=== PATIENT | male | born 1940 | race Caucasian/White ===

== ENCOUNTER → 2017-09-26 06:50 | Outpatient (CLI) | payer MEDICARE, SELFPAY ==
--- NOTE | 2017-09-26 06:55 | NM_ITS ---
History and Indications: Coronary artery disease, hypertension, diabetes, hyperlipidemia and shortness of breath Procedure: Patient received a 0.4 mg of Lexiscan, resting heart rate was 69 bpm resting blood pressure 148/80, with Lexiscan maximum heart rate achieved was 85 bpm which is less than 85% of the maximum predicted heart rate and a blood pressure was 123/63. With Lexiscan patient complained of shortness of breath and stomach discomfort. Electrocardiogram: Resting electrocardiogram showed sinus rhythm, with Lexiscan there is less than 1.[address] segment depression noted from the baseline EKG. Portion of the Lexiscan is nondiagnostic. Cardiac stress and resting SPECT images: Cardiac stress and rest SPECT images were obtained using technetium 99 Myoview 10.4 mCi at rest and 32.4 mCi at stress, gated SPECT further analysis of segmental wall motion and calculation of the ejection fraction also done. Cardiac stress and rest images show a fixed defect involving the inferior and posterobasal wall with normal contractility in the gated SPECT is likely secondary to soft tissue attenuation, no reversible ischemia seen. Computer derived ejection fraction is 64% with no obvious regional wall motion abnormality, right ventricle is normal size and contractility. Conclusion: 1. The EKG portion of the Lexiscan Myoview is nondiagnostic. 2. No obvious scintigraphic evidence of reversible ischemia seen, either derived ejection fraction is 64% with no obvious regional wall motion abnormality, right ventricle is normal size and contractility.
--- NOTE | 2017-09-26 06:57 | CA_ITS ---
PROCEDURE: 2-D M-mode and color Doppler study INDICATIONS FOR THE TEST: Chest pain COPD Heart Murmur Tobacco Smoking Palpitations Fatigue Syncope Edema Hypertension+Diabetes Mellitus+ Rheumatic Fever SOB+NUGENT Obesity Hyperlipidemia+ Family History HD Additional History PATIENT INFORMATION HEIGHT: 72 WEIGHT:218 GENDER: Male B/P:148/72 2-D/M-MODE INTERPRETATION: 2-D MEASUREMENTS OBSERVED VALUES IN CMS Right Ventricular Dimension (RVDd) 3.0 Interventricular Septum (Thickness)(IVsd) 1.5 Left Ventricular Internal Dimensions(LVIDd) 4.5 Left Ventricular Posterior Wall (Thickness)(LVPWd) 1.3 Aortic Root 4.0 Aortic Cusp Separation 2.2 Left Atrial Dimensions (LAD) 4.5 2D 1. Technically difficult study because of the patient's factor and poor acoustic windows 2. The left atrium is mildly enlarged, left ventricle is normal size, there is mild concentric left ventricular hypertrophy, visually estimated ejection fraction 55% with no obvious regional wall motion abnormality. 3. The right atrium and right ventricle are mildly enlarged with normal contractility. 4. The aortic valve is minimally thickened and fibrosed. 5. The mitral and tricuspid valve leaflets are minimally thickened. 6. No significant pericardial effusion noted. DOPPLER INTERROGATION: Doppler interrogation of the aortic, mitral and tricuspid valvular presence of mild mitral and tricuspid regurgitation, tricuspid and jet velocity insufficient for calculation of the right ventricular systolic pressure, grade 1 diastolic dysfunction seen without tissue Doppler evidence of raised left atrial pressure. CONCLUSION: 1. Mildly enlarged left atrium, normal left ventricular size, mild concentric left ventricular hypertrophy, visually estimated ejection fraction 55% with no obvious regional wall motion abnormality, grade 1 diastolic dysfunction seen without tissue Doppler evidence of raised left atrial pressure. 2. Mild mitral and tricuspid regurgitation 3. No significant pericardial effusion noted.
--- NOTE | 2017-09-26 10:35 | HMH.ITSHM ---
METFORMIN INSULIN COREG LISINOPRIL PLAVIX BLOOD PRESSURE MED
== END ==
PROVIDERS: PCP Family Medicine; Visit Provider Internal Medicine
DX: R94.31 Abnormal electrocardiogram [ECG] [EKG]; I25.10 Atherosclerotic heart disease of native coronary artery without angina pectoris; E78.4 Other hyperlipidemia; R06.02 Shortness of breath; R06.01 Orthopnea; E11.9 Type 2 diabetes mellitus without complications; R06.00 Dyspnea, unspecified
CPT/HCPCS: 78452; 93017; 93306; A9502; J2785

== ENCOUNTER 2019-02-12 14:35 | Inpatient (IN) ==
[2019-02-12 14:59] LABS: Basophils # 0.1 K/mm3 (0-0.2); Basophils % 0.7 % (0.1-2.0); Eosinophils # 0.4 K/mm3 (0.0-0.4); Eosinophils % 2.9 % (0.1-12.0); Lymphocytes # 1.6 K/mm3 (0.7-4.5); Lymphocytes % 11.6 % (10-50); Mean Corpuscular HGB Conc 29.7 g/dL (31.8-35.4); Mean Corpuscular Volume 95.5 fl (80-94); Mean Platelet Volume 8.2 fl (7.4-10.4); Monocytes # 0.9 K/mm3 (0.1-1.0); Monocytes % 6.6 % (1.7-9.3); Neutrophils # 10.7 K/mm3 (1.8-7.8); Neutrophils % 78.3 % (37.0-80.0); Red Blood Count 2.26 M/mm3 (4.60-6.20); Red Cell Distribution Width 16.6 % (11.5-17.5); White Blood Count 13.7 K/mm3 (4.8-10.8)
[2019-02-12 15:05] LABS: Albumin/Globulin Ratio 0.4 (1.1-1.8); Anion Gap 16.3 mEq/L (5-15); Bilirubin,Total 0.2 mg/dL (0.2-1.0); Calcium 8.6 mg/dL (8.5-10.1); Globulin 5.2 gm/dl (1.3-3.2); Total Protein,Serum 7.2 gm/dL (6.4-8.2)
--- NOTE | 2019-02-12 15:08 | Emergency Department Note ---
ED Disposition Clinical Impression: Anemia, blood loss, Upper GI bleed Urinary tract infection Qualifiers: Urinary tract infection type: site unspecified Hematuria presence: with hematuria Qualified Code(s): N39.0 - Urinary tract infection, site not specified; R31.9 - Hematuria, unspecified Chronic renal failure Qualifiers: Chronic kidney disease stage: unspecified stage Qualified Code(s): N18.9 - Chronic kidney disease, unspecified Disposition: Admitted As Inpatient Condition on Discharge: Fair - Critical Care Critical Care Time: No Attestation: On 02/12/19, the high probability of a clinically significant, sudden or life threatening deterioration of the following system(s) required my full and direct attention, intervention and personal management. The time I documented below is in addition to time spent performing reported procedures but includes the following listed in this critical care notation. Medical Decision Making - John Inquiry Pt receiving controlled substance: No Vital Signs: 02/12/19 14:33 02/12/19 16:32 Temperature 98.1 F Temperature Source Oral Pulse Rate [Right Radial] 85 78 Respiratory Rate 18 17 Blood Pressure [Right Arm] 108/58 L 95/55 L Blood Pressure Mean [Right Arm] 74 68 Blood Pressure Source [Right Arm] Automatic Cuff Automatic Cuff Blood Pressure Position [Right Arm] Sitting Sitting 02 Sat by Pulse Oximetry 95 95 Oxygen Delivery Method Nasal Cannula Nasal Cannula Oxygen Flow Rate (LPM) 2 2 - Lab Data Lab Results 02/12/19 14:39: WBC 13.7 H, RBC 2.26 L, Hgb 6.4 L*, Hct 21.6 L*, MCV 95.5 H, MCH 28.4, MCHC 29.7 L, RDW 16.6, Plt Count 780 H, MPV 8.2, Neut % (Auto) 78.3, Lymph % (Auto) 11.6, [place] % (Auto) 6.6, Eos % (Auto) 2.9, Baso % (Auto) 0.7, Neut # (Auto) 10.7 H, Lymph # (Auto) 1.6, [place] # (Auto) 0.9, Eos # (Auto) 0.4, Baso # (Auto) 0.1 02/12/19 14:39: Sodium 135 L, Potassium 5.3 H, Chloride 98, Carbon Dioxide 26, Anion Gap 16.3 H, BUN 73 H, Creatinine 3.45 H, Estimated Creat Clear 21, Estimated GFR 17 L*, Est GFR ( Amer) 21 L, Glucose 168 H, Calcium 8.6, Total Bilirubin 0.2, AST 14 L, ALT 23, Alkaline Phosphatase 109, Total Protein 7.2, Albumin 2.0 L, Globulin 5.2 H, Albumin/Globulin Ratio 0.4 L 02/12/19 15:15: Stool Occult Blood Negative 02/12/19 16:15: Urine Color Yellow, Urine Appearance Clear, Urine pH 6.5, Ur Specific [place] 1.015, Urine Protein 1+, Urine Glucose (UA) Negative, Urine Ketones Negative, Urine Blood 2+, Urine Nitrate Positive, Urine Bilirubin Negative, Urine Urobilinogen 0.2, Ur Leukocyte Esterase 3+ A, Urine RBC 3-5, Urine WBC 50-100, Ur Squamous Epith Cells Occasional, Urine Bacteria 1+ Result diagrams: 02/12/19 14:39 02/12/19 14:39 Orders (Tests/Meds): ORDERS Category Date Time Status Urine Culture Stat Micro 02/12/19 16:15 Received - Physician Consults Physician Consulted: Hadley Time: 16:18 Reason -: Admission Comment/Response: Agrees to admit the patient to the hospital. We discussed the patient's clinical information, including history, exam, laboratory and radiology results and ED course. Per hospital procedure, I will write temporary bridge inpatient orders on the patient. Specific orders requested by the admitting physician: Transfused 2 units packed red blood cells. He will see him soon. Medical Decision Narrative: 4:11 PM: Patient's is now here. Patient has urinated in a urinal in the emergency department and is extremely cloudy urine. She says that it has been this way for a couple of weeks. She says that his urine smells. Urine analysis ordered. Discussed hemoglobin results and need for admission and transfusion. General Adult HPI - General Chief complaint: GI Bleed Stated complaint: BLACK TARRY STOOL Time Seen by Provider: 02/12/19 15:08 Mode of Arrival: EMS Limitations: No Limitations Description of Symptoms (Recalled from ER Triage Doc. by RN): PT WAS SENT TO ED VIA EMS PER HOME HEALTH NURSE. PT C/O BLACK TARRY STOOLS THAT BEGAN 6 DAYS. PT STATES THAT HIS LAST BM WAS 2 DAYS AGO. PT ADVISES THAT HE HAD BLOOD DRAWN 6 DAYS AGO AND WAS SAID TO BE ANEMIC. PT DENIES ANY ABD PAIN, N/V OR NEW ONSET SOA. - History of Present Illness HPI narrative: States he has had black tarry stools that he noticed first about a days ago. Denies abdominal pain, vomiting, hematemesis. Today he just complains of feeling generally weak. He says his home health nurse saw him today and told him that he looked bad and that he needed to come to the emergency room. He does not recall any prior history of GI bleed and to his knowledge he has not had upper or lower endoscopy in the past. He is noted to be on aspirin and Plavix. - Related Data Home Medications Medication Instructions Recorded Confirmed aspirin 81 mg tablet,delayed 81 mg PO DAILY tab 09/18/17 12/13/18 release glipizide 10 mg tablet 20 mg PO BID tab 09/18/17 12/13/18 insulin aspart U-100 100 unit/mL 36 unit SUB-Q QAM ml 09/18/17 12/13/18 subcutaneous solution metformin 1,000 mg tablet 1,000 mg PO BID 09/18/17 12/13/18 nitroglycerin 0.4 mg sublingual 0.4 mg SUBLINGUAL Q5M PRN 09/18/17 12/13/18 tablet ranitidine 150 mg tablet 150 mg PO BID tab 09/18/17 12/13/18 Amlodipine Besylate [Amlodipine 10 mg PO DAILY 12/13/18 12/13/18 10mg Tab] Atorvastatin Calcium [Lipitor 20mg 20 mg PO DAILY 12/13/18 12/13/18 Tablet] Clopidogrel Bisulfate [Plavix 75mg 75 mg PO DAILY 12/13/18 12/13/18 Tab] Furosemide [Furosemide 20mg Tab] 20 mg PO DAILY 12/13/18 12/13/18 Lisinopril [Prinivil 20mg Tablet] 20 mg PO BID 12/13/18 12/13/18 Previous Rx's Medication Instructions Recorded carvedilol 12.5 mg tablet 12.5 mg PO BID #60 tab 02/11/19 Allergies Allergy/AdvReac Type Severity Reaction Status Date / Time No Known Allergies Allergy Verified 10/02/18 09:00 [facility] History - Hepatitis A Screen Drug use history?: No High risk sexual behaviors?: No History of sexually transmitted infection?: No Currently employed?: No Childcare worker?: No Do you have indoor plumbing?: Yes Do you have electricity?: Yes Attestation statement:: This patient has been screened for Hepatitis A risk factors. I have reviewed the patient's past medical history: Yes Medical History: Reports:: Cancer, Coronary Artery Disease, Diabetes Mellitus Type 2, Gastroesophageal Reflux Disease(GERD), Hyperlipidemia, Hypertension Other Surgeries: Yes: Cardiac Catheterization - Social History Smoking Status: Former smoker Alcohol Intake: never Alcohol Intake Frequency:: other Substance Use Type: denies use Occupational Status: unemployed, disabled Family Hx:: Heart Attack ROS Obtained: Yes All systems reviewed & no additional complaints - Constitutional Constitutional: Reports fatigue, Denies fever(s) - Cardiovascular Cardiovascular: Denies chest pain - Respiratory Respiratory: No dyspnea - Gastrointestinal Gastrointestingal: Reports: black, tarry stools. Denies: abdominal pain, bright red blood in stools, vomiting - Neurologic Neurologic: Denies headache(s) Physical Exam - General General appearance: alert, in no apparent distress - Head Head exam: atraumatic, normocephalic - Eye Eye exam: Present: normal appearance, EOMI - ENT ENT exam: Present: mucous membranes moist - Neck Neck exam: Present: normal inspection, trachea midline - Chest Chest inspection: Present: normal inspection, symmetric chest wall rise - Respiratory Respiratory exam: Present: normal lung sounds bilaterally. Absent: respiratory distress - Cardiovascular Cardiovascular exam: Present: regular rate, normal rhythm, normal heart sounds - Abdominal Exam Abdominal exam: Present: soft, normal bowel sounds. Absent: distention, tenderness, guarding - Rectal Exam Rectal exam: Present: normal inspection, normal rectal tone. Absent: black stool, bloody stool, fecal impaction, mass, tenderness comment: Bandage over coccyx area, which he says is covering a bedsore. Light brown-colored stool - Extremities Exam Extremities exam: Present: normal inspection - Neurological Exam Neurological exam: Present: alert, oriented X3 - Psychiatric Psychiatric exam: Present: normal affect, normal mood - Skin Skin exam: Present: warm, dry
[2019-02-12 15:46] LABS: Hemoglobin 6.4 g/dL (14.1-18.0)
[2019-02-12 15:47] LABS: Hematocrit 21.6 % (42.0-52.0); Platelet Count 780 K/mm3 (142-424)
[2019-02-12 16:22] LABS: Microscopic, Urine URINE MICROSCOPIC (MICROSCOPIC)
[2019-02-12 16:29] LABS: Appearance,Urine CLEAR (Clear); Bilirubin,Urine Negative (Negative); Blood, Urine 2+ (Negative); Color,Urine YELLOW (Yellow); Glucose,Urine (UA) Negative (Negative); Ketones,Urine Negative (Negative); Leukocyte Esterase,Urine 3+ (Negative); PH,Urine 6.5 (5.0-8.5); Protein,Urine 1+ (Negative); Specific Gravity, Urine 1.015 (1.005-1.030); Urobilinogen,Urine 0.2 EU/dl (0.2)
[2019-02-12 16:43] LABS: Bacteria,Urine 1+ /lpf; Squamous Epithelial Cell,Urine Occasional #/hpf (0-5); WBC,Urine 50-100 #/hpf (0-3)
--- NOTE | 2019-02-12 17:49 | History & Physical Report ---
*Admission Date: 02/12/19 *Chief complaint: Weakness *History of present illness: 78-year-old male brought to the emergency department because for the last week he is developed progressive weakness with loss of appetite in 1 week ago began passing dark black stools. He has no personal history of ulcer disease. He does take aspirin and Plavix. While he endorses loss of appetite he denies any abdominal pain. He has never had an EGD or colonoscopy. In the emergency department he was found to be anemic with acute kidney injury and he was mildly hypotensive. Stool was negative for blood but history would indicate upper GI bleed. Patient is been admitted for IV fluids and transfusion of 2 units of pa cked red blood cells. notified the ER physician that the patient had an abnormal appearance to his urine and urinalysis was performed which also supports urinary tract infection. Patient has been started on Rocephin intravenously [facility] History I have reviewed the patient's past medical history: Yes Medical History: Reports:: Cancer, Coronary Artery Disease, Diabetes Mellitus Type 2, Gastroesophageal Reflux Disease(GERD), Hyperlipidemia, Hypertension *Have you ever received a pneumonia vaccine?: Yes *Have you received a flu vaccine this season?: Yes Other Surgeries: Yes: Cardiac Catheterization - *Social History Smoking Status: Former smoker Alcohol Intake: never Alcohol Intake Frequency:: other Substance Use Type: denies use *Occupational Status:: unemployed, disabled *Travel in the last 8 weeks: None Family Hx:: Heart Attack Review of Systems - Constitutional Reports anorexia, Reports fatigue, Reports weakness, Denies body ache(s), Denies chills, Denies fever(s), Denies night sweats - *Cardiovascular Denies chest pain - *Respiratory Denies change in phlegm color, Denies chest congestion, Denies cough, Denies shortness of breath - *Gastrointestinal Denies abdominal pain, Denies belching, Denies bloating, Denies change in bowel habits - *Genitourinary Denies difficulty urinating, Denies difficulty with ejaculations - *Musculoskeletal Denies abnormal walking - Integumentary/Breasts Denies acne, Denies hair loss, Denies bleeding lesions - *Neurologic Denies abnormal walking, Denies headache(s) Meds Home Medications Medication Instructions Recorded Confirmed Type aspirin 81 mg tablet,delayed 81 mg PO DAILY tab 09/18/17 12/13/18 History release glipizide 10 mg tablet 20 mg PO BID tab 09/18/17 12/13/18 History insulin aspart U-100 100 unit/mL 36 unit SUB-Q QAM ml 09/18/17 12/13/18 History subcutaneous solution metformin 1,000 mg tablet 1,000 mg PO BID 09/18/17 12/13/18 History nitroglycerin 0.4 mg sublingual 0.4 mg SUBLINGUAL Q5M PRN 09/18/17 12/13/18 History tablet ranitidine 150 mg tablet 150 mg PO BID tab 09/18/17 12/13/18 History Amlodipine Besylate [Amlodipine 10 mg PO DAILY 12/13/18 12/13/18 History 10mg Tab] Atorvastatin Calcium [Lipitor 20mg 20 mg PO DAILY 12/13/18 12/13/18 History Tablet] Clopidogrel Bisulfate [Plavix 75mg 75 mg PO DAILY 12/13/18 12/13/18 History Tab] Furosemide [Furosemide 20mg Tab] 20 mg PO DAILY 12/13/18 12/13/18 History Lisinopril [Prinivil 20mg Tablet] 20 mg PO BID 12/13/18 12/13/18 History carvedilol 12.5 mg tablet 12.5 mg PO BID #60 tab 02/11/19 Rx Allergies Allergy/AdvReac Type Severity Reaction Status Date / Time No Known Allergies Allergy Verified 10/02/18 09:00 Exam Vital signs and Labs for Last 24 Hours: Temp Pulse Resp BP Pulse Ox 98.1 F 82 17 92/52 L 96 02/12/19 14:33 02/12/19 17:27 02/12/19 16:32 02/12/19 17:27 02/12/19 17:27 Laboratory Results - last 24 hr 02/12/19 14:39: WBC 13.7 H, RBC 2.26 L, Hgb 6.4 L*, Hct 21.6 L*, MCV 95.5 H, MCH 28.4, MCHC 29.7 L, RDW 16.6, Plt Count 780 H, MPV 8.2, Neut % (Auto) 78.3, Lymph % (Auto) 11.6, [place] % (Auto) 6.6, Eos % (Auto) 2.9, Baso % (Auto) 0.7, Neut # (Auto) 10.7 H, Lymph # (Auto) 1.6, [place] # (Auto) 0.9, Eos # (Auto) 0.4, Baso # (Auto) 0.1 02/12/19 14:39: Sodium 135 L, Potassium 5.3 H, Chloride 98, Carbon Dioxide 26, Anion Gap 16.3 H, BUN 73 H, Creatinine 3.45 H, Estimated Creat Clear 21, Estimated GFR 17 L*, Est GFR ( Amer) 21 L, Glucose 168 H, Calcium 8.6, Total Bilirubin 0.2, AST 14 L, ALT 23, Alkaline Phosphatase 109, Total Protein 7.2, Albumin 2.0 L, Globulin 5.2 H, Albumin/Globulin Ratio 0.4 L 02/12/19 15:15: Stool Occult Blood Negative 02/12/19 16:15: Urine Color Yellow, Urine Appearance Clear, Urine pH 6.5, Ur Specific [place] 1.015, Urine Protein 1+, Urine Glucose (UA) Negative, Urine Ketones Negative, Urine Blood 2+, Urine Nitrate Positive, Urine Bilirubin Negative, Urine Urobilinogen 0.2, Ur Leukocyte Esterase 3+ A, Urine RBC 3-5, Urine WBC 50-100, Ur Squamous Epith Cells Occasional, Urine Bacteria 1+ 02/12/19 17:10: Crossmatch (AHG) See Detail I & O for Last 24 hours: Intake & Output 02/10/19 02/11/19 02/12/19 02/13/19 11:59 11:59 11:59 11:59 Weight 190 lb - Constitutional no acute distress Comments: Pale - *Routine HEENT Exam Head: Present: normocephalic Eye: Present: EOMI ENT: Present: mucous membranes moist - *Routine Neck Exam Present: supple, full ROM - *Routine Respiratory Exam Present: CTA bilaterally - *Routine Cardiovascular Exam Present: RRR, Normal S1, Normal S2 - *Routine Abdominal Exam Present: soft, normoactive bowel sounds. Absent: tenderness, distended, rebound - *Routine Extremities Exam Present: full ROM. Absent: cyanosis, clubbing - *Routine Skin Exam Present: intact Assessment and Plan (1) Upper GI bleed Current visit: Yes Status: Acute Category: Medical Code(s): K92.2 - Gastrointestinal hemorrhage, unspecified (2) Acute kidney injury Current visit: Yes Status: Acute Category: Medical Code(s): N17.9 - Acute kidney failure, unspecified (3) Anemia, blood loss Current visit: Yes Status: Acute Category: Medical Code(s): D50.0 - Iron deficiency anemia secondary to blood loss (chronic) (4) UTI (urinary tract infection) Current visit: Yes Status: Acute Qualifiers: Urinary tract infection type: site unspecified Hematuria presence: with hematuria Qualified Code(s): N39.0 - Urinary tract infection, site not specified; R31.9 - Hematuria, unspecified Category: Medical Code(s): N39.0 - Urinary tract infection, site not specified - Assessment and plan all Dx Assessment and Plan for all problems:: 1. Admit for transfusion of 2 units of packed red blood cells with 1 hour posttransfusion H&H and repeat CBC in a.m. 2. Rocephin 1 g IV daily 3. Repeat BMP in a.m. 4. Hold glipizide and metformin for diabetes. Patient will be given sliding scale insulin 5. Hold hypertensive medications due to hypotension. Continue normal saline at 100 mL's an hour
[2019-02-13 04:19] LABS: Hematocrit 24.8 % (42.0-52.0)
[2019-02-13 04:22] LABS: Hemoglobin 7.9 g/dL (14.1-18.0)
[2019-02-13 06:26] LABS: Basophils # 0.1 K/mm3 (0-0.2); Basophils % 0.4 % (0.1-2.0); Eosinophils # 0.2 K/mm3 (0.0-0.4); Eosinophils % 1.7 % (0.1-12.0); Hemoglobin 8.1 g/dL (14.1-18.0); Lymphocytes # 1.1 K/mm3 (0.7-4.5); Lymphocytes % 7.8 % (10-50); Mean Corpuscular HGB Conc 31.3 g/dL (31.8-35.4); Mean Corpuscular Volume 92.8 fl (80-94); Mean Platelet Volume 8.1 fl (7.4-10.4); Monocytes # 0.9 K/mm3 (0.1-1.0); Monocytes % 6.1 % (1.7-9.3); Neutrophils # 12.4 K/mm3 (1.8-7.8); Neutrophils % 84.2 % (37.0-80.0); Platelet Count 644 K/mm3 (142-424); Red Cell Distribution Width 15.9 % (11.5-17.5); White Blood Count 14.7 K/mm3 (4.8-10.8)
--- NOTE | 2019-02-13 06:26 | Consult Report ---
*Admission Date: 02/12/19 *Reason for consult:: Gastrointestinal hemorrhage *History of present illness: This is an 78-year-old gentleman seen in consultation from Dr. Butcher for evaluation regarding likely upper gastrointestinal bleed. Over the past "week or so" he has had some increasing weakness and loss of appetite. His stools have become significantly darker. No bright red blood per rectum. No hemat emesis. He does take aspirin and Plavix. He has no history of endoscopy. No definite history of peptic ulcer disease. He has received 2 units of packed red blood cells since admission and states he "feels much better right now". Review of Systems - Constitutional Denies chills - Eyes Denies change in vision - ENT Denies headache(s) - *Cardiovascular Denies chest pain - *Respiratory Denies cough - *Gastrointestinal Denies abdominal pain, Denies vomiting blood - *Genitourinary Denies side pain - *Musculoskeletal Denies neck pain - Integumentary/Breasts Denies lesions - *Neurologic Reports weakness, Denies abnormal walking, Denies headache(s) - Psychiatric Denies anxiety - Endocrine Denies cold intolerance - Hematologic/Lymphatic Denies enlarged lymph nodes [facility] History Medical History: Reports:: Cancer, Coronary Artery Disease, Diabetes Mellitus Type 2, Gastroesophageal Reflux Disease(GERD), Hyperlipidemia, Hypertension Denies:: Diabetes Mellitus Type 1, MRSA *Have you ever received a pneumonia vaccine?: Yes *Have you received a flu vaccine this season?: Yes Other Surgeries: Yes: Cardiac Catheterization Amputation: No - *Social History Smoking Status: Former smoker Alcohol Intake: never Alcohol Intake Frequency:: other Substance Use Type: denies use *Occupational Status:: unemployed, disabled Housing: house Household Members: spouse *Travel in the last 8 weeks: None Family Hx:: Heart Attack Meds Home Medications Medication Instructions Recorded Confirmed Type aspirin 81 mg tablet,delayed 81 mg PO DAILY tab 09/18/17 02/12/19 History release insulin aspart U-100 100 unit/mL 30 unit SUB-Q HS ml 09/18/17 02/12/19 History subcutaneous solution metformin 1,000 mg tablet 1,000 mg PO BID 09/18/17 02/12/19 History Amlodipine Besylate [Amlodipine 10 mg PO DAILY 12/13/18 02/12/19 History 10mg Tab] Atorvastatin Calcium [Lipitor 20mg 20 mg PO DAILY 12/13/18 02/12/19 History Tablet] Clopidogrel Bisulfate [Plavix 75mg 75 mg PO DAILY 12/13/18 02/12/19 History Tab] Furosemide [Furosemide 20mg Tab] 20 mg PO DAILY 12/13/18 02/12/19 History Lisinopril [Prinivil 20mg Tablet] 20 mg PO BID 12/13/18 02/12/19 History carvedilol 12.5 mg tablet 12.5 mg PO BID #60 tab 02/11/19 02/12/19 Rx Allergies Allergy/AdvReac Type Severity Reaction Status Date / Time No Known Allergies Allergy Verified 10/02/18 09:00 Exam Vital signs and Labs for Last 24 Hours: Temp Pulse Resp BP Pulse Ox 98.7 F 84 18 118/62 95 02/13/19 03:42 02/13/19 03:42 02/13/19 03:42 02/13/19 03:42 02/13/19 03:42 Laboratory Results - last 24 hr 02/12/19 14:39: WBC 13.7 H, RBC 2.26 L, Hgb 6.4 L*, Hct 21.6 L*, MCV 95.5 H, MCH 28.4, MCHC 29.7 L, RDW 16.6, Plt Count 780 H, MPV 8.2, Neut % (Auto) 78.3, Lymph % (Auto) 11.6, [place] % (Auto) 6.6, Eos % (Auto) 2.9, Baso % (Auto) 0.7, Neut # (Auto) 10.7 H, Lymph # (Auto) 1.6, [place] # (Auto) 0.9, Eos # (Auto) 0.4, Baso # (Auto) 0.1 02/12/19 14:39: Sodium 135 L, Potassium 5.3 H, Chloride 98, Carbon Dioxide 26, Anion Gap 16.3 H, BUN 73 H, Creatinine 3.45 H, Estimated Creat Clear 21, E stimated GFR 17 L*, Est GFR ( Amer) 21 L, Glucose 168 H, Calcium 8.6, Total Bilirubin 0.2, AST 14 L, ALT 23, Alkaline Phosphatase 109, Total Protein 7.2, Albumin 2.0 L, Globulin 5.2 H, Albumin/Globulin Ratio 0.4 L 02/12/19 15:15: Stool Occult Blood Negative 02/12/19 16:15: Urine Color Yellow, Urine Appearance Clear, Urine pH 6.5, Ur Specific [place] 1.015, Urine Protein 1+, Urine Glucose (UA) Negative, Urine Ketones Negative, Urine Blood 2+, Urine Nitrate Positive, Urine Bilirubin Negative, Urine Urobilinogen 0.2, Ur Leukocyte Esterase 3+ A, Urine RBC 3-5, Urine WBC 50-100, Ur Squamous Epith Cells Occasional, Urine Bacteria 1+ 02/12/19 17:10: Blood Type O Positive, Antibody Screen Negative, Crossmatch (AHG) See Detail 02/12/19 18:33: Blood Type Confirm O Positive 02/12/19 22:03: POC Glucose 191 H 02/13/19 04:00: Hgb 7.9 L* D, Hct 24.8 L I & O for Last 24 hours: Intake & Output 02/10/19 02/11/19 02/12/19 02/13/19 11:59 11:59 11:59 11:59 Intake Total 490 / 490 Balance 490 / 490 Weight 181 lb 2 oz - Constitutional no acute distress - *Routine Respiratory Exam Absent: respiratory distress - *Routine Cardiovascular Exam Present: RRR - *Routine Abdominal Exam Present: soft Results - Labs 02/13/19 04:00 02/12/19 14:39 Laboratory Results - last 24 hr 02/12/19 14:39: WBC 13.7 H, RBC 2.26 L, Hgb 6.4 L*, Hct 21.6 L*, MCV 95.5 H, MCH 28.4, MCHC 29.7 L, RDW 16.6, Plt Count 780 H, MPV 8.2, Neut % (Auto) 78.3, Lymph % (Auto) 11.6, [place] % (Auto) 6.6, Eos % (Auto) 2.9, Baso % (Auto) 0.7, Neut # (Auto) 10.7 H, Lymph # (Auto) 1.6, [place] # (Auto) 0.9, Eos # (Auto) 0.4, Baso # (Auto) 0.1 02/12/19 14:39: Sodium 135 L, Potassium 5.3 H, Chloride 98, Carbon Dioxide 26, Anion Gap 16.3 H, BUN 73 H, Creatinine 3.45 H, Estimated Creat Clear 21, Estimated GFR 17 L*, Est GFR ( Amer) 21 L, Glucose 168 H, Calcium 8.6, Total Bilirubin 0.2, AST 14 L, ALT 23, Alkaline Phosphatase 109, Total Protein 7.2, Albumin 2.0 L, Globulin 5.2 H, Albumin/Globulin Ratio 0.4 L 02/12/19 15:15: Stool Occult Blood Negative 02/12/19 16:15: Urine Color Yellow, Urine Appearance Clear, Urine pH 6.5, Ur Specific [place] 1.015, Urine Protein 1+, Urine Glucose (UA) Negative, Urine Ketones Negative, Urine Blood 2+, Urine Nitrate Positive, Urine Bilirubin N egative, Urine Urobilinogen 0.2, Ur Leukocyte Esterase 3+ A, Urine RBC 3-5, Urine WBC 50-100, Ur Squamous Epith Cells Occasional, Urine Bacteria 1+ 02/12/19 17:10: Blood Type O Positive, Antibody Screen Negative, Crossmatch (AHG) See Detail 02/12/19 18:33: Blood Type Confirm O Positive 02/12/19 22:03: POC Glucose 191 H 02/13/19 04:00: Hgb 7.9 L* D, Hct 24.8 L Assessment and Plan (1) Upper GI bleed Current visit: Yes Status: Acute Category: Medical Code(s): K92.2 - Gastrointestinal hemorrhage, unspecified Continue PPI Esophagogastroduodenoscopy this morning I have discussed the risks and benefits including, but not limited to: Bleeding Infection Damage to surrounding tissue Inherent risks of sedation The patient agrees to proceed. (2) Acute kidney injury Current visit: Yes Status: Acute Category: Medical Code(s): N17.9 - Acute kidney failure, unspecified (3) Anemia, blood loss Current visit: Yes Status: Acute Category: Medical Code(s): D50.0 - Iron deficiency anemia secondary to blood loss (chronic) (4) UTI (urinary tract infection) Current visit: Yes Status: Acute Qualifiers: Urinary tract infection type: site unspecified Hematuria presence: with hematuria Qualified Code(s): N39.0 - Urinary tract infection, site not specified; R31.9 - Hematuria, unspecified Category: Medical Code(s): N39.0 - Urinary tract infection, site not specified
[2019-02-13 06:37] LABS: Anion Gap 13.1 mEq/L (5-15); Calcium 8.4 mg/dL (8.5-10.1)
--- NOTE | 2019-02-13 07:40 | Procedure Note ---
- Procedure: Date: 02/13/19 Procedure Performed:: Esophagogastroduodenoscopy with biopsy Indications:: Upper gastrointestinal hemorrhage Performing Provider:: Jd Sampson MD Referring Provider:: Dr. Butcher Sedation:: Monitored anesthesia care Procedure:: After informed consent was obtained the patient was taken to the endoscopy suite. Sedation ensued after the patient was transferred to the left lateral decubitus position. Pulse, blood pressure, and oxygen saturation were monitored throughout the procedure. The endoscope was advanced beyond the duodenal bulb. Retroflexion within the gastric lumen was accomplished. The gastroscope was carefully removed and the patient was transferred to recovery in stable condition. Please see "findings" and "specimens" below for detail. Findings:: Sliding hiatal hernia Small erosion at gastroesophageal junction 3 tiny antral ulcerations with no sign of active bleeding 4 separate duodenal bulb/distal duodenal ulcerations with no sign of active hemorrhage Fibrinous exudate at base of complex ulcerations Specimens:: Antral biopsy Recommendations:: Continue PPI Begin Carafate Repeat EGD in 4-6 weeks Complications:: No immediate Estimated blood obtained (mL): 1
--- NOTE | 2019-02-13 07:57 | Progress Note ---
[facility] Anesthesia Checklist - Patient Identification Patient Identification: Arm Band, Verbal (Name & ) - Structural Data Admitted From: Inpatient Planned Operative Procedure/s: egd Consent for Planned Operative Procedure(s) Verified: Yes Verified Documents: History and Physical - NPO Status Verified Time NPO: 00:00 - Additional verifications Patient : No Anesthesia Reactions: No Hx Blood Transfusions: No Blood Transfusion Reaction: No Cephalosporin Allergy: No Previous Colonoscopy: Yes - Cardiovascular Assessment Heart Sounds: S1 & S2 Pulse Strength: Baseline Pulse Rhythm: Regular Peripheral Edema: No - Airway Assessment C-Spine Mobility Assessed: Yes TMJ Mobility Assessed: Yes Dentition: Good Dentition - Neurological Assessment Level of Consciousness: Awake, Alert, Appropriate Hx Seizures: No Numbness or tingling in extremities: No - Anesthesia Plan Anesthesia Risk discussed: Yes Anesthesia Plan: Verified ASA Class: III Anesthesia Type: MAC [facility] History I have reviewed the patient's past medical history: Yes Medical History: Reports:: Cancer, Coronary Artery Disease, Diabetes Mellitus Type 2, Gastroesophageal Reflux Disease(GERD), Hyperlipidemia, Hypertension Denies:: Diabetes Mellitus Type 1, MRSA *Have you ever received a pneumonia vaccine?: Yes *Have you received a flu vaccine this season?: Yes Other Surgeries: Yes: Cardiac Catheterization Amputation: No - *Social History Smoking Status: Former smoker Alcohol Intake: never Alcohol Intake Frequency:: other Substance Use Type: denies use *Occupational Status:: unemployed, disabled Housing: house Household Members: spouse *Travel in the last 8 weeks: None Family Hx:: Heart Attack
--- NOTE | 2019-02-13 07:59 | Progress Note ---
Internal Medicine - PN: Subj *Date: 02/13/19 *Time: 07:57 Interval history: Patient has just completed his EGD which revealed peptic ulcer disease but no active bleeding. Patient admits he feels a little bit better this morning after his blood transfusion. His H&H has remained stable posttransfusion. Staff report mild elevation of his heart rate to the 120s. On the monitor it appears to be sinus tachycardia but we will get an EKG today. Exam Vital signs and Labs for Last 24 Hours: Temp Pulse Resp BP Pulse Ox 98.7 F 84 18 118/62 95 02/13/19 03:42 02/13/19 03:42 02/13/19 03:42 02/13/19 03:42 02/13/19 03:42 Laboratory Results - last 24 hr 02/12/19 14:39: WBC 13.7 H, RBC 2.26 L, Hgb 6.4 L*, Hct 21.6 L*, MCV 95.5 H, MCH 28.4, MCHC 29.7 L, RDW 16.6, Plt Count 780 H, MPV 8.2, Neut % (Auto) 78.3, Lymph % (Auto) 11.6, [place] % (Auto) 6.6, Eos % (Auto) 2.9, Baso % (Auto) 0.7, Neut # (Auto) 10.7 H, Lymph # (Auto) 1.6, [place] # (Auto) 0.9, Eos # (Auto) 0.4, Baso # (Auto) 0.1 02/12/19 14:39: Sodium 135 L, Potassium 5.3 H, Chloride 98, Carbon Dioxide 26, Anion Gap 16.3 H, BUN 73 H, Creatinine 3.45 H, Estimated Creat Clear 21, Estimated GFR 17 L*, Est GFR ( Amer) 21 L, Glucose 168 H, Calcium 8.6, Total Bilirubin 0.2, AST 14 L, ALT 23, Alkaline Phosphatase 109, Total Protein 7.2, Albumin 2.0 L, Globulin 5.2 H, Albumin/Globulin Ratio 0.4 L 02/12/19 15:15: Stool Occult Blood Negative 02/12/19 16:15: Urine Color Yellow, Urine Appearance Clear, Urine pH 6.5, Ur Specific [place] 1.015, Urine Protein 1+, Urine Glucose (UA) Negative, Urine Ketones Negative, Urine Blood 2+, Urine Nitrate Positive, Urine Bilirubin Negative, Urine Urobilinogen 0.2, Ur Leukocyte Esterase 3+ A, Urine RBC 3-5, Urine WBC 50-100, Ur Squamous Epith Cells Occasional, Urine Bacteria 1+ 02/12/19 17:10: Blood Type O Positive, Antibody Screen Negative, Crossmatch ( AHG) See Detail 02/12/19 18:33: Blood Type Confirm O Positive 02/12/19 22:03: POC Glucose 191 H 02/13/19 04:00: Hgb 7.9 L* D, Hct 24.8 L 02/13/19 05:58: WBC 14.7 H, RBC 2.80 L, Hgb 8.1 L, Hct 26.0 L, MCV 92.8, MCH 29.1, MCHC 31.3 L, RDW 15.9, Plt Count 644 H, MPV 8.1, Neut % (Auto) 84.2 H, Lymph % (Auto) 7.8 L, [place] % (Auto) 6.1, Eos % (Auto) 1.7, Baso % (Auto) 0.4, Neut # (Auto) 12.4 H, Lymph # (Auto) 1.1, [place] # (Auto) 0.9, Eos # (Auto) 0.2, Baso # (Auto) 0.1 02/13/19 05:58: Sodium 136, Potassium 5.1, Chloride 103, Carbon Dioxide 25, Anion Gap 13.1, BUN 55 H, Creatinine 2.80 H, Estimated Creat Clear 25, Estimated GFR 22 L, Est GFR ( Amer) 27 L D, Glucose 128 H D, Calcium 8.4 L 02/13/19 06:29: POC Glucose 139 H I & O for Last 24 hours: Intake & Output 02/10/19 02/11/19 02/12/19 02/13/19 11:59 11:59 11:59 11:59 Intake Total 1881 Balance 1881 Weight 182 lb 2.003 oz Narrative: Patient appears comfortable. Lungs are clear. Heart is mildly tachycardic. Abdomen is soft without epigastric tenderness Assessment and Plan (1) Upper GI bleed Current visit: Yes Status: Acute Category: Medical Code(s): K92.2 - Gastrointestinal hemorrhage, unspecified (2) Acute kidney injury Current visit: Yes Status: Acute Category: Medical Code(s): N17.9 - Acute kidney failure, unspecified (3) Anemia, blood loss Current visit: Yes Status: Acute Category: Medical Code(s): D50.0 - Iron deficiency anemia secondary to blood loss (chronic) (4) UTI (urinary tract infection) Current visit: Yes Status: Acute Qualifiers: Urinary tract infection type: site unspecified Hematuria presence: with hematuria Qualified Code(s): N39.0 - Urinary tract infection, site not specified; R31.9 - Hematuria, unspecified Category: Medical Code(s): N39.0 - Urinary tract infection, site not specified - Assessment and plan all Dx Assessment and Plan for all problems:: 1. Continue PPI and Dr. Noriega has added Carafate and I will add additional H2 carlos. Clear liquid diet 2. Repeat H&H this afternoon and transfuse if hemoglobin is less than 8 3. Acute kidney injury has improved. Continue to hold metformin and lisinopril, repeat BMP in a.m. 4. Continue treatment of his diabetes with sliding scale insulin coverage 5. EKG on arrival to the floor and I will restart the patient's carvedilol at a lower dose of 12-1/2 mg twice daily 6. Continue to hold aspirin and Plavix
--- NOTE | 2019-02-13 08:14 | Pharmacy Consult Notes ---
[facility] Pharmacy VTE Monitoring - Patient Demographics Admission date: 02/13/19 Report Date: 02/13/19 Time: 08:14 Allergies/Adverse Reactions: Patient Allergies No Known Allergies Allergy (Verified 10/02/18 09:00) Height: 18.29 m Weight: 82.611 kg Patient Problems: Current Active Problems UTI (urinary tract infection) (Acute) Anemia, blood loss (Acute) Upper GI bleed (Acute) Chronic renal failure (Acute) Acute kidney injury (Acute) - VTE Risk Labs: VTE Related Lab Results Hgb 8.1 g/dL (14.1-18.0) L 02/13/19 05:58 Hct 26.0 % (42.0-52.0) L 02/13/19 05:58 Plt Count 644 K/mm3 (142-424) H 02/13/19 05:58 BUN 55 mg/dL (7-18) H 02/13/19 05:58 Creatinine 2.80 mg/dL (0.70-1.30) H 02/13/19 05:58 Estimated Creat Clear 25 mL/min (50-200) 02/13/19 05:58 Was VTE Risk Assessment Performed: Yes VTE Score: 7 VTE Risk Level: Moderate Risk Clinical Trial Participant: No - Prophylaxis VTE Prophylaxis Ordered?: Yes Types of VTE Prophylaxis: TEDS Knee High Location of Applied Device: Bilateral Lower Extremeties
[2019-02-13 16:09] LABS: Hematocrit 24.4 % (42.0-52.0)
[2019-02-13 16:21] LABS: Hemoglobin 7.6 g/dL (14.1-18.0)
[2019-02-14 02:00] LABS: Hematocrit 29.1 % (42.0-52.0)
[2019-02-14 02:04] LABS: Hemoglobin 9.5 g/dL (14.1-18.0)
[2019-02-14 06:44] LABS: Basophils # 0.1 K/mm3 (0-0.2); Basophils % 0.4 % (0.1-2.0); Eosinophils # 0.3 K/mm3 (0.0-0.4); Eosinophils % 2.2 % (0.1-12.0); Hematocrit 30.2 % (42.0-52.0); Hemoglobin 9.5 g/dL (14.1-18.0); Lymphocytes # 1.3 K/mm3 (0.7-4.5); Lymphocytes % 9.3 % (10-50); Mean Corpuscular HGB Conc 31.5 g/dL (31.8-35.4); Mean Corpuscular Volume 93.2 fl (80-94); Mean Platelet Volume 7.9 fl (7.4-10.4); Monocytes % 7.2 % (1.7-9.3); Neutrophils # 11.8 K/mm3 (1.8-7.8); Platelet Count 549 K/mm3 (142-424); Red Blood Count 3.24 M/mm3 (4.60-6.20); Red Cell Distribution Width 15.9 % (11.5-17.5); White Blood Count 14.5 K/mm3 (4.8-10.8)
[2019-02-14 07:10] LABS: Anion Gap 11.2 mEq/L (5-15); Calcium 8.6 mg/dL (8.5-10.1)
--- NOTE | 2019-02-14 07:14 | Progress Note ---
Internal Medicine - PN: Subj *Date: 02/14/19 *Time: 07:12 Interval history: Patient has no complaints this morning. He reports having small bowel movements which were normal in color. Yesterday EGD revealed multiple ulcers. Patient is continuing on PPI and Carafate has been added. He is tolerating liquid diet. PT evaluated the patient and recommended continuing home health physical therapy once he is discharged. He did require an additional 2 units of packed red blood cells yesterday evening after a slight drop in his hemoglobin to 7.6. He did not sleep well because of the transfusion Exam Vital signs and Labs for Last 24 Hours: Temp Pulse Resp BP Pulse Ox 98.7 F 78 20 106/62 L 97 02/14/19 04:00 02/14/19 04:00 02/14/19 04:00 02/14/19 04:00 02/14/19 04:00 Laboratory Results - last 24 hr 02/12/19 16:15: Urine Color Yellow, Urine Appearance Clear, Urine pH 6.5, Ur Specific [place] 1.015, Urine Protein 1+, Urine Glucose (UA) Negative, Urine Ketones Negative, Urine Blood 2+, Urine Nitrate Positive, Urine Bilirubin Negative, Urine Urobilinogen 0.2, Ur Leukocyte Esterase 3+ A, Urine RBC 3-5, Urine WBC 50-100, Ur Squamous Epith Cells Occasional, Urine Bacteria 1+ 02/12/19 17:10: Blood Type O Positive, Antibody Screen Negative, Crossmatch (AHG) See Detail 02/13/19 11:28: POC Glucose 218 H 02/13/19 16:02: Hgb 7.6 L*, Hct 24.4 L 02/13/19 16:59: POC Glucose 151 H 02/13/19 20:33: POC Glucose 213 H 02/14/19 01:50: Hgb 9.5 L D, Hct 29.1 L 02/14/19 05:45: POC Glucose 113 H 02/14/19 06:00: WBC 14.5 H, RBC 3.24 L, Hgb 9.5 L, Hct 30.2 L, MCV 93.2, MCH 29.3, MCHC 31.5 L, RDW 15.9, Plt Count 549 H, MPV 7.9, Neut % (Auto) 81.0 H, Lymph % (Auto) 9.3 L, [place] % (Auto) 7.2, Eos % (Auto) 2.2, Baso % (Auto) 0.4, Neut # (Auto) 11.8 H, Lymph # (Auto) 1.3, [place] # (Auto) 1.0, Eos # (Auto) 0.3, Baso # (Auto) 0.1 02/14/19 06:00: Sodium 138, Potassium 5.2 H, Chloride 106, Carbon Dioxide 26, Anion Gap 11.2, BUN 40 H D, Creatinine 2.37 H, Estimated Creat Clear 30, Estimated GFR 27 L, Est GFR ( Amer) 32 L, Glucose 111 H, Calcium 8.6 I & O for Last 24 hours: Intake & Output 02/11/19 02/12/19 02/13/19 02/14/19 11:59 11:59 11:59 11:59 Intake Total 1882 / 1882 1852.56 / 1852.56 Balance 1882 / 1882 1852.56 / 1852.56 Weight 182 lb 2.003 oz 187 lb 1 oz Microbiology Reports for the Last 24 Hours: Microbiology 02/12/19 16:15 Urine,Clean Catch Urine Culture - Preliminary Gram Negative Rods Narrative: Patient appears comfortable laying in bed. Lungs are clear to auscultation. Heart has a regular rate and rhythm. Abdomen is soft, nontender, nondistended. Assessment and Plan (1) Upper GI bleed Current visit: Yes Status: Acute Category: Medical Code(s): K92.2 - Gastrointestinal hemorrhage, unspecified (2) Acute kidney injury Current visit: Yes Status: Acute Category: Medical Code(s): N17.9 - Acute kidney failure, unspecified (3) Anemia, blood loss Current visit: Yes Status: Acute Category: Medical Code(s): D50.0 - Iron deficiency anemia secondary to blood loss (chronic) (4) UTI (urinary tract infection) Current visit: Yes Status: Acute Qualifiers: Urinary tract infection type: site unspecified Hematuria presence: with hematuria Qualified Code(s): N39.0 - Urinary tract infection, site not specified; R31.9 - Hematuria, unspecified Category: Medical Code(s): N39.0 - Urinary tract infection, site not specified - Assessment and plan all Dx Assessment and Plan for all problems:: 1. Continue serial monitoring of H&H 2. Continue to follow BUN and creatinine 3. Continue to hold metformin and his sulfonylurea with sliding scale insulin coverage for his diabetes 4. Continue Rocephin for urinary tract infection while awaiting urine culture. 5. Hold aspirin for the next week and Plavix indefinitely 6. We will give patient full liquids
--- NOTE | 2019-02-14 09:29 | Progress Note ---
Subjective Patient reports: no new complaints Narrative: Patient feels well with no complaints at this time. He has been tolerating liquid diet. He is required a total of 4 units of packed red blood cell transfusion. Exam Vital signs and Labs for Last 24 Hours: Temp Pulse Resp BP Pulse Ox 98.5 F 89 17 113/55 L 93 L 02/14/19 08:00 02/14/19 08:00 02/14/19 08:00 02/14/19 08:00 02/14/19 08:00 Laboratory Results - last 24 hr 02/12/19 16:15: Urine Color Yellow, Urine Appearance Clear, Urine pH 6.5, Ur Specific [place] 1.015, Urine Protein 1+, Urine Glucose (UA) Negative, Urine Ketones Negative, Urine Blood 2+, Urine Nitrate Positive, Urine Bilirubin Negative, Urine Urobilinogen 0.2, Ur Leukocyte Esterase 3+ A, Urine RBC 3-5, Urine WBC 50-100, Ur Squamous Epith Cells Occasional, Urine Bacteria 1+ 02/12/19 17:10: Blood Type O Positive, Antibody Screen Negative, Crossmatch (AHG) See Detail 02/13/19 11:28: POC Glucose 218 H 02/13/19 16:02: Hgb 7.6 L*, Hct 24.4 L 02/13/19 16:59: POC Glucose 151 H 02/13/19 20:33: POC Glucose 213 H 02/14/19 01:50: Hgb 9.5 L D, Hct 29.1 L 02/14/19 05:45: POC Glucose 113 H 02/14/19 06:00: WBC 14.5 H, RBC 3.24 L, Hgb 9.5 L, Hct 30.2 L, MCV 93.2, MCH 29.3, MCHC 31.5 L, RDW 15.9, Plt Count 549 H, MPV 7.9, Neut % (Auto) 81.0 H, Lymph % (Auto) 9.3 L, [place] % (Auto) 7.2, Eos % (Auto) 2.2, Baso % (Auto) 0.4, Neut # (Auto) 11.8 H, Lymph # (Auto) 1.3, [place] # (Auto) 1.0, Eos # (Auto) 0.3, Baso # (Auto) 0.1 02/14/19 06:00: Sodium 138, Potassium 5.2 H, Chloride 106, Carbon Dioxide 26, Anion Gap 11.2, BUN 40 H D, Creatinine 2.37 H, Estimated Creat Clear 30, Estimated GFR 27 L, Est GFR ( Amer) 32 L, Glucose 111 H, Calcium 8.6 I & O for Last 24 hours: Intake & Output 02/11/19 02/12/19 02/13/19 02/14/19 11:59 11:59 11:59 11:59 Intake Total 1881 / 1881 2212.56 / 2212.56 Balance 1881 2212.56 / 2212.56 Weight 182 lb 2.003 oz 187 lb 1 oz Microbiology Reports for the Last 24 Hours: Microbiology 02/12/19 16:15 Urine,Clean Catch Urine Culture - Final Escherichia coli - *Routine Abdominal Exam Present: soft. Absent: tenderness Progress Note: A&P (1) Upper GI bleed Status: Acute Current Visit: Yes (2) Acute kidney injury Status: Acute Current Visit: Yes (3) Anemia, blood loss Status: Acute Current Visit: Yes (4) UTI (urinary tract infection) Status: Acute Current Visit: Yes Assessment and Plan for All Diagnoses:: Continue proton pump inhibitors and Carafate at this time. Monitor hemoglobin hematocrit.
[2019-02-15 06:34] LABS: Basophils # 0.1 K/mm3 (0-0.2); Basophils % 0.4 % (0.1-2.0); Eosinophils # 0.3 K/mm3 (0.0-0.4); Eosinophils % 2.3 % (0.1-12.0); Hematocrit 31.5 % (42.0-52.0); Hemoglobin 9.7 g/dL (14.1-18.0); Lymphocytes # 1.3 K/mm3 (0.7-4.5); Mean Corpuscular HGB Conc 30.9 g/dL (31.8-35.4); Mean Corpuscular Volume 94.3 fl (80-94); Mean Platelet Volume 7.7 fl (7.4-10.4); Monocytes % 7.2 % (1.7-9.3); Neutrophils # 11.3 K/mm3 (1.8-7.8); Neutrophils % 81.1 % (37.0-80.0); Platelet Count 517 K/mm3 (142-424); Red Blood Count 3.34 M/mm3 (4.60-6.20); Red Cell Distribution Width 15.4 % (11.5-17.5); White Blood Count 13.9 K/mm3 (4.8-10.8)
[2019-02-15 06:44] LABS: Anion Gap 10.8 mEq/L (5-15); Calcium 8.7 mg/dL (8.5-10.1)
--- NOTE | 2019-02-15 06:53 | Progress Note ---
Subjective Narrative: Patient feels well without any complaints. He has moved his bowels and his bowels reveal no evidence of any obvious blood and no melena. Exam Vital signs and Labs for Last 24 Hours: Temp Pulse Resp BP Pulse Ox 99 F 83 16 126/52 L 93 L 02/15/19 04:00 02/15/19 04:00 02/15/19 04:00 02/15/19 04:00 02/15/19 04:00 Laboratory Results - last 24 hr 02/14/19 06:00: Sodium 138, Potassium 5.2 H, Chloride 106, Carbon Dioxide 26, Anion Gap 11.2, BUN 40 H D, Creatinine 2.37 H, Estimated Creat Clear 30, Estimated GFR 27 L, Est GFR ( Amer) 32 L, Glucose 111 H, Calcium 8.6 02/14/19 11:26: POC Glucose 213 H 02/14/19 16:38: POC Glucose 222 H 02/14/19 20:42: POC Glucose 147 H 02/15/19 05:35: POC Glucose 181 H I & O for Last 24 hours: Intake & Output 02/12/19 02/13/19 02/14/19 02/15/19 11:59 11:59 11:59 11:59 Intake Total 1882 / 1882 2212.56 / 2212.56 600 / 600 Balance 1882 / 1882 2212.56 / 2212.56 600 / 600 Weight 182 lb 2.003 oz 187 lb 1 oz 187 lb 8 oz Microbiology Reports for the Last 24 Hours: Microbiology 02/12/19 16:15 Urine,Clean Catch Urine Culture - Final Escherichia coli - *Routine Abdominal Exam Present: soft. Absent: tenderness Progress Note: A&P (1) Upper GI bleed Status: Acute Current Visit: Yes (2) Acute kidney injury Status: Acute Current Visit: Yes (3) Anemia, blood loss Status: Acute Current Visit: Yes (4) UTI (urinary tract infection) Status: Acute Current Visit: Yes Assessment and Plan for All Diagnoses:: CBC pending this morning. If stable may build to be discharged home on medical therapy.
--- NOTE | 2019-02-15 07:14 | Discharge Summary ---
General - General Admission date:: 02/12/19 Discharge date: 02/15/19 HPI HPI: 78-year-old male brought to the emergency department because for the last week he is developed progressive weakness with loss of appetite in 1 week ago began passing dark black stools. He has no personal history of ulcer disease. He does take aspirin and Plavix. While he endorses loss of appetite he denies any abdominal pain. He has never had an EGD or colonoscopy. In the emergency department he was found to be anemic with acute kidney injury and he was mildly hypotensive. Stool was negative for blood but history would indicate upper GI bleed. Patient is been admitted for IV fluids and transfusion of 2 units of packed red blood cells. notified the ER physician that the patient had an abnormal appearance to his urine and urinalysis was performed which also supports urinary tract infection. Patient has been started on Rocephin intravenously Hospital Course Hospital Course: Patient was admitted with high suspicion of upper GI bleed. Stool sample collected in the emergency department appeared normal. Patient was admitted and placed on IV Protonix 40 mg twice daily. Consult to surgeon was placed for EGD. On the morning of February 13 patient underwent EGD which revealed multiple duodenal ulcers. It was recommended patient continue on Protonix along with addition of H2 carlos and Carafate. Patient received 2 units of packed red blood cells on admission. On February 13 patient's H&H dropped slightly again and he received an additional 2 units of packed red blood cells on the afternoon of February 13. From that point on patient's H&H remained stable. Discharge hemoglobin was 9.7. Patient was hypotensive on admission and antihypertensives were held. He was noted to be mildly tachycardic after his EGD and carvedilol was restarted. Pulse rate returned to normal. Blood pressures remained low and his lisinopril was held. Lisinopril will be held indefinitely. Patient had acute kidney injury on top of chronic kidney disease. He was started on IV normal saline and any nephrotoxic medications that he took were held including lisinopril and metformin. Creatinine gradually trended down from 3.4 down to 2.37. Creatinine in the mid twos is the patient's baseline. Patient had abnormal urinalysis on admission. Urine grew E. coli. Patient was started on Rocephin 1 g daily at admission and will finish a course of antibiotics with cephalexin 500 mg 3 times a day for the next 5 days Patient takes aspirin and Plavix for history of vascular disease. Instructions will be to hold aspirin for 1 week and Plavix indefinitely. On February 15 patient was discharged home in good condition. He will resume home health through [facility]. Patient will follow-up in my office on February 19 at 11 AM Objective Vital signs: Temp Pulse Resp BP Pulse Ox 99 F 83 16 126/52 L 93 L 02/15/19 04:00 02/15/19 04:00 02/15/19 04:00 02/15/19 04:00 02/15/19 04:00 no acute distress - *Routine Respiratory Exam Present: CTA bilaterally - *Routine Cardiovascular Exam Present: RRR - *Routine Abdominal Exam Present: soft, normoactive bowel sounds. Absent: tenderness Results Labs on day of discharge: Labs from last 24 hours 02/15/19 02/15/19 02/15/19 05:57 05:57 05:35 WBC 13.9 H RBC 3.34 L Hgb 9.7 L Hct 31.5 L MCV 94.3 H MCH 29.1 MCHC 30.9 L RDW 15.4 Plt Count 517 H MPV 7.7 Neut % (Auto) 81.1 H Lymph % (Auto) 9.0 L [place] % (Auto) 7.2 Eos % (Auto) 2.3 Baso % (Auto) 0.4 Neut # (Auto) 11.3 H Lymph # (Auto) 1.3 [place] # (Auto) 1.0 Eos # (Auto) 0.3 Baso # (Auto) 0.1 Sodium 136 Potassium 4.8 Chloride 104 Carbon Dioxide 26 Anion Gap 10.8 BUN 29 H D Creatinine 2.15 H Estimated Creat Clear 33 Estimated GFR 30 L Est GFR ( Amer) 36 L Glucose 172 H D POC Glucose 181 H Calcium 8.7 02/14/19 02/14/19 02/14/19 20:42 16:38 11:26 WBC RBC Hgb Hct MCV MCH MCHC RDW Plt Count MPV Neut % (Auto) Lymph % (Auto) [place] % (Auto) Eos % (Auto) Baso % (Auto) Neut # (Auto) Lymph # (Auto) [place] # (Auto) Eos # (Auto) Baso # (Auto) Sodium Potassium Chloride Carbon Dioxide Anion Gap BUN Creatinine Estimated Creat Clear Estimated GFR Est GFR ( Amer) Glucose POC Glucose 147 H 222 H 213 H Calcium 02/14/19 06:00 WBC RBC Hgb Hct MCV MCH MCHC RDW Plt Count MPV Neut % (Auto) Lymph % (Auto) [place] % (Auto) Eos % (Auto) Baso % (Auto) Neut # (Auto) Lymph # (Auto) [place] # (Auto) Eos # (Auto) Baso # (Auto) Sodium 138 Potassium 5.2 H Chloride 106 Carbon Dioxide 26 Anion Gap 11.2 BUN 40 H D Creatinine 2.37 H Estimated Creat Clear 30 Estimated GFR 27 L Est GFR ( Amer) 32 L Glucose 111 H POC Glucose Calcium 8.6 DS: Diagnosis - Discharge Diagnosis (1) Upper GI bleed Status: Acute (2) Acute kidney injury Status: Acute (3) Anemia, blood loss Status: Acute (4) E. coli urinary tract infection Status: Acute Discharge Plan - Patient Discharge Instructions ACTIVITY: Continue current activity DIET: continue same diet Patient Instructions: Anemia, [place] Diet, Chronic Renal Failure, DI for Urinary Tract Infection (UTI), Gastrointestinal Bleeding - Follow up Plan Follow up with: Juan Francisco Butcher MD [Staff Physician] - 02/19/19 11:00 am Disposition: Home, Self-Intermediate Medications: Home Medications Medication Instructions Recorded Confirmed Type aspirin 81 mg tablet,delayed 81 mg PO DAILY tab 09/18/17 02/12/19 History release insulin aspart U-100 100 unit/mL 30 unit SUB-Q HS ml 09/18/17 02/12/19 History subcutaneous solution metformin 1,000 mg tablet 1,000 mg PO BID 09/18/17 02/12/19 History Amlodipine Besylate [Amlodipine 10 mg PO DAILY 12/13/18 02/12/19 History 10mg Tab] Atorvastatin Calcium [Lipitor 20mg 20 mg PO HS 12/13/18 02/13/19 History Tablet] Clopidogrel Bisulfate [Plavix 75mg 75 mg PO DAILY 12/13/18 02/12/19 History Tab] Furosemide [Furosemide 20mg Tab] 20 mg PO DAILY 12/13/18 02/12/19 History Lisinopril [Prinivil 20mg Tablet] 20 mg PO BID 12/13/18 02/12/19 History carvedilol 12.5 mg tablet 12.5 mg PO BID #60 tab 02/11/19 02/12/19 Rx Famotidine [Pepcid 20mg Tablet] 20 mg PO BID #60 tab 02/15/19 Rx Pantoprazole Sodium [Protonix 40mg 40 mg PO DAILY 30 Days #30 tab 02/15/19 Rx tablet] Sucralfate [Carafate 1gm Tab] 1 gm PO ACHS #120 tab 02/15/19 Rx cephALEXin [Cephalexin 500mg Tab] 500 mg PO TID #15 tab 02/15/19 Rx Prescriptions/Medication Reconciliation: New Sucralfate [Carafate 1gm Tab] 1 gm PO ACHS #120 tab Famotidine [Pepcid 20mg Tablet] 20 mg PO BID #60 tab Pantoprazole Sodium [Protonix 40mg tablet] 40 mg PO DAILY 30 Days #30 tab cephALEXin [Cephalexin 500mg Tab] 500 mg PO TID #15 tab Continued insulin aspart U-100 100 unit/mL subcutaneous solution 30 unit SUB-Q HS ml carvedilol 12.5 mg tablet 12.5 mg PO BID #60 tab Furosemide [Furosemide 20mg Tab] 20 mg PO DAILY Atorvastatin Calcium [Lipitor 20mg Tablet] 20 mg PO HS Amlodipine Besylate [Amlodipine 10mg Tab] 10 mg PO DAILY Discontinued metformin 1,000 mg tablet 1,000 mg PO BID aspirin 81 mg tablet,delayed release 81 mg PO DAILY tab Lisinopril [Prinivil 20mg Tablet] 20 mg PO BID Clopidogrel Bisulfate [Plavix 75mg Tab] 75 mg PO DAILY - Problem Reconciliation Problems Reviewed?: Yes
== END 2019-02-15 08:16 | disposition home health service (06) | DRG 378 ==
LOC: ER 14:35 → 2ND 16:40
PROVIDERS: ADMIT Family Medicine; ATTEND Family Medicine
CPT/HCPCS: 36415; 80048; 80053; 81001; 82272; 82962; 85014; 85018; 85025; 86850; 87086; 87088; 87186; 88305; 93005; 94761; 96365; 97162; 97530; 99284; G0328; P9016

== ENCOUNTER 2019-05-09 07:27 | Inpatient (IN) ==
[2019-05-09 08:29] LABS: Microscopic, Urine URINE MICROSCOPIC (MICROSCOPIC)
[2019-05-09 08:32] LABS: Appearance,Urine CLOUDY (Clear); Bilirubin,Urine Negative (Negative); Blood, Urine 3+ (Negative); Color,Urine YELLOW (Yellow); Glucose,Urine (UA) Negative (Negative); Ketones,Urine Negative (Negative); Leukocyte Esterase,Urine 3+ (Negative); Protein,Urine 2+ (Negative); Urobilinogen,Urine 0.2 EU/dl (0.2)
--- NOTE | 2019-05-09 08:41 | Emergency Department Note ---
ED Disposition Clinical Impression: UTI (urinary tract infection), Bacteremia, Hypoglycemic event in diabetes, Acute kidney injury Disposition: Admitted as Observation Condition on Discharge: Good Referrals: Provider,Justo, [Referring] - Time of Disposition: 12:01 - Critical Care Critical Care Time: No Attestation: On 05/09/19, the high probability of a clinically significant, sudden or life threatening deterioration of the following system(s) required my full and direct attention, intervention and personal management. The time I documented below is in addition to time spent performing reported procedures but includes the following listed in this critical care notation. Medical Decision Making - Medical Records Medical records reviewed: Yes: I reviewed the patient's medical records. - John Inquiry Pt receiving controlled substance: No John was queried for this patient: No Vital Signs: 05/09/19 07:44 05/09/19 08:06 05/09/19 08:57 Temperature 93.2 F L Temperature Source Rectal Pulse Rate [Right] 56 L 66 73 Respiratory Rate 24 Blood Pressure [Right Arm] 104/63 L 110/72 132/72 Blood Pressure Mean [Right Arm] 76 84 92 Blood Pressure Source [Right Arm] Automatic Cuff Blood Pressure Position [Right Arm] Sitting 02 Sat by Pulse Oximetry 92 L 99 97 Oxygen Delivery Method Room Air Room Air 05/09/19 09:00 05/09/19 10:03 05/09/19 11:28 Temperature 94.8 F L Temperature Source Axillary Pulse Rate [Right] 69 77 Respiratory Rate Blood Pressure [Right Arm] 102/56 L 114/68 Blood Pressure Mean [Right Arm] 71 83 Blood Pressure Source [Right Arm] Blood Pressure Position [Right Arm] 02 Sat by Pulse Oximetry 96 96 Oxygen Delivery Method - Lab Data Lab results reviewed: Yes: I reviewed the patient's lab results. Lab Results 05/09/19 07:39: Urine Color Yellow, Urine Appearance Cloudy, Urine pH 7.0, Ur Specific [place] 1.010, Urine Protein 2+, Urine Glucose (UA) Negative, Urine Ketones Negative, Urine Blood 3+, Urine Nitrate Positive, Urine Bilirubin Negative, Urine Urobilinogen 0.2, Ur Leukocyte Esterase 3+ A, Urine RBC O ccasional, Urine WBC 20-50, Ur Squamous Epith Cells Occasional, Urine Bacteria 2+ 05/09/19 08:14: WBC 21.5 H*, RBC 3.87 L, Hgb 11.2 L, Hct 36.5 L, MCV 94.2 H, MCH 28.9, MCHC 30.7 L, RDW 15.2, Plt Count 357, MPV 9.2, Neut % (Auto) 89.3 H, Lymph % (Auto) 4.8 L, [place] % (Auto) 4.5, Eos % (Auto) 1.1, Baso % (Auto) 0.3, Neut # (Auto) 19.2 H, Lymph # (Auto) 1.0, [place] # (Auto) 1.0, Eos # (Auto) 0.3, Baso # (Auto) 0.1, Total Counted 100, Neutrophils % (Manual) 90 H, Lymphocytes % (Manual) 9 L, Monocytes % (Manual) 1 L, Platelet Estimate Normal, RBC Morphology Normal 05/09/19 08:14: Sodium 138, Potassium 5.7 H, Chloride 106, Carbon Dioxide 27, Anion Gap 10.7, BUN 52 H, Creatinine 2.59 H, Estimated Creat Clear 26, Estimated GFR 24 L, Est GFR ( Amer) 29 L, Glucose 181 H, Calcium 8.7, Total Bilirubin 0.3, AST 10 L, ALT 16, Alkaline Phosphatase 149 H, Troponin I < 0.02, Total Protein 6.3 L, Albumin 2.1 L, Globulin 4.2 H, Albumin/Globulin Ratio 0.5 L 05/09/19 08:14: Lactate 2.7 H Result diagrams: 05/09/19 08:14 05/09/19 08:14 Orders (Tests/Meds): ED MEDICATIONS Generic Name Dose Route Start Last Admin Trade Name Freq PRN Reason Stop Dose Admin Ceftriaxone Sodium 2 gm/ 100 mls @ 200 mls/hr 05/09/19 11:45 Sodium Chloride IV 05/23/19 11:44 Q24H EMILY Protocol Discontinued Medications Generic Name Dose Route Start Last Admin Trade Name Freq PRN Reason Stop Dose Admin Sodium Chloride 1,000 mls @ 999 mls/hr 05/09/19 08:15 05/09/19 08:27 Sod Chlor 0.9% 1000ml Bag IV 05/09/19 09:15 999 mls/hr .Q1H1M EMILY Administration ORDERS Category Date Time Status Blood Culture Stat Micro 05/09/19 08:14 Received Urine Culture Stat Micro 05/09/19 07:39 Received - Physician Consults Physician Consulted: marcelino Time: 12:00 Reason -: Admission General Adult HPI - General Chief complaint: Hyper/Hypoglycemia Stated complaint: hypoglycemia Time Seen by Provider: 05/09/19 08:00 Mode of Arrival: EMS Source of Information: Patient, EMS Limitations: Physical Limitations Description of Symptoms (Recalled from ER Triage Doc. by RN): PT arrived by EMS, call out for lethargic and low blood sugar. - History of Present Illness HPI narrative: Patient denies being sick in recent days, was brought in profoundly hypotensive and hypoglycemic. He is insulin dep diabetic, history per chart reveals admissions for anemia(duodenal ulcers), sepsis. - Related Data Home Medications Medication Instructions Recorded Confirmed insulin aspart U-100 100 unit/mL 30 unit SUB-Q HS ml 09/18/17 02/12/19 subcutaneous solution Amlodipine Besylate [Amlodipine 10 mg PO DAILY 12/13/18 02/12/19 10mg Tab] Atorvastatin Calcium [Lipitor 20mg 20 mg PO HS 12/13/18 02/13/19 Tablet] Furosemide [Furosemide 20mg Tab] 20 mg PO DAILY 12/13/18 02/12/19 Previous Rx's Medication Instructions Recorded carvedilol 12.5 mg tablet 12.5 mg PO BID #60 tab 02/11/19 Famotidine [Pepcid 20mg Tablet] 20 mg PO BID #60 tab 02/15/19 Pantoprazole Sodium [Protonix 40mg 40 mg PO DAILY 30 Days #30 tab 02/15/19 tablet] Sucralfate [Carafate 1gm Tab] 1 gm PO ACHS #120 tab 02/15/19 cephALEXin [Cephalexin 500mg Tab] 500 mg PO TID #15 tab 02/15/19 Allergies Allergy/AdvReac Type Severity Reaction Status Date / Time No Known Allergies Allergy Verified 10/02/18 09:00 [facility] History - Hepatitis A Screen Drug use history?: No High risk sexual behaviors?: No History of sexually transmitted infection?: No Currently employed?: No Childcare worker?: No Do you have indoor plumbing?: Yes Do you have electricity?: Yes Attestation statement:: This patient has been screened for Hepatitis A risk factors. I have reviewed the patient's past medical history: Yes Medical History: Reports:: Cancer, Coronary Artery Disease, Diabetes Mellitus Type 2, Gastroesophageal Reflux Disease(GERD), Hyperlipidemia, Hypertension Denies:: Diabetes Mellitus Type 1, MRSA, Seizures Other Medical History: Denies: Blood Transfusion Reaction Other Surgeries: Yes: Cardiac Catheterization Amputation: No - Social History Smoking Status: Unknown if ever smoked Alcohol Intake: never Alcohol Intake Frequency:: other Substance Use Type: denies use Occupational Status: unemployed, disabled Housing: house Household Members: spouse Family Hx:: Heart Attack ROS Obtained: Yes unobtainable due to mental status - Constitutional Constitutional: Denies fever(s) - ENT Ears, Nose, Mouth, and Throat: Denies sinus pain, Denies sinus pressure, Denies sore throat - Cardiovascular Cardiovascular: Denies chest pain, Denies dyspnea - Respiratory Respiratory: Yes system reviewed and no additional complaints, except as docu, No chest congestion, No cough - Gastrointestinal Gastrointestingal: Denies: abdominal pain, diarrhea, vomiting - Genitourinary Male Genitourinary: Denies flank pain, Denies hematuria - Musculoskeletal Musculoskeletal: Denies joint stiffness, Denies joint swelling - Integumentary/Breasts Skin/Breast: Denies rash, Denies skin pain - Hematologic/Lymphatic Henatologic/Lymphatic: Denies easy bleeding Physical Exam - General General appearance: alert, in no apparent distress, other (answers questions appropriately) - Head Head exam: atraumatic, normocephalic, normal inspection - Eye Eye exam: Present: normal appearance, PERRL, EOMI - ENT ENT exam: Present: normal exam, normal oropharynx, mucous membranes moist, TM's normal bilaterally, normal external ear exam, other (except extremely poor dentition.) - Neck Neck exam: Present: normal inspection, full ROM, trachea midline. Absent: meningismus, lymphadenopathy - Respiratory Respiratory exam: Absent: normal lung sounds bilaterally, respiratory distress - Cardiovascular Cardiovascular exam: Present: regular rate, normal rhythm. Absent: JVD - Abdominal Exam Abdominal exam: Present: soft, distention. Absent: tenderness - Extremities Exam Extremities exam: Present: normal inspection, full ROM, normal capillary refill. Absent: calf tenderness - Neurological Exam Neurological exam: Present: alert, oriented X3 - Psychiatric Psychiatric exam: Present: normal affect, normal mood - Skin Skin exam: Present: warm, dry, intact, normal color
[2019-05-09 08:45] LABS: Alanine Aminotransferase 16 U/L (12-78); Albumin Level 2.1 gm/dL (3.4-5.0); Albumin/Globulin Ratio 0.5 (1.1-1.8); Anion Gap 10.7 mEq/L (5-15); Aspartate Amino Transferase 10 U/L (15-37); Bilirubin,Total 0.3 mg/dL (0.2-1.0); Blood Urea Nitrogen 52 mg/dL (7-18); Calcium 8.7 mg/dL (8.5-10.1); Carbon Dioxide 27 mmol/L (21.0-32.0); Chloride 106 mmol/L (98-107); Globulin 4.2 gm/dl (1.3-3.2); Glucose 181 mg/dL (74-106); Sodium 138 mmol/L (136-145); Total Protein,Serum 6.3 gm/dL (6.4-8.2)
[2019-05-09 08:47] LABS: Basophils # 0.1 K/mm3 (0-0.2); Basophils % 0.3 % (0.1-2.0); Eosinophils # 0.3 K/mm3 (0.0-0.4); Eosinophils % 1.1 % (0.1-12.0); Hematocrit 36.5 % (42.0-52.0); Hemoglobin 11.2 g/dL (14.1-18.0); Lymphocytes % 4.8 % (10-50); Mean Corpuscular HGB Conc 30.7 g/dL (31.8-35.4); Mean Corpuscular Volume 94.2 fl (80-94); Mean Platelet Volume 9.2 fl (7.4-10.4); Monocytes % 4.5 % (1.7-9.3); Neutrophils # 19.2 K/mm3 (1.8-7.8); Neutrophils % 89.3 % (37.0-80.0); Platelet Count 357 K/mm3 (142-424); Red Blood Count 3.87 M/mm3 (4.60-6.20); Red Cell Distribution Width 15.2 % (11.5-17.5); White Blood Count 21.5 K/mm3 (4.8-10.8)
[2019-05-09 08:56] LABS: Lymphocytes % 9 % (10-50); Monocytes % 1 % (2-9); Neutrophils % 90 % (42-76); Total Cells Counted 100
[2019-05-09 08:57] LABS: RBC Morphology Normal
[2019-05-09 08:59] LABS: Alkaline Phosphatase 149 U/L (46-116)
[2019-05-09 09:04] LABS: Bacteria,Urine 2+ /lpf; RBC,Urine Occasional #/hpf (0-3); Squamous Epithelial Cell,Urine Occasional #/hpf (0-5); WBC,Urine 20-50 #/hpf (0-3)
--- NOTE | 2019-05-09 14:18 | Pharmacy Consult Notes ---
[facility] Pharmacy VTE Monitoring - Patient Demographics Admission date: 05/09/19 Report Date: 05/09/19 Time: 14:18 Allergies/Adverse Reactions: Patient Allergies No Known Allergies Allergy (Verified 10/02/18 09:00) Height: 1.83 m Weight: 84.935 kg Patient Problems: Current Active Problems Sepsis (Acute) UTI (urinary tract infection) (Acute) Acute kidney injury (Acute) Bacteremia (Acute) Hypoglycemic event in diabetes (Acute) - VTE Risk Labs: VTE Related Lab Results Hgb 11.2 g/dL (14.1-18.0) L 05/09/19 08:14 Hct 36.5 % (42.0-52.0) L 05/09/19 08:14 Plt Count 357 K/mm3 (142-424) 05/09/19 08:14 BUN 52 mg/dL (7-18) H 05/09/19 08:14 Creatinine 2.59 mg/dL (0.70-1.30) H 05/09/19 08:14 Estimated Creat Clear 26 mL/min (50-200) 05/09/19 08:14 - Prophylaxis VTE Prophylaxis Ordered?: Yes Types of VTE Prophylaxis: TEDS Knee High Location of Applied Device: Bilateral Lower Extremeties - VTE Diagnosis Confirmed Treatment or plan recommended: Continue Current Treatment
--- NOTE | 2019-05-09 17:13 | History & Physical Report ---
*Admission Date: 05/09/19 *Chief complaint: Hypoglycemia *History of present illness: 78-year-old male presented to the hospital from home when his found him confused and ultimately hypoglycemic with a blood sugar of 28. EMS was called and patient was transported to the hospital. Once his hypoglycemia was corrected in the emergency department additional information was provided that patient had noted a cloudy urine over the last several weeks. He has had 2 hospitalizations in 2019 for E. coli urinary tract infections in December and February. His December admission required transfer to the [facility] because of associated sepsis from E. coli. Patient reports that his only urinary symptom was a cloudy urine. He has chronic kidney disease and because of this did not initially think too much of the change in his urine. He denies fevers or chills at home. On presentation to the emergency department he was mildly hypothermic and this was corrected with a bear hugger. Patient's mentation improved while in the emergency department and decision was made to admit him for IV antibiotics to treat urinary tract infection and suspected E. coli bacteremia [facility] History I have reviewed the patient's past medical history: Yes Medical History: Reports:: Cancer (bladder 2015), Coronary Artery Disease, Diabetes Mellitus Type 2, Gastroesophageal Reflux Disease(GERD), Hyperlipidemia, Hypertension Denies:: Diabetes Mellitus Type 1, MRSA, Seizures *Have you ever received a pneumonia vaccine?: Yes *Have you received a flu vaccine this season?: No Other Medical History: Denies: Blood Transfusion Reaction Other Surgeries: Yes: Cardiac Catheterization (5 stents) Amputation: No - *Social History Educational Level: Attended College Smoking Status: Former smoker Smoking End Date: 2010 Alcohol Intake: never Alcohol Intake Frequency:: other Substance Use Type: denies use *Occupational Status:: retired Housing: house Household Members: spouse *Travel in the last 8 weeks: None Family Hx:: Heart Attack Review of Systems - Review of Systems Review of systems:: pertinent systems reviewed and negative unless documented below Meds Home Medications Medication Instructions Recorded Confirmed Type insulin aspart U-100 100 unit/mL 30 unit SUB-Q HS ml 09/18/17 05/09/19 History subcutaneous solution Amlodipine Besylate [Amlodipine 10 mg PO DAILY 12/13/18 05/09/19 History 10mg Tab] Atorvastatin Calcium [Lipitor 20mg 20 mg PO HS 12/13/18 05/09/19 History Tablet] Furosemide [Furosemide 20mg Tab] 20 mg PO DAILY 12/13/18 05/09/19 History carvedilol 12.5 mg tablet 12.5 mg PO BID #60 tab 02/11/19 05/09/19 Rx Aspirin [Aspirin 81mg EC Tab] 81 mg PO DAILY 05/09/19 05/09/19 History Famotidine [Pepcid 20mg Tablet] 20 mg PO BID 05/09/19 05/09/19 History Lisinopril [Lisinopril 5mg 5 mg PO DAILY 05/09/19 05/09/19 History Tablet] Mometasone/Formoterol [Dulera 100 2 puffs IH BID PRN 05/09/19 05/09/19 History Mcg/5 Mcg Inhaler] Pantoprazole Sodium [Protonix 20mg 20 mg PO DAILY 05/09/19 05/09/19 History Tab] Sucralfate [Carafate 1gm Tab] 1 gm PO ACHS 05/09/19 05/09/19 History Umeclidinium Brm/Vilanterol Tr 1 inh IH DAILY PRN 05/09/19 05/09/19 History [Anoro Ellipta 62.5-25 Mcg INH] Allergies Allergy/AdvReac Type Severity Reaction Status Date / Time No Known Allergies Allergy Verified 10/02/18 09:00 Exam Vital signs and Labs for Last 24 Hours: Temp Pulse Resp BP Pulse Ox 98.1 F 89 18 134/70 97 05/09/19 13:46 05/09/19 13:46 05/09/19 13:46 05/09/19 13:46 05/09/19 16:30 Laboratory Results - last 24 hr 05/09/19 07:39: Urine Color Yellow, Urine Appearance Cloudy, Urine pH 7.0, Ur Specific [place] 1.010, Urine Protein 2+, Urine Glucose (UA) Negative, Urine Ketones Negative, Urine Blood 3+, Urine Nitrate Positive, Urine Bilirubin Negative, Urine Urobilinogen 0.2, Ur Leukocyte Esterase 3+ A, Urine RBC Occasional, Urine WBC 20-50, Ur Squamous Epith Cells Occasional, Urine Bacteria 2+ 05/09/19 08:14: WBC 21.5 H*, RBC 3.87 L, Hgb 11.2 L, Hct 36.5 L, MCV 94.2 H, MCH 28.9, MCHC 30.7 L, RDW 15.2, Plt Count 357, MPV 9.2, Neut % (Auto) 89.3 H, Lymph % (Auto) 4.8 L, [place] % (Auto) 4.5, Eos % (Auto) 1.1, Baso % (Auto) 0.3, Neut # (Auto) 19.2 H, Lymph # (Auto) 1.0, [place] # (Auto) 1.0, Eos # (Auto) 0.3, Baso # (Auto) 0.1, Total Counted 100, Neutrophils % (Manual) 90 H, Lymphocytes % (Manual) 9 L, Monocytes % (Manual) 1 L, Platelet Estimate Normal, RBC Morphology Normal 05/09/19 08:14: Sodium 138, Potassium 5.7 H, Chloride 106, Carbon Dioxide 27, Anion Gap 10.7, BUN 52 H, Creatinine 2.59 H, Estimated Creat Clear 26, Estimated GFR 24 L, Est GFR ( Amer) 29 L, Glucose 181 H, Calcium 8.7, Total Bilirubin 0.3, AST 10 L, ALT 16, Alkaline Phosphatase 149 H, Troponin I < 0.02, Total Protein 6.3 L, Albumin 2.1 L, Globulin 4.2 H, Albumin/Globulin Ratio 0.5 L 05/09/19 08:14: Lactate 2.7 H 05/09/19 13:19: Lactate 0.9 I & O for Last 24 hours: Intake & Output 05/07/19 05/08/19 05/09/19 05/10/19 11:59 11:59 11:59 11:59 Intake Total 240 / 240 Balance 240 / 240 Weight 180 lb 187 lb 4 oz - Constitutional no acute distress, cooperative - *Routine HEENT Exam Head: Present: normocephalic ENT: Present: mucous membranes moist - *Routine Neck Exam Present: supple. Absent: JVD, carotid bruit - *Routine Respiratory Exam Present: CTA bilaterally - *Routine Cardiovascular Exam Present: RRR, Normal S1, Normal S2 - *Routine Abdominal Exam Present: soft, normoactive bowel sounds. Absent: tenderness, distended, rebound, guarding, firm, organomegaly, mass - *Routine Extremities Exam Present: edema (Trace lower extremity edema), normal capillary refill. Absent: clubbing - *Routine Skin Exam Present: intact Assessment and Plan - Assessment and plan all Dx Assessment and Plan for all problems:: 1. Admit patient and continue IV Rocephin due to history of E. coli sepsis and UTI 2. Home medications except I will hold his lisinopril and Lasix. 3. Dose of Lantus will be decreased this evening with fingersticks before meals and at bedtime 4. Continue IV fluids with normal saline at 75 mL's per hour
[2019-05-10 06:18] LABS: Anion Gap 7.3 mEq/L (5-15); Calcium 8.1 mg/dL (8.5-10.1)
[2019-05-10 06:33] LABS: Basophils # 0.1 K/mm3 (0-0.2); Basophils % 0.9 % (0.1-2.0); Eosinophils # 0.1 K/mm3 (0.0-0.4); Eosinophils % 2.1 % (0.1-12.0); Hematocrit 31.4 % (42.0-52.0); Lymphocytes # 1.1 K/mm3 (0.7-4.5); Lymphocytes % 15.3 % (10-50); Mean Corpuscular Volume 95.4 fl (80-94); Monocytes # 0.6 K/mm3 (0.1-1.0); Monocytes % 9.2 % (1.7-9.3); Neutrophils % 72.5 % (37.0-80.0); Platelet Count 322 K/mm3 (142-424); Red Blood Count 3.29 M/mm3 (4.60-6.20); Red Cell Distribution Width 15.4 % (11.5-17.5); White Blood Count 6.9 K/mm3 (4.8-10.8)
[2019-05-10 07:04] LABS: Hemoglobin 9.4 g/dL (14.1-18.0)
--- NOTE | 2019-05-10 07:25 | Progress Note ---
Internal Medicine - PN: Subj *Date: 05/10/19 *Time: 07:23 Interval history: Patient is without complaints this morning. Nursing staff reports that because of a low evening blood sugar in the 80s Lantus was held and his resulting blood sugar this morning is 206. Patient slept well. He has not had any fevers. Rodas catheter is anchored at bedside Exam Vital signs and Labs for Last 24 Hours: Temp Pulse Resp BP Pulse Ox 98.3 F 80 17 103/51 L 99 05/10/19 04:00 05/10/19 04:00 05/10/19 04:00 05/10/19 04:00 05/10/19 04:00 Laboratory Results - last 24 hr 05/09/19 07:39: Urine Color Yellow, Urine Appearance Cloudy, Urine pH 7.0, Ur Specific [place] 1.010, Urine Protein 2+, Urine Glucose (UA) Negative, Urine Ketones Negative, Urine Blood 3+, Urine Nitrate Positive, Urine Bilirubin Negative, Urine Urobilinogen 0.2, Ur Leukocyte Esterase 3+ A, Urine RBC Occasional, Urine WBC 20-50, Ur Squamous Epith Cells Occasional, Urine Bacteria 2+ 05/09/19 08:14: WBC 21.5 H*, RBC 3.87 L, Hgb 11.2 L, Hct 36.5 L, MCV 94.2 H, MCH 28.9, MCHC 30.7 L, RDW 15.2, Plt Count 357, MPV 9.2, Neut % (Auto) 89.3 H, Lymph % (Auto) 4.8 L, [place] % (Auto) 4.5, Eos % (Auto) 1.1, Baso % (Auto) 0.3, Neut # (Auto) 19.2 H, Lymph # (Auto) 1.0, [place] # (Auto) 1.0, Eos # (Auto) 0.3, Baso # (Auto) 0.1, Total Counted 100, Neutrophils % (Manual) 90 H, Lymphocytes % (Manual) 9 L, Monocytes % (Manual) 1 L, Platelet Estimate Normal, RBC Morphology Normal 05/09/19 08:14: Sodium 138, Potassium 5.7 H, Chloride 106, Carbon Dioxide 27, Anion Gap 10.7, BUN 52 H, Creatinine 2.59 H, Estimated Creat Clear 26, Estimated GFR 24 L, Est GFR ( Amer) 29 L, Glucose 181 H, Calcium 8.7, Total Bilirubin 0.3, AST 10 L, ALT 16, Alkaline Phosphatase 149 H, Troponin I < 0.02, Total Protein 6.3 L, Albumin 2.1 L, Globulin 4.2 H, Albumin/Globulin Ratio 0.5 L 05/09/19 08:14: Lactate 2.7 H 05/09/19 13:19: Lactate 0.9 05/09/19 16:52: POC Glucose 260 H 05/09/19 21:27: POC Glucose 87 05/09/19 21:29: POC Glucose 95 05/10/19 01:37: POC Glucose 127 H 05/10/19 05:24: POC Glucose 206 H 05/10/19 06:00: WBC 6.9 D, RBC 3.29 L, Hgb 9.4 L D, Hct 31.4 L, MCV 95.4 H, MCH 28.6, MCHC 30.0 L, RDW 15.4, Plt Count 322, MPV 9.0, Neut % (Auto) 72.5, Lymph % (Auto) 15.3, [place] % (Auto) 9.2, Eos % (Auto) 2.1, Baso % (Auto) 0.9, Neut # (Auto) 5.0, Lymph # (Auto) 1.1, [place] # (Auto) 0.6, Eos # (Auto) 0.1, Baso # (Auto) 0.1 05/10/19 06:00: Sodium 136, Potassium 5.3 H, Chloride 107, Carbon Dioxide 27, Anion Gap 7.3, BUN 36 H D, Creatinine 2.06 H D, Estimated Creat Clear 34, Estimated GFR 31 L, Est GFR ( Amer) 38 L D, Glucose 206 H, Calcium 8.1 L I & O for Last 24 hours: Intake & Output 05/07/19 05/08/19 05/09/19 05/10/19 11:59 11:59 11:59 11:59 Intake Total 1106 / 1106 Output Total 1150 / 1150 Balance -44 / -44 Weight 180 lb 187 lb Narrative: She appears comfortable. Lungs are clear to auscultation. Heart has regular rate and rhythm. Abdomen is soft and nontender. Rodas catheter is in place. Assessment and Plan (1) Sepsis Current visit: Yes Status: Acute Category: Medical Code(s): A41.9 - Sepsis, unspecified organism (2) Acute kidney injury Current visit: Yes Status: Acute Category: Medical Code(s): N17.9 - Acute kidney failure, unspecified (3) Stage 3 chronic kidney disease Current visit: Yes Status: Acute Category: Medical Code(s): N18.3 - Chronic kidney disease, stage 3 (moderate) (4) Hypoglycemic event in diabetes Current visit: Yes Status: Acute Category: Medical Code(s): E11.649 - Type 2 diabetes mellitus with hypoglycemia without coma (5) UTI (urinary tract infection) Current visit: Yes Status: Acute Category: Medical Code(s): N39.0 - U rinary tract infection, site not specified (6) Hyperkalemia Current visit: No Status: Acute Category: Medical Code(s): E87.5 - Hyperkalemia - Assessment and plan all Dx Assessment and Plan for all problems:: 1. DC Rodas catheter 2. Continue IV Rocephin and await blood and urine cultures 3. PT OT consults today 4. Begin weaning oxygen as patient uses 2 L/min via nasal cannula at night only when at home
--- NOTE | 2019-05-10 08:17 | Electrocardiograph Report ---
APPROVED REPORT Exam: Resting ECG HR:67 bpm ECG Measurements Heart Rate 67 AXES QRSd 86 QRS -46 QT 408 T64 QTc 431 <Conclusion> Accelerated Junctional rhythm with fusion complexes Left axis deviation Low voltage QRS Abnormal ECG Electronically signed by : Juan Francisco Patino, 05/10/2019 08:16:45
[2019-05-11 07:10] LABS: Basophils # 0.1 K/mm3 (0-0.2); Basophils % 0.7 % (0.1-2.0); Eosinophils # 0.3 K/mm3 (0.0-0.4); Eosinophils % 3.6 % (0.1-12.0); Hematocrit 31.8 % (42.0-52.0); Hemoglobin 9.6 g/dL (14.1-18.0); Lymphocytes # 1.2 K/mm3 (0.7-4.5); Lymphocytes % 17.4 % (10-50); Mean Platelet Volume 8.5 fl (7.4-10.4); Monocytes # 0.6 K/mm3 (0.1-1.0); Monocytes % 8.6 % (1.7-9.3); Neutrophils # 4.9 K/mm3 (1.8-7.8); Neutrophils % 69.6 % (37.0-80.0); Platelet Count 312 K/mm3 (142-424); Red Blood Count 3.39 M/mm3 (4.60-6.20); Red Cell Distribution Width 15.3 % (11.5-17.5); White Blood Count 7.1 K/mm3 (4.8-10.8)
[2019-05-11 07:21] LABS: Calcium 8.4 mg/dL (8.5-10.1)
--- NOTE | 2019-05-11 08:22 | Progress Note ---
Internal Medicine - PN: Subj *Date: 05/11/19 *Time: 08:20 Interval history: Patient has no complaints this morning. Apparently he developed some diarrhea yesterday but attempts to collect a stool sample of been unsuccessful and so far this morning the patient has had to have a bowel movement. He has no complaints and is feeling well. Exam Vital signs and Labs for Last 24 Hours: Temp Pulse Resp BP Pulse Ox 98.3 F 93 H 17 128/71 95 05/11/19 03:46 05/11/19 03:46 05/11/19 03:46 05/11/19 03:46 05/11/19 03:46 Laboratory Results - last 24 hr 05/09/19 07:39: Urine Color Yellow, Urine Appearance Cloudy, Urine pH 7.0, Ur Specific [place] 1.010, Urine Protein 2+, Urine Glucose (UA) Negative, Urine Ketones Negative, Urine Blood 3+, Urine Nitrate Positive, Urine Bilirubin Negative, Urine Urobilinogen 0.2, Ur Leukocyte Esterase 3+ A, Urine RBC Occasional, Urine WBC 20-50, Ur Squamous Epith Cells Occasional, Urine Bacteria 2+ 05/09/19 07:55: POC Glucose 159 H 05/09/19 13:16: POC Glucose 134 H 05/10/19 11:52: POC Glucose 84 05/10/19 16:40: POC Glucose 132 H 05/10/19 20:03: POC Glucose 222 H 05/11/19 01:04: POC Glucose 128 H 05/11/19 05:00: POC Glucose 107 05/11/19 06:20: WBC 7.1, RBC 3.39 L, Hgb 9.6 L, Hct 31.8 L, MCV 94.0, MCH 28.2, MCHC 30.0 L, RDW 15.3, Plt Count 312, MPV 8.5, Neut % (Auto) 69.6, Lymph % (Auto) 17.4, [place] % (Auto) 8.6, Eos % (Auto) 3.6, Baso % (Auto) 0.7, Neut # (Auto) 4.9, Lymph # (Auto) 1.2, [place] # (Auto) 0.6, Eos # (Auto) 0.3, Baso # (Auto) 0.1 05/11/19 06:20: Sodium 139, Potassium 5.0, Chloride 108 H, Carbon Dioxide 26, Anion Gap 10.0, BUN 29 H, Creatinine 1.90 H, Estimated Creat Clear 37, Estimated GFR 34 L, Est GFR ( Amer) 41 L, Glucose 84, Calcium 8.4 L I & O for Last 24 hours: Intake & Output 05/08/19 05/09/19 05/10/19 05/11/19 11:59 11:59 11:59 11:59 Intake Total 1466 / 1466 2140 Output Total 1150 / 1150 Balance 316 / 316 2140 / 2140 Weight 180 lb 187 lb 187 lb 8 oz Microbiology Reports for the Last 24 Hours: Microbiology 05/09/19 07:39 Urine,Clean Catch Urine Culture - Final Escherichia coli Narrative: Patient appears comfortable. Lungs are clear. Heart has a regular rate and rhythm. Abdomen is soft, nontender, nondistended. Assessment and Plan (1) UTI (urinary tract infection) Current visit: Yes Status: Acute Category: Medical Code(s): N39.0 - Urinary tract infection, site not specified (2) Sepsis Current visit: Yes Status: Acute Category: Medical Code(s): A41.9 - Sepsis, unspecified organism (3) Acute kidney injury Current visit: Yes Status: Acute Category: Medical Code(s): N17.9 - Acute kidney failure, unspecified (4) Stage 3 chronic kidney disease Current visit: Yes Status: Acute Category: Medical Code(s): N18.3 - Chronic kidney disease, stage 3 (moderate) (5) Hypoglycemic event in diabetes Current visit: Yes Status: Acute Category: Medical Code(s): E11.649 - Type 2 diabetes mellitus with hypoglycemia without coma (6) Hyperkalemia Current visit: No Status: Acute Category: Medical Code(s): E87.5 - Hyperkalemia - Assessment and plan all Dx Assessment and Plan for all problems:: Patient is improving and in regards to his initial diagnosis of urinary tract infection with sepsis patient is appropriate for discharge to home. We will try to collect a stool sample today to make sure there is no secondary infection as the patient will need antibiotics. He will be started on a probiotic anticipate discharge later today
--- NOTE | 2019-05-11 08:26 | Discharge Summary ---
General - General Admission date:: 05/09/19 Discharge date: 05/11/19 HPI HPI: 78-year-old male presented to the hospital from home when his found him confused and ultimately hypoglycemic with a blood sugar of 28. EMS was called and patient was transported to the hospital. Once his hypoglycemia was corrected in the emergency department additional information was provided that patient had noted a cloudy urine over the last several weeks. He has had 2 hospitalizations in 2019 for E. coli urinary tract infections in December and February. His December admission required transfer to the [facility] because of associated sepsis from E. coli. Patient reports that his only urinary symptom was a cloudy urine. He has chronic kidney disease and because of this did not initially think too much of the change in his urine. He denies fevers or chills at home. On presentation to the emergency department he was mildly hypothermic and this was corrected with a bear hugger. Patient's mentation improved while in the emergency department and decision was made to admit him for IV antibiotics to treat urinary tract infection and suspected E. coli bacteremia Hospital Course Hospital Course: Patient was admitted and continued on IV fluids and IV antibiotics for sepsis and suspected E. coli urinary tract infection. Patient's hypoglycemia corrected with D50 and D5 normal saline and this was discontinued in favor of normal saline on the evening of admission. Patient's blood sugars remained in a normal range and he only intermittently required small doses of short acting insulin at mealtimes. He was continued on intravenous Rocephin during hospitalization. Urine culture ultimately grew E. coli that was sensitive to all antibiotics. Blood cultures were negative after 48 hours. Once patient's blood pressures had stabilized, blood sugars had stabilized, he was able to ambulate on his own, he was discharged home. Patient will continue a 2-week course of antibiotics and then follow-up in the office. As this is his third urinary tract infection from E. coli that has led to hospitalization in the last 5 months he will be started on a prophylactic nitrofurantoin in a few weeks. Patient has history of chronic kidney disease and sustained some acute kidney injury on admission. This was corrected with IV fluids. Patient's lisinopril and Lasix were held during hospitalization. Lisinopril will be restarted at discharge. Patient is a diabetic and was profoundly hypoglycemic on the morning of admission. His Lantus was reduced during hospitalization and this reduction in dose will be permanent unless he developed significant hyperglycemia. Objective Vital signs: Temp Pulse Resp BP Pulse Ox 98.3 F 93 H 17 128/71 95 05/11/19 03:46 05/11/19 03:46 05/11/19 03:46 05/11/19 03:46 05/11/19 03:46 Results Labs on day of discharge: Labs from last 24 hours 05/11/19 05/11/19 05/11/19 06:20 06:20 05:00 WBC 7.1 RBC 3.39 L Hgb 9.6 L Hct 31.8 L MCV 94.0 MCH 28.2 MCHC 30.0 L RDW 15.3 Plt Count 312 MPV 8.5 Neut % (Auto) 69.6 Lymph % (Auto) 17.4 [place] % (Auto) 8.6 Eos % (Auto) 3.6 Baso % (Auto) 0.7 Neut # (Auto) 4.9 Lymph # (Auto) 1.2 [place] # (Auto) 0.6 Eos # (Auto) 0.3 Baso # (Auto) 0.1 Sodium 139 Potassium 5.0 Chloride 108 H Carbon Dioxide 26 Anion Gap 10.0 BUN 29 H Creatinine 1.90 H Estimated Creat Clear 37 Estimated GFR 34 L Est GFR ( Amer) 41 L Glucose 84 POC Glucose 107 Calcium 8.4 L Urine Color Urine Appearance Urine pH Ur Specific [place] Urine Protein Urine Glucose (UA) Urine Ketones Urine Blood Urine Nitrate Urine Bilirubin Urine Urobilinogen Ur Leukocyte Esterase Urine RBC Urine WBC Ur Squamous Epith Cells Urine Bacteria 05/11/19 05/10/19 05/10/19 01:04 20:03 16:40 WBC RBC Hgb Hct MCV MCH MCHC RDW Plt Count MPV Neut % (Auto) Lymph % (Auto) [place] % (Auto) Eos % (Auto) Baso % (Auto) Neut # (Auto) Lymph # (Auto) [place] # (Auto) Eos # (Auto) Baso # (Auto) Sodium Potassium Chloride Carbon Dioxide Anion Gap BUN Creatinine Estimated Creat Clear Estimated GFR Est GFR ( Amer) Glucose POC Glucose 128 H 222 H 132 H Calcium Urine Color Urine Appearance Urine pH Ur Specific [place] Urine Protein Urine Glucose (UA) Urine Ketones Urine Blood Urine Nitrate Urine Bilirubin Urine Urobilinogen Ur Leukocyte Esterase Urine RBC Urine WBC Ur Squamous Epith Cells Urine Bacteria 05/10/19 05/09/19 05/09/19 11:52 13:16 07:55 WBC RBC Hgb Hct MCV MCH MCHC RDW Plt Count MPV Neut % (Auto) Lymph % (Auto) [place] % (Auto) Eos % (Auto) Baso % (Auto) Neut # (Auto) Lymph # (Auto) [place] # (Auto) Eos # (Auto) Baso # (Auto) Sodium Potassium Chloride Carbon Dioxide Anion Gap BUN Creatinine Estimated Creat Clear Estimated GFR Est GFR ( Amer) Glucose POC Glucose 84 134 H 159 H Calcium Urine Color Urine Appearance Urine pH Ur Specific [place] Urine Protein Urine Glucose (UA) Urine Ketones Urine Blood Urine Nitrate Urine Bilirubin Urine Urobilinogen Ur Leukocyte Esterase Urine RBC Urine WBC Ur Squamous Epith Cells Urine Bacteria 05/09/19 07:39 WBC RBC Hgb Hct MCV MCH MCHC RDW Plt Count MPV Neut % (Auto) Lymph % (Auto) [place] % (Auto) Eos % (Auto) Baso % (Auto) Neut # (Auto) Lymph # (Auto) [place] # (Auto) Eos # (Auto) Baso # (Auto) Sodium Potassium Chloride Carbon Dioxide Anion Gap BUN Creatinine Estimated Creat Clear Estimated GFR Est GFR ( Amer) Glucose POC Glucose Calcium Urine Color Yellow Urine Appearance Cloudy Urine pH 7.0 Ur Specific [place] 1.010 Urine Protein 2+ Urine Glucose (UA) Negative Urine Ketones Negative Urine Blood 3+ Urine Nitrate Positive Urine Bilirubin Negative Urine Urobilinogen 0.2 Ur Leukocyte Esterase 3+ A Urine RBC Occasional Urine WBC 20-50 Ur Squamous Epith Cells Occasional Urine Bacteria 2+ DS: Diagnosis - Discharge Diagnosis (1) E. coli urinary tract infection Status: Acute (2) Sepsis Status: Acute (3) Acute kidney injury Status: Acute (4) Stage 3 chronic kidney disease Status: Acute (5) Hypoglycemic event in diabetes Status: Acute (6) Hyperkalemia Status: Acute Discharge Plan - Patient Discharge Instructions ACTIVITY: Continue current activity DIET: continue same diet Patient Instructions: Sepsis, Acute Renal Failure, DI for Urinary Tract Infection (UTI), DI for Sepsis -- Adult - Follow up Plan Follow up with: Juan Francisco Butcher MD [Staff Physician] - 05/21/19 Disposition: Home, Self-Half-Way Medications: Home Medications Medication Instructions Recorded Confirmed Type insulin aspart U-100 100 unit/mL 30 unit SUB-Q HS ml 09/18/17 05/09/19 History subcutaneous solution Amlodipine Besylate [Amlodipine 10 mg PO DAILY 12/13/18 05/09/19 History 10mg Tab] Atorvastatin Calcium [Lipitor 20mg 20 mg PO HS 12/13/18 05/09/19 History Tablet] Furosemide [Furosemide 20mg Tab] 20 mg PO DAILY 12/13/18 05/09/19 History carvedilol 12.5 mg tablet 12.5 mg PO BID #60 tab 02/11/19 05/09/19 Rx Aspirin [Aspirin 81mg EC Tab] 81 mg PO DAILY 05/09/19 05/09/19 History Famotidine [Pepcid 20mg Tablet] 20 mg PO BID 05/09/19 05/09/19 History Lisinopril [Lisinopril 5mg 5 mg PO DAILY 05/09/19 05/09/19 History Tablet] Mometasone/Formoterol [Dulera 100 2 puffs IH BID PRN 05/09/19 05/09/19 History Mcg/5 Mcg Inhaler] Pantoprazole Sodium [Protonix 20mg 20 mg PO DAILY 05/09/19 05/09/19 History Tab] Sucralfate [Carafate 1gm Tab] 1 gm PO ACHS 05/09/19 05/09/19 History Umeclidinium Brm/Vilanterol Tr 1 inh IH DAILY PRN 05/09/19 05/09/19 History [Anoro Ellipta 62.5-25 Mcg INH] Ciprofloxacin HCl [Cipro 250mg 250 mg PO BID #20 tab 05/11/19 Rx Tab] L. Acidophilus/Strept/LA P-Renato 1 cap PO DAILY #30 cap 05/11/19 Rx [[place]-Q Probiotic Capsule] Prescriptions/Medication Reconciliation: New Insulin Glargine,Hum.rec.anlog [Insulin Glargine 100 Units/mL 3mL flexpen] 10 unit SQ HS insuln.pen L. Acidophilus/Strept/LA P-Renato [[place]-Q Probiotic Capsule] 1 cap PO DAILY #30 cap Ciprofloxacin HCl [Cipro 250mg Tab] 250 mg PO BID #20 tab Continued insulin aspart U-100 100 unit/mL subcutaneous solution 30 unit SUB-Q HS ml carvedilol 12.5 mg tablet 12.5 mg PO BID #60 tab Atorvastatin Calcium [Lipitor 20mg Tablet] 20 mg PO HS Amlodipine Besylate [Amlodipine 10mg Tab] 10 mg PO DAILY Sucralfate [Carafate 1gm Tab] 1 gm PO ACHS Famotidine [Pepcid 20mg Tablet] 20 mg PO BID Aspirin [Aspirin 81mg EC Tab] 81 mg PO DAILY Pantoprazole Sodium [Protonix 20mg Tab] 20 mg PO DAILY Held Furosemide [Furosemide 20mg Tab] 20 mg PO DAILY Lisinopril [Lisinopril 5mg Tablet] 5 mg PO DAILY Discontinued Umeclidinium Brm/Vilanterol Tr [Anoro Ellipta 62.5-25 Mcg INH] 1 inh IH DAILY PRN PRN Reason: copd Mometasone/Formoterol [Dulera 100 Mcg/5 Mcg Inhaler] 2 puffs IH BID PRN PRN Reason: copd - Problem Reconciliation Problems Reviewed?: Yes
== END 2019-05-11 12:55 | disposition home or self-care (01) | DRG 637 ==
LOC: ER 07:27 → 2ND 12:38
PROVIDERS: ADMIT Family Medicine; ATTEND Family Medicine
DX: Z79.899 Other long term (current) drug therapy; N39.0 Urinary tract infection, site not specified; E11.22 Type 2 diabetes mellitus with diabetic chronic kidney disease; E11.649 Type 2 diabetes mellitus with hypoglycemia without coma; N18.3 Chronic kidney disease, stage 3 (moderate); I12.9 Hypertensive chronic kidney disease with stage 1 through stage 4 chronic kidney disease, or unspecified chronic kidney disease; Z79.4 Long term (current) use of insulin; Z85.51 Personal history of malignant neoplasm of bladder; A41.9 Sepsis, unspecified organism; Z87.891 Personal history of nicotine dependence; N17.9 Acute kidney failure, unspecified; E78.5 Hyperlipidemia, unspecified

== ENCOUNTER 2019-08-01 19:37 | Observation (INO) ==
--- NOTE | 2019-08-01 21:41 | Emergency Department Note ---
ED Disposition Clinical Impression: Left buttock abscess, Hyperglycemia Disposition: Admitted as Observation Condition on Discharge: Fair Referrals: Juan Francisco Butcher MD [Primary Care Provider] - - Critical Care Critical Care Time: No Attestation: On 08/01/19, the high probability of a clinically significant, sudden or life threatening deterioration of the following system(s) required my full and direct attention, intervention and personal management. The time I documented below is in addition to time spent performing reported procedures but includes the following listed in this critical care notation. Medical Decision Making - John Inquiry Pt receiving controlled substance: No Vital Signs: 08/01/19 19:38 08/01/19 20:00 08/01/19 20:10 Temperature 98 F 98 F Temperature Source Oral Oral Pulse Rate [Right] 73 78 73 Respiratory Rate 20 20 20 Blood Pressure [Right Arm] 151/92 H 147/88 H 151/92 H Blood Pressure Mean [Right Arm] 111 107 111 Blood Pressure Source [Right Arm] Automatic Cuff Blood Pressure Position [Right Arm] Supine 02 Sat by Pulse Oximetry 93 L 93 L 93 L Oxygen Delivery Method Room Air Room Air Room Air 08/01/19 20:30 08/01/19 21:00 08/01/19 21:30 Temperature Temperature Source Pulse Rate [Right] 73 68 68 Respiratory Rate 20 20 20 Blood Pressure [Right Arm] 149/85 H 145/88 H 141/88 H Blood Pressure Mean [Right Arm] 106 107 105 Blood Pressure Source [Right Arm] Automatic Cuff Automatic Cuff Automatic Cuff Blood Pressure Position [Right Arm] Supine Supine Supine 02 Sat by Pulse Oximetry 93 L 93 L 93 L Oxygen Delivery Method Room Air Room Air Room Air 08/01/19 22:00 08/01/19 22:30 Temperature Temperature Source Pulse Rate [Right] 68 72 Respiratory Rate 20 20 Blood Pressure [Right Arm] 147/79 H 142/84 H Blood Pressure Mean [Right Arm] 101 103 Blood Pressure Source [Right Arm] Automatic Cuff Automatic Cuff Blood Pressure Position [Right Arm] Supine Supine 02 Sat by Pulse Oximetry 93 L 93 L Oxygen Delivery Method Room Air Room Air - Lab Data Lab Results 08/01/19 22:00: WBC 12.7 H, RBC 3.77 L, Hgb 11.3 L, Hct 36.8 L, MCV 97.6 H, MCH 30.0, MCHC 30.7 L, RDW 15.3, Plt Count 374, MPV 11.0 H, Neut % (Auto) 81.5 H, Lymph % (Auto) 12.3, [place] % (Auto) 4.1, Eos % (Auto) 1.5, Baso % (Auto) 0.5, Neut # (Auto) 10.3 H, Lymph # (Auto) 1.6, [place] # (Auto) 0.5, Eos # (Auto) 0.2, Baso # (Auto) 0.1 08/01/19 22:00: Sodium 129 L, Potassium 5.1, Chloride 95 L, Carbon Dioxide 26, Anion Gap 13.1, BUN 29 H, Creatinine 1.99 H, Estimated Creat Clear 31, Estimated GFR 32 L, Est GFR ( Amer) 39 L, Glucose 701 H*, Calcium 9.1, Total Bilirubin 0.3, AST 12 L, ALT 17, Alkaline Phosphatase 136 H, Total Protein 7.0, Albumin 2.9 L, Globulin 4.1 H, Albumin/Globulin Ratio 0.7 L 08/01/19 22:00: Acetone Level None detected 08/01/19 22:07: VBG pH 7.32, VBG pCO2 41.8, VBG pO2 37.8, VBG HCO3 21.1 L, VBG Total CO2 22.3 L, VBG O2 Saturation 64.0, VBG Base Excess -5.0 L Result diagrams: 08/01/19 22:00 08/01/19 22:00 Orders (Tests/Meds): ED MEDICATIONS Discontinued Medications Generic Name Dose Route Start Last Admin Trade Name Mansoorq PRN Reason Stop Dose Admin Insulin Human Regular 5 unit 08/01/19 22:44 08/01/19 22:50 Humulin R Insulin 100 Units/Ml 10ml Vial IVP 08/01/19 22:45 5 unit ONCE ONE Administration Sodium Chloride 1,000 ml 08/01/19 22:44 08/01/19 22:50 Sod Chlor 0.9% 1000ml Bag IV 08/01/19 22:45 1,000 ml BOLUS ONE Administration ORDERS Category Date Time Status Lactic Acid Stat Lab 08/01/19 22:05 Ordered Blood Culture Stat Micro 08/01/19 22:05 Ordered - Physician Consults Physician Consulted: Dillon Butcher Time: 22:55 Reason -: Admission Comment/Response: Agrees to admit the patient to the hospital. We discussed the patient's clinical information, including history, exam, laboratory and radiology results and ED course. Per hospital procedure, I will write temporary bridge inpatient orders on the patient. Specific orders requested by the admitting physician: Vancomycin. Consult surgery for the morning. Sliding scale insulin. Medical Decision Narrative: Culture reviewed that was obtained at urgent treatment center. Positive for MRSA. General Adult HPI - General Chief complaint: Skin/Abscess/Foreign Body Stated complaint: back pain Time Seen by Provider: 08/01/19 21:41 Mode of Arrival: Wheelchair Limitations: No Limitations Description of Symptoms (Recalled from ER Triage Doc. by RN): PATIENT WHEELED INTO TX 9 C/O ABSCESS ON L BUTTOCKS. REPORTS BEING SEEN IN [facility] LAST WEEK FOR THE ABSCESS AND WAS PRESCRIBED AN ANTIBIOTIC. STATES HE TOOK HIS LAST DOSE OF ANTIBIOTIC YESTERDAY AND HAS AN APPOINTMENT TO F/U WITH PCP TOMORROW. FAMILY AT BEDSIDE STATES SHE DOESN'T THINK IT IS GETTING ANY BETTER DESPITE HOME WOUND CARE AND WOULD LIKE ANOTHER EVALUATION. PATIENT DENIES ANY PAIN OR FEVER.Q - History of Present Illness HPI narrative: Patient is diabetic. Complains of a boil on his left buttock. Seen in the urgent treatment center last Monday, 8 days ago for same. At that time did not want any treatment except for an antibiotic prescription and wanted to follow-up with his primary care provider. He had an appointment to see his primary care provider tomorrow, but he says when his was attending his abscess today she thought it looked worse and canceled his primary care doctor appointment and brought him here. He was also referred to surgery when he visited the urgent treatment center, but stated that he wanted to see his primary care doctor and let them decide about referral to surgery. He denies any significant pain. No fever. The abscess is open and draining. He does not have any swelling or pain in the rectum nor in the genitals. Patient states he has not checked his blood sugar in about 2 weeks. - Related Data Home Medications Medication Instructions Recorded Confirmed Sucralfate [Carafate 1gm Tab] 1 gm PO ACHS 05/09/19 08/01/19 lisinopriL [Lisinopril 5mg 5 mg PO BID 05/09/19 08/01/19 Tablet] Nitrofurantoin Macrocrystal 50 mg PO DAILY 07/24/19 08/01/19 [Nitrofurantoin] Insulin Glargine,Hum.rec.anlog 10 unit SQ HS 08/01/19 08/01/19 [Insulin Glargine 100 Units/mL 3mL flexpen] clindamycin HCL [Clindamycin HCl 300 mg PO Q8 08/01/19 08/01/19 300mg Cap] Previous Rx's Medication Instructions Recorded carvedilol 12.5 mg tablet 12.5 mg PO BID #60 tab 05/23/19 Allergies Allergy/AdvReac Type Severity Reaction Status Date / Time No Known Allergies Allergy Verified 10/02/18 09:00 [facility] History - Hepatitis A Screen Drug use history?: No High risk sexual behaviors?: No History of sexually transmitted infection?: No Currently employed?: No Childcare worker?: No Do you have indoor plumbing?: Yes Do you have electricity?: Yes Attestation statement:: This patient has been screened for Hepatitis A risk factors. I have reviewed the patient's past medical history: Yes Medical History: Reports:: Cancer (bladder 2016), Coronary Artery Disease, Diabetes Mellitus Type 2, Gastroesophageal Reflux Disease(GERD), Hyperlipidemia, Hypertension Denies:: Diabetes Mellitus Type 1, MRSA, Seizures Other Medical History: Denies: Blood Transfusion Reaction Other Surgeries: Yes: Cardiac Catheterization (5 stents) Amputation: No - Social History Smoking Status: Former smoker Alcohol Intake: never Alcohol Intake Frequency:: other Substance Use Type: denies use Occupational Status: retired Housing: house Household Members: spouse Family Hx:: Heart Attack ROS Obtained: Yes Systems reviewed as appropriate & no additional complaints - Constitutional Constitutional: Denies fever(s) - Gastrointestinal Gastrointestingal: Denies: abdominal pain, vomiting - Genitourinary Male Genitourinary: Denies difficulty urinating, Denies genital pain - Integumentary/Breasts Skin/Breast: Reports as per HPI Physical Exam - General General appearance: alert, in no apparent distress - Head Head exam: atraumatic, normocephalic - ENT ENT exam: Present: mucous membranes moist - Neck Neck exam: Present: normal inspection, trachea midline - Chest Chest inspection: Present: symmetric chest wall rise - Respiratory Respiratory exam: Absent: respiratory distress - Cardiovascular Cardiovascular exam: Present: regular rate - Abdominal Exam Abdominal exam: Absent: soft, tenderness - Extremities Exam Extremities exam: Present: normal inspection - Neurological Exam Neurological exam: Present: alert, oriented X3 - Skin Skin exam: Present: warm, dry - Expanded Skin Exam Comment: Abscess left inferior buttock. Not involving the anus or perianal tissues. The abscess is open, 5 cm long by 1 cm opening into the subcutaneous fat. Some necrotic fat at the wound edge. Mild erythema and induration around the wound edges.
[2019-08-01 22:16] LABS: Basophils # 0.1 K/mm3 (0-0.2); Basophils % 0.5 % (0.1-2.0); Eosinophils # 0.2 K/mm3 (0.0-0.4); Eosinophils % 1.5 % (0.1-12.0); Hematocrit 36.8 % (42.0-52.0); Hemoglobin 11.3 g/dL (14.1-18.0); Lymphocytes # 1.6 K/mm3 (0.7-4.5); Lymphocytes % 12.3 % (10-50); Mean Corpuscular HGB Conc 30.7 g/dL (31.8-35.4); Mean Corpuscular Volume 97.6 fl (80-94); Monocytes # 0.5 K/mm3 (0.1-1.0); Monocytes % 4.1 % (1.7-9.3); Neutrophils # 10.3 K/mm3 (1.8-7.8); Neutrophils % 81.5 % (37.0-80.0); Platelet Count 374 K/mm3 (142-424); Red Blood Count 3.77 M/mm3 (4.60-6.20); Red Cell Distribution Width 15.3 % (11.5-17.5); White Blood Count 12.7 K/mm3 (4.8-10.8)
[2019-08-01 22:29] LABS: Albumin Level 2.9 gm/dL (3.4-5.0); Albumin/Globulin Ratio 0.7 (1.1-1.8); Anion Gap 13.1 mEq/L (5-15); Bilirubin,Total 0.3 mg/dL (0.2-1.0); Calcium 9.1 mg/dL (8.5-10.1); Globulin 4.1 gm/dl (1.3-3.2)
[2019-08-01 22:36] LABS: VBG HCO3 21.1 mmol/L (23-30); VBG PCO2 41.8 mmol/L (35-51); VBG PH 7.32 mmol/L (7.31-7.41); VBG PO2 37.8 mmol/L (28-40); VBG Total CO2 22.3 mmol/L (23-27)
[2019-08-02 06:30] LABS: Anion Gap 11.3 mEq/L (5-15); Calcium 8.9 mg/dL (8.5-10.1)
--- NOTE | 2019-08-02 07:03 | Consult Report ---
*Admission Date: 08/01/19 *Reason for consult:: Left buttock abscess/pressure ulceration *History of present illness: This is an 79-year-old gentleman seen in consultation from the service of Dr. Butcher after presenting the emergency department overnight with increasing pain/swelling along an ulcerative abscess of the left buttock. Please see HPI from emergency department evaluation forwarded below. From ED eval: Patient is diabetic. Complains of a boil on his left buttock. Seen in the urgent treatment center last Monday, 8 days ago for same. At that time did not want any treatment except for an antibiotic prescription and wanted to follow-up with his primary care provider. He had an appointment to see his primary care provider tomorrow, but he says when his was attending his abscess today she thought it looked worse and canceled his primary care doctor appointment and brought him here. He was also referred to surgery when he visited the urgent treatment center, but stated that he wanted to see his primary care doctor and let them decide about referral to surgery. He denies an y significant pain. No fever. The abscess is open and draining. He does not have any swelling or pain in the rectum nor in the genitals. Patient states he has not checked his blood sugar in about 2 weeks. Review of Systems - Constitutional Denies chills - Eyes Denies change in vision - ENT Denies change in voice - *Cardiovascular Denies chest pain - *Respiratory Denies cough - *Gastrointestinal Denies abdominal pain - *Genitourinary Denies painful urination - *Musculoskeletal Denies deformity - Integumentary/Breasts Reports skin ulcer - Psychiatric Denies anxiety - Hematologic/Lymphatic Denies easy bleeding [facility] History Medical History: Reports:: Cancer (bladder 2016, SKIN CANCER REMOVAL), Coronary Artery Disease, Diabetes Mellitus Type 2, Gastroesophageal Reflux Disease(GERD), Hyperlipidemia, Hypertension, Myocardial Infarction Denies:: Diabetes Mellitus Type 1, MRSA, Seizures *Have you ever received a pneumonia vaccine?: Yes *Have you received a flu vaccine this season?: No Other Medical History: Reports: Anemia. Denies: Blood Transfusion Reaction Other Surgeries: Yes: Cardiac Catheterization (5 stents), Skin Cancer Excision (ON CHEST) Amputation: No - *Social History Educational Level: Attended College Smoking Status: Former smoker Tobacco Type: cigarettes # Packs/Day (cigarettes): 2 #Yrs smoked (if former smoker): 50 Alcohol Intake: never Alcohol Intake Frequency:: other Substance Use Type: denies use *Occupational Status:: retired Housing: house Household Members: spouse *Travel in the last 8 weeks: None Family Hx:: No significant family history Meds Home Medications Medication Instructions Recorded Confirmed Type Sucralfate [Carafate 1gm Tab] 1 gm PO ACHS 05/09/19 08/02/19 History lisinopriL [Lisinopril 5mg 20 mg PO BID 05/09/19 08/02/19 History Tablet] carvedilol 12.5 mg tablet 12.5 mg PO BID #60 tab 05/23/19 08/02/19 Rx Nitrofurantoin Macrocrystal 50 mg PO DAILY 07/24/19 08/02/19 History [Nitrofurantoin] Insulin Glargine,Hum.rec.anlog 10 unit SQ HS 08/01/19 08/02/19 History [Insulin Glargine 100 Units/mL 3mL flexpen] clindamycin HCL [Clindamycin HCl 300 mg PO Q8 08/01/19 08/02/19 History 300mg Cap] Allergies Allergy/AdvReac Type Severity Reaction Status Date / Time No Known Allergies Allergy Verified 10/02/18 09:00 Exam Vital signs and Labs for Last 24 Hours: Temp Pulse Resp BP Pulse Ox 98.2 F 63 16 148/79 H 95 08/02/19 04:00 08/02/19 04:00 08/02/19 04:00 08/02/19 04:00 08/02/19 04:00 Laboratory Results - last 24 hr 08/01/19 22:00: WBC 12.7 H, RBC 3.77 L, Hgb 11.3 L, Hct 36.8 L, MCV 97.6 H, MCH 30.0, MCHC 30.7 L, RDW 15.3, Plt Count 374, MPV 11.0 H, Neut % (Auto) 81.5 H, Lymph % (Auto) 12.3, [place] % (Auto) 4.1, Eos % (Auto) 1.5, Baso % (Auto) 0.5, Neut # (Auto) 10.3 H, Lymph # (Auto) 1.6, [place] # (Auto) 0.5, Eos # (Auto) 0.2, Baso # (Auto) 0.1 08/01/19 22:00: Sodium 129 L, Potassium 5.1, Chloride 95 L, Carbon Dioxide 26, Anion Gap 13.1, BUN 29 H, Creatinine 1.99 H, Estimated Creat Clear 31, Estimated GFR 32 L, Est GFR ( Amer) 39 L, Glucose 701 H*, Calcium 9.1, Total Bilirubin 0.3, AST 12 L, ALT 17, Alkaline Phosphatase 136 H, Total Protein 7.0, Albumin 2.9 L, Globulin 4.1 H, Albumin/Globulin Ratio 0.7 L 08/01/19 22:00: Acetone Level None detected 08/01/19 22:07: VBG pH 7.32, VBG pCO2 41.8, VBG pO2 37.8, VBG HCO3 21.1 L, VBG Total CO2 22.3 L, VBG O2 Saturation 64.0, VBG Base Excess -5.0 L 08/01/19 23:15: Lactate 1.7 08/01/19 23:36: Random Glucose 536 H* 08/02/19 01:37: POC Glucose 466 H* 08/02/19 06:23: POC Glucose 486 H* I & O for Last 24 hours: Intake & Output 07/30/19 07/31/19 08/01/19 08/02/19 11:59 11:59 11:59 11:59 Intake Total 1250 / 1250 Balance 1250 / 1250 Weight 168 lb 1.005 oz - Constitutional no acute distress - *Routine Respiratory Exam Absent: respiratory distress - *Routine Cardiovascular Exam Present: RRR - *Routine Skin Exam Comments: Ulcerative necrotic/abscessed lesion of the left buttock Results - Labs 08/01/19 22:00 08/01/19 22:00 Laboratory Results - last 24 hr 08/01/19 22:00: WBC 12.7 H, RBC 3.77 L, Hgb 11.3 L, Hct 36.8 L, MCV 97.6 H, MCH 30.0, MCHC 30.7 L, RDW 15.3, Plt Count 374, MPV 11.0 H, Neut % (Auto) 81.5 H, Lymph % (Auto) 12.3, [place] % (Auto) 4.1, Eos % (Auto) 1.5, Baso % (Auto) 0.5, Neut # (Auto) 10.3 H, Lymph # (Auto) 1.6, [place] # (Auto) 0.5, Eos # (Auto) 0.2, Baso # (Auto) 0.1 08/01/19 22:00: Sodium 129 L, Potassium 5.1, Chloride 95 L, Carbon Dioxide 26, Anion Gap 13.1, BUN 29 H, Creatinine 1.99 H, Estimated Creat Clear 31, Estimated GFR 32 L, Est GFR ( Amer) 39 L, Glucose 701 H*, Calcium 9.1, Total Bilirubin 0.3, AST 12 L, ALT 17, Alkaline Phosphatase 136 H, Total Protein 7.0, Albumin 2.9 L, Globulin 4.1 H, Albumin/Globulin Ratio 0.7 L 08/01/19 22:00: Acetone Level None detected 08/01/19 22:07: VBG pH 7.32, VBG pCO2 41.8, VBG pO2 37.8, VBG HCO3 21.1 L, VBG Total CO2 22.3 L, VBG O2 Saturation 64.0, VBG Base Excess -5.0 L 08/01/19 23:15: Lactate 1.7 08/01/19 23:36: Random Glucose 536 H* 08/02/19 01:37: POC Glucose 466 H* 08/02/19 06:23: POC Glucose 486 H* Assessment and Plan (1) Decubitus ulcer of left buttock Current visit: Yes Status: Acute Category: Medical Code(s): L89.329 - Pressure ulcer of left buttock, unspecified stage He has been scheduled for incision and drainage/debridement of decubitus ulceration with abscess/necrosis. I have discussed the risks and benefits including, but not limited to: Bleeding Infection Damage to surrounding tissue Inherent risks of sedation The patient agrees to proceed. (2) Left buttock abscess Current visit: Yes Status: Acute Category: Medical Code(s): L02.31 - Cutaneous abscess of buttock
--- NOTE | 2019-08-02 07:20 | Pharmacy Consult Notes ---
[facility] Pharmacy VTE Monitoring - Patient Demographics Admission date: 08/01/19 Report Date: 08/02/19 Time: 07:19 Allergies/Adverse Reactions: Patient Allergies No Known Allergies Allergy (Verified 10/02/18 09:00) Height: 1.83 m Weight: 76.232 kg Patient Problems: Current Active Problems Left buttock abscess (Acute) Hyperglycemia (Acute) Decubitus ulcer of left buttock (Acute) - VTE Risk Labs: VTE Related Lab Results Hgb 11.3 g/dL (14.1-18.0) L 08/01/19 22:00 Hct 36.8 % (42.0-52.0) L 08/01/19 22:00 Plt Count 374 K/mm3 (142-424) 08/01/19 22:00 BUN 26 mg/dL (7-18) H 08/02/19 05:22 Creatinine 1.70 mg/dL (0.70-1.30) H 08/02/19 05:22 Estimated Creat Clear 37 mL/min (50-200) 08/02/19 05:22 Was VTE Risk Assessment Performed: Yes VTE Score: 7 VTE Risk Level: Moderate Risk - Prophylaxis VTE Prophylaxis Ordered?: Yes Types of VTE Prophylaxis: TEDS Knee High Location of Applied Device: Bilateral Lower Extremeties
--- NOTE | 2019-08-02 07:47 | History & Physical Report ---
*Admission Date: 08/01/19 *Chief complaint: Buttock abscess *History of present illness: 79-year-old male with history of chronic kidney disease and chronic UTI presented to the emergency department with a left buttock abscess that was not improving. The abscess is been diagnosed 1 week prior and patient had been started on antibiotics to the urgent treatment clinic. Subsequently the abscess ruptured and he felt like it was improving. However over the 24 hours prior to presentation to the emergency department pain began increasing in the skin around the abscess and he ultimately decided to seek treatment at the emergency department overnight. Patient had an abscess with plenty of necrotic material and he was admitted for surgical evaluation. Patient was also found to have significant hyperglycemia with presenting blood sugar of over 700. He was given IV fluids. Patient has been taking Lantus only for his diabetes at home. In the recent past patient has had trouble with hypoglycemia, especially associated with infections. [facility] History I have reviewed the patient's past medical history: Yes Medical History: Reports:: Cancer (bladder 2016, SKIN CANCER REMOVAL), Coronary Artery Disease, Diabetes Mellitus Type 2, Gastroesophageal Reflux Disease(GERD), Hyperlipidemia, Hypertension, Myocardial Infarction Denies:: Diabetes Mellitus Type 1, MRSA, Seizures *Have you ever received a pneumonia vaccine?: Yes *Have you received a flu vaccine this season?: No Other Medical History: Reports: Anemia. Denies: Blood Transfusion Reaction Other Surgeries: Yes: Cardiac Catheterization (5 stents), Skin Cancer Excision (ON CHEST) Amputation: No - *Social History Educational Level: Attended College Smoking Status: Former smoker Tobacco Type: cigarettes # Packs/Day (cigarettes): 2 #Yrs smoked (if former smoker): 50 Alcohol Intake: never Alcohol Intake Frequency:: other Substance Use Type: denies use *Occupational Status:: retired Housing: house Household Members: spouse *Travel in the last 8 weeks: None Family Hx:: No significant family history Review of Systems - Constitutional Denies body ache(s), Denies chills, Denies lack of energy, Denies malaise - *Cardiovascular Denies chest pain, Denies chest pain at rest - *Respiratory Denies change in phlegm color, Denies chest congestion Meds Home Medications Medication Instructions Recorded Confirmed Type Sucralfate [Carafate 1gm Tab] 1 gm PO ACHS 05/09/19 08/02/19 History lisinopriL [Lisinopril 5mg 20 mg PO BID 05/09/19 08/02/19 History Tablet] carvedilol 12.5 mg tablet 12.5 mg PO BID #60 tab 05/23/19 08/02/19 Rx Nitrofurantoin Macrocrystal 50 mg PO DAILY 07/24/19 08/02/19 History [Nitrofurantoin] Insulin Glargine,Hum.rec.anlog 10 unit SQ HS 08/01/19 08/02/19 History [Insulin Glargine 100 Units/mL 3mL flexpen] clindamycin HCL [Clindamycin HCl 300 mg PO Q8 08/01/19 08/02/19 History 300mg Cap] Allergies Allergy/AdvReac Type Severity Reaction Status Date / Time No Known Allergies Allergy Verified 10/02/18 09:00 Exam Vital signs and Labs for Last 24 Hours: Temp Pulse Resp BP Pulse Ox 98.2 F 63 16 148/79 H 95 08/02/19 04:00 08/02/19 04:00 08/02/19 04:00 08/02/19 04:00 08/02/19 04:00 Laboratory Results - last 24 hr 08/01/19 22:00: WBC 12.7 H, RBC 3.77 L, Hgb 11.3 L, Hct 36.8 L, MCV 97.6 H, MCH 30.0, MCHC 30.7 L, RDW 15.3, Plt Count 374, MPV 11.0 H, Neut % (Auto) 81.5 H, Lymph % (Auto) 12.3, [place] % (Auto) 4.1, Eos % (Auto) 1.5, Baso % (Auto) 0.5, Neut # (Auto) 10.3 H, Lymph # (Auto) 1.6, [place] # (Auto) 0.5, Eos # (Auto) 0.2, Baso # (Auto) 0.1 08/01/19 22:00: Sodium 129 L, Potassium 5.1, Chloride 95 L, Carbon Dioxide 26, Anion Gap 13.1, BUN 29 H, Creatinine 1.99 H, Estimated Creat Clear 31, Estimated GFR 32 L, Est GFR ( Amer) 39 L, Glucose 701 H*, Calcium 9.1, Total Bilirubin 0.3, AST 12 L, ALT 17, Alkaline Phosphatase 136 H, Total Protein 7.0, Albumin 2.9 L, Globulin 4.1 H, Albumin/Globulin Ratio 0.7 L 08/01/19 22:00: Acetone Level None detected 08/01/19 22:07: VBG pH 7.32, VBG pCO2 41.8, VBG pO2 37.8, VBG HCO3 21.1 L, VBG Total CO2 22.3 L, VBG O2 Saturation 64.0, VBG Base Excess -5.0 L 08/01/19 23:15: Lactate 1.7 08/01/19 23:36: Random Glucose 536 H* 08/02/19 01:37: POC Glucose 466 H* 08/02/19 05:22: Sodium 133 L, Potassium 4.3, Chloride 101, Carbon Dioxide 25, Anion Gap 11.3, BUN 26 H, Creatinine 1.70 H, Estimated Creat Clear 37, Estimated GFR 39 L, Est GFR ( Amer) 47 L D, Glucose 491 H* D, Calcium 8.9 08/02/19 06:23: POC Glucose 486 H* I & O for Last 24 hours: Intake & Output 07/30/19 07/31/19 08/01/19 08/02/19 11:59 11:59 11:59 11:59 Intake Total 1250 / 1250 Balance 1250 / 1250 Weight 168 lb 1.005 oz Narrative: Patient is awake and alert and is in no distress. Lungs are clear. Heart has a regular rate and rhythm. Abdomen is soft and nontender. The inferior left buttock there is an open wound with copious necrotic soft tissue but no purulent drainage. Surrounding skin is erythematous and indurated. Assessment and Plan (1) Decubitus ulcer of left buttock Current visit: Yes Status: Acute Category: Medical Code(s): L89.329 - Pressure ulcer of left buttock, unspecified stage (2) Left buttock abscess Current visit: Yes Status: Acute Category: Medical Code(s): L02.31 - Cutaneous abscess of buttock (3) Diabetes mellitus with hyperglycemia Current visit: Yes Status: Acute Category: Medical Code(s): E11.65 - Type 2 diabetes mellitus with hyperglycemia - Assessment and plan all Dx Assessment and Plan for all problems:: 1. Surgical consultation for debridement 2. Continue high intensity sliding scale insulin and patient's Lantus will also be adjusted with close monitoring of his blood sugars.
--- NOTE | 2019-08-02 09:28 | Pharmacy Consult Notes ---
- Pharmacy Consult Date: 08/02/19 Time: 09:27 Referring provider: DR. LOZANO Reason for Consult:: VANCOMYCIN DOSING Allergies and ADEs:: Allergies Allergy/AdvReac Type Severity Reaction Status Date / Time No Known Allergies Allergy Verified 10/02/18 09:00 Home Medications:: Home Medications Medication Instructions Recorded Confirmed Type Sucralfate [Carafate 1gm Tab] 1 gm PO ACHS 05/09/19 08/02/19 History lisinopriL [Lisinopril 5mg 20 mg PO BID 05/09/19 08/02/19 History Tablet] carvedilol 12.5 mg tablet 12.5 mg PO BID #60 tab 05/23/19 08/02/19 Rx Nitrofurantoin Macrocrystal 50 mg PO DAILY 07/24/19 08/02/19 History [Nitrofurantoin] Insulin Glargine,Hum.rec.anlog 10 unit SQ HS 08/01/19 08/02/19 History [Insulin Glargine 100 Units/mL 3mL flexpen] Height: 1.83 m Weight: 76.232 kg Laboratory Results:: Laboratory Results - last 24 hr 08/01/19 22:00: WBC 12.7 H, RBC 3.77 L, Hgb 11.3 L, Hct 36.8 L, MCV 97.6 H, MCH 30.0, MCHC 30.7 L, RDW 15.3, Plt Count 374, MPV 11.0 H, Neut % (Auto) 81.5 H, Lymph % (Auto) 12.3, [place] % (Auto) 4.1, Eos % (Auto) 1.5, Baso % (Auto) 0.5, Neut # (Auto) 10.3 H, Lymph # (Auto) 1.6, [place] # (Auto) 0.5, Eos # (Auto) 0.2, Baso # (Auto) 0.1 08/01/19 22:00: Sodium 129 L, Potassium 5.1, Chloride 95 L, Carbon Dioxide 26, Anion Gap 13.1, BUN 29 H, Creatinine 1.99 H, Estimated Creat Clear 31, Estimated GFR 32 L, Est GFR ( Amer) 39 L, Glucose 701 H*, Calcium 9.1, Total Bilirubin 0.3, AST 12 L, ALT 17, Alkaline Phosphatase 136 H, Total Protein 7.0, Albumin 2.9 L, Globulin 4.1 H, Albumin/Globulin Ratio 0.7 L 08/01/19 22:00: Acetone Level None detected 08/01/19 22:07: VBG pH 7.32, VBG pCO2 41.8, VBG pO2 37.8, VBG HCO3 21.1 L, VBG Total CO2 22.3 L, VBG O2 Saturation 64.0, VBG Base Excess -5.0 L 08/01/19 23:15: Lactate 1.7 08/01/19 23:36: Random Glucose 536 H* 08/02/19 01:37: POC Glucose 466 H* 08/02/19 05:22: Sodium 133 L, Potassium 4.3, Chloride 101, Carbon Dioxide 25, Anion Gap 11.3, BUN 26 H, Creatinine 1.70 H, Estimated Creat Clear 37, Estimated GFR 39 L, Est GFR ( Amer) 47 L D, Glucose 491 H* D, Calcium 8.9 08/02/19 06:23: POC Glucose 486 H* Medical History: Reports:: Cancer (bladder 2016, SKIN CANCER REMOVAL), Coronary Artery Disease, Diabetes Mellitus Type 2, Gastroesophageal Reflux Disease(GERD), Hyperlipidemia, Hypertension, Myocardial Infarction Denies:: Diabetes Mellitus Type 1, MRSA, Seizures Assessment and Plan (1) Decubitus ulcer of left buttock Current visit: Yes Status: Acute Category: Medical Code(s): L89.329 - Pressure ulcer of left buttock, unspecified stage (2) Left buttock abscess Current visit: Yes Status: Acute Category: Medical Code(s): L02.31 - Cutaneous abscess of buttock (3) Diabetes mellitus with hyperglycemia Current visit: Yes Status: Acute Category: Medical Code(s): E11.65 - Type 2 diabetes mellitus with hyperglycemia - Assessment and plan all Dx Assessment and Plan for all problems:: BASED ON LEVELS AND PATIENT FACTORS, RECOMMEND VANCOMYCIN 1500 MG IV ONCE, FOLLOWED BY VANCOMYCIN 1250 MG IV Q24H. VANCOMYCIN TROUGH LEVEL TOMORROW NIGHT PRIOR TO 3RD DOSE. PHARMACY WILL FOLLOW DAILY AND ADJUST APPROPRIATE.
--- NOTE | 2019-08-02 10:54 | Progress Note ---
[facility] Anesthesia Checklist - Patient Identification Patient Identification: Arm Band, Verbal (Name & ) - Structural Data Admitted From: Inpatient Planned Operative Procedure/s: i and d buttock abcess Consent for Planned Operative Procedure(s) Verified: Yes Verified Documents: History and Physical - NPO Status Verified Time NPO: 00:00 - Additional verifications Patient : No Anesthesia Reactions: No Hx Blood Transfusions: No Blood Transfusion Reaction: No Cephalosporin Allergy: No Previous Colonoscopy: No - Cardiovascular Assessment Heart Sounds: S1 & S2 Pulse Strength: Baseline Pulse Rhythm: Regular Peripheral Edema: No - Airway Assessment C-Spine Mobility Assessed: Yes TMJ Mobility Assessed: Yes Dentition: Edentulous - Neurological Assessment Level of Consciousness: Awake, Alert, Appropriate Hx Seizures: No Numbness or tingling in extremities: No - Anesthesia Plan Anesthesia Risk discussed: Yes Anesthesia Plan: Verified ASA Class: III Anesthesia Type: General [facility] History I have reviewed the patient's past medical history: Yes Medical History: Reports:: Cancer (bladder 2016, SKIN CANCER REMOVAL), Coronary Artery Disease, Diabetes Mellitus Type 2, Gastroesophageal Reflux Disease(GERD), Hyperlipidemia, Hypertension, Myocardial Infarction Denies:: Diabetes Mellitus Type 1, MRSA, Seizures *Have you ever received a pneumonia vaccine?: Yes *Have you received a flu vaccine this season?: No Other Medical History: Reports: Anemia. Denies: Blood Transfusion Reaction Anesthesia experience/problems:: none Other Surgeries: Yes: Cardiac Catheterization (5 stents), Skin Cancer Excision (ON CHEST) Amputation: No - *Social History Educational Level: Attended College Smoking Status: Former smoker Tobacco Type: cigarettes # Packs/Day (cigarettes): 2 #Yrs smoked (if former smoker): 50 Alcohol Intake: never Alcohol Intake Frequency:: other Substance Use Type: denies use *Occupational Status:: retired Housing: house Household Members: spouse *Travel in the last 8 weeks: None Family Hx:: No significant family history
--- NOTE | 2019-08-02 12:01 | Operative Note ---
Date of procedure: 08/02/19 Pre-op Diagnosis:: Abscessed/necrotic left buttock decubitus ulceration Post-op Diagnosis:: Same Procedure performed:: Incision and drainage/debridement of abscess to left buttock decubitus ulceration Surgeon:: Jd Sampson MD MATERIAL PLANNING ANALYST:: Juan Francisco Garcia Anesthesia: LMA Estimated blood loss (mL): 10 Operative findings:: Abscessed/necrotic tissue evacuated/debrided Operative note:: After informed consent was obtained the patient was taken to the operating room and placed in the supine position. General anesthesia with laryngeal mask airway was achieved. He was transferred to the right lateral decubitus position. His left buttock was prepped and draped in a sterile fashion. Necrotic tissue from the central aspect of the wound was debrided bluntly and with electrocautery. The wound base and margin were evacuated of necrotic tissue and fluid was obtained for Gram stain/culture. The superior margin of the wound was carefully evaluated and a "skin flap" was removed secondary to patchy necrosis. No additional areas of purulence or necrosis were noted. The wound was packed with moistened Kerlix that was infiltrated with 1% lidocaine. Dressings were applied and the patient was transferred to recovery in stable condition. Condition: stable Disposition: PACU Specimens:: Wound base fluid for Gram stain/culture Wound base tissue biopsy for pathologic evaluation Complications:: No immediate
--- NOTE | 2019-08-02 12:06 | Progress Note ---
[facility] Anesthesia Record Part I Intake, IV Amount: 200 Estimated blood loss (mL): 0 Urine output (mL): 0 Blood Products used (#): none Blood Pressure: 119/68 SaO2: 94 Pulse Rate: 61 Respiratory Rate: 20 Temperature: 97.1 F Patient is:: Drowsy, Stable Stable to PACU at:: 12:03
--- NOTE | 2019-08-02 13:36 | Progress Note ---
[facility] Anesthesia Record Part II Discharge Time: 12:33 Destination: Medical Surgical Department PACU nurse assessment reviewed?: Yes Patient Condition:: Good Anesthesia Complications:: None Swallowing reflex intact?: Yes Cyanosis?: No Blood Pressure: 123/72 Pulse Rate: 67 Temperature: 98.1 F Mental Status: Alert & Oriented Pain level:: 0 Nausea and/or vomitting:: None Intake, IV Amount: 0
[2019-08-03 06:52] LABS: Basophils % 0.3 % (0.1-2.0); Eosinophils # 0.3 K/mm3 (0.0-0.4); Eosinophils % 2.6 % (0.1-12.0); Hematocrit 31.8 % (42.0-52.0); Hemoglobin 9.9 g/dL (14.1-18.0); Lymphocytes # 1.6 K/mm3 (0.7-4.5); Lymphocytes % 15.4 % (10-50); Mean Corpuscular HGB Conc 31.1 g/dL (31.8-35.4); Mean Platelet Volume 11.2 fl (7.4-10.4); Monocytes # 0.5 K/mm3 (0.1-1.0); Monocytes % 4.9 % (1.7-9.3); Neutrophils # 7.9 K/mm3 (1.8-7.8); Neutrophils % 76.8 % (37.0-80.0); Platelet Count 293 K/mm3 (142-424); Red Blood Count 3.35 M/mm3 (4.60-6.20); Red Cell Distribution Width 15.6 % (11.5-17.5); White Blood Count 10.3 K/mm3 (4.8-10.8)
[2019-08-03 07:19] LABS: Anion Gap 10.8 mEq/L (5-15)
--- NOTE | 2019-08-03 07:26 | Progress Note ---
Internal Medicine - PN: Subj *Date: 08/03/19 *Time: 07:24 Interval history: Patient has no complaints this morning and notes significant improvement in the pain in his left buttock. Exam Vital signs and Labs for Last 24 Hours: Temp Pulse Resp BP Pulse Ox 97.5 F L 65 18 125/63 94 L 08/03/19 04:00 08/03/19 04:00 08/03/19 04:00 08/03/19 04:00 08/03/19 04:00 Laboratory Results - last 24 hr 08/01/19 21:52: POC Glucose > 600 H* 08/01/19 21:53: POC Glucose > 600 H* 08/01/19 23:25: POC Glucose 556 H* 08/02/19 12:11: POC Glucose 237 H 08/02/19 17:20: POC Glucose 342 H* 08/02/19 20:12: POC Glucose 401 H* 08/02/19 22:56: POC Glucose 327 H* 08/03/19 06:25: WBC 10.3, RBC 3.35 L, Hgb 9.9 L, Hct 31.8 L, MCV 95.0 H, MCH 29.5, MCHC 31.1 L, RDW 15.6, Plt Count 293, MPV 11.2 H, Neut % (Auto) 76.8, Lymph % (Auto) 15.4, [place] % (Auto) 4.9, Eos % (Auto) 2.6, Baso % (Auto) 0.3, Neut # (Auto) 7.9 H, Lymph # (Auto) 1.6, [place] # (Auto) 0.5, Eos # (Auto) 0.3, Baso # (Auto) 0.0 08/03/19 06:25: Sodium 137, Potassium 4.8, Chloride 105, Carbon Dioxide 26, Anion Gap 10.8, BUN 22 H, Creatinine 1.53 H, Estimated Creat Clear 41, Estimated GFR 44 L, Est GFR ( Amer) 53 L, Glucose 179 H, Calcium 9.0 08/03/19 06:43: POC Glucose 189 H I & O for Last 24 hours: Intake & Output 07/31/19 08/01/19 08/02/19 08/03/19 11:59 11:59 11:59 11:59 Intake Total 2065 919 / 919 Output Total 120 / 120 Balance 2065 799 / 799 Weight 168 lb 1.005 oz 167 lb 8.821 oz Microbiology Reports for the Last 24 Hours: Microbiology 08/02/19 11:45 Buttock Gram Stain - Final 08/02/19 11:45 Buttock Wound Culture - Preliminary Narrative: He looks well and is awake and alert in no distress. Lungs are clear. Heart has a regular rate and rhythm. Left buttock dressing is intact. I did not remove the dressing and will await for the surgeons evaluation Assessment and Plan (1) Decubitus ulcer of left buttock Current visit: Yes Status: Acute Category: Medical Code(s): L89.329 - Pressure ulcer of left buttock, unspecified stage (2) Left buttock abscess Current visit: Yes Status: Acute Category: Medical Code(s): L02.31 - Cutaneous abscess of buttock (3) Diabetes mellitus with hyperglycemia Current visit: Yes Status: Acute Category: Medical Code(s): E11.65 - Type 2 diabetes mellitus with hyperglycemia (4) Infection of skin due to methicillin resistant Staphylococcus aureus (MRSA) Current visit: Yes Status: Acute Category: Medical Code(s): A49.02 - Methicillin resistant Staphylococcus aureus infection, unspecified site - Assessment and plan all Dx Assessment and Plan for all problems:: Await surgical evaluation today. From a medical standpoint patient can be discharged home with oral clindamycin and I am going to add a small dose of glipizide to his diabetic regimen while he continues to use Lantus. Patient has had home health services recently and these can be re-arranged for monitoring of the wound.
--- NOTE | 2019-08-03 07:35 | Discharge Summary ---
General - General Admission date:: 08/01/19 Discharge date: 08/03/19 HPI HPI: 79-year-old male with history of chronic kidney disease and chronic UTI presented to the emergency department with a left buttock abscess that was not improving. The abscess is been diagnosed 1 week prior and patient had been started on antibiotics to the urgent treatment clinic. Subsequently the abscess ruptured and he felt like it was improving. However over the 24 hours prior to presentation to the emergency department pain began increasing in the skin around the abscess and he ultimately decided to seek treatment at the emergency department overnight. Patient had an abscess with plenty of necrotic material and he was admitted for surgical evaluation. Patient was also found to have significant hyperglycemia with presenting blood sugar of over 700. He was given IV fluids. Patient has been taking Lantus only for his diabetes at home. In the recent past patient has had trouble with hypoglycemia, especially associated with infections. Hospital Course Hospital Course: Patient was admitted on the evening of August 01 and on the morning of August 02 was taken to the OR for I&D of left buttock abscess from MRSA skin infection. I&D was performed by Dr. Noriega. Patient tolerated the procedure well and noticed significant improvement in pain coming from the left buttock postoperatively. The wound was dressed per Dr. Noriega's orders with wet to dry dressing changes twice per day. . Patient remained stable after surgery. On the morning of the patient was discharged home on antibiotics, pain meds. He w ill follow up with me in 10 days Objective Vital signs: Temp Pulse Resp BP Pulse Ox 97.5 F L 65 18 125/63 94 L 08/03/19 04:00 08/03/19 04:00 08/03/19 04:00 08/03/19 04:00 08/03/19 04:00 Results Labs on day of discharge: Labs from last 24 hours 08/03/19 08/03/19 08/03/19 06:43 06:25 06:25 WBC 10.3 RBC 3.35 L Hgb 9.9 L Hct 31.8 L MCV 95.0 H MCH 29.5 MCHC 31.1 L RDW 15.6 Plt Count 293 MPV 11.2 H Neut % (Auto) 76.8 Lymph % (Auto) 15.4 [place] % (Auto) 4.9 Eos % (Auto) 2.6 Baso % (Auto) 0.3 Neut # (Auto) 7.9 H Lymph # (Auto) 1.6 [place] # (Auto) 0.5 Eos # (Auto) 0.3 Baso # (Auto) 0.0 Sodium 137 Potassium 4.8 Chloride 105 Carbon Dioxide 26 Anion Gap 10.8 BUN 22 H Creatinine 1.53 H Estimated Creat Clear 41 Estimated GFR 44 L Est GFR ( Amer) 53 L Glucose 179 H POC Glucose 189 H Calcium 9.0 08/02/19 08/02/19 08/02/19 22:56 20:12 17:20 WBC RBC Hgb Hct MCV MCH MCHC RDW Plt Count MPV Neut % (Auto) Lymph % (Auto) [place] % (Auto) Eos % (Auto) Baso % (Auto) Neut # (Auto) Lymph # (Auto) [place] # (Auto) Eos # (Auto) Baso # (Auto) Sodium Potassium Chloride Carbon Dioxide Anion Gap BUN Creatinine Estimated Creat Clear Estimated GFR Est GFR ( Amer) Glucose POC Glucose 327 H* 401 H* 342 H* Calcium 08/02/19 08/01/19 08/01/19 12:11 23:25 21:53 WBC RBC Hgb Hct MCV MCH MCHC RDW Plt Count MPV Neut % (Auto) Lymph % (Auto) [place] % (Auto) Eos % (Auto) Baso % (Auto) Neut # (Auto) Lymph # (Auto) [place] # (Auto) Eos # (Auto) Baso # (Auto) Sodium Potassium Chloride Carbon Dioxide Anion Gap BUN Creatinine Estimated Creat Clear Estimated GFR Est GFR ( Amer) Glucose POC Glucose 237 H 556 H* > 600 H* Calcium 08/01/19 21:52 WBC RBC Hgb Hct MCV MCH MCHC RDW Plt Count MPV Neut % (Auto) Lymph % (Auto) [place] % (Auto) Eos % (Auto) Baso % (Auto) Neut # (Auto) Lymph # (Auto) [place] # (Auto) Eos # (Auto) Baso # (Auto) Sodium Potassium Chloride Carbon Dioxide Anion Gap BUN Creatinine Estimated Creat Clear Estimated GFR Est GFR ( Amer) Glucose POC Glucose > 600 H* Calcium Preliminary micro results at discharge 08/02/19 11:45 Wound Culture - Preliminary Buttock DS: Diagnosis - Discharge Diagnosis (1) Decubitus ulcer of left buttock Status: Acute (2) Left buttock abscess Status: Acute (3) Diabetes mellitus with hyperglycemia Status: Acute (4) Infection of skin due to methicillin resistant Staphylococcus aureus (MRSA) Status: Acute Discharge Plan - Patient Discharge Instructions ACTIVITY: Continue current activity DIET: continue same diet Patient Instructions: DI for Hyperglycemia -- Adult, DI for Skin Abscess - Follow up Plan Follow up with: Jd Sampson MD [Staff Physician] - 1 week Disposition: Home, Self-Group Home Medications: Home Medications Medication Instructions Recorded Confirmed Type Sucralfate [Carafate 1gm Tab] 1 gm PO ACHS 05/09/19 08/02/19 History lisinopriL [Lisinopril 5mg 20 mg PO BID 05/09/19 08/02/19 History Tablet] carvedilol 12.5 mg tablet 12.5 mg PO BID #60 tab 05/23/19 08/02/19 Rx Nitrofurantoin Macrocrystal 50 mg PO DAILY 07/24/19 08/02/19 History [Nitrofurantoin] Insulin Glargine,Hum.rec.anlog 10 unit SQ HS 08/01/19 08/02/19 History [Insulin Glargine 100 Units/mL 3mL flexpen] Clindamycin HCl [Cleocin HCl] 300 mg PO TID #30 cap 08/03/19 Rx Hydrocodone/Acetaminophen 1 each PO Q4HP PRN #42 tablet 08/03/19 Rx [Hydrocodone-Acetamin 5-325 mg] glipiZIDE [Glucotrol] 5 mg PO DAILY #30 tab 08/03/19 Rx Prescriptions/Medication Reconciliation: New Hydrocodone/Acetaminophen [Hydrocodone-Acetamin 5-325 mg] 1 each PO Q4HP PRN #42 tablet PRN Reason: Moderate To Severe Pain Clindamycin HCl [Cleocin HCl] 300 mg PO TID #30 cap glipiZIDE [Glucotrol] 5 mg PO DAILY #30 tab Continued carvedilol 12.5 mg tablet 12.5 mg PO BID #60 tab Sucralfate [Carafate 1gm Tab] 1 gm PO ACHS lisinopriL [Lisinopril 5mg Tablet] 20 mg PO BID Nitrofurantoin Macrocrystal [Nitrofurantoin] 50 mg PO DAILY Changed Insulin Glargine,Hum.rec.anlog [Insulin Glargine 100 Units/mL 3mL flexpen] 15 unit SQ HS #0 - Problem Reconciliation Problems Reviewed?: Yes
--- NOTE | 2019-08-03 08:41 | Progress Note ---
Subjective Patient reports: no new complaints Exam Vital signs and Labs for Last 24 Hours: Temp Pulse Resp BP Pulse Ox 97.5 F L 65 18 125/63 94 L 08/03/19 04:00 08/03/19 04:00 08/03/19 04:00 08/03/19 04:00 08/03/19 04:00 Laboratory Results - last 24 hr 08/01/19 21:52: POC Glucose > 600 H* 08/01/19 21:53: POC Glucose > 600 H* 08/01/19 23:25: POC Glucose 556 H* 08/02/19 12:11: POC Glucose 237 H 08/02/19 17:20: POC Glucose 342 H* 08/02/19 20:12: POC Glucose 401 H* 08/02/19 22:56: POC Glucose 327 H* 08/03/19 06:25: WBC 10.3, RBC 3.35 L, Hgb 9.9 L, Hct 31.8 L, MCV 95.0 H, MCH 29.5, MCHC 31.1 L, RDW 15.6, Plt Count 293, MPV 11.2 H, Neut % (Auto) 76.8, Lymph % (Auto) 15.4, [place] % (Auto) 4.9, Eos % (Auto) 2.6, Baso % (Auto) 0.3, Neut # (Auto) 7.9 H, Lymph # (Auto) 1.6, [place] # (Auto) 0.5, Eos # (Auto) 0.3, Baso # (Auto) 0.0 08/03/19 06:25: Sodium 137, Potassium 4.8, Chloride 105, Carbon Dioxide 26, Anion Gap 10.8, BUN 22 H, Creatinine 1.53 H, Estimated Creat Clear 41, Estimated GFR 44 L, Est GFR ( Amer) 53 L, Glucose 179 H, Calcium 9.0 08/03/19 06:43: POC Glucose 189 H I & O for Last 24 hours: Intake & Output 07/31/19 08/01/19 08/02/19 08/03/19 11:59 11:59 11:59 11:59 Intake Total 2065 2220 / 2220 Output Total 120 / 120 Balance 2065 / 2099 Weight 168 lb 1.005 oz 167 lb 8.821 oz Microbiology Reports for the Last 24 Hours: Microbiology 08/02/19 11:45 Buttock Gram Stain - Final 08/02/19 11:45 Buttock Wound Culture - Preliminary - Constitutional no acute distress - *Routine Respiratory Exam Absent: respiratory distress - *Routine Skin Exam Comments: dressing intact. no spreading cellulitis. Progress Note: A&P (1) Decubitus ulcer of left buttock Status: Acute Current Visit: Yes (2) Left buttock abscess Status: Acute Current Visit: Yes (3) Diabetes mellitus with hyperglycemia Status: Acute Current Visit: Yes (4) Infection of skin due to methicillin resistant Staphylococcus aureus (MRSA) Status: Acute Current Visit: Yes
== END 2019-08-03 13:40 | disposition home health service (06) ==
LOC: 2ND 19:37 → ER 19:37 → 2ND 23:51
PROVIDERS: ADMIT Internal Medicine Adolescent Medicine; ATTEND Family Medicine
CPT/HCPCS: 36415; 80048; 80053; 82009; 82803; 82947; 82962; 83605; 85025; 87040; 87070; 87075; 87077; 87186; 87205; 88304; 96365; 96367; 96375; 99285; G0378; J3370

== ENCOUNTER → 2019-08-05 17:03 | Outpatient (CLI) | payer MEDICARE, SELFPAY ==
[2019-08-05 18:25] LABS: Hemoglobin A1C 15.2 % (0.0-7.0)
== END ==
PROVIDERS: Visit Provider Family Medicine
DX: E11.65 Type 2 diabetes mellitus with hyperglycemia (principal); Z79.4 Long term (current) use of insulin
CPT/HCPCS: 83036

== ENCOUNTER 2020-05-26 21:25 | Emergency (ER) | payer MEDICARE, SELFPAY ==
[2020-05-26] VITALS (7 sets, daily range): BP systolic 101–139; BP diastolic 65–70; PULSE 58–83; RESP 16–18; TEMP 36.6; O2SAT 94–97; BMI 23.7
--- NOTE | 2020-05-26 | ECG_ITS ---
APPROVED REPORT Exam: Resting ECG HR:77 bpm ECG Measurements Heart Rate 77 AXES CO 164 P 196 QRSd 48 QRS -60 QT 426 T 69 QTc 482 Conclusion Unusual P axis, possible ectopic atrial rhythm with occasional premature ventricular complexes Left axis deviation Pulmonary disease pattern ST elevation, consider anterior injury or acute infarct Prolonged QT ACUTE VA Abnormal ECG Electronically signed by : Juan Francisco Patino, 05/27/2020 07:25:30
--- NOTE | 2020-05-26 21:44 | XR_ITS ---
PROCEDURE: XR CHEST PORTABLE CLINICAL HISTORY: SOA Shortness of air weakness COMPARISON: CR CXR1 CHEST-PORTABLE from 06/15/2015 CR XR CHEST PORTABLE from 05/09/2019 FINDINGS: Cardiomegaly without failure . chronic changes with evidence of old granulomatous disease. Coronary artery stents noted. No acute bony abnormalities. IMPRESSION: As above, no change with no acute finding Dictated by: Carlos Trevino MD 05/27/2020 06:58 Carlos Trevino MD in [facility] 05/27/2020 06:58
--- NOTE | 2020-05-26 21:51 | CT_ITS ---
PROCEDURE: CT HEAD/BRAIN WO CON CLINICAL INDICATION: left side weakness Sudden onset left-sided weakness COMPARISON: No exams were available for comparison TECHNIQUE: Axial images obtained. All CT scans at the facility use one or more dose reduction, viz: automated exposure control, ma/kV adjustment per patient size (including targeted exams where dose is matched to indication, i.e. head), or iterative reconstruction technique. FINDINGS: No midline shift, mass effect, intracranial hemorrhage, hydrocephalus, or extra-axial fluid collection is evident. There is moderate generalized atrophy with hypoattenuation of the periventricular white matter consistent with microangiopathic changes. The calvarium has an unremarkable appearance. No mastoid effusion. No sinus air-fluid level. IMPRESSION: No acute intracranial finding Dictated by: Carlos Trevino MD 05/27/2020 05:19 Carlos Trevino MD in [facility] 05/27/2020 05:19
[2020-05-26 21:52] LABS: Chloride 100 mmol/L (98-107); Sodium 133 mmol/L (136-145)
[2020-05-26 21:53] LABS: Basophils # 0.1 K/mm3 (0-0.2); Basophils % 0.4 % (0.1-2.0); Eosinophils # 0.2 K/mm3 (0.0-0.4); Eosinophils % 1.7 % (0.1-12.0); Hematocrit 32.5 % (42.0-52.0); Hemoglobin 9.9 g/dL (14.1-18.0); Lymphocytes # 1.6 K/mm3 (0.7-4.5); Lymphocytes % 11.8 % (10-50); Mean Corpuscular HGB Conc 30.3 g/dL (31.8-35.4); Mean Corpuscular Hemoglobin 30.8 pg (27.0-31.2); Mean Corpuscular Volume 101.7 fl (80-94); Mean Platelet Volume 11.3 fl (7.4-10.4); Monocytes # 0.7 K/mm3 (0.1-1.0); Monocytes % 5.2 % (1.7-9.3); Neutrophils # 10.8 K/mm3 (1.8-7.8); Neutrophils % 80.9 % (37.0-80.0); Platelet Count 277 K/mm3 (142-424); Red Cell Distribution Width 13.6 % (11.5-17.5); White Blood Count 13.3 K/mm3 (4.8-10.8)
[2020-05-26 21:54] LABS: Creatinine Clearance Estimated 8 mL/min (50-200); Estimated Glomerular Filt Rate 6 ml/min (>60); GFR (African American) 8 ML/MIN (>60)
[2020-05-26 21:55] LABS: Carbon Dioxide 17 mmol/L (22.0-30.0); Glucose 362 mg/dl (74-100)
[2020-05-26 21:56] LABS: Blood Urea Nitrogen 110 mg/dl (9-20); Potassium 9.5 mmoL/L (3.5-5.1)
[2020-05-26 21:57] LABS: Anion Gap 25.5 mEq/L (5-15)
--- NOTE | 2020-05-26 22:07 | HMH.EDSOB ---
ED Disposition Clinical Impression: Hyperkalemia Acute renal failure Qualifiers: Acute renal failure type: unspecified Qualified Code(s): N17.9 - Acute kidney failure, unspecified Diabetes mellitus with hyperglycemia Qualifiers: Diabetes mellitus type: type 2 Diabetes mellitus group home insulin use: unspecified group home insulin use status Qualified Code(s): E11.65 - Type 2 diabetes mellitus with hyperglycemia Disposition: Xfer Short-Term Hosp Condition on Discharge: Serious Referrals: Juan Francisco Butcher MD [Primary Care Provider] - - Critical Care Critical Care Time: Yes Attestation: On 05/26/20, the high probability of a clinically significant, sudden or life threatening deterioration of the following system(s) required my full and direct attention, intervention and personal management. The time I documented below is in addition to time spent performing reported procedures but includes the following listed in this critical care notation. Total Critical Care Time: 60 Vital system(s) involved:: Renal Failure My critical care processes included: Assessment & monitoring of V/S, Initial and Re-exams, Data Review/Interpretation, Coordinating Care, Medication Orders and management, Documentation Medical Decision Making - Medical Records Medical records reviewed: Yes: I reviewed the patient's medical records. - John Inquiry Pt receiving controlled substance: No Vital Signs: 05/26/20 21:33 Temperature 97.8 F Temperature Source Oral Pulse Rate [Right] 58 L Respiratory Rate 18 Blood Pressure [Right Arm] 101/70 L Blood Pressure Mean [Right Arm] 80 Blood Pressure Source [Right Arm] Automatic Cuff Blood Pressure Position [Right Arm] Supine 02 Sat by Pulse Oximetry 97 Oxygen Delivery Method Nasal Cannula Oxygen Flow Rate (LPM) 2 - Lab Data Lab results reviewed: Yes: I reviewed the patient's lab results. Lab Results 05/26/20 21:25: WBC 13.3 H, RBC 3.20 L, Hgb 9.9 L, Hct 32.5 L, MCV 101.7 H, MCH 30.8, MCHC 30.3 L, RDW 13.6, Plt Count 277, MPV 11.3 H, Neut % (Auto) 80.9 H, Lymph % (Auto) 11.8, [place] % (Auto) 5.2, Eos % (Auto) 1.7, Baso % (Auto) 0.4, Neut # (Auto) 10.8 H, Lymph # (Auto) 1.6, [place] # (Auto) 0.7, Eos # (Auto) 0.2, Baso # (Auto) 0.1 05/26/20 21:25: Sodium 133 L, Potassium 9.5 H*, Chloride 100, Carbon Dioxide 17 L, Anion Gap 25.5 H, BUN 110 H*, Creatinine 8.30 H, Estimated Creat Clear 8, Estimated GFR 6 L*, Est GFR ( Amer) 8 L*, Glucose 362 H, Calcium 9.0, Troponin I 0.02 05/26/20 21:25: Acetone Level None detected 05/26/20 21:25: Total Bilirubin 0.3, Direct Bilirubin 0.3, Conjugated Bilirubin 0.0, Indirect Bilirubin 0.0, Unconjugated Bilirubin 0.0, AST 18, ALT 18, Alkaline Phosphatase 136 H, Total Protein 8.0, Albumin 4.4 05/26/20 21:25: SARS-CoV-2 IgG Ab (Rapid) Negative, SARS-CoV-2 IgM Ab (Rapid) Negative 05/26/20 23:58: Sodium 136, Potassium 8.8 H*, Chloride 104, Carbon Dioxide 16 L, Anion Gap 24.8 H, BUN 112 H*, Creatinine 8.00 H, Estimated Creat Clear 8, Estimated GFR 6 L*, Est GFR ( Amer) 8 L*, Glucose 286 H D, Calcium 9.3, Troponin I 0.05 H Result diagrams: 05/26/20 21:25 05/26/20 23:58 Orders (Tests/Meds): ED MEDICATIONS Discontinued Medications Generic Name Dose Route Start Last Admin Trade Name Mansoorq PRN Reason Stop Dose Admin Albuterol Sulfate 2.5 mg 05/26/20 22:18 05/26/20 22:21 Albuterol 0.083% 2.5 Mg/3 Ml Neb IH 05/26/20 22:19 2.5 mg ONCE ONE Administration Dextrose 50 ml 05/26/20 22:18 05/26/20 22:22 Dextrose 50% 50ml Syringe (Crash Cart) IVP 05/26/20 22:19 50 ml ONCE ONE Administration Calcium Gluconate 1,000 mg/ 35 mls @ 100 mls/hr 05/26/20 22:18 05/26/20 22:22 Sodium Chloride IV 05/26/20 22:38 100 mls/hr ONCE ONE Administration Insulin Human Regular 5 unit 05/26/20 22:18 05/26/20 22:21 Insulin Human Regular 100 Units/Ml 10ml Vial IVP 05/26/20 22:19 5 unit ONCE ONE Administration Sodium Polystyrene Sulfonate 30 gm
[2020-05-26 22:08] LABS: Troponin I 0.02 ng/ml (0.00-0.034)
[2020-05-26 22:18] LABS: Alanine Aminotransferase 18 U/L (12-78); Albumin Level 4.4 g/dl (3.5-5.0); Alkaline Phosphatase 136 U/L (38-126); Aspartate Amino Transferase 18 U/L (17-59); Bilirubin,Direct 0.3 mg/dl (0.0-0.4); Bilirubin,Total 0.3 mg/dl (0.2-1.3)
[2020-05-26 22:23] LABS: Acetone, Serum (Rapid) None Detected (None Detect)
--- NOTE | 2020-05-26 22:49 | ECG_ITS ---
APPROVED REPORT Exam: Resting ECG HR:151 bpm ECG Measurements Heart Rate 151 AXES QRSd 138 QRS -70 QT 190 T 81 QTc 301 Conclusion Undetermined rhythm Left axis deviation Nonspecific intraventricular block Possible Anterolateral infarct, age undetermined Abnormal ECG Electronically signed by : Juan Francisco Patino, 06/01/2020 21:51:08
--- NOTE | 2020-05-26 23:28 | PC.NURSE ---
2323 ASKED TO TRY [facility] OR [facility] FOR THIS PT. 2330 SPOKE WITH ADMISSION COORDINATOR AT [facility]. AWAITING HER RESPONSE FROM HOSPITALIST
--- NOTE | 2020-05-26 23:49 | PC.NURSE ---
3949 SPOKE WITH TYLER AT [facility] ABOUT LABS INCLUDING RENAL FUNCTION.SHE STATES WILL SPEAK WITH HOSPITALIST
--- NOTE | 2020-05-26 23:53 | PC.NURSE ---
TYLER FROM [facility] CALLED AND STATED HOSPITALIST CONSIDERING THIS PT BUT HE IS AN ICU PT AND NO ICU BEDS AVAILABLE AT THIS TIME. MAY CONSIDER PUTTING HIM ON WAITING LIST.
--- NOTE | 2020-05-26 23:57 | PC.NURSE ---
ATTEMPTING TO SPEAK WITH SOMEONE AT [facility] CONCERNING TRANSFER
[2020-05-27] VITALS (7 sets, daily range): BP systolic 97–139; BP diastolic 58–74; PULSE 69–79; RESP 16–20; TEMP 36.6; O2SAT 94–97
[2020-05-27 00:16] LABS: Anion Gap 24.8 mEq/L (5-15); Calcium 9.3 mg/dl (8.4-10.2); Carbon Dioxide 16 mmol/L (22.0-30.0); Chloride 104 mmol/L (98-107); Creatinine Clearance Estimated 8 mL/min (50-200); Estimated Glomerular Filt Rate 6 ml/min (>60); GFR (African American) 8 ML/MIN (>60); Glucose 286 mg/dl (74-100); Sodium 136 mmol/L (136-145)
--- NOTE | 2020-05-27 00:24 | PC.NURSE ---
SPOKE WITH LIZET AT [facility] CONCERNING THIS PT FOR TRANSFER.SHE TOOK INFORMATION AND STATED WOULD CALL BACK AFTER SPEAKING TO HOSPITALIST
[2020-05-27 00:27] LABS: Coronavirus 19 IgG Antibody Negative (Negative); Coronavirus 19 IgM Antibody Negative (Negative)
[2020-05-27 00:28] LABS: Potassium 8.8 mmoL/L (3.5-5.1); Troponin I 0.05 ng/ml (0.00-0.034)
[2020-05-27 00:29] LABS: Blood Urea Nitrogen 112 mg/dl (9-20)
--- NOTE | 2020-05-27 00:32 | PC.NURSE ---
LAB CALLED WITH RESULTS OF POTASSIUM 8.8 BUN 112 CR 8.O THESE RESULTS GIVEN TO
--- NOTE | 2020-05-27 00:39 | PC.NURSE ---
SPEAKING TO OF [facility] CONCERNING THIS PT
--- NOTE | 2020-05-27 00:43 | PC.NURSE ---
AWAITING CALL FROM PYTHON ENGINEER AT [facility]
--- NOTE | 2020-05-27 02:25 | PC.NURSE ---
Dr Boggs speaking with Dr Domínguez with [facility].
--- NOTE | 2020-05-27 03:12 | PC.NURSE ---
[facility] has excepted pt, continue to wait for a bed and to give report. Pt resting comfortably at this time. Sodium Bicarb gtt continues to infuse at 100ml/hr per Dr Domínguez with [facility].
--- NOTE | 2020-05-27 04:01 | PC.NURSE ---
Report called to Odalis MARVIN at [address], EMS here for transport.
[2020-05-28 07:50] LABS: ABG Base Excess -11.4 mmol/L (-2.4-2.3); ABG HCO3 14.6 mmhg (22.0-26.0); ABG PCO2 28.3 mmhg (35.0-45.0); ABG PH 7.33 mmol/L (7.35-7.45); ABG PO2 75.7 mmhg (80-100); ABG TCO2 15.4 mmhg (23-27)
[2020-05-28 07:51] LABS: ABG Oxygen Saturation 95 % (90-100); Allen's Test ACCEPTABLE; Oxygen 2LPM %; Source R RADIAL
== END 2020-05-27 04:11 | disposition short-term general hospital (02) ==
PROVIDERS: Emergency Provider Emergency Medicine; PCP Family Medicine
DX: N17.9 Acute kidney failure, unspecified (principal); E87.5 Hyperkalemia; E11.65 Type 2 diabetes mellitus with hyperglycemia; Z01.84 Encounter for antibody response examination; I10 Essential (primary) hypertension; E78.5 Hyperlipidemia, unspecified; K21.9 Gastro-esophageal reflux disease without esophagitis; I25.10 Atherosclerotic heart disease of native coronary artery without angina pectoris; Z79.899 Other long term (current) drug therapy
CPT/HCPCS: 70450; 71045; 80048; 80076; 82009; 82803; 84484; 85025; 86328; 93005; 93041; 96365; 96375; 99284

== ENCOUNTER 2020-11-13 08:52 | Inpatient (IN) | payer MEDICARE, MEDICAID, SELFPAY ==
[2020-11-13] VITALS (15 sets, daily range): BP systolic 105–156; BP diastolic 54–81; PULSE 90–101; RESP 16–27; TEMP 36.8–37.2; O2SAT 90–98; BMI 24.4; BMI 25.0
--- NOTE | 2020-11-13 08:55 | HMH.EDGENADL ---
ED Disposition Clinical Impression: Pyelonephritis, Hyperkalemia Acute on chronic renal failure Qualifiers: Acute renal failure type: unspecified Chronic kidney disease stage: unspecified stage Qualified Code(s): N17.9 - Acute kidney failure, unspecified; N18.9 - Chronic kidney disease, unspecified Sepsis Qualifiers: Sepsis type: sepsis due to unspecified organism Sepsis acute organ dysfunction status: with acute organ dysfunction Severe sepsis acute organ dysfunction type: acute renal failure Acute renal failure type: unspecified Severe sepsis shock status: without septic shock Qualified Code(s): A41.9 - Sepsis, unspecified organism; R65.20 - Severe sepsis without septic shock; N17.9 - Acute kidney failure, unspecified Disposition: Admitted As Inpatient Condition on Discharge: Serious Referrals: Juan Francisco Butcher MD [Primary Care Provider] - - Critical Care Critical Care Time: Yes Attestation: On , the high probability of a clinically significant, sudden or life threatening deterioration of the following system(s) required my full and direct attention, intervention and personal management. The time I documented below is in addition to time spent performing reported procedures but includes the following listed in this critical care notation. Total Critical Care Time: 35 Vital system(s) involved:: Renal Failure My critical care processes included: Assessment & monitoring of V/S, Initial and Re-exams, Data Review/Interpretation, Coordinating Care, Medication Orders and management, Documentation Medical Decision Making - Medical Records Medical records reviewed: Yes: I reviewed the patient's medical records. MR Comment: Seen in this emergency department 05/26/2020 and had acute renal failure and hyperkalemia, transferred to [facility]. The patient says that he did not receive dialysis. He does not know what his creatinine is since that admission. - John Inquiry Pt receiving controlled substance: No Vital Signs: 11/13/20 08:54 11/13/20 10:20 11/13/20 10:30 Temperature 99.0 F Temperature Source Oral Pulse Rate 95 H 95 H Pulse Rate [Right] 101 H Respiratory Rate 16 22 Blood Pressure 120/68 112/56 L Blood Pressure [Right Arm] 156/70 H Blood Pressure Mean 85 76 Blood Pressure Mean [Right Arm] 98 Blood Pressure Source [Right Arm] Automatic Cuff Blood Pressure Position [Right Arm] Sitting 02 Sat by Pulse Oximetry 98 98 98 Oxygen Delivery Method Nasal Cannula Oxygen Flow Rate (LPM) 3 11/13/20 11:00 Temperature Temperature Source Pulse Rate 92 H Pulse Rate [Right] Respiratory Rate 20 Blood Pressure 122/62 Blood Pressure [Right Arm] Blood Pressure Mean 82 Blood Pressure Mean [Right Arm] Blood Pressure Source [Right Arm] Blood Pressure Position [Right Arm] 02 Sat by Pulse Oximetry 95 Oxygen Delivery Method Oxygen Flow Rate (LPM) - Lab Data Lab Results 11/13/20 09:01: WBC 20.1 H*, RBC 2.60 L, Hgb 8.2 L, Hct 26.5 L, MCV 101.8 H, MCH 31.6 H, MCHC 31.0 L, RDW 13.3, Plt Count 183, MPV 10.9 H, Neut % (Auto) 90.3 H, Lymph % (Auto) 3.9 L, [place] % (Auto) 5.4, Eos % (Auto) 0.1, Baso % (Auto) 0.2, Neut # (Auto) 18.1 H, Lymph # (Auto) 0.8, [place] # (Auto) 1.1 H, Eos # (Auto) 0.0, Baso # (Auto) 0.1, Total Counted 100, Neutrophils % (Manual) 85 H, Lymphocytes % (Manual) 7 L, Monocytes % (Manual) 7, Metamyelocytes % 1.0, Platelet Estimate Normal, Macrocytosis 1+ 11/13/20 09:01: Sodium 130 L, Potassium 7.2 H*, Chloride 97 L, Carbon Dioxide 19 L, Anion Gap 21.2 H, BUN 125 H*, Creatinine 5.70 H, Estimated Creat Clear 12, Estimated GFR 10 L*, Est GFR ( Amer) 12 L*, Glucose 319 H, Calcium 9.5, Total Bilirubin 0.6, AST 31, ALT 36, Alkaline Phosphatase 175 H, Troponin I 0.02, Total Protein 6.9, Albumin 3.4 L, Globulin 3.5 H, Albumin/Globulin Ratio 1.0 L, Lipase < 10 L 11/13/20 09:01: Chlamy pneumoniae PCR Not detected, Adenovirus (PCR) Not detected, B. pertussis DNA (PCR) Not detected, Coronavi
--- NOTE | 2020-11-13 08:59 | CT_ITS ---
PROCEDURE: CT ABDOMEN PELVIS WO CON CLINICAL INDICATION: abdominal pain COMPARISON: US US GALLBLADDER from 11/13/2020 TECHNIQUE: Axial images obtained with sagittal and coronal reformats. All CT scans at the facility use one or more dose reduction, viz: automated exposure control, ma/kV adjustment per patient size (including targeted exams where dose is matched to indication, i.e. head), or iterative reconstruction technique. FINDINGS: LOWER THORAX: Atelectatic or fibrotic changes are present in the lung bases. Scattered calcified granulomas. Coronary artery calcifications are noted. ABDOMEN & PELVIS: No focal liver lesion apparent. Borderline splenomegaly at 14 cm. There is diffuse fatty infiltration the pancreas. There is severe bilateral hydronephrosis and hydroureter with stranding of the perinephric renal fat. No ureteral calculi are apparent. No bladder mass apparent on this unenhanced exam. The urinary bladder is not overly distended. The prostate is enlarged at 5.5 x 4.9 cm. Nonspecific bowel gas pattern. No intestinal obstruction or free air. No evidence of appendicitis positive contrast noted within the large bowel. There is diffuse colonic diverticulosis. No evidence of diverticulitis. There is mild diffuse thickening of the large bowel which could be due to colitis or nondistention. No localized fluid collections apparent. There are degenerative changes in the lumbar spine. Partial fusion noted of the SI joints. IMPRESSION: 1. Severe bilateral hydronephrosis and hydroureter. The urinary bladder is nondistended however the prostate is enlarged. No ureteral calculi apparent. There is mild stranding of the perinephric and periureteral fat which is nonspecific but could be seen with inflammation/infection 2. Mild thickening of the colon which could be due to nondistention or colitis. 3. Colonic diverticulosis but no evidence of diverticulitis. Dictated by: Carlos Trevino MD 11/13/2020 10:28 Carlos Trevino MD in [facility] 11/13/2020 10:28
--- NOTE | 2020-11-13 09:00 | US_ITS ---
PROCEDURE: US GALLBLADDER CLINICAL INDICATION: abdominal pain COMPARISON: No exams were available for comparison FINDINGS: Pancreas: Unremarkable/Not well seen Liver: Unremarkable. There is appropriate direction of blood flow within a non dilated portal vein. Right kidney: Severe right-sided hydronephrosis Gallbladder: No stones are evident. There is no gallbladder wall thickening. Common duct is normal in diameter. IMPRESSION: Unremarkable gallbladder ultrasound. Severe right-sided hydronephrosis Dictated by: Carlos Trevino MD 11/13/2020 10:31 Carlos Trevino MD in [facility] 11/13/2020 10:31
--- NOTE | 2020-11-13 09:07 | PC.NURSE ---
PT going up to radiology
[2020-11-13 09:15] LABS: Adenovirus,PCR Not Detected (NotDetected); Bordetella Pertussis Not Detected (NotDetected); Chlamydophila Pneumoniae, PCR Not Detected (NotDetected); Coronavirus 19, PCR Not Detected (NotDetected); Coronavirus 229E Not Detected (NotDetected); Coronavirus NL63 Not Detected (NotDetected); Coronavirus OC43 Not Detected (NotDetected); Coronovirus HKU1,PCR Not Detected (NotDetected); Human Metapneumovirus Not Detected (NotDetected); Influenza A, PCR Not Detected (NotDetected); Influenza AH1, 2009 Not Detected (NotDetected); Influenza AH1, PCR Not Detected (NotDetected); Influenza AH3,PCR Not Detected (NotDetected); Influenza B, PCR Not Detected (NotDetected); Mycoplasma Pneumoniae, PCR Not Detected (NotDetected); Parainfluenza 1, PCR Not Detected (NotDetected); Parainfluenza 2, PCR Not Detected (NotDetected); Parainfluenza 3, PCR Not Detected (NotDetected); Parainfluenza 4, PCR Not Detected (NotDetected); Respiratory Syncytial Virus Not Detected (NotDetected); Rhinovirus/Enterovirus Not Detected (NotDetected)
[2020-11-13 09:20] LABS: Basophils # 0.1 K/mm3 (0-0.2); Basophils % 0.2 % (0.1-2.0); Eosinophils % 0.1 % (0.1-12.0); Hematocrit 26.5 % (42.0-52.0); Hemoglobin 8.2 g/dL (14.1-18.0); Lymphocytes # 0.8 K/mm3 (0.7-4.5); Lymphocytes % 3.9 % (10-50); Mean Corpuscular Hemoglobin 31.6 pg (27.0-31.2); Mean Corpuscular Volume 101.8 fl (80-94); Mean Platelet Volume 10.9 fl (7.4-10.4); Monocytes # 1.1 K/mm3 (0.1-1.0); Monocytes % 5.4 % (1.7-9.3); Neutrophils # 18.1 K/mm3 (1.8-7.8); Neutrophils % 90.3 % (37.0-80.0); Platelet Count 183 K/mm3 (142-424); Red Cell Distribution Width 13.3 % (11.5-17.5); White Blood Count 20.1 K/mm3 (4.8-10.8)
[2020-11-13 09:29] LABS: MANUAL DIFFERENTIAL MANUAL DIFFERENTIAL (MANUAL DIFF)
[2020-11-13 09:33] LABS: Chloride 97 mmol/L (98-107); Sodium 130 mmol/L (136-145)
[2020-11-13 09:36] LABS: Alanine Aminotransferase 36 U/L (12-78); Albumin Level 3.4 g/dl (3.5-5.0); Alkaline Phosphatase 175 U/L (38-126); Anion Gap 21.2 mEq/L (5-15); Aspartate Amino Transferase 31 U/L (17-59); Bilirubin,Total 0.6 mg/dl (0.2-1.3); Calcium 9.5 mg/dl (8.4-10.2); Carbon Dioxide 19 mmol/L (22.0-30.0); Creatinine Clearance Estimated 12 mL/min (50-200); Estimated Glomerular Filt Rate 10 ml/min (>60); GFR (African American) 12 ML/MIN (>60); Globulin 3.5 g/dL (1.3-3.2); Glucose 319 mg/dl (74-100); Total Protein,Serum 6.9 g/dl (6.3-8.2)
[2020-11-13 09:46] LABS: Potassium 7.2 mmoL/L (3.5-5.1)
[2020-11-13 09:47] LABS: Troponin I 0.02 ng/ml (0.00-0.034)
[2020-11-13 09:52] LABS: Lipase < 10 U/L (23-300)
[2020-11-13 09:54] LABS: Blood Urea Nitrogen 125 mg/dl (9-20)
[2020-11-13 09:58] LABS: Lymphocytes % 7 % (10-50); Macrocytosis 1+; Monocytes % 7 % (2-9); Neutrophils % 85 % (42-76); Platelet Estimate Normal; Total Cells Counted 100
--- NOTE | 2020-11-13 10:06 | PC.NURSE ---
PT returned from radiology
--- NOTE | 2020-11-13 10:10 | ECG_ITS ---
APPROVED REPORT Exam: Resting ECG HR:96 bpm ECG Measurements Heart Rate 96 AXES IN 160 P QRSd 116 QRS -48 QT 314 T 68 QTc 396 Conclusion Normal sinus rhythm Left axis deviation Low voltage QRS Septal infarct, age undetermined Abnormal ECG Electronically signed by : Juan Francisco Patino, 11/15/2020 20:31:40
--- NOTE | 2020-11-13 10:16 | XR_ITS ---
PROCEDURE: XR CHEST PORTABLE CLINICAL HISTORY: soa COMPARISON: CR CXR1 CHEST-PORTABLE from 06/15/2015 CR XR CHEST PORTABLE from 05/09/2019 CR XR CHEST PORTABLE from 05/26/2020 FINDINGS: The cardiomediastinal silhouette and pulmonary vascularity are within normal limits. COPD changes. No lobar consolidation or collapse. 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 IMPRESSION: COPD changes. No change with no acute finding Dictated by: Carlos Trevino MD 11/13/2020 10:30 Carlos Trevino MD in [facility] 11/13/2020 10:30
--- NOTE | 2020-11-13 10:22 | PC.NURSE ---
Resp at bedside giving treatment. Explained to patient what medicines he was going to be getting and what the plan is. Pt agreeable at this time.
[2020-11-13 10:40] LABS: Lactic Acid 0.7 mmol/L (0.7-2.1)
[2020-11-13 10:44] LABS: VBG Base Excess -8.9 mmol/L (-2.4-2.3); VBG HCO3 18.3 mmol/L (23-30); VBG Oxygen Saturation 86.3 % (50-70); VBG PCO2 42.6 mmol/L (35-51); VBG PH 7.25 mmol/L (7.31-7.41); VBG PO2 54.4 mmol/L (28-40); VBG Total CO2 19.7 mmol/L (23-27)
[2020-11-13 11:20] LABS: Appearance,Urine CLEAR (Clear); Bilirubin,Urine Negative (Negative); Blood, Urine 2+ (Negative); Color,Urine YELLOW (Yellow); Glucose,Urine (UA) TRACE (Negative); Ketones,Urine Negative (Negative); Leukocyte Esterase,Urine 3+ (Negative); Microscopic, Urine URINE MICROSCOPIC (MICROSCOPIC); Nitrate,Urine Negative (Negative); PH,Urine 6.5 (5.0-8.5); Protein,Urine 2+ (Negative); Specific Gravity, Urine 1.015 (1.005-1.030); Urobilinogen,Urine 0.2 EU/dl (0.2)
[2020-11-13 11:49] LABS: Amorphous Sediment,Urine 1+ /lpf
--- NOTE | 2020-11-13 12:15 | PC.NURSE ---
Dr Wheeler spoke with Dr Butcher, pt to be admitted
--- NOTE | 2020-11-13 13:36 | PC.NURSE ---
Pt arrived to the floor at this time.
--- NOTE | 2020-11-13 14:35 | P.CONPHA_ITS ---
[facility] Pharmacy VTE Monitoring - Patient Demographics Admission date: 11/13/20 Report Date: 11/13/20 Time: 14:35 Allergies/Adverse Reactions: Patient Allergies No Known Allergies Allergy (Verified 11/13/20 09:07) Height: 1.83 m Weight: 83.518 kg Patient Problems: Current Active Problems Hyperkalemia (Acute) Sepsis (Acute) Pyelonephritis (Acute) Acute on chronic renal failure (Acute) - VTE Risk Labs: VTE Related Lab Results Hgb 8.2 g/dL (14.1-18.0) L 11/13/20 09:01 Hct 26.5 % (42.0-52.0) L 11/13/20 09:01 Plt Count 183 K/mm3 (142-424) 11/13/20 09:01 BUN 125 mg/dl (9-20) H* 11/13/20 09:01 Creatinine 5.70 mg/dl (0.66-1.25) H 11/13/20 09:01 Estimated Creat Clear 12 mL/min (50-200) 11/13/20 09:01 Was VTE Risk Assessment Performed: Yes VTE Score: 5 VTE Risk Level: Low Risk Clinical Trial Participant: No - Prophylaxis VTE Prophylaxis Ordered?: Yes Types of VTE Prophylaxis: TEDS Knee High
--- NOTE | 2020-11-13 14:39 | HMH.PHAINT ---
home medication list clarified using list from [facility]
--- NOTE | 2020-11-13 17:15 | HMH.HP ---
*Admission Date: 11/13/20 *Chief complaint: Vomiting and weakness *History of present illness: 80-year-old male with history of chronic kidney disease, diabetes mellitus, hypertension presented to the emergency department with an approximate 1 week history of vomiting with gradual functional decline. Patient was evaluated in the emergency department and found to have signs of dehydration along with acute kidney injury and hyperkalemia as well as urinary tract infection. Patient has a history of UTIs and admits he has not had any urinary symptoms and did not think the vomiting was a sign of infection. His reports associated temperature to 102. Patient has had similar presentations in the past with potassium as high as 9 that have warranted transfer for higher level of care and potential dialysis. Patient has yet to receive any dialysis during these types of presentations. Decision was made to keep the patient in-house. He was given a liter fluid bolus and is continued on normal saline. Patient was also given calcium gluconate as well as Kayexalate enema. [facility] History I have reviewed the patient's past medical history: Yes Medical History: Reports:: Atrial Fibrillation, Coronary Artery Disease, Diabetes Mellitus Type 2, Gastroesophageal Reflux Disease(GERD), Hyperlipidemia, Hypertension, Myocardial Infarction Denies:: Cancer, Diabetes Mellitus Type 1, Internal Pacemaker, MRSA, Seizures *Have you ever received a pneumonia vaccine?: Yes *Have you received a flu vaccine this season?: Yes Other Medical History: Reports: Anemia. Denies: Blood Transfusion Reaction Other Surgeries: Yes: Cardiac Catheterization, Skin Cancer Excision (ON CHEST). No: Pacemaker Amputation: No - *Social History Last grade of school completed: Some college Smoking Status: Former smoker Tobacco Type: cigarettes # Packs/Day (cigarettes): 1 #Yrs smoked (if former smoker): 50 Smoking End Date: 10 years Alcohol Intake: never Alcohol Intake Frequency:: other Substance Use Type: denies use *Occupational Status:: retired Housing: house Household Members: spouse *Travel in the last 8 weeks: None Family Hx:: No significant family history Review of Systems - Constitutional Reports anorexia, Reports body ache(s), Reports lack of energy, Reports malaise - Eyes Denies blurry vision - ENT Denies abnormal hearing - *Cardiovascular Denies chest pain - *Respiratory Denies cough, Denies shortness of breath - *Gastrointestinal Reports abdominal pain, Reports belching, Reports nausea, Reports vomiting, Denies change in stools, Denies loose stools, Denies heartburn, Denies incontinent of stools, Denies pain with swallowing - *Genitourinary Denies difficulty urinating - *Musculoskeletal Denies abnormal walking - Integumentary/Breasts Denies acne - *Neurologic Reports abnormal walking, Reports weakness - Psychiatric Denies lack of enjoyment, Denies anxiety Meds Home Medications Medication Instructions Recorded Confirmed Type Aspirin [Aspirin 81mg EC Tab] 81 mg PO DAILY 05/26/20 11/13/20 History Fish Oil/Dha/Epa [Fish Oil 1,200 1 cap PO DAILY 05/26/20 11/13/20 History mg Fish Oil] Sitagliptin Phosphate [Januvia 25 mg PO DAILY 05/26/20 11/13/20 History 25mg Tablet] Atorvastatin Calcium [Lipitor 10mg 10 mg PO DAILY 11/13/20 11/13/20 History Tab] Insulin Glargine,Hum.rec.anlog 30 units SQ DAILY 11/13/20 11/13/20 History [Lantus Solostar 100 Units/mL 3mL flexpen] Sodium Bicarbonate 650 mg PO TID 11/13/20 11/13/20 History Tamsulosin HCl 0.4 mg PO DAILY 11/13/20 11/13/20 History carvediloL [Carvedilol 6.25mg Tab] 6.25 mg PO BID 11/13/20 11/13/20 History Allergies Allergy/AdvReac Type Severity Reaction Status Date / Time No Known Allergies Allergy Verified 11/13/20 09:07 Exam Vital signs and Labs for Last 24 Hours: Temp Pulse Resp BP Pulse Ox 98.2 F 90 18 131/64 97 11/13/20 16:00 11/13/20 16:
[2020-11-13 17:28] LABS: POC Glucose,Bedside 286 (70-110)
--- NOTE | 2020-11-13 19:53 | PC.NURSE ---
PT IS RESTING IN BED. ALERT AND ORIENTED X4. NO COMPLAINTS OF DISCOMFORT. FAMILY AT BEDSIDE. PCP STATED TO PASS ON TO NIGHT NURSE THAT THERE WAS NO NEED TO NOTIFY PHYSICIAN PETROLEUM SUPPLY SPECIALIST IN THE MORNING UNLESS PT'S POTASSIUM AND KIDNEY FUNCTION ARE WORSE. REPORT HANDOFF TO ARLENE CONCEPCION RN
[2020-11-14] VITALS: BP 112/63; PULSE 107; PULSE 110; RESP 18; TEMP 37.1; O2SAT 96
[2020-11-14 03:10] LABS: POC Glucose,Bedside 199 (70-110)
[2020-11-14 04:00] VITALS: BP 103/54; PULSE 110; PULSE 116; RESP 18; TEMP 36.9; O2SAT 96; BMI 26.4
[2020-11-14 06:02] LABS: POC Glucose,Bedside 211 (70-110)
[2020-11-14 07:05] LABS: Anion Gap 12.1 mEq/L (5-15); Calcium 8.8 mg/dl (8.4-10.2); Carbon Dioxide 19 mmol/L (22.0-30.0); Chloride 107 mmol/L (98-107); Creatinine Clearance Estimated 13 mL/min (50-200); Estimated Glomerular Filt Rate 10 ml/min (>60); GFR (African American) 12 ML/MIN (>60); Glucose 192 mg/dl (74-100); Sodium 132 mmol/L (136-145)
--- NOTE | 2020-11-14 07:46 | HMH.ACPN2 ---
Internal Medicine - PN: Subj *Date: 11/14/20 *Time: 07:46 Interval history: Patient has no complaints this morning. No acute events overnight. Appetite remains poor. Abdominal pain has resolved Exam Vital signs and Labs for Last 24 Hours: Temp Pulse Resp BP Pulse Ox 98.4 F 116 H 18 103/54 L 96 11/14/20 04:00 11/14/20 04:00 11/14/20 04:00 11/14/20 04:00 11/14/20 04:00 Laboratory Results - last 24 hr 11/13/20 09:01: WBC 20.1 H*, RBC 2.60 L, Hgb 8.2 L, Hct 26.5 L, MCV 101.8 H, MCH 31.6 H, MCHC 31.0 L, RDW 13.3, Plt Count 183, MPV 10.9 H, Neut % (Auto) 90.3 H, Lymph % (Auto) 3.9 L, [place] % (Auto) 5.4, Eos % (Auto) 0.1, Baso % (Auto) 0.2, Neut # (Auto) 18.1 H, Lymph # (Auto) 0.8, [place] # (Auto) 1.1 H, Eos # (Auto) 0.0, Baso # (Auto) 0.1, Total Counted 100, Neutrophils % (Manual) 85 H, Lymphocytes % (Manual) 7 L, Monocytes % (Manual) 7, Metamyelocytes % 1.0, Platelet Estimate Normal, Macrocytosis 1+ 11/13/20 09:01: Sodium 130 L, Potassium 7.2 H*, Chloride 97 L, Carbon Dioxide 19 L, Anion Gap 21.2 H, BUN 125 H*, Creatinine 5.70 H, Estimated Creat Clear 12, Estimated GFR 10 L*, Est GFR ( Amer) 12 L*, Glucose 319 H, Calcium 9.5, Total Bilirubin 0.6, AST 31, ALT 36, Alkaline Phosphatase 175 H, Troponin I 0.02, Total Protein 6.9, Albumin 3.4 L, Globulin 3.5 H, Albumin/Globulin Ratio 1.0 L, Lipase < 10 L 11/13/20 09:01: Chlamy pneumoniae PCR Not detected, Adenovirus (PCR) Not detected, B. pertussis DNA (PCR) Not detected, Coronavirus OC43 (PCR) Not detected, Coronavirus HKU1 (PCR) Not detected, Coronavirus 229E (PCR) Not detected, SARS-CoV-2 (PCR) Not detected, Coronavirus NL63 (PCR) Not detected, Human Metapneumovir PCR Not detected, Influenza A (H1) PCR Not detected, Influ A (H1N1/09) PCR Not detected, Influenza A (H3) PCR Not detected, Influenza Type A (PCR) Not detected, Influenza Type B (PCR) Not detected, M. pneumoniae (PCR) Not detected, Parainfluenza 1 (PCR) Not detected, Parainfluenza 2 (PCR) Not detected, Parainfluenza 3 (PCR) Not detected, Parainfluenza 4 (PCR) Not detected, RSV (PCR) Not detected, Entero/Rhino (PCR) Not detected 11/13/20 10:01: VBG pH 7.25 L, VBG pCO2 42.6, VBG pO2 54.4 H, VBG HCO3 18.3 L, VBG Total CO2 19.7 L, VBG O2 Saturation 86.3 H, VBG Base Excess -8.9 L 11/13/20 10:18: Lactate 0.7 11/13/20 11:04: Urine Color Yellow, Urine Appearance Clear, Urine pH 6.5, Ur Specific [place] 1.015, Urine Protein 2+, Urine Glucose (UA) Trace, Urine Ketones Negative, Urine Blood 2+, Urine Nitrate Negative, Urine Bilirubin Negative, Urine Urobilinogen 0.2, Ur Leukocyte Esterase 3+ A, Urine RBC 10-20, Urine WBC 10-20, Amorphous Sediment 1+ 11/13/20 17:21: POC Glucose 286 H 11/13/20 21:53: POC Glucose 199 H 11/14/20 05:55: POC Glucose 211 H I & O for Last 24 hours: Intake & Output 11/11/20 11/12/20 11/13/20 11/14/20 11:59 11:59 11:59 11:59 Intake Total 360 / 360 Output Total 1200 / 1200 Balance -840 / -840 Weight 180 lb 195 lb 5 oz Microbiology Reports for the Last 24 Hours: Microbiology 11/13/20 11:04 Urine,Clean Catch Urine Culture - Preliminary Gram Negative Rods Narrative: Patient appears comfortable with no increased work of breathing. Lungs have been faint crackles. Heart is mildly tachycardic. Abdomen is soft, nontender, nondistended with active bowel sounds. Lower extremities have no edema. Urine culture showing gram-negative rods Assessment and Plan (1) Pyelonephritis Status: Acute Category: Medical Code(s): N12 - Tubulo-interstitial nephritis, not specified as acute or chronic (2) Acute on chronic renal failure Status: Acute Qualifiers: Acute renal failure type: unspecified Chronic kidney disease stage: unspecified stage Qualified Code(s): N17.9 - Acute kidney failure, unspecified; N18.9 - Chronic kidney disease, unspecified Category: Medical Code(s): N17.9 - Acute kidney failure, unspecified; N18.9 - Chronic kidney dise
[2020-11-14 07:55] LABS: Basophils % 0.3 % (0.1-2.0); Eosinophils # 0.1 K/mm3 (0.0-0.4); Eosinophils % 0.4 % (0.1-12.0); Lymphocytes % 8.3 % (10-50); Mean Corpuscular HGB Conc 29.1 g/dL (31.8-35.4); Mean Corpuscular Hemoglobin 30.3 pg (27.0-31.2); Mean Platelet Volume 10.4 fl (7.4-10.4); Monocytes # 0.9 K/mm3 (0.1-1.0); Monocytes % 7.2 % (1.7-9.3); Neutrophils # 9.9 K/mm3 (1.8-7.8); Neutrophils % 83.8 % (37.0-80.0); Platelet Count 150 K/mm3 (142-424); Red Blood Count 3.02 M/mm3 (4.60-6.20); Red Cell Distribution Width 12.9 % (11.5-17.5); White Blood Count 11.8 K/mm3 (4.8-10.8)
[2020-11-14 07:58] LABS: Hematocrit 26.4 % (42.0-52.0); Hemoglobin 8.1 g/dL (14.1-18.0)
[2020-11-14 08:00] VITALS: BP 108/67; PULSE 121; RESP 17; TEMP 36.7; O2SAT 93
[2020-11-14 08:10] LABS: Blood Urea Nitrogen 115 mg/dl (9-20); Potassium 6.1 mmoL/L (3.5-5.1)
[2020-11-14 08:33] LABS: Procalcitonin 3.76 ng/mL (0.0-2.0)
[2020-11-14 11:47] LABS: POC Glucose,Bedside 234 (70-110)
[2020-11-14 12:00] VITALS: BP 106/61; PULSE 118; PULSE 120; RESP 18; TEMP 36.9; O2SAT 97
[2020-11-14 16:00] VITALS: BP 100/57; PULSE 110; PULSE 121; RESP 17; TEMP 36.8; O2SAT 97
[2020-11-14 16:25] LABS: POC Glucose,Bedside 214 (70-110)
--- NOTE | 2020-11-14 18:39 | PC.NURSE ---
Pt has slept most of this shift. Pt remains on 3L NC w/ o2 sats >93%. Lung sounds CTA. Pt has had x1 large, loose BM this shift. Bowel sounds are hyperactive in all 4 quads. Rodas cath is draining clear, dark yellow urine. has remained at bedside. No other acute changes or complaints at this time.
[2020-11-14 20:00] VITALS: BP 111/61; PULSE 113; PULSE 130; RESP 20; TEMP 36.4; O2SAT 91; O2SAT 96
[2020-11-14 21:35] LABS: POC Glucose,Bedside 172 (70-110)
[2020-11-15] VITALS (18 sets, daily range): BP systolic 99–145; BP diastolic 56–76; PULSE 87–144; RESP 16–20; TEMP 36.6–37.2; O2SAT 3–100; BMI 25.6
[2020-11-15 06:29] LABS: POC Glucose,Bedside 170 (70-110)
--- NOTE | 2020-11-15 07:42 | HMH.ACPN2 ---
Internal Medicine - PN: Subj *Date: 11/15/20 *Time: 07:42 Interval history: Patient has no complaints this morning. He is awake. He denies hunger. remains at bedside. Exam Vital signs and Labs for Last 24 Hours: Temp Pulse Resp BP Pulse Ox 97.9 F 125 H 16 104/60 L 91 L 11/15/20 04:00 11/15/20 04:00 11/15/20 04:00 11/15/20 04:00 11/15/20 04:00 Laboratory Results - last 24 hr 11/14/20 06:20: Sodium 132 L, Potassium 6.1 H*, Chloride 107, Carbon Dioxide 19 L, Anion Gap 12.1, BUN 115 H*, Creatinine 5.50 H, Estimated Creat Clear 13, Estimated GFR 10 L*, Est GFR ( Amer) 12 L*, Glucose 192 H D, Calcium 8.8 11/14/20 06:40: WBC 11.8 H D, RBC 3.02 L, Hgb 8.1 L, Hct 26.4 L, MCV 104.0 H, MCH 30.3, MCHC 29.1 L, RDW 12.9, Plt Count 150, MPV 10.4, Neut % (Auto) 83.8 H, Lymph % (Auto) 8.3 L, [place] % (Auto) 7.2, Eos % (Auto) 0.4, Baso % (Auto) 0.3, Neut # (Auto) 9.9 H, Lymph # (Auto) 1.0, [place] # (Auto) 0.9, Eos # (Auto) 0.1, Baso # (Auto) 0.0 11/14/20 06:40: Procalcitonin 3.76 H 11/14/20 11:33: POC Glucose 234 H 11/14/20 16:18: POC Glucose 214 H 11/14/20 21:09: POC Glucose 172 H 11/15/20 05:56: POC Glucose 170 H I & O for Last 24 hours: Intake & Output 11/12/20 11/13/20 11/14/20 11/15/20 11:59 11:59 11:59 11:59 Intake Total 960 / 960 1080 / 1080 Output Total 1200 / 1200 1395 / 1395 Balance -240 / -240 -315 / -315 Weight 180 lb 195 lb 5 oz 189 lb 7 oz Microbiology Reports for the Last 24 Hours: Microbiology 11/13/20 11:04 Urine,Clean Catch Urine Culture - Final Pseudomonas aeruginosa Narrative: Patient looks comfortable and more alert than yesterday morning. Lungs continue to have fine basilar rales. Heart is tachycardic. Abdomen is soft and nontender. Lower extremities have no edema. Rodas catheter remains in place Urine culture has grown Pseudomonas aeruginosa sensitive to the cefepime the patient is receiving Assessment and Plan (1) Pyelonephritis Status: Acute Category: Medical Code(s): N12 - Tubulo-interstitial nephritis, not specified as acute or chronic (2) Acute on chronic renal failure Status: Acute Qualifiers: Acute renal failure type: unspecified Chronic kidney disease stage: unspecified stage Qualified Code(s): N17.9 - Acute kidney failure, unspecified; N18.9 - Chronic kidney disease, unspecified Category: Medical Code(s): N17.9 - Acute kidney failure, unspecified; N18.9 - Chronic kidney disease, unspecified (3) Hyperkalemia Status: Acute Category: Medical Code(s): E87.5 - Hyperkalemia (4) Sepsis Status: Suspected Qualifiers: Sepsis type: sepsis due to unspecified organism Sepsis acute organ dysfunction status: with acute organ dysfunction Severe sepsis acute organ dysfunction type: acute renal failure Acute renal failure type: unspecified Severe sepsis shock status: without septic shock Qualified Code(s): A41.9 - Sepsis, unspecified organism; R65.20 - Severe sepsis without septic shock; N17.9 - Acute kidney failure, unspecified Category: Medical Code(s): A41.9 - Sepsis, unspecified organism (5) Acute kidney injury Status: Acute Category: Medical Code(s): N17.9 - Acute kidney failure, unspecified (6) Diabetes mellitus with hyperglycemia Status: Chronic Qualifiers: Diabetes mellitus type: type 2 Diabetes mellitus intermodal truck driver insulin use: unspecified intermodal truck driver insulin use status Qualified Code(s): E11.65 - Type 2 diabetes mellitus with hyperglycemia Category: Medical Code(s): E11.65 - Type 2 diabetes mellitus with hyperglycemia - Assessment and plan all Dx Assessment and Plan for all problems:: 1. Continue sepsis dosed cefepime while awaiting blood cultures 2. Increase carvedilol to 12-1/2 mg twice daily 3. Await labs. Plan to decrease patient's fluid rate further.
[2020-11-15 08:19] LABS: Basophils % 0.2 % (0.1-2.0); Eosinophils # 0.2 K/mm3 (0.0-0.4); Monocytes # 0.6 K/mm3 (0.1-1.0); Red Cell Distribution Width 13.3 % (11.5-17.5)
[2020-11-15 08:21] LABS: Eosinophils % 1.5 % (0.1-12.0); Hematocrit 24.9 % (42.0-52.0); Lymphocytes % 6.7 % (10-50); Mean Corpuscular HGB Conc 31.2 g/dL (31.8-35.4); Mean Corpuscular Hemoglobin 31.9 pg (27.0-31.2); Mean Corpuscular Volume 102.4 fl (80-94); Mean Platelet Volume 9.8 fl (7.4-10.4); Monocytes % 4.3 % (1.7-9.3); Neutrophils # 12.7 K/mm3 (1.8-7.8); Neutrophils % 87.3 % (37.0-80.0); Platelet Count 214 K/mm3 (142-424); Red Blood Count 2.43 M/mm3 (4.60-6.20); White Blood Count 14.6 K/mm3 (4.8-10.8)
[2020-11-15 08:26] LABS: Hemoglobin 7.8 g/dL (14.1-18.0)
[2020-11-15 08:27] LABS: MANUAL DIFFERENTIAL MANUAL DIFFERENTIAL (MANUAL DIFF)
[2020-11-15 08:33] LABS: Chloride 106 mmol/L (98-107); Potassium 4.1 mmoL/L (3.5-5.1); Sodium 136 mmol/L (136-145)
[2020-11-15 08:36] LABS: Calcium 8.5 mg/dl (8.4-10.2); Carbon Dioxide 20 mmol/L (22.0-30.0); Creatinine Clearance Estimated 14 mL/min (50-200); Estimated Glomerular Filt Rate 11 ml/min (>60); GFR (African American) 14 ML/MIN (>60); Glucose 124 mg/dl (74-100)
[2020-11-15 08:43] LABS: Anion Gap 14.1 mEq/L (5-15)
[2020-11-15 08:44] LABS: Anisocytosis 1+; Blood Urea Nitrogen 117 mg/dl (9-20); Lymphocytes % 17 % (10-50); Macrocytosis 1+; Monocytes % 6 % (2-9); Neutrophils % 75 % (42-76); Platelet Estimate Normal; Total Cells Counted 100
[2020-11-15 11:59] LABS: POC Glucose,Bedside 189 (70-110)
[2020-11-15 17:25] LABS: POC Glucose,Bedside 177 (70-110)
--- NOTE | 2020-11-15 18:17 | PC.NURSE ---
Pt has rested in bed majority of this shift. Blood transfusion was late this afternoon d/t pt losing IV access and being a difficult stick. Pt remained tachy this shift, even t/o blood transfusion. Pt tolerated transfusion appropriately and showed no s/s of transfusion reaction. Pt has had x1 large, soft bowel movement this shift. Rodas cath remains intact and is draining cloudy, dark yellow urine per gravity. Fine crackles remain @ bilat bases. No cough noted. Pt continues on 3L NC. No other acute changes or complain
[2020-11-15 18:54] LABS: Hemoglobin 8.3 g/dL (14.1-18.0)
[2020-11-15 18:57] LABS: Hematocrit 26.1 % (42.0-52.0)
[2020-11-16] VITALS (7 sets, daily range): BP systolic 92–127; BP diastolic 65–77; PULSE 120–140; RESP 16–20; TEMP 36.5–36.9; O2SAT 94–98; BMI 25.3
[2020-11-16 00:54] LABS: POC Glucose,Bedside 138 (70-110)
[2020-11-16 06:44] LABS: Basophils % 0.1 % (0.1-2.0); Eosinophils # 0.2 K/mm3 (0.0-0.4); Eosinophils % 1.1 % (0.1-12.0); Hematocrit 26.5 % (42.0-52.0); Hemoglobin 8.3 g/dL (14.1-18.0); Lymphocytes # 0.9 K/mm3 (0.7-4.5); Mean Corpuscular HGB Conc 31.2 g/dL (31.8-35.4); Mean Corpuscular Hemoglobin 30.9 pg (27.0-31.2); Mean Corpuscular Volume 98.8 fl (80-94); Mean Platelet Volume 10.4 fl (7.4-10.4); Monocytes # 0.5 K/mm3 (0.1-1.0); Monocytes % 3.6 % (1.7-9.3); Neutrophils # 11.8 K/mm3 (1.8-7.8); Neutrophils % 88.2 % (37.0-80.0); Platelet Count 209 K/mm3 (142-424); Red Blood Count 2.69 M/mm3 (4.60-6.20); Red Cell Distribution Width 14.3 % (11.5-17.5); White Blood Count 13.4 K/mm3 (4.8-10.8)
[2020-11-16 06:46] LABS: MANUAL DIFFERENTIAL MANUAL DIFFERENTIAL (MANUAL DIFF)
[2020-11-16 06:49] LABS: Anion Gap 12.5 mEq/L (5-15); Calcium 7.8 mg/dl (8.4-10.2); Carbon Dioxide 20 mmol/L (22.0-30.0); Chloride 108 mmol/L (98-107); Creatinine Clearance Estimated 17 mL/min (50-200); Estimated Glomerular Filt Rate 14 ml/min (>60); GFR (African American) 17 ML/MIN (>60); Glucose 118 mg/dl (74-100); Potassium 3.5 mmoL/L (3.5-5.1); Sodium 137 mmol/L (136-145)
[2020-11-16 07:02] LABS: POC Glucose,Bedside 125 (70-110)
[2020-11-16 07:09] LABS: Blood Urea Nitrogen 104 mg/dl (9-20)
--- NOTE | 2020-11-16 07:24 | ECG_ITS ---
APPROVED REPORT Exam: Resting ECG HR:141 bpm ECG Measurements Heart Rate 141 AXES AL 160 P QRSd 108 QRS -48 QT 288 T 69 QTc 441 Conclusion Sinus tachycardia Left axis deviation Incomplete left bundle branch block Abnormal ECG Electronically signed by : Juan Francisco Patino, 11/16/2020 18:13:19
--- NOTE | 2020-11-16 07:25 | HMH.ACPN2 ---
Internal Medicine - PN: Subj *Date: 11/16/20 *Time: 07:25 Interval history: Patient reports a terrible night. He cannot elaborate on what made the night so bad other than he had difficulty sleeping because he felt short of breath at times. Patient is wearing supplemental oxygen. He is finally starting to feel hungry. His remains at bedside. Exam Vital signs and Labs for Last 24 Hours: Temp Pulse Resp BP Pulse Ox 98.3 F 137 H 18 127/77 94 L 11/16/20 04:00 11/16/20 04:00 11/16/20 04:00 11/16/20 04:00 11/16/20 04:00 Laboratory Results - last 24 hr 11/15/20 07:52: WBC 14.6 H, RBC 2.43 L, Hgb 7.8 L*, Hct 24.9 L, MCV 102.4 H, MCH 31.9 H, MCHC 31.2 L, RDW 13.3, Plt Count 214 D, MPV 9.8, Neut % (Auto) 87.3 H, Lymph % (Auto) 6.7 L, [place] % (Auto) 4.3, Eos % (Auto) 1.5, Baso % (Auto) 0.2, Neut # (Auto) 12.7 H, Lymph # (Auto) 1.0, [place] # (Auto) 0.6, Eos # (Auto) 0.2, Baso # (Auto) 0.0, Total Counted 100, Neutrophils % (Manual) 75, Band Neutrophils % 2.0, Lymphocytes % (Manual) 17, Monocytes % (Manual) 6, Platelet Estimate Normal, Anisocytosis 1+, Macrocytosis 1+ 11/15/20 07:52: Sodium 136, Potassium 4.1 D, Chloride 106, Carbon Dioxide 20 L, Anion Gap 14.1, BUN 117 H*, Creatinine 4.90 H, Estimated Creat Clear 14, Estimated GFR 11 L*, Est GFR ( Amer) 14 L*, Glucose 124 H, Calcium 8.5 11/15/20 07:52: Procalcitonin 2.50 H 11/15/20 09:48: Blood Type O Positive, Antibody Screen Negative, Crossmatch (AHG) See Detail 11/15/20 11:23: POC Glucose 189 H 11/15/20 16:58: POC Glucose 177 H 11/15/20 18:43: Hgb 8.3 L, Hct 26.1 L 11/15/20 20:19: POC Glucose 138 H 11/16/20 06:28: POC Glucose 125 H 11/16/20 06:32: WBC 13.4 H, RBC 2.69 L, Hgb 8.3 L, Hct 26.5 L, MCV 98.8 H, MCH 30.9, MCHC 31.2 L, RDW 14.3, Plt Count 209, MPV 10.4, Neut % (Auto) 88.2 H, Lymph % (Auto) 7.0 L, [place] % (Auto) 3.6, Eos % (Auto) 1.1, Baso % (Auto) 0.1, Neut # (Auto) 11.8 H, Lymph # (Auto) 0.9, [place] # (Auto) 0.5, Eos # (Auto) 0.2, Baso # (Auto) 0.0 11/16/20 06:32: Sodium 137, Potassium 3.5, Chloride 108 H, Carbon Dioxide 20 L, Anion Gap 12.5, BUN 104 H*, Creatinine 4.10 H, Estimated Creat Clear 17, Estimated GFR 14 L*, Est GFR ( Amer) 17 L* D, Glucose 118 H, Calcium 7.8 L 11/16/20 06:32: Procalcitonin 1.50 I & O for Last 24 hours: Intake & Output 11/13/20 11/14/20 11/15/20 11/16/20 11:59 11:59 11:59 11:59 Intake Total 960 / 960 1080 / 1080 730 / 730 Output Total 1200 / 1200 2045 / 2045 1650 / 1650 Balance -240 / -240 -965 / -965 -920 / -920 Weight 180 lb 195 lb 5 oz 189 lb 7 oz 187 lb 6 oz Microbiology Reports for the Last 24 Hours: Microbiology 11/13/20 09:47 Blood Blood Culture - Preliminary NO GROWTH AFTER 48 HOURS 11/13/20 09:47 Blood Blood Culture - Preliminary NO GROWTH AFTER 48 HOURS 11/13/20 11:04 Urine,Clean Catch Urine Culture - Final Pseudomonas aeruginosa Narrative: Patient looks comfortable. Heart is tachycardic. Lungs are clear. Abdomen is soft and nontender with active bowel sounds. Assessment and Plan (1) Pyelonephritis Status: Acute Category: Medical Code(s): N12 - Tubulo-interstitial nephritis, not specified as acute or chronic (2) Acute on chronic renal failure Status: Acute Qualifiers: Acute renal failure type: unspecified Chronic kidney disease stage: unspecified stage Qualified Code(s): N17.9 - Acute kidney failure, unspecified; N18.9 - Chronic kidney disease, unspecified Category: Medical Code(s): N17.9 - Acute kidney failure, unspecified; N18.9 - Chronic kidney disease, unspecified (3) Hyperkalemia Status: Acute Category: Medical Code(s): E87.5 - Hyperkalemia (4) Sepsis Status: Suspected Qualifiers: Sepsis type: sepsis due to unspecified organism Sepsis acute organ dysfunction status: with acute organ dysfunction Severe sepsis acute organ dysfunction type: acute
[2020-11-16 09:19] LABS: Lymphocytes % 9 % (10-50); Monocytes % 5 % (2-9); Neutrophils % 86 % (42-76); Platelet Estimate Normal; RBC Morphology Normal; Total Cells Counted 100
--- NOTE | 2020-11-16 11:32 | HMH.PTEV ---
Physical Therapy Evaluation Rehab PT IP Evaluation Start: 11/16/20 07:28 Freq: ONCE Status: Active Protocol: Document 11/16/20 11:05 PHORALEXSANDRA (Rec: 11/16/20 11:32 PHORNE [id number]) Subjective/History History History 80 yowm adm to [facility] with UTI. He reports he lives with and uses a RW for ambulation at home. Subjective Subjective Pt with no c/o this am. Rehab PT IP Eval Objective Appearance Patient Behavior Appropriate Patient Orientation Person,Place,Time Difficulty following instructions none Speech Pattern Clear Ambulation Patient Able to Ambulate Yes Ambulation Observation IP General Gait Pattern Observation Shuffling Step Ambulation Distance (feet) 6 Ambulation Assistive Device Rolling Walker Ambulation Ability Supervision/Stand by Balance Ability to Arise Able, uses arms to help Sitting Balance Steady, safe Standing Balance Steady, wide stance Dynamic Sitting Balance Ability Good Dynamic Standing Balance Ability Good Transfers Bed Transfer Ability Supervision/Stand by Chair Transfer Ability Supervision/Stand by Sit to Stand Bed Transfer Ability Supervision/Stand by ROM All Extremities PT ROM Status WFL MMT All Extremities PT MMT WFL Rehab PT IP prob,goals,plan Problems Date of Evaluation: 11/16/20 PT IP Problems Bed Mobility,Transfers,Gait Rehab Potential Rehab Potential Good Plan PT Intervention Plan Bed Mobility,Transfers,Gait, Therapeutic Exercise PT Plan Frequency BID Duration LOS Discharge Goals Bed Transfer Ability Independent Sit to Stand Chair Transfer Ability Supervision/Stand by Ambulation Assistive Device Rolling Walker Ambulation Distance (feet) 20 Discharge Plan PT Discharge Plan Pt is appropriate to return home once medically stable with family assist. G -code Required No Eval Complexity Eval Charge Codes 12836 - Moderate Complexity PHYSICIAN CERTIFICATION: I certify the specified therapy services for Reese Ruelas are required, authorized, and reviewed every 30 days.
--- NOTE | 2020-11-16 12:03 | PC.NURSE ---
PT IS RESTING IN BED. NO COMPLAINTS OF DISCOMFORT. HR HAS BEEN ELEVATED T/O THE MORNING. NOTIFIED PCP AND HE IS GOING TO MAKE SOME CHANGES. PT STATES HE IS NOT FEELING BAD BUT IS HAVING A DIFFICULT TIME SLEEPING AT NIGHTS. PT REQUESTED TO HAVE HIS LONG ACTING INSULIN SWITCHED TO NIGHTS JUST B/C THAT IS HOW HE TAKES IT AT HOME. EATING AND DRINKING FAIR. PT WORKED WELL TODAY WITH PHYSICAL THERAPY. PT APPEARS VERY RELAXED AND COMFORTABLE. WILL CONTINUE TO MONITOR.
[2020-11-16 13:50] LABS: POC Glucose,Bedside 180 (70-110)
[2020-11-16 18:24] LABS: POC Glucose,Bedside 254 (70-110)
[2020-11-16 20:50] LABS: POC Glucose,Bedside 192 (70-110)
[2020-11-17] VITALS (9 sets, daily range): BP systolic 111–162; BP diastolic 67–87; PULSE 111–140; RESP 16–22; TEMP 36.4–37.2; O2SAT 97–99; BMI 25.9
--- NOTE | 2020-11-17 03:49 | PC.NURSE ---
pt has stated no complaints. iv patent and SL. lang patent and draining clear yellow urine. alert and oriented. telemetry reads ST. HR remains elevated at 140 and pt states he feels it racing but denies any pain or discomfort. no N/V. is aware. vss. call light in reach. will continue to monitor
[2020-11-17 06:13] LABS: POC Glucose,Bedside 182 (70-110)
[2020-11-17 07:02] LABS: Basophils % 0.2 % (0.1-2.0); Eosinophils # 0.2 K/mm3 (0.0-0.4); Eosinophils % 1.5 % (0.1-12.0); Hematocrit 27.5 % (42.0-52.0); Hemoglobin 8.4 g/dL (14.1-18.0); Lymphocytes # 1.1 K/mm3 (0.7-4.5); Lymphocytes % 7.4 % (10-50); Mean Corpuscular HGB Conc 30.7 g/dL (31.8-35.4); Mean Corpuscular Hemoglobin 30.8 pg (27.0-31.2); Mean Corpuscular Volume 100.3 fl (80-94); Mean Platelet Volume 9.8 fl (7.4-10.4); Monocytes # 0.5 K/mm3 (0.1-1.0); Monocytes % 3.6 % (1.7-9.3); Neutrophils # 12.9 K/mm3 (1.8-7.8); Neutrophils % 87.3 % (37.0-80.0); Platelet Count 266 K/mm3 (142-424); Red Blood Count 2.74 M/mm3 (4.60-6.20); Red Cell Distribution Width 14.2 % (11.5-17.5); White Blood Count 14.7 K/mm3 (4.8-10.8)
[2020-11-17 07:03] LABS: MANUAL DIFFERENTIAL MANUAL DIFFERENTIAL (MANUAL DIFF)
[2020-11-17 07:08] LABS: Anion Gap 13.5 mEq/L (5-15); Carbon Dioxide 19 mmol/L (22.0-30.0); Chloride 109 mmol/L (98-107); Creatinine Clearance Estimated 19 mL/min (50-200); Estimated Glomerular Filt Rate 16 ml/min (>60); GFR (African American) 19 ML/MIN (>60); Glucose 172 mg/dl (74-100); Potassium 3.5 mmoL/L (3.5-5.1); Sodium 138 mmol/L (136-145)
--- NOTE | 2020-11-17 07:27 | HMH.ACPN2 ---
Internal Medicine - PN: Subj *Date: 11/17/20 *Time: 07:27 Interval history: Patient has no complaints this morning. His appetite continues to remain poor. Patient is remained tachycardic with EKG confirming sinus tachycardia. When asked about prior hospitalization patient reports he recalls during 1 hospitalization being diagnosed with atrial fibrillation that was transient and only occurred after transfusion. Patient did receive a transfusion of 1 unit of packed red blood cells on November 15. Records would indicate pulse was already rising as high as 130 by that point. Patient denies chest pain. Exam Vital signs and Labs for Last 24 Hours: Temp Pulse Resp BP Pulse Ox 97.6 F 137 H 18 123/72 99 11/17/20 04:00 11/17/20 04:00 11/17/20 04:00 11/17/20 04:00 11/17/20 04:00 Laboratory Results - last 24 hr 11/16/20 06:32: Total Counted 100, Neutrophils % (Manual) 86 H, Lymphocytes % (Manual) 9 L, Monocytes % (Manual) 5, Platelet Estimate Normal, RBC Morphology Normal 11/16/20 11:25: POC Glucose 180 H 11/16/20 17:02: POC Glucose 254 H 11/16/20 20:07: POC Glucose 192 H 11/17/20 06:02: POC Glucose 182 H 11/17/20 06:47: WBC 14.7 H, RBC 2.74 L, Hgb 8.4 L, Hct 27.5 L, MCV 100.3 H, MCH 30.8, MCHC 30.7 L, RDW 14.2, Plt Count 266 D, MPV 9.8, Neut % (Auto) 87.3 H, Lymph % (Auto) 7.4 L, [place] % (Auto) 3.6, Eos % (Auto) 1.5, Baso % (Auto) 0.2, Neut # (Auto) 12.9 H, Lymph # (Auto) 1.1, [place] # (Auto) 0.5, Eos # (Auto) 0.2, Baso # (Auto) 0.0 I & O for Last 24 hours: Intake & Output 11/14/20 11/15/20 11/16/20 11/17/20 11:59 11:59 11:59 11:59 Intake Total 960 / 960 1080 / 1080 970 / 1370 880 / 880 Output Total 1200 / 1200 2044 / 204 1650 / 2350 1775 / 1775 Balance -240 / -240 -965 / -965 -680 / -980 -895 / -895 Weight 195 lb 5 oz 189 lb 7 oz 187 lb 6 oz 191 lb 1 oz - Constitutional no acute distress - *Routine Respiratory Exam Present: CTA bilaterally - *Routine Cardiovascular Exam Present: RRR - *Routine Abdominal Exam Present: soft, normoactive bowel sounds. Absent: tenderness Assessment and Plan (1) Pyelonephritis Status: Acute Category: Medical Code(s): N12 - Tubulo-interstitial nephritis, not specified as acute or chronic (2) Acute on chronic renal failure Status: Acute Qualifiers: Acute renal failure type: unspecified Chronic kidney disease stage: unspecified stage Qualified Code(s): N17.9 - Acute kidney failure, unspecified; N18.9 - Chronic kidney disease, unspecified Category: Medical Code(s): N17.9 - Acute kidney failure, unspecified; N18.9 - Chronic kidney disease, unspecified (3) Hyperkalemia Status: Acute Category: Medical Code(s): E87.5 - Hyperkalemia (4) Sepsis Status: Suspected Qualifiers: Sepsis type: sepsis due to unspecified organism Sepsis acute organ dysfunction status: with acute organ dysfunction Severe sepsis acute organ dysfunction type: acute renal failure Acute renal failure type: unspecified Severe sepsis shock status: without septic shock Qualified Code(s): A41.9 - Sepsis, unspecified organism; R65.20 - Severe sepsis without septic shock; N17.9 - Acute kidney failure, unspecified Category: Medical Code(s): A41.9 - Sepsis, unspecified organism (5) Acute kidney injury Status: Acute Category: Medical Code(s): N17.9 - Acute kidney failure, unspecified (6) Diabetes mellitus with hyperglycemia Status: Chronic Qualifiers: Diabetes mellitus type: type 2 Diabetes mellitus alf insulin use: unspecified alf insulin use status Qualified Code(s): E11.65 - Type 2 diabetes mellitus with hyperglycemia Category: Medical Code(s): E11.65 - Type 2 diabetes mellitus with hyperglycemia (7) Tachycardia Status: Acute Category: Medical Code(s): R00.0 - Tachycardia, unspecified (8) Anemia in chronic kidney disease Status: Acute Category: Medical Code(s): N18.9 - Chronic kidney disease, unspecified; D63.1
[2020-11-17 07:39] LABS: Blood Urea Nitrogen 101 mg/dl (9-20)
[2020-11-17 08:10] LABS: Eosinophils % 1 % (0-3); Lymphocytes % 7 % (10-50); Monocytes % 6 % (2-9); Myelocytes % 4 (0-1); Neutrophils % 82 % (42-76); Nucleated Red Blood Cells 1; Total Cells Counted 100
[2020-11-17 08:12] LABS: Hypochromasia 1+; Platelet Estimate Normal
--- NOTE | 2020-11-17 11:27 | HMH.ACPN ---
Internal Medicine - PN: Subj *Date: 11/17/20 *Time: 11:27 Exam Vital signs and Labs for Last 24 Hours: Temp Pulse Resp BP Pulse Ox 98.4 F 140 H 22 162/87 H 99 11/17/20 07:52 11/17/20 08:00 11/17/20 07:52 11/17/20 07:52 11/17/20 07:52 Laboratory Results - last 24 hr 11/16/20 11:25: POC Glucose 180 H 11/16/20 17:02: POC Glucose 254 H 11/16/20 20:07: POC Glucose 192 H 11/17/20 06:02: POC Glucose 182 H 11/17/20 06:47: WBC 14.7 H, RBC 2.74 L, Hgb 8.4 L, Hct 27.5 L, MCV 100.3 H, MCH 30.8, MCHC 30.7 L, RDW 14.2, Plt Count 266 D, MPV 9.8, Neut % (Auto) 87.3 H, Lymph % (Auto) 7.4 L, [place] % (Auto) 3.6, Eos % (Auto) 1.5, Baso % (Auto) 0.2, Neut # (Auto) 12.9 H, Lymph # (Auto) 1.1, [place] # (Auto) 0.5, Eos # (Auto) 0.2, Baso # (Auto) 0.0, Total Counted 100, Neutrophils % (Manual) 82 H, Lymphocytes % (Manual) 7 L, Monocytes % (Manual) 6, Eosinophils % (Manual) 1, Myelocytes % 4 H, Nucleated RBCs 1, Platelet Estimate Normal, Hypochromasia 1+ 11/17/20 06:47: Sodium 138, Potassium 3.5, Chloride 109 H, Carbon Dioxide 19 L, Anion Gap 13.5, BUN 101 H*, Creatinine 3.70 H, Estimated Creat Clear 19, Estimated GFR 16 L*, Est GFR ( Amer) 19 L*, Glucose 172 H, Calcium 8.0 L I & O for Last 24 hours: Intake & Output 11/14/20 11/15/20 11/16/20 11/17/20 23:59 23:59 23:59 23:59 Intake Total 1680 / 1680 610 / 730 1240 / 1240 240 / 240 Output Total 1120 / 1945 2525 / 3375 2275 / 2625 1250 / 1250 Balance 560 / -265 -1915 / -2645 -1035 / -1385 -1010 / -1010 Weight 88.592 kg 85.927 kg 85 kg 86.664 kg Assessment and Plan (1) Pyelonephritis Status: Acute Category: Medical Code(s): N12 - Tubulo-interstitial nephritis, not specified as acute or chronic (2) Acute on chronic renal failure Status: Acute Qualifiers: Acute renal failure type: unspecified Chronic kidney disease stage: unspecified stage Qualified Code(s): N17.9 - Acute kidney failure, unspecified; N18.9 - Chronic kidney disease, unspecified Category: Medical Code(s): N17.9 - Acute kidney failure, unspecified; N18.9 - Chronic kidney disease, unspecified (3) Hyperkalemia Status: Acute Category: Medical Code(s): E87.5 - Hyperkalemia (4) Sepsis Status: Suspected Qualifiers: Sepsis type: sepsis due to unspecified organism Sepsis acute organ dysfunction status: with acute organ dysfunction Severe sepsis acute organ dysfunction type: acute renal failure Acute renal failure type: unspecified Severe sepsis shock status: without septic shock Qualified Code(s): A41.9 - Sepsis, unspecified organism; R65.20 - Severe sepsis without septic shock; N17.9 - Acute kidney failure, unspecified Category: Medical Code(s): A41.9 - Sepsis, unspecified organism (5) Acute kidney injury Status: Acute Category: Medical Code(s): N17.9 - Acute kidney failure, unspecified (6) Diabetes mellitus with hyperglycemia Status: Chronic Qualifiers: Diabetes mellitus type: type 2 Diabetes mellitus custodial insulin use: unspecified custodial insulin use status Qualified Code(s): E11.65 - Type 2 diabetes mellitus with hyperglycemia Category: Medical Code(s): E11.65 - Type 2 diabetes mellitus with hyperglycemia (7) Tachycardia Status: Acute Category: Medical Code(s): R00.0 - Tachycardia, unspecified (8) Anemia in chronic kidney disease Status: Acute Category: Medical Code(s): N18.9 - Chronic kidney disease, unspecified; D63.1 - Anemia in chronic kidney disease The patient's infection will respond to the chosen ABx?: Yes Is the patient receiving the right drug, dose, and route?: Yes Could a more targeted ABx be ordered?: No (URINE=PSEUDOMONAS-SENSITIVE TO CEFEPIME)
[2020-11-17 12:07] LABS: POC Glucose,Bedside 187 (70-110)
[2020-11-17 16:23] LABS: POC Glucose,Bedside 203 (70-110)
--- NOTE | 2020-11-17 18:18 | PC.NURSE ---
PT IS RESTING IN BED. NO COMPLAINTS OF DISCOMFORT. ALERT AND ORIENTED X4. HR HAS MAINTAINED 120-140 T/O THE SHIFT. PCP NOTIFIED. PT STATES HE IS NOT HAVING ANY CHEST PAIN OR SOA. PT HAS VOIDED SINCE CATHETER HAS BEEN REMOVED. PT STATES HE STILL DOES NOT HAVE MUCH OF AN APPETITE BUT IS DRINKING OKAY. LUNG SOUNDS DIMINISHED. ABDOMEN SOFT/NON TENDER WITH ACTIVE BOWEL SOUNDS. PT STATES HIS LAST BOWEL MOVEMENT WAS YESTERDAY. WILL CONTINUE TO MONITOR.
--- NOTE | 2020-11-17 19:44 | PC.NURSE ---
RA SATS 92%. RETURN PT TO 2LPM N/C
[2020-11-18] VITALS (8 sets, daily range): BP systolic 101–126; BP diastolic 60–83; PULSE 109–140; RESP 16–19; TEMP 36.5–37; O2SAT 94–100; BMI 25.7
[2020-11-18 00:37] LABS: POC Glucose,Bedside 167 (70-110)
--- NOTE | 2020-11-18 03:16 | PC.NURSE ---
Addendum entered by Tom Payan RN ([facility]) 11/18/20 03:46: pts heart rate has ranged from 111-140. Original Note: shift summary pts lung sounds are diminished with sats maintained 95% or above on 3lpm via a NC, with a rate ranging from 16-18. pt is alert and orieented X4. pt denies any pain, nausea, vomiting, or diarrhea.
[2020-11-18 05:01] LABS: POC Glucose,Bedside 149 (70-110)
[2020-11-18 06:25] LABS: Basophils % 0.2 % (0.1-2.0); Eosinophils # 0.2 K/mm3 (0.0-0.4); Hemoglobin 8.3 g/dL (14.1-18.0); Lymphocytes # 1.1 K/mm3 (0.7-4.5); Lymphocytes % 5.9 % (10-50); Mean Corpuscular HGB Conc 30.7 g/dL (31.8-35.4); Mean Corpuscular Hemoglobin 30.9 pg (27.0-31.2); Mean Corpuscular Volume 100.6 fl (80-94); Mean Platelet Volume 10.1 fl (7.4-10.4); Monocytes # 0.6 K/mm3 (0.1-1.0); Neutrophils % 89.9 % (37.0-80.0); Platelet Count 330 K/mm3 (142-424); Red Blood Count 2.69 M/mm3 (4.60-6.20)
[2020-11-18 06:28] LABS: Anion Gap 12.9 mEq/L (5-15); Calcium 7.9 mg/dl (8.4-10.2); Carbon Dioxide 21 mmol/L (22.0-30.0); Chloride 107 mmol/L (98-107); Creatinine Clearance Estimated 19 mL/min (50-200); Estimated Glomerular Filt Rate 16 ml/min (>60); GFR (African American) 20 ML/MIN (>60); Glucose 143 mg/dl (74-100); Potassium 3.9 mmoL/L (3.5-5.1); Sodium 137 mmol/L (136-145)
[2020-11-18 06:35] LABS: Blood Urea Nitrogen 99 mg/dl (9-20)
[2020-11-18 06:37] LABS: MANUAL DIFFERENTIAL MANUAL DIFFERENTIAL (MANUAL DIFF)
--- NOTE | 2020-11-18 07:03 | HMH.ACPN2 ---
Internal Medicine - PN: Subj *Date: 11/18/20 *Time: 07:03 Interval history: Patient has no complaints. reports his appetite is improving. Patient is is not as convinced that his appetite is better. Shortness of breath is at baseline. He denies abdominal pain. Exam Vital signs and Labs for Last 24 Hours: Temp Pulse Resp BP Pulse Ox 98.5 F 136 H 18 111/65 99 11/18/20 04:00 11/18/20 04:00 11/18/20 04:00 11/18/20 04:00 11/18/20 04:00 Laboratory Results - last 24 hr 11/17/20 06:47: Total Counted 100, Neutrophils % (Manual) 82 H, Lymphocytes % (Manual) 7 L, Monocytes % (Manual) 6, Eosinophils % (Manual) 1, Myelocytes % 4 H, Nucleated RBCs 1, Platelet Estimate Normal, Hypochromasia 1+ 11/17/20 06:47: Sodium 138, Potassium 3.5, Chloride 109 H, Carbon Dioxide 19 L, Anion Gap 13.5, BUN 101 H*, Creatinine 3.70 H, Estimated Creat Clear 19, Estimated GFR 16 L*, Est GFR ( Amer) 19 L*, Glucose 172 H, Calcium 8.0 L 11/17/20 11:36: POC Glucose 187 H 11/17/20 16:11: POC Glucose 203 H 11/17/20 20:39: POC Glucose 167 H 11/18/20 04:53: POC Glucose 149 H 11/18/20 05:51: WBC 19.0 H D, RBC 2.69 L, Hgb 8.3 L, Hct 27.0 L, MCV 100.6 H, MCH 30.9, MCHC 30.7 L, RDW 14.0, Plt Count 330, MPV 10.1, Neut % (Auto) 89.9 H, Lymph % (Auto) 5.9 L, [place] % (Auto) 3.0, Eos % (Auto) 1.0, Baso % (Auto) 0.2, Neut # (Auto) 17.0 H, Lymph # (Auto) 1.1, [place] # (Auto) 0.6, Eos # (Auto) 0.2, Baso # (Auto) 0.0 11/18/20 05:51: Sodium 137, Potassium 3.9, Chloride 107, Carbon Dioxide 21 L, Anion Gap 12.9, BUN 99 H, Creatinine 3.60 H, Estimated Creat Clear 19, Estimated GFR 16 L*, Est GFR ( Amer) 20 L, Glucose 143 H, Calcium 7.9 L I & O for Last 24 hours: Intake & Output 11/15/20 11/16/20 11/17/20 11/18/20 11:59 11:59 11:59 11:59 Intake Total 1080 / 1080 970 / 1370 1120 / 1120 420 / 420 Output Total 2045 / 2045 1650 / 2350 2675 / 3325 650 / 650 Balance -965 / -965 -680 / -980 -1555 / -2205 -230 / -230 Weight 189 lb 7 oz 187 lb 6 oz 191 lb 1 oz 190 lb 1 oz Narrative: Patient looks comfortable. Lungs remain clear although distant at the left base. Heart has a rapid rate and rhythm. Abdomen is soft and nontender. Extremities have no edema. White blood cell count is noted to have increased since yesterday Assessment and Plan (1) Pyelonephritis Status: Acute Category: Medical Code(s): N12 - Tubulo-interstitial nephritis, not specified as acute or chronic (2) Acute on chronic renal failure Status: Acute Qualifiers: Acute renal failure type: unspecified Chronic kidney disease stage: unspecified stage Qualified Code(s): N17.9 - Acute kidney failure, unspecified; N18.9 - Chronic kidney disease, unspecified Category: Medical Code(s): N17.9 - Acute kidney failure, unspecified; N18.9 - Chronic kidney disease, unspecified (3) Hyperkalemia Status: Acute Category: Medical Code(s): E87.5 - Hyperkalemia (4) Sepsis Status: Suspected Qualifiers: Sepsis type: sepsis due to unspecified organism Sepsis acute organ dysfunction status: with acute organ dysfunction Severe sepsis acute organ dysfunction type: acute renal failure Acute renal failure type: unspecified Severe sepsis shock status: without septic shock Qualified Code(s): A41.9 - Sepsis, unspecified organism; R65.20 - Severe sepsis without septic shock; N17.9 - Acute kidney failure, unspecified Category: Medical Code(s): A41.9 - Sepsis, unspecified organism (5) Acute kidney injury Status: Acute Category: Medical Code(s): N17.9 - Acute kidney failure, unspecified (6) Diabetes mellitus with hyperglycemia Status: Chronic Qualifiers: Diabetes mellitus type: type 2 Diabetes mellitus nursing home insulin use: 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
[2020-11-18 07:44] LABS: Hypochromasia 1+; Lymphocytes % 7 % (10-50); Monocytes % 5 % (2-9); Neutrophils % 88 % (42-76); Total Cells Counted 100
[2020-11-18 07:45] LABS: Platelet Estimate Normal
--- NOTE | 2020-11-18 08:40 | XR_ITS ---
PROCEDURE: XR CHEST PORTABLE CLINICAL HISTORY: tachycardia, elevated wbc COMPARISON: CR XR CHEST PORTABLE from 05/09/2019 CR XR CHEST PORTABLE from 05/26/2020 CR XR CHEST PORTABLE from 11/13/2020 FINDINGS: The cardiomediastinal silhouette and pulmonary vascularity are within normal limits. Background of chronic interstitial changes are noted. Bibasal atelectasis. Trace bilateral pleural effusions. Calcified granulomas in the right lower zone. Tortuous descending thoracic aorta is noted. Degenerative changes of the visualized thoracic spine are noted. No acute bony abnormalities. IMPRESSION: Bibasilar atelectasis. Trace bilateral pleural effusions. No lobar consolidation. Dictated by: Yomaira Carmona 11/18/2020 09:46 Yomaira Carmona in OV 11/18/2020 09:46
[2020-11-18 11:42] LABS: POC Glucose,Bedside 242 (70-110)
--- NOTE | 2020-11-18 11:55 | DIET.NUTRFU ---
Addendum entered by Corazon Hayden 11/20/20 13:39: PO intakes 100%, weight stable, BG avg. 215, renal labs stable. Pt states he feels better and his appetite has mostly returned to normal. Original Note: PO intakes 75%, weight stable, pt has not had a BM t/o stay. BG moderate- avg. 170, Renal labs slightly improved. Pt and state his appetite is improved, they had previously stated he had minimal intakes for days prior to admit. He continues on ADA/ADIEL diet, also snacks on peanut butter t/o the day in addition to meals. Pt/ have been provided with diet edu for DM and CKD. No changes nutritional care plan at this time, continuing to monitor.
[2020-11-18 16:09] LABS: POC Glucose,Bedside 235 (70-110)
--- NOTE | 2020-11-18 18:26 | PC.NURSE ---
Pt alert and oriented and able to make needs known. Pt has been instructed to use incentive spirometer q 1 hr. VSS. CB in reach. is at bedside. Lungs cta, diminished in bases, s1,s2. Feeds self, ssi per sep. Meds given per sep. Pt has been up to chair this shift. Mx continues.
[2020-11-18 20:46] LABS: POC Glucose,Bedside 190 (70-110)
[2020-11-19] VITALS (11 sets, daily range): BP systolic 80–130; BP diastolic 51–73; PULSE 107–150; RESP 16–20; TEMP 36.6–36.8; O2SAT 91–100; BMI 25.4
--- NOTE | 2020-11-19 05:22 | PC.NURSE ---
A&OX4. PT TOLERATING 3LNC T/O SHIFT, O2 IN UPPER 90S. PT AT BEDSIDE. PT HAS HAD NO C/O PAIN/NA/VO THIS SHIFT. PT REMAINS INCONTINENT, HELPS CHANGE PT. PT ABLE TO HELP TURN HIMSELF IN BED. PT HR CONTINUES TO STAY 120-130, PT ASYMPTOMATIC. NO C/O THUS FAR, VSS WILL CONTINUE TO MONITOR.
[2020-11-19 05:45] LABS: Basophils % 0.2 % (0.1-2.0); Eosinophils # 0.2 K/mm3 (0.0-0.4); Eosinophils % 0.9 % (0.1-12.0); Hemoglobin 8.2 g/dL (14.1-18.0); Lymphocytes # 1.1 K/mm3 (0.7-4.5); Lymphocytes % 6.2 % (10-50); Mean Corpuscular HGB Conc 31.5 g/dL (31.8-35.4); Mean Corpuscular Hemoglobin 31.7 pg (27.0-31.2); Mean Corpuscular Volume 100.6 fl (80-94); Mean Platelet Volume 10.4 fl (7.4-10.4); Monocytes # 0.5 K/mm3 (0.1-1.0); Monocytes % 2.9 % (1.7-9.3); Neutrophils # 16.1 K/mm3 (1.8-7.8); Neutrophils % 89.8 % (37.0-80.0); Platelet Count 334 K/mm3 (142-424); Red Blood Count 2.58 M/mm3 (4.60-6.20); White Blood Count 17.9 K/mm3 (4.8-10.8)
[2020-11-19 05:48] LABS: MANUAL DIFFERENTIAL MANUAL DIFFERENTIAL (MANUAL DIFF)
[2020-11-19 05:52] LABS: Anion Gap 15.4 mEq/L (5-15); Calcium 8.2 mg/dl (8.4-10.2); Carbon Dioxide 20 mmol/L (22.0-30.0); Chloride 104 mmol/L (98-107); Creatinine Clearance Estimated 18 mL/min (50-200); Estimated Glomerular Filt Rate 15 ml/min (>60); GFR (African American) 18 ML/MIN (>60); Glucose 190 mg/dl (74-100); Potassium 4.4 mmoL/L (3.5-5.1); Sodium 135 mmol/L (136-145)
[2020-11-19 05:59] LABS: Blood Urea Nitrogen 110 mg/dl (9-20)
[2020-11-19 06:00] LABS: POC Glucose,Bedside 197 (70-110)
[2020-11-19 07:37] LABS: Eosinophils % 1 % (0-3); Lymphocytes % 5 % (10-50); Monocytes % 2 % (2-9); Neutrophils % 90 % (42-76); Nucleated Red Blood Cells 3; Total Cells Counted 100
--- NOTE | 2020-11-19 07:40 | HMH.ACPN2 ---
Internal Medicine - PN: Subj *Date: 11/19/20 *Time: 07:40 Interval history: Patient reports no change in how he is feeling. He believes his appetite is improving this morning. He denies shortness of breath or chest pain. He admits to indigestion yesterday. Exam Vital signs and Labs for Last 24 Hours: Temp Pulse Resp BP Pulse Ox 98.2 F 141 H 18 121/71 99 11/19/20 07:32 11/19/20 07:32 11/19/20 07:32 11/19/20 07:32 11/19/20 07:32 Laboratory Results - last 24 hr 11/15/20 09:48: Crossmatch (AHG) See Detail 11/18/20 05:51: Total Counted 100, Neutrophils % (Manual) 88 H, Lymphocytes % (Manual) 7 L, Monocytes % (Manual) 5, Platelet Estimate Normal, Hypochromasia 1+ 11/18/20 11:34: POC Glucose 242 H 11/18/20 15:58: POC Glucose 235 H 11/18/20 20:21: POC Glucose 190 H 11/19/20 05:32: POC Glucose 197 H 11/19/20 05:34: WBC 17.9 H, RBC 2.58 L, Hgb 8.2 L, Hct 26.0 L, MCV 100.6 H, MCH 31.7 H, MCHC 31.5 L, RDW 14.0, Plt Count 334, MPV 10.4, Neut % (Auto) 89.8 H, Lymph % (Auto) 6.2 L, [place] % (Auto) 2.9, Eos % (Auto) 0.9, Baso % (Auto) 0.2, Neut # (Auto) 16.1 H, Lymph # (Auto) 1.1, [place] # (Auto) 0.5, Eos # (Auto) 0.2, Baso # (Auto) 0.0 11/19/20 05:34: Sodium 135 L, Potassium 4.4, Chloride 104, Carbon Dioxide 20 L, Anion Gap 15.4 H, BUN 110 H*, Creatinine 3.90 H, Estimated Creat Clear 18, Estimated GFR 15 L*, Est GFR ( Amer) 18 L*, Glucose 190 H D, Calcium 8.2 L I & O for Last 24 hours: Intake & Output 11/16/20 11/17/20 11/18/20 11/19/20 11:59 11:59 11:59 11:59 Intake Total 970 / 1370 1120 / 1120 570 / 570 1040 / 1040 Output Total 1650 / 2350 2675 / 3325 650 / 650 Balance -680 / -980 -1555 / -2205 -80 / -80 1040 / 1040 Weight 187 lb 6 oz 191 lb 1 oz 190 lb 1 oz 188 lb 6 oz Microbiology Reports for the Last 24 Hours: Microbiology 11/13/20 09:47 Blood Blood Culture - Final NO GROWTH AFTER 5 DAYS 11/13/20 09:47 Blood Blood Culture - Final NO GROWTH AFTER 5 DAYS Narrative: Patient appears in no distress. Lungs are clear. Heart is tachycardic. Abdomen is soft. Lower extremities have no edema. BUN and creatinine are noted for the rise Assessment and Plan (1) Pyelonephritis Status: Acute Category: Medical Code(s): N12 - Tubulo-interstitial nephritis, not specified as acute or chronic (2) Acute on chronic renal failure Status: Acute Qualifiers: Acute renal failure type: unspecified Chronic kidney disease stage: unspecified stage Qualified Code(s): N17.9 - Acute kidney failure, unspecified; N18.9 - Chronic kidney disease, unspecified Category: Medical Code(s): N17.9 - Acute kidney failure, unspecified; N18.9 - Chronic kidney disease, unspecified (3) Hyperkalemia Status: Acute Category: Medical Code(s): E87.5 - Hyperkalemia (4) Sepsis Status: Suspected Qualifiers: Sepsis type: sepsis due to unspecified organism Sepsis acute organ dysfunction status: with acute organ dysfunction Severe sepsis acute organ dysfunction type: acute renal failure Acute renal failure type: unspecified Severe sepsis shock status: without septic shock Qualified Code(s): A41.9 - Sepsis, unspecified organism; R65.20 - Severe sepsis without septic shock; N17.9 - Acute kidney failure, unspecified Category: Medical Code(s): A41.9 - Sepsis, unspecified organism (5) Acute kidney injury Status: Acute Category: Medical Code(s): N17.9 - Acute kidney failure, unspecified (6) Diabetes mellitus with hyperglycemia Status: Chronic Qualifiers: Diabetes mellitus type: type 2 Diabetes mellitus terminal carman insulin use: unspecified terminal carman insulin use status Qualified Code(s): E11.65 - Type 2 diabetes mellitus with hyperglycemia Category: Medical Code(s): E11.65 - Type 2 diabetes mellitus with hyperglycemia (7) Tachycardia Status: Acute Category: Medical Code(s): R00.0 - Tachycardia, unspecified
[2020-11-19 07:41] LABS: Hypochromasia 1+
[2020-11-19 07:42] LABS: Macrocytosis 1+
--- NOTE | 2020-11-19 08:00 | SW/DCPLANNER ---
PATIENT REMAINS IN THE ACUTE HOSPITAL AND IS STILL NOT MEDICALLY READY TO DISCHARGE.. AT BEDSIDE, REFUSES TO ALLOW HOME HEALTH SERVICES TO COME INTO THE HOME... DISPOSITION ON PATIENT SHOULD BE IN THE NEXT COUPLE DAYS PENDING LABS AND CONDITION...CM WILL FOLLOW AND ASSIST INDICATED..
[2020-11-19 09:34] LABS: Platelet Estimate Normal
[2020-11-19 11:48] LABS: POC Glucose,Bedside 296 (70-110)
--- NOTE | 2020-11-19 13:57 | CA_ITS ---
APPROVED REPORT EXAM: Comprehensive 2D, Doppler, and color-flow Echocardiogram Dish Washer: Sydnee Lynn RDCS Ht: 6 ft 0 in Wt: 188lbs BSA: 2.08 HR: 116 bpm BP: 121/71 mmHg Rhythm: Atrial Fibrillation Indications: Sepsos, Anemia, CAD- 2 previous TN's with 6 coronary stents,DM, Rapid A-fib 5 months ago Echo Enhancing Agent Comments: Poor acoustic windows due to patient body habitus. Technically limited due to heart rate. 2D Dimensions IVSd 1.10 cm LVEF (Visual) 53.50 % PWd 1.02 cm LA Volume 83.20 mL LVDd 4.95 cm LA Volume Index 40.061978 mL/m2 (M/F) 16-34 LVDs 3.58 cm Aortic Root 3.45 cm Left Atrium 4.34 cm LVOT 2.14 cm (M/F) 1.5-2.5 M-Mode Dimensions LA Diam 4.51 cm (1.9-4.0) LVDd 4.60 cm (3.5-5.7) Ao Diam 3.52 cm (2.0-3.7) LVDs 3.51 cm (3.5-5.7) EF (Teich) 47.40% FS 23.70% EDV (Teich) 97.30 mL TAPSE 1.97 (<1.7) ESV (Teich) 51.20 mL LV Diastology E Decel Time 217.00 (160-240 msec) E/A Ratio 2.76 MED E' 6.50 (< 7 cm/sec) MED A' 12.70 cm/s E'/MED E' Ratio 14.89 (>14) LAT E' 5.70 (<10 cm/sec) LAT A' 11.30 cm/s E/LAT E' Ratio 16.98 (>14) Aortic Valve LVOT Max 76.00 (70-110 cm/s) LVOT VTI 10.73 cm AoV Peak Pool. 171.00 (50-130 cm/s) AO Peak GR. 11.60 mmHg AO Mean GR. 7.00 (<5 mmHg) AO VTI 28.52 (18-25 cm) [place] (VTI) 1.35 (2.5-4.5 cm2) Mitral Valve MV E Max Pool. 97.00 (40-130 cm/s) MV A Velocity 35.00 (40-130 cm/s) E/A Ratio 2.76 MV Decel. Time 217.00 (160-240 ms) MV PHT 63.00 ms Pulmonary Valve PV Peak Velocity 73.00 (50-150 cm/s) Tricuspid Valve TR P. Velocity 257.00 cm/s RAP Estimate 10.00 mmHg RVSP 36.50 mmHg Left Ventricle Left atrium is mildly enlarged, left ventricle is normal size, mild concentric left ventricular hypertrophy, visually estimated ejection fraction 45%, left ventricle is mildly globally hypokinetic. Diastolic parameters are inconclusive. Right Ventricle Right atrium and right ventricle are mildly enlarged with normal contractility. Aortic Valve Aortic valve is minimally thickened and fibrosed, there is no aortic stenosis or aortic insufficiency. Mitral Valve Mitral valve leaflets are minimally thickened, there is mild mitral regurgitation. Tricuspid Valve Tricuspid grossly normal, there is mild tricuspid regurgitation, calculated right ventricular systolic pressure is 36 mmHg. Pulmonic Valve Pulmonic valve is poorly visualized. Great Vessels Aortic root is normal size. Pericardium No significant pericardial effusion noted. Conclusion 1. Biatrial enlargement, normal left ventricular size, mild concentric left ventricular hypertrophy, visually estimated ejection fraction 45% left ventricle is globally hypokinetic. Diastolic parameters are inconclusive. 2. Mildly enlarged right ventricle with normal contractility. 3. Mild mitral and tricuspid regurgitation, calculated right ventricular systolic pressure 36 mmHg. 4. No significant pericardial effusion noted. Electronically signed by : Arias Joseph, 11/19/2020 15:29:09
--- NOTE | 2020-11-19 14:00 | PC.NURSE ---
Pt alert and oriented and able to make needs known. RR even and unlabored. Dr. Butcher notified of hr remaining in the 130-140 range. He stated he is going to order an echo and a one time dose of metoprolol. Will cont to mx. Pt is currently up to chair at this time. at bedside. Lung bases diminished.
[2020-11-19 16:10] LABS: POC Glucose,Bedside 246 (70-110)
--- NOTE | 2020-11-19 19:29 | PC.NURSE ---
Spoke with Dr. Butcher and he ordered a 500 cc bolus and to increase IVF's to 125 r/t tachycardia and low BP. Pt has been asymptomatic and HR has been in lower 100's, since last dose of metoprolol po.
--- NOTE | 2020-11-19 19:36 | PC.NURSE ---
BP 103/51 at this time.
[2020-11-19 21:40] LABS: POC Glucose,Bedside 220 (70-110)
[2020-11-20] VITALS (10 sets, daily range): BP systolic 88–144; BP diastolic 47–83; PULSE 66–130; RESP 16–26; TEMP 36.4–36.8; O2SAT 91–100; BMI 26.0
--- NOTE | 2020-11-20 03:04 | PC.NURSE ---
A&OX4. PT CONTINUING WITH 3LNC, TOLERATING WELL. PT REMAINS IN BED THIS SHIFT, NEEDING HELP ADJUSTING IN BED. PT REMAINS INCONTINENT, BRIEFS CHANGED BY HIS AT BEDSIDE. PT BP HAS BEEN MUCH LOWER THIS SHIFT, AND PULSE HAS BEEN IN THE LOW 100S. MUCH BETTER THAN LAST NIGHT. PT HAS HAD NO C/O AT ALL THIS SHIFT, SLEEPING MAJORITY OF NIGHT. VSS WILL CONTINUE TO MONITOR.
[2020-11-20 05:43] LABS: POC Glucose,Bedside 182 (70-110)
[2020-11-20 07:04] LABS: Anion Gap 11.4 mEq/L (5-15); Basophils # 0.1 K/mm3 (0-0.2); Basophils % 0.4 % (0.1-2.0); Calcium 7.7 mg/dl (8.4-10.2); Carbon Dioxide 19 mmol/L (22.0-30.0); Chloride 110 mmol/L (98-107); Creatinine Clearance Estimated 18 mL/min (50-200); Eosinophils # 0.2 K/mm3 (0.0-0.4); Eosinophils % 1.7 % (0.1-12.0); Estimated Glomerular Filt Rate 15 ml/min (>60); GFR (African American) 19 ML/MIN (>60); Glucose 141 mg/dl (74-100); Lymphocytes # 1.1 K/mm3 (0.7-4.5); Lymphocytes % 8.9 % (10-50); Mean Corpuscular HGB Conc 30.1 g/dL (31.8-35.4); Mean Corpuscular Hemoglobin 30.6 pg (27.0-31.2); Mean Corpuscular Volume 101.6 fl (80-94); Mean Platelet Volume 10.8 fl (7.4-10.4); Monocytes # 0.5 K/mm3 (0.1-1.0); Neutrophils # 10.8 K/mm3 (1.8-7.8); Platelet Count 290 K/mm3 (142-424); Potassium 4.4 mmoL/L (3.5-5.1); Red Blood Count 2.32 M/mm3 (4.60-6.20); Red Cell Distribution Width 14.1 % (11.5-17.5); Sodium 136 mmol/L (136-145); White Blood Count 12.7 K/mm3 (4.8-10.8)
[2020-11-20 07:06] LABS: Hemoglobin 8.1 g/dL (14.1-18.0)
[2020-11-20 07:08] LABS: MANUAL DIFFERENTIAL MANUAL DIFFERENTIAL (MANUAL DIFF)
[2020-11-20 07:14] LABS: Blood Urea Nitrogen 113 mg/dl (9-20)
--- NOTE | 2020-11-20 07:32 | HMH.ACPN2 ---
Internal Medicine - PN: Subj *Date: 11/20/20 *Time: 07:32 Interval history: Patient has no complaints. Yesterday his heart rate continued in the 130s and documented as high as 150. Patient became hypotensive and was given a 500 mL fluid bolus followed by restarting of IV normal saline at 125 mL's per hour. Heart rate during the rest of the evening and overnight is recorded is lower and has been in the low 100s and even as low as 90. This morning the heart rate is increased back to the 130s. Patient received 200 mg of metoprolol ER yesterday morning. Patient denies chest pain. He denies new shortness of breath. Echocardiogram was ordered which showed an ejection fraction of 45% with global hypokinesis. Prior echo from 2018 revealed ejection fraction of 55% Exam Vital signs and Labs for Last 24 Hours: Temp Pulse Resp BP Pulse Ox 97.9 F 100 H 16 110/65 95 11/20/20 04:00 11/20/20 04:00 11/20/20 04:00 11/20/20 04:00 11/20/20 04:00 Laboratory Results - last 24 hr 11/19/20 05:34: Total Counted 100, Neutrophils % (Manual) 90 H, Band Neutrophils % 1.0, Lymphocytes % (Manual) 5 L, Monocytes % (Manual) 2, Eosinophils % (Manual) 1, Metamyelocytes % 1.0, Nucleated RBCs 3, Platelet Estimate Normal, RBC Morphology Not Reportable, Hypochromasia 1+, Macrocytosis 1+ 11/19/20 11:37: POC Glucose 296 H 11/19/20 15:40: POC Glucose 246 H 11/19/20 21:26: POC Glucose 220 H 11/20/20 05:12: POC Glucose 182 H 11/20/20 06:33: WBC 12.7 H D, RBC 2.32 L, Hgb 8.1 L, Hct 25.0 L, MCV 101.6 H, MCH 30.6, MCHC 30.1 L, RDW 14.1, Plt Count 290, MPV 10.8 H, Neut % (Auto) 85.0 H, Lymph % (Auto) 8.9 L, [place] % (Auto) 4.0, Eos % (Auto) 1.7, Baso % (Auto) 0.4, Neut # (Auto) 10.8 H, Lymph # (Auto) 1.1, [place] # (Auto) 0.5, Eos # (Auto) 0.2, Baso # (Auto) 0.1 11/20/20 06:33: Sodium 136, Potassium 4.4, Chloride 110 H, Carbon Dioxide 19 L, Anion Gap 11.4, BUN 113 H*, Creatinine 3.80 H, Estimated Creat Clear 18, Estimated GFR 15 L*, Est GFR ( Amer) 19 L*, Glucose 141 H, Calcium 7.7 L I & O for Last 24 hours: Intake & Output 11/17/20 11/18/20 11/19/20 11/20/20 11:59 11:59 11:59 11:59 Intake Total 1120 / 1120 570 / 570 1400 / 1400 2958 / 2958 Output Total 2675 / 3325 650 / 650 0 / 0 Balance -1555 / -2205 -80 / -80 1400 / 1400 2958 / 2958 Weight 191 lb 1 oz 190 lb 1 oz 188 lb 6 oz 192 lb 3 oz - Constitutional no acute distress - *Routine Respiratory Exam Present: CTA bilaterally - *Routine Cardiovascular Exam Present: tachycardia, irregular rhythm - *Routine Abdominal Exam Present: soft, normoactive bowel sounds. Absent: tenderness - *Routine Extremities Exam Absent: edema Assessment and Plan (1) Pyelonephritis Status: Acute Category: Medical Code(s): N12 - Tubulo-interstitial nephritis, not specified as acute or chronic (2) Acute on chronic renal failure Status: Acute Qualifiers: Acute renal failure type: unspecified Chronic kidney disease stage: unspecified stage Qualified Code(s): N17.9 - Acute kidney failure, unspecified; N18.9 - Chronic kidney disease, unspecified Category: Medical Code(s): N17.9 - Acute kidney failure, unspecified; N18.9 - Chronic kidney disease, unspecified (3) Hyperkalemia Status: Acute Category: Medical Code(s): E87.5 - Hyperkalemia (4) Sepsis Status: Suspected Qualifiers: Sepsis type: sepsis due to unspecified organism Sepsis acute organ dysfunction status: with acute organ dysfunction Severe sepsis acute organ dysfunction type: acute renal failure Acute renal failure type: unspecified Severe sepsis shock status: without septic shock Qualified Code(s): A41.9 - Sepsis, unspecified organism; R65.20 - Severe sepsis without septic shock; N17.9 - Acute kidney failure, unspecified Category: Medical Code(s): A41.9 - Sepsis, unspecified organism (5) Acute kidney injury Status: Acute Category: Medical Code(s): N17.9 - Acute kidney failure, unspecified
[2020-11-20 10:13] LABS: Eosinophils % 1 % (0-3); Lymphocytes % 4 % (10-50); Macrocytosis 1+; Monocytes % 4 % (2-9); Neutrophils % 91 % (42-76); Platelet Estimate Normal; Spherocytes 1+; Total Cells Counted 100
[2020-11-20 12:04] LABS: POC Glucose,Bedside 220 (70-110)
--- NOTE | 2020-11-20 13:21 | HMH.CNCARD ---
History of Present Illness Consult date: 11/20/20 Requesting physician: Juan Francisco Butcher Consult reason: atrial fibrillation Chief complaint: A. fib with RVR, Additional Medical History:: 1. Diabetes mellitus, treated for 10 to 15 years, on insulin 2. History of tobacco use, 2 packs/day, discontinued 12 years ago A. COPD B. Continuous oxygen at home 3. Coronary artery disease with history of coronary stenting approximately 2014 4. Chronic kidney disease, stage IV/V with refusal for dialysis 5. Anemia related to chronic kidney disease 6. History of atrial fibrillation A. CHADS-VASC score of 5 7. Hypertension A. Echo, 11/2020, 1. Biatrial enlargement, normal left ventricular size, mild concentric left ventricular hypertrophy, visually estimated ejection fraction 45% left ventricle is globally hypokinetic. Diastolic parameters are inconclusive. 2. Mildly enlarged right ventricle with normal contractility. 3. Mild mitral and tricuspid regurgitation, calculated right ventricular systolic pressure 36 mmHg. 4. No significant pericardial effusion noted. Electronically signed by : Arias Joseph, 11/19/2020 15:29:09 8. Hyperlipidemia History of present illness: 80-year-old male with history of chronic kidney disease, diabetes mellitus, hypertension presented to the emergency department with an approximate 1 week history of vomiting with gradual functional decline. Patient was evaluated in the emergency department and found to have signs of dehydration along with acute kidney injury and hyperkalemia as well as urinary tract infection. Patient has a history of UTIs and admits he has not had any urinary symptoms and did not think the vomiting was a sign of infection. His reports associated temperature to 102. Patient has had similar presentations in the past with potassium as high as 9 that have warranted transfer for higher level of care and potential dialysis. Patient has yet to receive any dialysis during these types of presentations. Decision was made to keep the patient in-house. He was given a liter fluid bolus and is continued on normal saline. Patient was also given calcium gluconate as well as Kayexalate enema. The above per Dr. Butcher on admission. Patient was admitted on 11/13/2020 and has been treated for pyelonephritis with sepsis. Antibiotic regimen per Dr. Butcher. During hospitalization patient's heart rate has increased and now appears to be atrial fibrillation with a rapid ventricular response around 130 bpm. Cardiology was consulted for advice on rate control. [facility] History Medical History: Reports:: Atrial Fibrillation, Coronary Artery Disease, Diabetes Mellitus Type 2, Gastroesophageal Reflux Disease(GERD), Hyperlipidemia, Hypertension, Myocardial Infarction Denies:: Cancer, Diabetes Mellitus Type 1, Internal Pacemaker, MRSA, Seizures *Have you ever received a pneumonia vaccine?: Yes *Have you received a flu vaccine this season?: Yes Other Medical History: Reports: Anemia. Denies: Blood Transfusion Reaction Other Surgeries: Yes: Cardiac Catheterization, Skin Cancer Excision (ON CHEST). No: Pacemaker Amputation: No - *Social History Last grade of school completed: Some college Smoking Status: Former smoker Tobacco Type: cigarettes # Packs/Day (cigarettes): 1 #Yrs smoked (if former smoker): 50 Smoking End Date: 10 years Alcohol Intake: never Alcohol Intake Frequency:: other Substance Use Type: denies use *Occupational Status:: retired Housing: house Household Members: spouse *Travel in the last 8 weeks: None Family Hx:: No significant family history Meds Home Medications Medication Instructions Recorded Confirmed Type Aspirin [Aspirin 81mg EC Tab] 81 mg PO DAILY 05/26/20 11/13/20 History Fish Oil/Dha/Epa [Fish Oil 1,200 1 cap PO DAILY 05/26/20 11/13/20 History mg Fish Oil] Sitagliptin Phosphate [Januvia 25 mg PO DAILY 05/26/20 11/13/20 History 25mg Tablet] Atorvastatin Calcium [L
--- NOTE | 2020-11-20 13:22 | ECG_ITS ---
APPROVED REPORT Exam: Resting ECG HR:127 bpm ECG Measurements Heart Rate 127 AXES QRSd 104 QRS -16 QT 300 T 22 QTc 436 Conclusion Atrial fibrillation with rapid ventricular response Low voltage QRS Abnormal ECG Electronically signed by : Juan Francisco Patino, 11/21/2020 11:36:35
[2020-11-20 16:07] LABS: POC Glucose,Bedside 207 (70-110)
--- NOTE | 2020-11-20 17:21 | PC.NURSE ---
Pt has been pleasant and cooperative this shift. A&O X4. No complaints of pain or SOA. Pt is receiving O2 via NC @ 3 LPM >90%. Lungs CTA. No edema noted. Skin is C/D/I. Pt ambulates with stand-by assistance throughout the room and uses a brief to void clear, yellow urine without issue. No BM this shift. FSBS results have been 220 and 207, both of which have required insulin coverage per sliding scale. 20 G peripheral IV in the RT forearm is patent and infusing NS @ 100 ML/HR. VSS. Call light within reach. Will continue to monitor.
[2020-11-20 21:10] LABS: POC Glucose,Bedside 161 (70-110)
[2020-11-21] VITALS (38 sets, daily range): BP systolic 80–120; BP diastolic 41–70; PULSE 65–130; RESP 14–22; TEMP 36.6–36.9; O2SAT 98–100; BMI 26.7
--- NOTE | 2020-11-21 04:16 | PC.NURSE ---
Patient oriented times 4. Patient resting comfortably throughout this shift. Patient did not complain of pain this shift. Patient Glucose slightly elevated at 161. Covered with S/s 5 units, also administered Long Acting 30 units. Will continue to monitor for any acute changes.
[2020-11-21 05:17] LABS: POC Glucose,Bedside 135 (70-110)
--- NOTE | 2020-11-21 07:39 | HMH.DCSUM ---
General - General Admission date:: 11/13/20 Discharge date: 11/21/20 HPI HPI: 80-year-old male with history of chronic kidney disease, diabetes mellitus, hypertension presented to the emergency department with an approximate 1 week history of vomiting with gradual functional decline. Patient was evaluated in the emergency department and found to have signs of dehydration along with acute kidney injury and hyperkalemia as well as urinary tract infection. Patient has a history of UTIs and admits he has not had any urinary symptoms and did not think the vomiting was a sign of infection. His reports associated temperature to 102. Patient has had similar presentations in the past with potassium as high as 9 that have warranted transfer for higher level of care and potential dialysis. Patient has yet to receive any dialysis during these types of presentations. Decision was made to keep the patient in-house. He was given a liter fluid bolus and is continued on normal saline. Patient was also given calcium gluconate as well as Kayexalate enema. Hospital Course Hospital Course: Patient was admitted with a diagnosis of pyelonephritis and sepsis and started on cefepime. Urine ultimately grew Pseudomonas covered by cefepime. Patient's white count was elevated at 20,000 on admission and gradually trended down. Patient felt slightly better each day. Raymond through the hospitalization the white blood cell count pro again. Despite rising WBC there was no change in patient's condition. At this point levofloxacin was added to the cefepime. Patient had good response to IV Levaquin renally dosed. White count trended back down. Cefepime was discontinued in favor of Levaquin. At the time of discharge patient will continue a course of oral Levaquin dosed every 48 hours. Patient has stage IV chronic kidney disease and on admission had acute kidney injury and hyperkalemia related to his pyelonephritis and sepsis. Patient's potassium trended down with IV fluids and Kayexalate and returned to a normal level. Creatinine which was 5.7 on admission gradually trended down until it returned to the patient's baseline of 3.8. Patient had IV fluids continuously for the first 3 days of hospitalization. To avoid fluid overload patient's IV fluids were discontinued after 3 days. They were restarted later in the admission for an episode of hypotension and tachycardia before being discontinued at discharge. Patient has anemia of chronic disease. Hemoglobin remained around 8 during hospitalization. On day 3 of hospitalization hemoglobin trended down to 7.8 and patient was transfused 1 unit of packed red blood cells. On November 21 labs patient's hemoglobin was 6 on morning labs. Patient was transfused 2 units of packed red blood cells with hemoglobin rising to 7.8. Patient was given an additional unit of packed red blood cells on that day. The following morning on November 22 patient's hemoglobin had dropped below 8 again and he was transfused 2 units of packed red blood cells with excellent response and posttransfusion hemoglobin of 9.4. The following morning on labs hemoglobin was 9.8. Patient showed no signs of blood loss. He did have a history of ulcer disease but denied abdominal pain. Stools were of normal color. Labs regarding hemolytic anemia were ordered and were unremarkable. Because of the anemia patient will not be taking Xarelto at discharge. Patient had sinus tachycardia on admission and this pro during hospitalization. Patient reported a history of atrial fibrillation after prior transfusion during a separate hospitalization. Patient's heart rate pro to the 130s prior to his transfusion and was sinus tach. Later during hospitalization patient's heart rate was found to be irregular and repeat EKG confirmed atrial fibrillation. Patient was started on metoprolol ER and reached a dose of 200 mg daily. This had very little impact on patient's tachycardia. D
[2020-11-21 08:03] LABS: Basophils # 0.1 K/mm3 (0-0.2); Basophils % 0.5 % (0.1-2.0); Eosinophils # 0.2 K/mm3 (0.0-0.4); Eosinophils % 1.2 % (0.1-12.0); Lymphocytes # 1.4 K/mm3 (0.7-4.5); Mean Corpuscular HGB Conc 29.3 g/dL (31.8-35.4); Mean Corpuscular Hemoglobin 30.8 pg (27.0-31.2); Mean Corpuscular Volume 105.3 fl (80-94); Mean Platelet Volume 11.3 fl (7.4-10.4); Monocytes # 0.8 K/mm3 (0.1-1.0); Monocytes % 5.3 % (1.7-9.3); Neutrophils # 12.6 K/mm3 (1.8-7.8); Platelet Count 348 K/mm3 (142-424); Red Blood Count 1.95 M/mm3 (4.60-6.20)
[2020-11-21 08:11] LABS: Anion Gap 12.8 mEq/L (5-15); Calcium 7.6 mg/dl (8.4-10.2); Carbon Dioxide 17 mmol/L (22.0-30.0); Chloride 112 mmol/L (98-107); Creatinine Clearance Estimated 18 mL/min (50-200); Estimated Glomerular Filt Rate 14 ml/min (>60); GFR (African American) 17 ML/MIN (>60); Glucose 137 mg/dl (74-100); Potassium 4.8 mmoL/L (3.5-5.1); Sodium 137 mmol/L (136-145)
[2020-11-21 08:13] LABS: Blood Urea Nitrogen 115 mg/dl (9-20)
[2020-11-21 08:22] LABS: Hematocrit 20.5 % (42.0-52.0)
[2020-11-21 08:23] LABS: MANUAL DIFFERENTIAL MANUAL DIFFERENTIAL (MANUAL DIFF)
[2020-11-21 11:05] LABS: Lymphocytes % 10 % (10-50); Macrocytosis 1+; Monocytes % 6 % (2-9); Neutrophils % 84 % (42-76); Platelet Estimate Normal; Total Cells Counted 100
[2020-11-21 11:47] LABS: POC Glucose,Bedside 190 (70-110)
--- NOTE | 2020-11-21 14:42 | HMH.ACPN ---
Internal Medicine - PN: Subj *Date: 11/21/20 *Time: 14:42 Exam Vital signs and Labs for Last 24 Hours: Temp Pulse Resp BP Pulse Ox 98.0 F 69 18 80/48 L 99 11/21/20 14:15 11/21/20 14:15 11/21/20 14:15 11/21/20 14:15 11/21/20 14:15 Laboratory Results - last 24 hr 11/20/20 15:55: POC Glucose 207 H 11/20/20 20:47: POC Glucose 161 H 11/21/20 05:07: POC Glucose 135 H 11/21/20 07:41: WBC 15.0 H, RBC 1.95 L*, Hgb 6.0 L*, Hct 20.5 L*, MCV 105.3 H, MCH 30.8, MCHC 29.3 L, RDW 14.0, Plt Count 348, MPV 11.3 H, Neut % (Auto) 84.0 H, Lymph % (Auto) 9.0 L, [place] % (Auto) 5.3, Eos % (Auto) 1.2, Baso % (Auto) 0.5, Neut # (Auto) 12.6 H, Lymph # (Auto) 1.4, [place] # (Auto) 0.8, Eos # (Auto) 0.2, Baso # (Auto) 0.1, Total Counted 100, Neutrophils % (Manual) 84 H, Lymphocytes % (Manual) 10, Monocytes % (Manual) 6, Platelet Estimate Normal, Macrocytosis 1+ 11/21/20 07:41: Sodium 137, Potassium 4.8, Chloride 112 H, Carbon Dioxide 17 L, Anion Gap 12.8, BUN 115 H*, Creatinine 4.00 H, Estimated Creat Clear 18, Estimated GFR 14 L*, Est GFR ( Amer) 17 L*, Glucose 137 H, Calcium 7.6 L 11/21/20 07:41: Blood Type O Positive, Antibody Screen Negative, Crossmatch (AHG) See Detail 11/21/20 11:29: POC Glucose 190 H I & O for Last 24 hours: Intake & Output 11/18/20 11/19/20 11/20/20 11/21/20 23:59 23:59 23:59 23:59 Intake Total 1070 / 1190 1782 / 1782 3855 / 3855 1000 / 1000 Output Total 0 / 0 Balance 1070 / 1190 1781 3855 / 3855 1000 / 1000 Weight 86.211 kg 85.445 kg 87.175 kg 89.584 kg Assessment and Plan (1) Pyelonephritis Status: Acute Category: Medical Code(s): N12 - Tubulo-interstitial nephritis, not specified as acute or chronic (2) Acute on chronic renal failure Status: Acute Qualifiers: Acute renal failure type: unspecified Chronic kidney disease stage: unspecified stage Qualified Code(s): N17.9 - Acute kidney failure, unspecified; N18.9 - Chronic kidney disease, unspecified Category: Medical Code(s): N17.9 - Acute kidney failure, unspecified; N18.9 - Chronic kidney disease, unspecified (3) Hyperkalemia Status: Acute Category: Medical Code(s): E87.5 - Hyperkalemia (4) Sepsis Status: Suspected Qualifiers: Sepsis type: sepsis due to unspecified organism Sepsis acute organ dysfunction status: with acute organ dysfunction Severe sepsis acute organ dysfunction type: acute renal failure Acute renal failure type: unspecified Severe sepsis shock status: without septic shock Qualified Code(s): A41.9 - Sepsis, unspecified organism; R65.20 - Severe sepsis without septic shock; N17.9 - Acute kidney failure, unspecified Category: Medical Code(s): A41.9 - Sepsis, unspecified organism (5) Acute kidney injury Status: Acute Category: Medical Code(s): N17.9 - Acute kidney failure, unspecified (6) Diabetes mellitus with hyperglycemia Status: Chronic Qualifiers: Diabetes mellitus type: type 2 Diabetes mellitus long term care pharmacist insulin use: unspecified long term care pharmacist insulin use status Qualified Code(s): E11.65 - Type 2 diabetes mellitus with hyperglycemia Category: Medical Code(s): E11.65 - Type 2 diabetes mellitus with hyperglycemia (7) Tachycardia Status: Acute Category: Medical Code(s): R00.0 - Tachycardia, unspecified (8) Anemia in chronic kidney disease Status: Acute Category: Medical Code(s): N18.9 - Chronic kidney disease, unspecified; D63.1 - Anemia in chronic kidney disease (9) Atrial fibrillation with RVR Status: Acute Category: Medical Code(s): I48.91 - Unspecified atrial fibrillation The patient's infection will respond to the chosen ABx?: Yes Is the patient receiving the right drug, dose, and route?: Yes Could a more targeted ABx be ordered?: No (URINE CULTURE SENSITIVE TO LEVAQUIN)
[2020-11-21 16:36] LABS: POC Glucose,Bedside 146 (70-110)
--- NOTE | 2020-11-21 16:38 | PC.NURSE ---
Pt has been pleasant and cooperative this shift. A&O X4. No complaints of pain or SOA. Pt is receiving O2 via NC @ 3 LPM >90%. Lungs CTA. No edema noted. Telemetry reveals atrial fibrillation. Skin is C/D/I. Pt received 2 units of PRBC's today. Pt ambulates with stand-by assistance throughout the room and uses a brief to void clear, yellow urine without issue. 1 small, soft, brown BM this shift. FSBS results have been 190 and 146. 20 G peripheral IV in the RT forearm is patent and infusing NS @ 100 ML/HR. B/P has been low today, although pt remains asymptomatic. Other VSS. Call light within reach. Will continue to monitor.
[2020-11-21 17:40] LABS: Hematocrit 24.6 % (42.0-52.0)
[2020-11-21 17:41] LABS: Hemoglobin 7.3 g/dL (14.1-18.0)
[2020-11-21 20:20] LABS: POC Glucose,Bedside 164 (70-110)
[2020-11-22] VITALS (33 sets, daily range): BP systolic 88–132; BP diastolic 43–70; PULSE 60–122; RESP 16–22; TEMP 36.4–36.9; O2SAT 90–100; BMI 27.1
[2020-11-22 01:55] LABS: Hematocrit 27.2 % (42.0-52.0)
--- NOTE | 2020-11-22 03:08 | PC.NURSE ---
A&OX4. PT TOLERATING 3LNC. PT HAS REMAINED IN BED T/O THIS SHIFT. PT SEEMS WEAKER THIS SHIFT. PT HAS HAD NO C/O THUS FAR. PT RECEIVED THIRD UNIT OF BLOOD, HGB RAISING TO 8. CRITICAL HGB REPORTED TO SIGN SHOP SUPERVISOR MD BEASLEY. NNO. PT BP HAS BEEN LOW AT TIMES, BUT PT REMAINS ASYMPTOMATIC. PT AT BEDSIDE. PT AND BICKERED A LARGE MAJORITY OF SHIFT. PT WAS FLUSTERED AND HIS HR RAISED TO THE 120S. THIS NURSE TRIED TO ESTABLISH A CALM ENVIRONMENT. NO OTHER C/O THUS FAR, VSS WILL CONTINUE TO MONITOR.
[2020-11-22 05:21] LABS: POC Glucose,Bedside 144 (70-110)
--- NOTE | 2020-11-22 08:25 | HMH.ACPN2 ---
Internal Medicine - PN: Subj *Date: 11/22/20 *Time: 08:25 Interval history: Patient ended up requiring transfusion of 3 units of packed red blood cells yesterday due to sudden drop in H&H. Patient denies any change overall in how he is feeling. He denies worsening shortness of breath. He has not had any chest or abdominal pain. Blood pressures remain low throughout the day. Patient had a single bowel movement which was of normal color Exam Vital signs and Labs for Last 24 Hours: Temp Pulse Resp BP Pulse Ox 98.0 F 122 H 20 132/70 100 11/22/20 07:30 11/22/20 07:30 11/22/20 07:30 11/22/20 07:30 11/22/20 07:30 Laboratory Results - last 24 hr 11/21/20 07:41: Total Counted 100, Neutrophils % (Manual) 84 H, Lymphocytes % (Manual) 10, Monocytes % (Manual) 6, Platelet Estimate Normal, Macrocytosis 1+ 11/21/20 07:41: Blood Type O Positive, Antibody Screen Negative, Crossmatch (AHG) See Detail 11/21/20 11:29: POC Glucose 190 H 11/21/20 16:28: POC Glucose 146 H 11/21/20 17:20: Hgb 7.3 L* D, Hct 24.6 L 11/21/20 20:07: POC Glucose 164 H 11/22/20 01:40: Hgb 8.0 L, Hct 27.2 L 11/22/20 05:04: POC Glucose 144 H I & O for Last 24 hours: Intake & Output 11/19/20 11/20/20 11/21/20 11/22/20 11:59 11:59 11:59 11:59 Intake Total 1400 / 1400 3438 / 3438 2078 / 189 Output Total 0 / 0 Balance 1400 / 1400 3438 / 3438 2078 189 / 189 Weight 188 lb 6 oz 192 lb 3 oz 197 lb 8 oz 200 lb 4 oz Narrative: Patient looks comfortable although may be slightly pale this morning. Lungs are clear. Heart rate is tachycardic and irregularly irregular. Abdomen is soft. Extremities are warm to the touch Assessment and Plan (1) Pyelonephritis Status: Acute Category: Medical Code(s): N12 - Tubulo-interstitial nephritis, not specified as acute or chronic (2) Acute on chronic renal failure Status: Acute Qualifiers: Acute renal failure type: unspecified Chronic kidney disease stage: unspecified stage Qualified Code(s): N17.9 - Acute kidney failure, unspecified; N18.9 - Chronic kidney disease, unspecified Category: Medical Code(s): N17.9 - Acute kidney failure, unspecified; N18.9 - Chronic kidney disease, unspecified (3) Hyperkalemia Status: Acute Category: Medical Code(s): E87.5 - Hyperkalemia (4) Sepsis Status: Suspected Qualifiers: Sepsis type: sepsis due to unspecified organism Sepsis acute organ dysfunction status: with acute organ dysfunction Severe sepsis acute organ dysfunction type: acute renal failure Acute renal failure type: unspecified Severe sepsis shock status: without septic shock Qualified Code(s): A41.9 - Sepsis, unspecified organism; R65.20 - Severe sepsis without septic shock; N17.9 - Acute kidney failure, unspecified Category: Medical Code(s): A41.9 - Sepsis, unspecified organism (5) Acute kidney injury Status: Acute Category: Medical Code(s): N17.9 - Acute kidney failure, unspecified (6) Diabetes mellitus with hyperglycemia Status: Chronic Qualifiers: Diabetes mellitus type: type 2 Diabetes mellitus manager terminal insulin use: unspecified custodial insulin use status Qualified Code(s): E11.65 - Type 2 diabetes mellitus with hyperglycemia Category: Medical Code(s): E11.65 - Type 2 diabetes mellitus with hyperglycemia (7) Tachycardia Status: Acute Category: Medical Code(s): R00.0 - Tachycardia, unspecified (8) Anemia in chronic kidney disease Status: Acute Category: Medical Code(s): N18.9 - Chronic kidney disease, unspecified; D63.1 - Anemia in chronic kidney disease (9) Atrial fibrillation with RVR Status: Acute Category: Medical Code(s): I48.91 - Unspecified atrial fibrillation - Assessment and plan all Dx Assessment and Plan for all problems:: Await morning labs and make further decisions on interventions. Patient may require additional transfusion. Patient was started on Protonix IV and
[2020-11-22 10:07] LABS: Basophils # 0.1 K/mm3 (0-0.2); Basophils % 0.5 % (0.1-2.0); Eosinophils # 0.2 K/mm3 (0.0-0.4); Eosinophils % 1.4 % (0.1-12.0); Lymphocytes # 1.1 K/mm3 (0.7-4.5); Lymphocytes % 10.2 % (10-50); Mean Corpuscular HGB Conc 29.4 g/dL (31.8-35.4); Mean Corpuscular Hemoglobin 29.3 pg (27.0-31.2); Mean Corpuscular Volume 99.6 fl (80-94); Monocytes # 0.7 K/mm3 (0.1-1.0); Monocytes % 6.9 % (1.7-9.3); Neutrophils # 8.8 K/mm3 (1.8-7.8); Platelet Count 293 K/mm3 (142-424); Red Blood Count 2.41 M/mm3 (4.60-6.20); Red Cell Distribution Width 16.7 % (11.5-17.5); White Blood Count 10.9 K/mm3 (4.8-10.8)
[2020-11-22 10:09] LABS: Anion Gap 14.8 mEq/L (5-15); Calcium 7.5 mg/dl (8.4-10.2); Carbon Dioxide 15 mmol/L (22.0-30.0); Chloride 114 mmol/L (98-107); Creatinine Clearance Estimated 19 mL/min (50-200); Estimated Glomerular Filt Rate 15 ml/min (>60); GFR (African American) 18 ML/MIN (>60); Glucose 159 mg/dl (74-100); Potassium 4.8 mmoL/L (3.5-5.1); Sodium 139 mmol/L (136-145)
[2020-11-22 10:39] LABS: Blood Urea Nitrogen 119 mg/dl (9-20)
[2020-11-22 12:06] LABS: POC Glucose,Bedside 165 (70-110)
[2020-11-22 17:00] LABS: POC Glucose,Bedside 173 (70-110)
--- NOTE | 2020-11-22 17:47 | PC.NURSE ---
Pt has been pleasant and cooperative this shift. A&O X4. No complaints of pain or SOA. Pt is receiving O2 via NC @ 3 LPM >90%. Lungs CTA. No edema noted. Telemetry reveals atrial fibrillation. Skin is C/D/I. Pt received 2 units of PRBC's today. Pt ambulates with stand-by assistance throughout the room and uses a brief to void clear, yellow urine without issue. No BM thus far today. Pt has been instructed to provide a stool sample and a specimen cup has been placed at bedside. FSBS results have been 165 and 173, both of which have required insulin coverage per sliding scale. 20 G peripheral IV in the RT forearm is patent and SL. B/P has been low today, although pt remains asymptomatic. Other VSS. Call light within reach. Will continue to monitor.
[2020-11-22 19:17] LABS: Hematocrit 30.1 % (42.0-52.0)
[2020-11-22 19:19] LABS: Hemoglobin 9.4 g/dL (14.1-18.0)
[2020-11-22 19:28] LABS: Alanine Aminotransferase 42 U/L (12-78); Albumin Level 2.7 g/dl (3.5-5.0); Alkaline Phosphatase 89 U/L (38-126); Aspartate Amino Transferase 34 U/L (17-59); Bilirubin,Direct 0.5 mg/dl (0.0-0.4); Bilirubin,Indirect 0.1 mg/dL (0.0-0.9); Bilirubin,Total 0.6 mg/dl (0.2-1.3); Bilirubin,Unconjugated 0.1 mg/dL (0.0-1.1); Lactate Dehydrogenase 227 U/L (313-618); Total Protein,Serum 5.6 g/dl (6.3-8.2)
[2020-11-22 19:57] LABS: POC Glucose,Bedside 170 (70-110)
[2020-11-22 21:04] LABS: Reticulocyte % (Auto) 1.3 % (0.9-3.2)
[2020-11-23] VITALS: PULSE 82
[2020-11-23 03:37] VITALS: BP 118/56; PULSE 106; RESP 19; TEMP 36.6; O2SAT 99
--- NOTE | 2020-11-23 03:48 | PC.NURSE ---
No acute changes overnight. Pt has had no c/o pain or discomfort this shift. Lungs CTA, on 3L NC. Pt has been incontinent of urine this shift, brief in place. NPO since midnight. No BM this shift. No edema noted. Bowel sounds x4, abd soft and nontender. IV patent, SL. VSS, call light in reach, no concerns at this time.
[2020-11-23 04:00] VITALS: PULSE 80
[2020-11-23 05:00] VITALS: BMI 27.8
[2020-11-23 07:34] LABS: Basophils # 0.1 K/mm3 (0-0.2); Basophils % 0.5 % (0.1-2.0); Eosinophils # 0.1 K/mm3 (0.0-0.4); Eosinophils % 1.2 % (0.1-12.0); Hematocrit 32.6 % (42.0-52.0); Hemoglobin 9.8 g/dL (14.1-18.0); Lymphocytes # 0.8 K/mm3 (0.7-4.5); Lymphocytes % 7.1 % (10-50); Mean Corpuscular HGB Conc 29.9 g/dL (31.8-35.4); Mean Corpuscular Hemoglobin 29.1 pg (27.0-31.2); Mean Corpuscular Volume 97.3 fl (80-94); Mean Platelet Volume 11.3 fl (7.4-10.4); Monocytes # 1.1 K/mm3 (0.1-1.0); Monocytes % 9.5 % (1.7-9.3); Neutrophils # 9.6 K/mm3 (1.8-7.8); Neutrophils % 81.6 % (37.0-80.0); Platelet Count 206 K/mm3 (142-424); Red Blood Count 3.36 M/mm3 (4.60-6.20); Red Cell Distribution Width 16.6 % (11.5-17.5); White Blood Count 11.8 K/mm3 (4.8-10.8)
--- NOTE | 2020-11-23 07:45 | HMH.ACPN2 ---
Internal Medicine - PN: Subj *Date: 11/23/20 *Time: 07:45 Interval history: Patient has no complaints this morning. He had excellent response to additional transfusion of 2 units of packed red blood cells with posttransfusion hemoglobin being 9.4 and this morning hemoglobin has risen to 9.8. Patient has not had a bowel movement. Labs were ordered late yesterday evening to assess for hemolytic anemia. Those labs do not support hemolytic anemia Exam Vital signs and Labs for Last 24 Hours: Temp Pulse Resp BP Pulse Ox 97.9 F 80 19 118/56 L 99 11/23/20 03:37 11/23/20 04:00 11/23/20 03:37 11/23/20 03:37 11/23/20 03:37 Laboratory Results - last 24 hr 11/21/20 07:41: Blood Type O Positive, Antibody Screen Negative, Crossmatch (AHG) See Detail 11/22/20 09:58: WBC 10.9 H D, RBC 2.41 L, Hgb 7.0 L*, Hct 24.0 L, MCV 99.6 H, MCH 29.3, MCHC 29.4 L, RDW 16.7, Plt Count 293, MPV 11.0 H, Neut % (Auto) 81.0 H, Lymph % (Auto) 10.2, [place] % (Auto) 6.9, Eos % (Auto) 1.4, Baso % (Auto) 0.5, Neut # (Auto) 8.8 H, Lymph # (Auto) 1.1, [place] # (Auto) 0.7, Eos # (Auto) 0.2, Baso # (Auto) 0.1 11/22/20 09:58: Sodium 139, Potassium 4.8, Chloride 114 H, Carbon Dioxide 15 L, Anion Gap 14.8, BUN 119 H*, Creatinine 3.90 H, Estimated Creat Clear 19, Estimated GFR 15 L*, Est GFR ( Amer) 18 L*, Glucose 159 H, Calcium 7.5 L 11/22/20 11:42: POC Glucose 165 H 11/22/20 16:44: POC Glucose 173 H 11/22/20 19:05: Retic Count (auto) 1.3 11/22/20 19:05: Total Bilirubin 0.6, Direct Bilirubin 0.5 H, Conjugated Bilirubin 0.0, Indirect Bilirubin 0.1, Unconjugated Bilirubin 0.1, AST 34, ALT 42, Alkaline Phosphatase 89, Lactate Dehydrogenase 227 L, Total Protein 5.6 L, Albumin 2.7 L 11/22/20 19:05: Hgb 9.4 L D, Hct 30.1 L 11/22/20 19:40: POC Glucose 170 H 11/23/20 06:32: WBC 11.8 H, RBC 3.36 L D, Hgb 9.8 L, Hct 32.6 L, MCV 97.3 H, MCH 29.1, MCHC 29.9 L, RDW 16.6, Plt Count 206 D, MPV 11.3 H, Neut % (Auto) 81.6 H, Lymph % (Auto) 7.1 L, [place] % (Auto) 9.5 H, Eos % (Auto) 1.2, Baso % (Auto) 0.5, Neut # (Auto) 9.6 H, Lymph # (Auto) 0.8, [place] # (Auto) 1.1 H, Eos # (Auto) 0.1, Baso # (Auto) 0.1 I & O for Last 24 hours: Intake & Output 11/20/20 11/21/20 11/22/20 11/23/20 11:59 11:59 11:59 11:59 Intake Total 3438 / 3438 2078 1894 / 1894 1340 / 1340 Balance 3438 / 3438 2078 189 / 1894 1340 / 1340 Weight 192 lb 3 oz 197 lb 8 oz 200 lb 4 oz 205 lb 2 oz - Constitutional no acute distress - *Routine Respiratory Exam Present: CTA bilaterally - *Routine Cardiovascular Exam Present: tachycardia, irregularly irregular Assessment and Plan (1) Pyelonephritis Status: Acute Category: Medical Code(s): N12 - Tubulo-interstitial nephritis, not specified as acute or chronic (2) Acute on chronic renal failure Status: Acute Qualifiers: Acute renal failure type: unspecified Chronic kidney disease stage: unspecified stage Qualified Code(s): N17.9 - Acute kidney failure, unspecified; N18.9 - Chronic kidney disease, unspecified Category: Medical Code(s): N17.9 - Acute kidney failure, unspecified; N18.9 - Chronic kidney disease, unspecified (3) Hyperkalemia Status: Acute Category: Medical Code(s): E87.5 - Hyperkalemia (4) Sepsis Status: Suspected Qualifiers: Sepsis type: sepsis due to unspecified organism Sepsis acute organ dysfunction status: with acute organ dysfunction Severe sepsis acute organ dysfunction type: acute renal failure Acute renal failure type: unspecified Severe sepsis shock status: without septic shock Qualified Code(s): A41.9 - Sepsis, unspecified organism; R65.20 - Severe sepsis without septic shock; N17.9 - Acute kidney failure, unspecified Category: Medical Code(s): A41.9 - Sepsis, unspecified organism (5) Acute kidney injury Status: Acute Category: Medical Code(s): N17.9 - Acute kidney failure, unspecified (6) Diabetes mellitus with hyperglycemia Status: Chronic Qualifiers
[2020-11-23 07:47] LABS: Anion Gap 15.4 mEq/L (5-15); Carbon Dioxide 13 mmol/L (22.0-30.0); Chloride 117 mmol/L (98-107); Creatinine Clearance Estimated 18 mL/min (50-200); Estimated Glomerular Filt Rate 14 ml/min (>60); GFR (African American) 17 ML/MIN (>60); Glucose 76 mg/dl (74-100); Potassium 5.4 mmoL/L (3.5-5.1); Sodium 140 mmol/L (136-145)
[2020-11-23 08:00] VITALS: BP 133/80; PULSE 125; RESP 18; TEMP 36.5; O2SAT 96
[2020-11-23 08:07] LABS: Blood Urea Nitrogen 120 mg/dl (9-20)
--- NOTE | 2020-11-23 08:09 | PC.NURSE ---
Notified Dr. Butcher of BUN and Creatinine notifications.
--- NOTE | 2020-11-23 08:44 | PC.NURSE ---
NNO given in re to notification, Dr. Butcher stated he may still be d/cd.
[2020-11-24 19:10] LABS: Peripheral Smear Review Scanned Result
[2020-11-24 20:56] LABS: Haptoglobin 265 mg/dL (38-329)
== END 2020-11-23 10:05 | disposition home or self-care (01) | DRG 872 ==
LOC: ER 12:09 → 2ND 12:32
PROVIDERS: Admitting Provider Family Medicine; Emergency Provider Emergency Medicine; PCP Family Medicine; Visit Provider Family Medicine
DX: A41.9 Sepsis, unspecified organism (principal); N17.9 Acute kidney failure, unspecified; N12 Tubulo-interstitial nephritis, not specified as acute or chronic; N18.5 Chronic kidney disease, stage 5; I25.10 Atherosclerotic heart disease of native coronary artery without angina pectoris; I48.91 Unspecified atrial fibrillation; E11.65 Type 2 diabetes mellitus with hyperglycemia; Z79.4 Long term (current) use of insulin; R65.20 Severe sepsis without septic shock; E11.22 Type 2 diabetes mellitus with diabetic chronic kidney disease; I12.9 Hypertensive chronic kidney disease with stage 1 through stage 4 chronic kidney disease, or unspecified chronic kidney disease; D63.1 Anemia in chronic kidney disease; E87.5 Hyperkalemia; Z87.891 Personal history of nicotine dependence; E86.0 Dehydration; B96.5 Pseudomonas (aeruginosa) (mallei) (pseudomallei) as the cause of diseases classified elsewhere; K21.9 Gastro-esophageal reflux disease without esophagitis
CPT/HCPCS: 36415; 71045; 74176; 76705; 80048; 80053; 80076; 81001; 82803; 82962; 83010; 83605; 83615; 83690; 84145; 84484; 85007; 85014; 85018; 85025; 85044; 86850; 87040; 87086; 87088; 87186; 87581; 87633; 87798; 93005; 93306; 94760; 94761; 96365; 96367; 96375; 97116; 97162; 97530; 99284; J0692; J1956; P9016

== ENCOUNTER 2020-12-30 16:07 | Emergency (ER) | payer MEDICARE, MEDICAID, SELFPAY ==
[2020-12-30] VITALS (10 sets, daily range): BP systolic 105–125; BP diastolic 53–75; PULSE 72–79; RESP 14–24; TEMP 36.8–36.9; O2SAT 93–99; BMI 23.7
--- NOTE | 2020-12-30 16:04 | ECG_ITS ---
APPROVED REPORT Exam: Resting ECG HR:73 bpm ECG Measurements Heart Rate 73 AXES QRSd 148 QRS -68 QT 438 T 73 QTc 482 Conclusion Atrial fibrillation Left axis deviation Left bundle branch block Abnormal ECG Electronically signed by : Juan Francisco Patino, 12/31/2020 18:05:01
--- NOTE | 2020-12-30 16:19 | PC.NURSE ---
fsbs 98
[2020-12-30 16:25] LABS: POC Glucose,Bedside 98 (70-110)
--- NOTE | 2020-12-30 17:17 | PC.NURSE ---
changed pt's adult diaper
[2020-12-30 17:20] LABS: Alanine Aminotransferase 14 U/L (12-78); Albumin Level 3.7 g/dl (3.5-5.0); Alkaline Phosphatase 135 U/L (38-126); Anion Gap 25.4 mEq/L (5-15); Aspartate Amino Transferase 23 U/L (17-59); Bilirubin,Direct 0.6 mg/dl (0.0-0.4); Bilirubin,Total 0.6 mg/dl (0.2-1.3); Calcium 7.8 mg/dl (8.4-10.2); Carbon Dioxide 17 mmol/L (22.0-30.0); Chloride 104 mmol/L (98-107); Creatinine Clearance Estimated 6 mL/min (50-200); Estimated Glomerular Filt Rate 5 ml/min (>60); GFR (African American) 6 ML/MIN (>60); Glucose 90 mg/dl (74-100); Sodium 137 mmol/L (136-145)
[2020-12-30 17:25] LABS: Basophils # 0.1 K/mm3 (0-0.2); Basophils % 0.8 % (0.1-2.0); Eosinophils # 0.1 K/mm3 (0.0-0.4); Eosinophils % 0.7 % (0.1-12.0); Hemoglobin 9.4 g/dL (14.1-18.0); Lymphocytes # 1.3 K/mm3 (0.7-4.5); Lymphocytes % 8.7 % (10-50); Mean Corpuscular HGB Conc 32.3 g/dL (31.8-35.4); Mean Corpuscular Hemoglobin 30.4 pg (27.0-31.2); Mean Corpuscular Volume 94.2 fl (80-94); Mean Platelet Volume 9.9 fl (7.4-10.4); Monocytes # 0.6 K/mm3 (0.1-1.0); Monocytes % 4.5 % (1.7-9.3); Neutrophils # 12.2 K/mm3 (1.8-7.8); Neutrophils % 85.2 % (37.0-80.0); Platelet Count 584 K/mm3 (142-424); Red Blood Count 3.08 M/mm3 (4.60-6.20); Red Cell Distribution Width 16.3 % (11.5-17.5); White Blood Count 14.3 K/mm3 (4.8-10.8)
[2020-12-30 17:38] LABS: MANUAL DIFFERENTIAL MANUAL DIFFERENTIAL (MANUAL DIFF)
--- NOTE | 2020-12-30 17:42 | PC.NURSE ---
Received critical labs from lab. ER physician made aware
[2020-12-30 17:43] LABS: Blood Urea Nitrogen 139 mg/dl (9-20); Potassium 9.4 mmoL/L (3.5-5.1)
--- NOTE | 2020-12-30 17:52 | PC.NURSE ---
NORIS FROM [facility] CALLED FOR A STATUS UPDATE
--- NOTE | 2020-12-30 17:59 | PC.NURSE ---
dr marcelino michele.
--- NOTE | 2020-12-30 18:28 | PC.NURSE ---
GAVE REPORT TO ORALIA MARVIN AT [facility] ER AT THIS TIME. PHONE NUMBER [phone]
--- NOTE | 2020-12-30 18:53 | PC.NURSE ---
calling [facility] for transfer at this time.
--- NOTE | 2020-12-30 18:54 | HMH.EDGENADL ---
ED Disposition Clinical Impression: Hyperkalemia, ELLIE (acute kidney injury) Disposition: Xfer Short-Term Hosp Condition on Discharge: Critical Referrals: Juan Francisco Butcher MD [Primary Care Provider] - Time of Disposition: 18:58 - Critical Care Critical Care Time: Yes Attestation: On 12/30/20, the high probability of a clinically significant, sudden or life threatening deterioration of the following system(s) required my full and direct attention, intervention and personal management. The time I documented below is in addition to time spent performing reported procedures but includes the following listed in this critical care notation. Total Critical Care Time: 65 Vital system(s) involved:: Metabolic Failure My critical care processes included: Assessment & monitoring of V/S, Initial and Re-exams, Data Review/Interpretation, Coordinating Care, Medication Orders and management, Documentation Medical Decision Making - Medical Records Medical records reviewed: Yes: I reviewed the patient's medical records. - John Inquiry Pt receiving controlled substance: No Vital Signs: 12/30/20 16:08 12/30/20 17:30 12/30/20 17:45 Temperature 98.3 F Temperature Source Oral Pulse Rate 72 72 Pulse Rate [Right] 73 Respiratory Rate 18 16 16 Blood Pressure 125/59 L 125/59 L Blood Pressure [Right Arm] 119/75 Blood Pressure Mean [Right Arm] 89 02 Sat by Pulse Oximetry 97 97 99 Oxygen Delivery Method Nasal Cannula Oxygen Flow Rate (LPM) 4 12/30/20 18:00 12/30/20 18:09 12/30/20 18:30 Temperature Temperature Source Pulse Rate 72 73 79 Pulse Rate [Right] Respiratory Rate 19 24 Blood Pressure 121/67 110/53 L Blood Pressure [Right Arm] Blood Pressure Mean [Right Arm] 02 Sat by Pulse Oximetry 93 L 97 Oxygen Delivery Method Oxygen Flow Rate (LPM) 12/30/20 19:00 Temperature Temperature Source Pulse Rate 78 Pulse Rate [Right] Respiratory Rate 18 Blood Pressure 105/68 L Blood Pressure [Right Arm] Blood Pressure Mean [Right Arm] 02 Sat by Pulse Oximetry 98 Oxygen Delivery Method Oxygen Flow Rate (LPM) - Lab Data Lab results reviewed: Yes: I reviewed the patient's lab results. Lab Results 12/30/20 16:18: POC Glucose 98 12/30/20 16:40: Sodium 137, Potassium 9.4 H*, Chloride 104, Carbon Dioxide 17 L, Anion Gap 25.4 H, BUN 139 H*, Creatinine 10.10 H, Estimated Creat Clear 6, Estimated GFR 5 L*, Est GFR ( Amer) 6 L*, Glucose 90, Calcium 7.8 L, Total Bilirubin 0.6, Direct Bilirubin 0.6 H, Conjugated Bilirubin 0.0, Indirect Bilirubin 0.0, Unconjugated Bilirubin 0.0, AST 23, ALT 14, Alkaline Phosphatase 135 H, Total Protein 8.0 D, Albumin 3.7 12/30/20 17:00: WBC 14.3 H, Corrected WBC 9.5, RBC 3.08 L, Hgb 9.4 L, Hct 29.0 L, MCV 94.2 H, MCH 30.4, MCHC 32.3, RDW 16.3, Plt Count 584 H, MPV 9.9, Neut % (Auto) 85.2 H, Lymph % (Auto) 8.7 L, [place] % (Auto) 4.5, Eos % (Auto) 0.7, Baso % (Auto) 0.8, Neut # (Auto) 12.2 H, Lymph # (Auto) 1.3, [place] # (Auto) 0.6, Eos # (Auto) 0.1, Baso # (Auto) 0.1, Total Counted 100, Neutrophils % (Manual) 90 H, Lymphocytes % (Manual) 5 L, Monocytes % (Manual) 5, Nucleated RBCs 50, Platelet Estimate Marked increase, Hypochromasia 3+, Anisocytosis 1+, Macrocytosis 1+ Result diagrams: 12/30/20 17:00 12/30/20 16:40 Orders (Tests/Meds): ED MEDICATIONS Generic Name Dose Route Start Last Admin Trade Name Freq PRN Reason Stop Dose Admin Sodium Chloride 1,000 mls @ 999 mls/hr 12/30/20 18:00 12/30/20 17:58 Sod Chlor 0.9% 1000ml Bag IV 12/30/20 19:00 999 mls/hr .Q1H1M EMILY Administration Discontinued Medications Generic Name Dose Route Start Last Admin Trade Name Freq PRN Reason Stop Dose Admin Albuterol/Ipratropium 3 ml 12/30/20 17:45 12/30/20 18:08 Ipratropium/Albuterol 3 Ml Neb IH 12/30/20 17:46 3 ml ONCE ONE Administration Dextrose 50 ml 12/30/20 17:45 12/30/20 17:58 Dextrose 50% 50ml Syringe (Crash Cart) IVP 12/30/20
--- NOTE | 2020-12-30 18:58 | ECG_ITS ---
APPROVED REPORT Exam: Resting ECG HR:88 bpm ECG Measurements Heart Rate 88 AXES QRSd 132 QRS -70 QT 394 T 86 QTc 476 Conclusion Wide QRS rhythm with occasional premature ventricular complexes Left axis deviation Nonspecific intraventricular block Cannot rule out Septal infarct, age undetermined Abnormal ECG Electronically signed by : Juan Francisco Patino, 12/31/2020 18:04:48
--- NOTE | 2020-12-30 19:02 | PC.NURSE ---
POC GLUCOSE 135. ER PHYSICIAN NOTIFIED
--- NOTE | 2020-12-30 19:03 | PC.NURSE ---
Dr moore speaking to nephrology at [place] at this time.
--- NOTE | 2020-12-30 19:05 | PC.NURSE ---
[facility] declined pt due to not doing emergent dialysis. Loan Documentation Specialist suggested called [facility] at this time.
--- NOTE | 2020-12-30 19:07 | PC.NURSE ---
Calling [facility] at this time.
[2020-12-30 19:12] LABS: Lymphocytes % 5 % (10-50); Monocytes % 5 % (2-9); Neutrophils % 90 % (42-76); Total Cells Counted 100
--- NOTE | 2020-12-30 19:14 | PC.NURSE ---
Dr Rojas speaking with Dr Poole at [place].
[2020-12-30 19:15] LABS: Anisocytosis 1+; Hypochromasia 3+; Macrocytosis 1+; Platelet Estimate Marked Increase
[2020-12-30 19:17] LABS: Corrected White Blood Count 9.5 K/mm3 (4.8-10.8); Nucleated Red Blood Cells 50
--- NOTE | 2020-12-30 19:17 | PC.NURSE ---
[facility] accepted.
[2020-12-30 19:19] LABS: Coronavirus 19, PCR Not Detected (NotDetected); Influenza A, PCR Not Detected (NotDetected); Influenza B, PCR Not Detected (NotDetected)
--- NOTE | 2020-12-30 19:33 | PC.NURSE ---
[place] [facility] accepted flight and will have a 15 min eta
--- NOTE | 2020-12-30 19:36 | PC.NURSE ---
LABS SENT FOR REPEAT CMP
[2020-12-30 19:44] LABS: POC Glucose,Bedside 113 (70-110)
[2020-12-30 19:44] LABS: POC Glucose,Bedside 135 (70-110)
--- NOTE | 2020-12-30 20:04 | PC.NURSE ---
Flight crew at bedside
--- NOTE | 2020-12-30 20:09 | PC.NURSE ---
[facility] notified of pt leaving [facility]
--- NOTE | 2020-12-30 20:12 | PC.NURSE ---
Pt left via [facility] to [facility]
[2020-12-30 20:16] LABS: Chloride 106 mmol/L (98-107); Sodium 138 mmol/L (136-145)
[2020-12-30 20:19] LABS: Alanine Aminotransferase 14 U/L (12-78); Albumin Level 3.5 g/dl (3.5-5.0); Albumin/Globulin Ratio 0.9 (1.1-1.8); Alkaline Phosphatase 148 U/L (38-126); Anion Gap 22.6 mEq/L (5-15); Aspartate Amino Transferase 50 U/L (17-59); Bilirubin,Total 0.4 mg/dl (0.2-1.3); Carbon Dioxide 18 mmol/L (22.0-30.0); Creatinine Clearance Estimated 6 mL/min (50-200); Estimated Glomerular Filt Rate 5 ml/min (>60); GFR (African American) 6 ML/MIN (>60); Globulin 4.1 g/dL (1.3-3.2); Total Protein,Serum 7.6 g/dl (6.3-8.2)
[2020-12-30 20:20] LABS: Glucose 93 mg/dl (74-100)
[2020-12-30 20:48] LABS: Blood Urea Nitrogen 137 mg/dl (9-20)
[2020-12-30 20:49] LABS: Potassium 8.6 mmoL/L (3.5-5.1)
--- NOTE | 2020-12-30 21:21 | PC.NURSE ---
Faxed repeat CMP lab to [facility] fax# [phone]
== END 2020-12-30 20:16 | disposition short-term general hospital (02) ==
PROVIDERS: Emergency Provider Family Medicine; PCP Family Medicine
DX: N17.9 Acute kidney failure, unspecified (principal); E87.5 Hyperkalemia; I10 Essential (primary) hypertension; E11.9 Type 2 diabetes mellitus without complications; K21.9 Gastro-esophageal reflux disease without esophagitis; E78.5 Hyperlipidemia, unspecified; I48.91 Unspecified atrial fibrillation; I25.10 Atherosclerotic heart disease of native coronary artery without angina pectoris; I25.2 Old myocardial infarction; Z79.899 Other long term (current) drug therapy; Z87.891 Personal history of nicotine dependence; Z11.52 Encounter for screening for COVID-19
CPT/HCPCS: 80048; 80053; 80076; 82962; 85007; 85025; 93005; 96365; 96375; 99284; U0003

== ENCOUNTER 2021-01-22 10:29 | Inpatient (IN) | payer MEDICARE, MEDICAID, SELFPAY ==
[2021-01-22] VITALS (18 sets, daily range): BP systolic 115–180; BP diastolic 59–133; PULSE 77–99; RESP 16–22; TEMP 36.4–36.9; O2SAT 90–96; BMI 20.3; BMI 22.4
--- NOTE | 2021-01-22 10:50 | PC.NURSE ---
glucose upon arrival was 67.
--- NOTE | 2021-01-22 11:16 | HMH.EDGENADL ---
ED Disposition Clinical Impression: Hypoglycemia, Hyperkalemia Acute on chronic renal failure Qualifiers: Acute renal failure type: unspecified Chronic kidney disease stage: unspecified stage Qualified Code(s): N17.9 - Acute kidney failure, unspecified; N18.9 - Chronic kidney disease, unspecified Anemia Qualifiers: Anemia type: unspecified type Qualified Code(s): D64.9 - Anemia, unspecified Disposition: Admitted as Observation Condition on Discharge: Serious - Critical Care Critical Care Time: Yes Attestation: On 01/22/21, the high probability of a clinically significant, sudden or life threatening deterioration of the following system(s) required my full and direct attention, intervention and personal management. The time I documented below is in addition to time spent performing reported procedures but includes the following listed in this critical care notation. Total Critical Care Time: 40 Vital system(s) involved:: Metabolic Failure, Renal Failure My critical care processes included: Assessment & monitoring of V/S, Initial and Re-exams, Data Review/Interpretation, Coordinating Care, Medication Orders and management, Documentation Medical Decision Making - John Inquiry Pt receiving controlled substance: No Vital Signs: 01/22/21 10:33 01/22/21 11:00 01/22/21 11:31 Temperature 97.5 F L Temperature Source Oral Pulse Rate 77 79 Pulse Rate [Left Radial] 83 Respiratory Rate 20 22 Blood Pressure 155/77 H 148/73 H Blood Pressure [Right Arm] 150/88 H Blood Pressure Mean 103 99 Blood Pressure Mean [Right Arm] 108 Blood Pressure Source [Right Arm] Automatic Cuff Blood Pressure Position [Right Arm] Sitting 02 Sat by Pulse Oximetry 93 L 96 95 Oxygen Delivery Method Room Air Room Air 01/22/21 12:01 01/22/21 12:31 Temperature Temperature Source Pulse Rate 78 92 H Pulse Rate [Left Radial] Respiratory Rate 20 18 Blood Pressure 180/133 H 125/67 Blood Pressure [Right Arm] Blood Pressure Mean 138 86 Blood Pressure Mean [Right Arm] Blood Pressure Source [Right Arm] Blood Pressure Position [Right Arm] 02 Sat by Pulse Oximetry 96 96 Oxygen Delivery Method - Lab Data Lab Results 01/22/21 11:03: Urine Color Straw, Urine Appearance Turbid, Urine pH 7.5, Ur Specific [place] 1.015, Urine Protein 2+, Urine Glucose (UA) Negative, Urine Ketones Negative, Urine Blood 3+, Urine Nitrate Positive, Urine Bilirubin Negative, Urine Urobilinogen 0.2, Ur Leukocyte Esterase 3+ A, Urine RBC 50-100, Urine WBC 3-5, Ur Squamous Epith Cells None, Urine Bacteria None 01/22/21 11:22: WBC 19.0 H, RBC 2.77 L, Hgb 7.8 L*, Hct 25.9 L, MCV 93.4, MCH 28.3, MCHC 30.3 L, RDW 17.0, Plt Count 335, MPV 8.9, Neut % (Auto) 93.3 H, Lymph % (Auto) 3.3 L, [place] % (Auto) 2.7, Eos % (Auto) 0.4, Baso % (Auto) 0.3, Neut # (Auto) 17.7 H, Lymph # (Auto) 0.6 L, [place] # (Auto) 0.5, Eos # (Auto) 0.1, Baso # (Auto) 0.1, Total Counted 100, Neutrophils % (Manual) 89 H, Band Neutrophils % 7.0, Lymphocytes % (Manual) 3 L, Monocytes % (Manual) 1 L, Platelet Estimate Normal, Giant Platelets , Hypochromasia 3+, Anisocytosis 1+, Rouleaux 2+ 01/22/21 11:22: Sodium 138, Potassium 7.7 H*, Chloride 111 H, Carbon Dioxide 19 L, Anion Gap 15.7 H, BUN 73 H, Creatinine 5.60 H, Estimated Creat Clear 10, Estimated GFR 10 L*, Est GFR ( Amer) 12 L*, Glucose 153 H, Calcium 8.8, Total Bilirubin 0.4, AST 19, ALT 12, Alkaline Phosphatase 128 H, Troponin I < 0.01, Total Protein 6.8, Albumin 3.0 L, Globulin 3.8 H, Albumin/Globulin Ratio 0.8 L 01/22/21 12:25: POC Glucose 194 H Result diagrams: 01/22/21 11:22 01/22/21 11:22 Orders (Tests/Meds): ED MEDICATIONS Discontinued Medications Generic Name Dose Route Start Last Admin Trade Name Freq PRN Reason Stop Dose Admin Albuterol Sulfate 2.5 mg 01/22/21 12:29 01/22/21 12:34 Albuterol 0.083% 2.5 Mg/3 Ml Neb IH 01/22/21 12:30 2.5 mg ONCE ONE Administration Dextrose 50 ml 01/22/21 10:
[2021-01-22 11:21] LABS: Microscopic, Urine URINE MICROSCOPIC (MICROSCOPIC)
[2021-01-22 11:31] LABS: Appearance,Urine TURBID (Clear); Bilirubin,Urine Negative (Negative); Blood, Urine 3+ (Negative); Color,Urine STRAW (Yellow); Glucose,Urine (UA) Negative (Negative); Ketones,Urine Negative (Negative); Leukocyte Esterase,Urine 3+ (Negative); Nitrate,Urine POSITIVE (Negative); PH,Urine 7.5 (5.0-8.5); Protein,Urine 2+ (Negative); Specific Gravity, Urine 1.015 (1.005-1.030); Urobilinogen,Urine 0.2 EU/dl (0.2)
[2021-01-22 11:43] LABS: Basophils # 0.1 K/mm3 (0-0.2); Basophils % 0.3 % (0.1-2.0); Eosinophils # 0.1 K/mm3 (0.0-0.4); Eosinophils % 0.4 % (0.1-12.0)
--- NOTE | 2021-01-22 11:44 | ECG_ITS ---
APPROVED REPORT Exam: Resting ECG HR:86 bpm ECG Measurements Heart Rate 86 AXES NC 160 P 0 QRSd 122 QRS -58 QT 376 T 75 QTc 449 Conclusion Normal sinus rhythm Left axis deviation Nonspecific intraventricular conduction delay Abnormal ECG Electronically signed by : Juan Francisco Patino, 01/22/2021 21:32:28
[2021-01-22 11:49] LABS: Lymphocytes # 0.6 K/mm3 (0.7-4.5); Lymphocytes % 3.3 % (10-50); Mean Corpuscular HGB Conc 30.3 g/dL (31.8-35.4); Mean Corpuscular Hemoglobin 28.3 pg (27.0-31.2); Mean Corpuscular Volume 93.4 fl (80-94); Mean Platelet Volume 8.9 fl (7.4-10.4); Monocytes # 0.5 K/mm3 (0.1-1.0); Monocytes % 2.7 % (1.7-9.3); Neutrophils # 17.7 K/mm3 (1.8-7.8); Neutrophils % 93.3 % (37.0-80.0); Platelet Count 335 K/mm3 (142-424); Red Blood Count 2.77 M/mm3 (4.60-6.20)
[2021-01-22 11:50] LABS: Alanine Aminotransferase 12 U/L (12-78); Albumin/Globulin Ratio 0.8 (1.1-1.8); Alkaline Phosphatase 128 U/L (38-126); Anion Gap 15.7 mEq/L (5-15); Aspartate Amino Transferase 19 U/L (17-59); Bilirubin,Total 0.4 mg/dl (0.2-1.3); Blood Urea Nitrogen 73 mg/dl (9-20); Calcium 8.8 mg/dl (8.4-10.2); Carbon Dioxide 19 mmol/L (22.0-30.0); Chloride 111 mmol/L (98-107); Creatinine Clearance Estimated 10 mL/min (50-200); Estimated Glomerular Filt Rate 10 ml/min (>60); GFR (African American) 12 ML/MIN (>60); Globulin 3.8 g/dL (1.3-3.2); Glucose 153 mg/dl (74-100); Sodium 138 mmol/L (136-145); Total Protein,Serum 6.8 g/dl (6.3-8.2)
[2021-01-22 11:51] LABS: Hematocrit 25.9 % (42.0-52.0); Hemoglobin 7.8 g/dL (14.1-18.0); MANUAL DIFFERENTIAL MANUAL DIFFERENTIAL (MANUAL DIFF)
[2021-01-22 11:54] LABS: RBC,Urine 50-100 #/hpf (0-3)
--- NOTE | 2021-01-22 11:56 | PC.NURSE ---
notified ER of critical glucose as called per ca in lab, pt name and verified.
[2021-01-22 12:03] LABS: Lymphocytes % 3 % (10-50); Monocytes % 1 % (2-9); Neutrophils % 89 % (42-76); Total Cells Counted 100
[2021-01-22 12:04] LABS: Anisocytosis 1+; Hypochromasia 3+; Platelet Estimate Normal; Rouleaux 2+; Troponin I < 0.01 ng/ml (0.00-0.034)
[2021-01-22 12:06] LABS: Potassium 7.7 mmoL/L (3.5-5.1)
--- NOTE | 2021-01-22 12:13 | PC.NURSE ---
notified ER of critical potassium and creatinine, results were called per sidni in lab, verified name and of pt. Verified with sidni there was no hemolysis on specimen
[2021-01-22 12:31] LABS: POC Glucose,Bedside 194 (70-110)
[2021-01-22 13:00] LABS: Coronavirus 19, PCR Not Detected (NotDetected); Influenza A, PCR Not Detected (NotDetected); Influenza B, PCR Not Detected (NotDetected)
--- NOTE | 2021-01-22 13:07 | PC.NURSE ---
Dr Wheeler speaking with Dr Butcher
--- NOTE | 2021-01-22 13:18 | PC.NURSE ---
bed assignment requested, room 214, all staff notified
--- NOTE | 2021-01-22 14:56 | PC.NURSE ---
report called to donaldo hernández at this time
--- NOTE | 2021-01-22 15:04 | P.CONPHA_ITS ---
[facility] Pharmacy VTE Monitoring - Patient Demographics Admission date: 01/22/21 Report Date: 01/22/21 Time: 15:04 Allergies/Adverse Reactions: Patient Allergies No Known Allergies Allergy (Verified 11/13/20 09:07) Height: 1.83 m Weight: 68.039 kg Patient Problems: Current Active Problems Hyperkalemia (Acute) Acute on chronic renal failure (Acute) Hypoglycemia (Acute) Anemia (Acute) - VTE Risk Labs: VTE Related Lab Results Hgb 7.8 g/dL (14.1-18.0) L* 01/22/21 11:22 Hct 25.9 % (42.0-52.0) L 01/22/21 11:22 Plt Count 335 K/mm3 (142-424) 01/22/21 11:22 BUN 73 mg/dl (9-20) H 01/22/21 11:22 Creatinine 5.60 mg/dl (0.66-1.25) H 01/22/21 11:22 Estimated Creat Clear 10 mL/min (50-200) 01/22/21 11:22 - Prophylaxis VTE Prophylaxis Ordered?: Yes Types of VTE Prophylaxis: Pharmacological Pharmacologic Type: Other (ELIQUIS)
[2021-01-22 15:26] LABS: Troponin I < 0.01 ng/ml (0.00-0.034)
--- NOTE | 2021-01-22 16:12 | HMH.HP ---
*Admission Date: 01/22/21 *Chief complaint: Confusion *History of present illness: 80-year-old male with history of diabetes for which she takes insulin, stage IV chronic kidney disease, and atrial fibrillation presented to the ER after his noticed altered mental status at home this morning. In route patient's blood sugar was found to be low at 45. Upon arrival to the ER measures were taken to correct his blood sugar. However patient was found to be hyperkalemic as well as have acute kidney injury. Patient has been admitted for correction of his hyperkalemia and for transfusion of 1 unit of packed red blood cell due to anemia with hemoglobin of 7.8 on upon arrival to the emergency department. Approximately 3-1/2 weeks ago patient presented to the ER and was transferred to the hospital in [place] due to acute kidney injury and hyperkalemia. Patient and his tell me upon arrival at that hospital patient did require dialysis 2 times with return to his baseline renal function. Patient was also treated for urinary tract infection. He has been home since January 11. [facility] History I have reviewed the patient's past medical history: Yes Medical History: Reports:: Atrial Fibrillation, Coronary Artery Disease, Diabetes Mellitus Type 2, Gastroesophageal Reflux Disease(GERD), Hyperlipidemia, Hypertension, Myocardial Infarction Denies:: Cancer, Diabetes Mellitus Type 1, Internal Pacemaker, MRSA, Seizures *Have you ever received a pneumonia vaccine?: Yes *Have you received a flu vaccine this season?: Yes Other Medical History: Reports: Anemia. Denies: Blood Transfusion Reaction Other Surgeries: Yes: Cardiac Catheterization, Skin Cancer Excision (ON CHEST). No: Pacemaker Amputation: No - *Social History Last grade of school completed: High school graduate Smoking Status: Former smoker Tobacco Type: cigarettes # Packs/Day (cigarettes): 1 #Yrs smoked (if former smoker): 50 Alcohol Intake: never Alcohol Intake Frequency:: other Substance Use Type: denies use *Occupational Status:: retired Housing: house Household Members: spouse *Travel in the last 8 weeks: None Family Hx:: No significant family history Review of Systems - Review of Systems Review of systems:: pertinent systems reviewed and negative unless documented below - *Neurologic Reports abnormal speech, Reports weakness Meds Home Medications Medication Instructions Recorded Confirmed Type RX: Sodium Bicarbonate 1,300 mg PO TID 11/13/20 01/22/21 History RX: Tamsulosin HCl 0.4 mg PO HS 11/13/20 01/22/21 History Finasteride [Proscar 5mg Tablet] 5 mg PO DAILY 01/22/21 01/22/21 History Metoprolol Tartrate [Lopressor 12.5 mg PO BID 01/22/21 01/22/21 History 25mg tablet] Pantoprazole Sodium [Protonix 40mg 40 mg PO HS 01/22/21 01/22/21 History tablet] RX: Amiodarone HCl 200 mg PO DAILY 01/22/21 01/22/21 History RX: Apixaban [Eliquis 2.5mg tab] 2.5 mg PO BID 01/22/21 01/22/21 History RX: Insulin Glargine,Hum.rec.anlog 36 units SQ 01/22/21 01/22/21 History [Lantus Solostar 100 Units/mL 3mL flexpen] RX: calcitrioL [Calcitriol 0.25mcg 0.25 mcg PO DAILY 01/22/21 01/22/21 History Capsule] Allergies Allergy/AdvReac Type Severity Reaction Status Date / Time No Known Allergies Allergy Verified 11/13/20 09:07 Exam Vital signs and Labs for Last 24 Hours: Temp Pulse Resp BP Pulse Ox 98.1 F 99 H 18 139/70 90 L 01/22/21 15:48 01/22/21 15:48 01/22/21 15:48 01/22/21 15:48 01/22/21 15:48 Laboratory Results - last 24 hr 01/22/21 11:03: Urine Color Straw, Urine Appearance Turbid, Urine pH 7.5, Ur Specific [place] 1.015, Urine Protein 2+, Urine Glucose (UA) Negative, Urine Ketones Negative, Urine Blood 3+, Urine Nitrate Positive, Urine Bilirubin Negative, Urine Urobilinogen 0.2, Ur Leukocyte Esterase 3+ A, Urine RBC 50-100, Urine WBC 3-5, Ur Squamous Epith Cells None, Urine Bacteria None 01/22/21 11:22: WBC 19.0 H, RBC 2.77 L, Hgb 7.8
--- NOTE | 2021-01-22 18:58 | PC.NURSE ---
HE IS AOX4, ABLE TO ANSWER QUESTIONS AND FOLLOW COMMANDS. MULTIPLE LOOSE BM'S NOTED. VSS THIS SHIFT. NO NEEDS AT THIS TIME.
[2021-01-22 21:13] LABS: POC Glucose,Bedside 217 (70-110)
[2021-01-23] VITALS (13 sets, daily range): BP systolic 118–162; BP diastolic 60–88; PULSE 70–95; RESP 16–23; TEMP 36.4–37; O2SAT 91–97; BMI 22.4
[2021-01-23 00:14] LABS: POC Glucose,Bedside 65 (70-110)
[2021-01-23 03:30] LABS: Hematocrit 26.9 % (42.0-52.0); Hemoglobin 8.3 g/dL (14.1-18.0)
[2021-01-23 05:42] LABS: Basophils # 0.1 K/mm3 (0-0.2); Basophils % 0.6 % (0.1-2.0); Eosinophils # 0.5 K/mm3 (0.0-0.4); Eosinophils % 5.2 % (0.1-12.0); Hematocrit 28.3 % (42.0-52.0); Hemoglobin 8.7 g/dL (14.1-18.0); Lymphocytes # 1.4 K/mm3 (0.7-4.5); Lymphocytes % 13.3 % (10-50); Mean Corpuscular HGB Conc 30.6 g/dL (31.8-35.4); Mean Corpuscular Volume 91.4 fl (80-94); Mean Platelet Volume 9.7 fl (7.4-10.4); Monocytes # 0.6 K/mm3 (0.1-1.0); Monocytes % 5.8 % (1.7-9.3); Neutrophils # 7.6 K/mm3 (1.8-7.8); Neutrophils % 75.1 % (37.0-80.0); Platelet Count 301 K/mm3 (142-424); Red Cell Distribution Width 18.1 % (11.5-17.5); White Blood Count 10.1 K/mm3 (4.8-10.8)
[2021-01-23 05:48] LABS: Blood Urea Nitrogen 66 mg/dl (9-20); Calcium 8.3 mg/dl (8.4-10.2); Carbon Dioxide 20 mmol/L (22.0-30.0); Chloride 112 mmol/L (98-107); Creatinine Clearance Estimated 12 mL/min (50-200); Estimated Glomerular Filt Rate 11 ml/min (>60); GFR (African American) 13 ML/MIN (>60); Sodium 142 mmol/L (136-145)
[2021-01-23 05:52] LABS: Glucose 32 mg/dl (74-100)
[2021-01-23 06:07] LABS: POC Glucose,Bedside 58 (70-110)
--- NOTE | 2021-01-23 06:38 | PC.NURSE ---
Addendum entered by Brianna Carlton RN 01/23/21 06:43: Patient has shown no s/s of hypoglycemia Original Note: Patient FSBS at 0515 this morning FSBS 42 retaken 57 Stat Glucose Blood draw resulted critical blood glucose of 32 and a critical Potassium of 7.0 (reported by Tom Mayer in lab) (provider called waiting for return call). Patient given orange juice x 3 with 3 sugar packets mixed with it, and package of cookies. Retaken just now FSBS 101.
[2021-01-23 06:43] LABS: POC Glucose,Bedside 101 (70-110)
--- NOTE | 2021-01-23 08:36 | HMH.ACPN2 ---
Internal Medicine - PN: Subj *Date: 01/23/21 *Time: 08:36 Interval history: Patient was found to be hypoglycemic this morning although asymptomatic. Patient has no complaints Exam Vital signs and Labs for Last 24 Hours: Temp Pulse Resp BP Pulse Ox 98.1 F 84 18 133/60 97 01/23/21 07:44 01/23/21 07:44 01/23/21 07:44 01/23/21 07:44 01/23/21 07:44 Laboratory Results - last 24 hr 01/22/21 11:03: Urine Color Straw, Urine Appearance Turbid, Urine pH 7.5, Ur Specific [place] 1.015, Urine Protein 2+, Urine Glucose (UA) Negative, Urine Ketones Negative, Urine Blood 3+, Urine Nitrate Positive, Urine Bilirubin Negative, Urine Urobilinogen 0.2, Ur Leukocyte Esterase 3+ A, Urine RBC 50-100, Urine WBC 3-5, Ur Squamous Epith Cells None, Urine Bacteria None 01/22/21 11:22: WBC 19.0 H, RBC 2.77 L, Hgb 7.8 L*, Hct 25.9 L, MCV 93.4, MCH 28.3, MCHC 30.3 L, RDW 17.0, Plt Count 335, MPV 8.9, Neut % (Auto) 93.3 H, Lymph % (Auto) 3.3 L, [place] % (Auto) 2.7, Eos % (Auto) 0.4, Baso % (Auto) 0.3, Neut # (Auto) 17.7 H, Lymph # (Auto) 0.6 L, [place] # (Auto) 0.5, Eos # (Auto) 0.1, Baso # (Auto) 0.1, Total Counted 100, Neutrophils % (Manual) 89 H, Band Neutrophils % 7.0, Lymphocytes % (Manual) 3 L, Monocytes % (Manual) 1 L, Platelet Estimate Normal, Giant Platelets , Hypochromasia 3+, Anisocytosis 1+, Rouleaux 2+ 01/22/21 11:22: Sodium 138, Potassium 7.7 H*, Chloride 111 H, Carbon Dioxide 19 L, Anion Gap 15.7 H, BUN 73 H, Creatinine 5.60 H, Estimated Creat Clear 10, Estimated GFR 10 L*, Est GFR ( Amer) 12 L*, Glucose 153 H, Calcium 8.8, Total Bilirubin 0.4, AST 19, ALT 12, Alkaline Phosphatase 128 H, Troponin I < 0.01, Total Protein 6.8, Albumin 3.0 L, Globulin 3.8 H, Albumin/Globulin Ratio 0.8 L 01/22/21 12:25: POC Glucose 194 H 01/22/21 14:35: Troponin I < 0.01 01/22/21 15:41: Blood Type O Positive, Antibody Screen Negative, Crossmatch (AHG) See Detail 01/22/21 17:33: POC Glucose 217 H 01/22/21 22:56: POC Glucose 65 L 01/22/21 : SARS-CoV-2 (PCR) Not detected, Influenza A Untype (PCR) Not detected, Influenza Type B (PCR) Not detected 01/23/21 03:16: Hgb 8.3 L, Hct 26.9 L 01/23/21 05:32: WBC 10.1 D, RBC 3.10 L, Hgb 8.7 L, Hct 28.3 L, MCV 91.4, MCH 28.0, MCHC 30.6 L, RDW 18.1 H, Plt Count 301, MPV 9.7, Neut % (Auto) 75.1, Lymph % (Auto) 13.3, [place] % (Auto) 5.8, Eos % (Auto) 5.2, Baso % (Auto) 0.6, Neut # (Auto) 7.6, Lymph # (Auto) 1.4, [place] # (Auto) 0.6, Eos # (Auto) 0.5 H, Baso # (Auto) 0.1 01/23/21 05:32: Sodium 142, Potassium 7.0 H*, Chloride 112 H, Carbon Dioxide 20 L, Anion Gap 17.0 H, BUN 66 H, Creatinine 5.20 H, Estimated Creat Clear 12, Estimated GFR 11 L*, Est GFR ( Amer) 13 L*, Glucose 32 L* D, Calcium 8.3 L 01/23/21 05:56: POC Glucose 58 L 01/23/21 06:37: POC Glucose 101 I & O for Last 24 hours: Intake & Output 01/20/21 01/21/21 01/22/21 01/23/21 11:59 11:59 11:59 11:59 Intake Total 1800 / 1800 Output Total 1465 / 1465 Balance 335 / 335 Weight 150 lb 165 lb 9 oz - Constitutional no acute distress - *Routine Respiratory Exam Present: CTA bilaterally - *Routine Cardiovascular Exam Present: RRR - *Routine Abdominal Exam Present: soft, normoactive bowel sounds. Absent: tenderness Assessment and Plan (1) Acute on chronic renal failure Status: Acute Qualifiers: Acute renal failure type: unspecified Chronic kidney disease stage: unspecified stage Qualified Code(s): N17.9 - Acute kidney failure, unspecified; N18.9 - Chronic kidney disease, unspecified Category: Medical Code(s): N17.9 - Acute kidney failure, unspecified; N18.9 - Chronic kidney disease, unspecified (2) Anemia due to blood loss Status: Acute Category: Medical Code(s): D50.0 - Iron deficiency anemia secondary to blood loss (chronic) (3) Diabetes mellitus with hypoglycemia Status: Acute Category: Medical Code(s): E11.649 - Type 2 diabetes mellitus with hypoglycemia without coma (4) Kidney disease, chronic, stage
[2021-01-23 11:47] LABS: POC Glucose,Bedside 179 (70-110)
--- NOTE | 2021-01-23 12:08 | PC.NURSE ---
states that pt has an apt on Thursday 01/25 with urologist in [place] secondary to lang catheter. states that she wants pt to be referred to [facility] urologist so that she does not have to drive such a long distance. Will update Dr. Butcher tomorrow morning during AM rounds.
--- NOTE | 2021-01-23 14:16 | HMH.PHAINT ---
MEDICATION RECONCILIATION COMPLETED ON PATIENT USING EXTERNAL FILL HISTORY FROM PHARMACY AND LIST FROM PREVIOUS ADMISSION. -CAROLINE OLEARYD
[2021-01-23 17:30] LABS: POC Glucose,Bedside 174 (70-110)
[2021-01-23 20:59] LABS: POC Glucose,Bedside 224 (70-110)
[2021-01-24] VITALS (10 sets, daily range): BP systolic 132–157; BP diastolic 66–81; PULSE 70–99; RESP 18–22; TEMP 36.7–37.2; O2SAT 89–98; BMI 22.5
--- NOTE | 2021-01-24 04:53 | PC.NURSE ---
Patient is alert and oriented. He has rested well this shift & has had no complaints through the night. Patient lung sounds are clear but diminished throughout. Patient's lang remains draining appropriately. Vital signs are stable, will continue to monitor. Call light within reach.
[2021-01-24 06:04] LABS: POC Glucose,Bedside 138 (70-110)
--- NOTE | 2021-01-24 07:32 | HMH.ACPN2 ---
Internal Medicine - PN: Subj *Date: 01/24/21 *Time: 07:32 Interval history: Patient has no new complaints. He reports weakness. The Kayexalate is causing frequent bowel movements. He denies chest pain or shortness of breath. Exam Vital signs and Labs for Last 24 Hours: Temp Pulse Resp BP Pulse Ox 98.6 F 83 20 150/71 H 95 01/24/21 04:00 01/24/21 04:00 01/24/21 04:00 01/24/21 04:00 01/24/21 04:00 Laboratory Results - last 24 hr 01/22/21 11:03: Urine Color Straw, Urine Appearance Turbid, Urine pH 7.5, Ur Specific [place] 1.015, Urine Protein 2+, Urine Glucose (UA) Negative, Urine Ketones Negative, Urine Blood 3+, Urine Nitrate Positive, Urine Bilirubin Negative, Urine Urobilinogen 0.2, Ur Leukocyte Esterase 3+ A, Urine RBC 50-100, Urine WBC 3-5, Ur Squamous Epith Cells None, Urine Bacteria None 01/23/21 11:31: POC Glucose 179 H 01/23/21 16:49: POC Glucose 174 H 01/23/21 20:10: POC Glucose 224 H 01/24/21 05:43: POC Glucose 138 H I & O for Last 24 hours: Intake & Output 01/21/21 01/22/21 01/23/21 01/24/21 11:59 11:59 11:59 11:59 Intake Total 1800 / 1800 2550 / 2550 Output Total 1465 / 1465 900 / 900 Balance 335 / 335 1650 / 1650 Weight 150 lb 165 lb 9 oz 166 lb 3 oz Microbiology Reports for the Last 24 Hours: Microbiology 01/22/21 11:03 Urine,Catheterized Urine Culture - Preliminary Gram Negative Rods Narrative: Patient does not appear to be in any distress. Review of vital signs shows rising blood pressure. Lungs are clear. Heart has a regular rate and rhythm. Abdomen is soft and nontender. Rodas catheter remains anchored Assessment and Plan (1) Acute on chronic renal failure Status: Acute Qualifiers: Acute renal failure type: unspecified Chronic kidney disease stage: unspecified stage Qualified Code(s): N17.9 - Acute kidney failure, unspecified; N18.9 - Chronic kidney disease, unspecified Category: Medical Code(s): N17.9 - Acute kidney failure, unspecified; N18.9 - Chronic kidney disease, unspecified (2) Anemia due to blood loss Status: Acute Category: Medical Code(s): D50.0 - Iron deficiency anemia secondary to blood loss (chronic) (3) Diabetes mellitus with hypoglycemia Status: Acute Category: Medical Code(s): E11.649 - Type 2 diabetes mellitus with hypoglycemia without coma (4) Kidney disease, chronic, stage IV (severe, EGFR 15-29 ml/min) Status: Acute Category: Medical Code(s): N18.4 - Chronic kidney disease, stage 4 (severe) (5) Sinus tachycardia Status: Acute Category: Medical Code(s): R00.0 - Tachycardia, unspecified (6) History of atrial fibrillation Status: Acute Category: Medical Code(s): Z86.79 - Personal history of other diseases of the circulatory system (7) Hyperkalemia Status: Acute Category: Medical Code(s): E87.5 - Hyperkalemia - Assessment and plan all Dx Assessment and Plan for all problems:: 1. A.m. labs are pending. Anticipate potassium is still elevated. Continue Kayexalate along with sodium bicarbonate 2. Plan will be to remove Rodas catheter in a.m. as it is now been anchored for 2 weeks. Patient had outpatient urology follow-up tomorrow 3. Continue Levaquin for UTI. Patient's urine culture is growing a gram-negative ari. Patient's last infection involve Pseudomonas
[2021-01-24 07:49] LABS: Basophils # 0.1 K/mm3 (0-0.2); Basophils % 0.6 % (0.1-2.0); Eosinophils # 0.4 K/mm3 (0.0-0.4); Hematocrit 28.6 % (42.0-52.0); Hemoglobin 8.7 g/dL (14.1-18.0); Lymphocytes # 1.4 K/mm3 (0.7-4.5); Lymphocytes % 15.6 % (10-50); Mean Corpuscular HGB Conc 30.5 g/dL (31.8-35.4); Mean Corpuscular Volume 91.9 fl (80-94); Mean Platelet Volume 9.7 fl (7.4-10.4); Monocytes # 0.5 K/mm3 (0.1-1.0); Monocytes % 6.1 % (1.7-9.3); Neutrophils # 6.3 K/mm3 (1.8-7.8); Neutrophils % 72.8 % (37.0-80.0); Platelet Count 282 K/mm3 (142-424); Red Blood Count 3.11 M/mm3 (4.60-6.20); Red Cell Distribution Width 18.2 % (11.5-17.5); White Blood Count 8.7 K/mm3 (4.8-10.8)
[2021-01-24 08:49] LABS: Anion Gap 13.6 mEq/L (5-15); Blood Urea Nitrogen 53 mg/dl (9-20); Carbon Dioxide 21 mmol/L (22.0-30.0); Chloride 112 mmol/L (98-107); Creatinine Clearance Estimated 13 mL/min (50-200); Estimated Glomerular Filt Rate 13 ml/min (>60); GFR (African American) 15 ML/MIN (>60); Glucose 132 mg/dl (74-100); Potassium 5.6 mmoL/L (3.5-5.1); Sodium 141 mmol/L (136-145)
--- NOTE | 2021-01-24 09:12 | PC.NURSE ---
Addendum entered by Joaquin Hoffman RN 01/24/21 09:16: KAYEXALATE FREQUENCY DECREASED TO BID. Original Note: DR LOZANO MADE AWARE OF CREATININE LEVEL VIA TELEPHONE 0910 THIS AM.
[2021-01-24 11:49] LABS: POC Glucose,Bedside 208 (70-110)
--- NOTE | 2021-01-24 15:24 | PC.NURSE ---
PT IS AOX4, ABLE TO MAKE NEEDS KNOWN TO STAFF. HE HAS REMAINED IN BE FOR THE ENTIRE SHIFT. HE IS INCONTINENT OF BOWEL. HE HAS NOT C/O PAIN AND HIS VS HAVE REMAINED STABLE. NO ACUTE CHANGES FROM PREVIOUS SHIFT. WILL CONTINUE TO MONITOR.
[2021-01-24 16:50] LABS: POC Glucose,Bedside 135 (70-110)
[2021-01-24 21:35] LABS: POC Glucose,Bedside 224 (70-110)
[2021-01-25] VITALS (9 sets, daily range): BP systolic 92–132; BP diastolic 60–71; PULSE 79–120; RESP 18–24; TEMP 36.4–36.8; O2SAT 91–98; BMI 22.8
--- NOTE | 2021-01-25 03:47 | PC.NURSE ---
Patient is alert and oriented. He has rested well this shift. He has had no complaints this evening. Vital signs stable, will continue to monitor. Call light within reach. remains at bedside. Rodas draining.
[2021-01-25 06:12] LABS: POC Glucose,Bedside 174 (70-110)
[2021-01-25 06:12] LABS: Basophils # 0.1 K/mm3 (0-0.2); Basophils % 0.5 % (0.1-2.0); Eosinophils # 0.2 K/mm3 (0.0-0.4); Eosinophils % 1.7 % (0.1-12.0); Hematocrit 26.4 % (42.0-52.0); Hemoglobin 8.3 g/dL (14.1-18.0); Lymphocytes # 1.3 K/mm3 (0.7-4.5); Lymphocytes % 14.8 % (10-50); Mean Corpuscular HGB Conc 31.5 g/dL (31.8-35.4); Mean Corpuscular Hemoglobin 28.5 pg (27.0-31.2); Mean Corpuscular Volume 90.5 fl (80-94); Monocytes # 0.6 K/mm3 (0.1-1.0); Neutrophils # 6.8 K/mm3 (1.8-7.8); Platelet Count 272 K/mm3 (142-424); Red Blood Count 2.92 M/mm3 (4.60-6.20); Red Cell Distribution Width 18.4 % (11.5-17.5); White Blood Count 8.9 K/mm3 (4.8-10.8)
[2021-01-25 06:13] LABS: Anion Gap 8.9 mEq/L (5-15); Blood Urea Nitrogen 50 mg/dl (9-20); Calcium 8.2 mg/dl (8.4-10.2); Carbon Dioxide 23 mmol/L (22.0-30.0); Chloride 109 mmol/L (98-107); Creatinine Clearance Estimated 15 mL/min (50-200); Estimated Glomerular Filt Rate 14 ml/min (>60); GFR (African American) 17 ML/MIN (>60); Glucose 157 mg/dl (74-100); Potassium 4.9 mmoL/L (3.5-5.1); Sodium 136 mmol/L (136-145)
--- NOTE | 2021-01-25 06:42 | PC.NURSE ---
Bill from lab reported a critical creatinine of 4.2 Name and was verified x2 on patient. Dr. Butcher notified via face to face
--- NOTE | 2021-01-25 07:11 | HMH.ACPN2 ---
Internal Medicine - PN: Subj *Date: 01/25/21 *Time: 07:11 Interval history: Patient has no complaints this morning. He states his day went well yesterday. He felt like his appetite is improving. Blood sugars remain stable and are gradually rising Exam Vital signs and Labs for Last 24 Hours: Temp Pulse Resp BP Pulse Ox 98.3 F 110 H 18 113/68 94 L 01/25/21 04:00 01/25/21 04:00 01/25/21 04:00 01/25/21 04:00 01/25/21 04:00 Laboratory Results - last 24 hr 01/24/21 07:24: WBC 8.7, RBC 3.11 L, Hgb 8.7 L, Hct 28.6 L, MCV 91.9, MCH 28.0, MCHC 30.5 L, RDW 18.2 H, Plt Count 282, MPV 9.7, Neut % (Auto) 72.8, Lymph % (Auto) 15.6, [place] % (Auto) 6.1, Eos % (Auto) 5.0, Baso % (Auto) 0.6, Neut # (Auto) 6.3, Lymph # (Auto) 1.4, [place] # (Auto) 0.5, Eos # (Auto) 0.4, Baso # (Auto) 0.1 01/24/21 07:24: Sodium 141, Potassium 5.6 H, Chloride 112 H, Carbon Dioxide 21 L, Anion Gap 13.6, BUN 53 H, Creatinine 4.50 H, Estimated Creat Clear 13, Estimated GFR 13 L*, Est GFR ( Amer) 15 L*, Glucose 132 H, Calcium 8.0 L 01/24/21 11:29: POC Glucose 208 H 01/24/21 16:17: POC Glucose 135 H 01/24/21 20:24: POC Glucose 224 H 01/25/21 05:07: WBC 8.9, RBC 2.92 L, Hgb 8.3 L, Hct 26.4 L, MCV 90.5, MCH 28.5, MCHC 31.5 L, RDW 18.4 H, Plt Count 272, MPV 9.0, Neut % (Auto) 76.0, Lymph % (Auto) 14.8, [place] % (Auto) 7.0, Eos % (Auto) 1.7, Baso % (Auto) 0.5, Neut # (Auto) 6.8, Lymph # (Auto) 1.3, [place] # (Auto) 0.6, Eos # (Auto) 0.2, Baso # (Auto) 0.1 01/25/21 05:07: Sodium 136, Potassium 4.9, Chloride 109 H, Carbon Dioxide 23, Anion Gap 8.9, BUN 50 H, Creatinine 4.20 H, Estimated Creat Clear 15, Estimated GFR 14 L*, Est GFR ( Amer) 17 L*, Glucose 157 H, Calcium 8.2 L 01/25/21 05:54: POC Glucose 174 H I & O for Last 24 hours: Intake & Output 01/22/21 01/23/21 01/24/21 01/25/21 11:59 11:59 11:59 11:59 Intake Total 1800 / 1800 2910 / 2910 940 / 940 Output Total 1465 / 1465 900 / 900 700 / 700 Balance 335 / 335 2009 240 / 240 Weight 150 lb 165 lb 9 oz 166 lb 3 oz 169 lb Microbiology Reports for the Last 24 Hours: Microbiology 01/22/21 11:03 Urine,Catheterized Urine Culture - Final Pseudomonas aeruginosa Narrative: Patient appears comfortable. Lungs are clear. Heart rate is tachycardic and irregularly irregular. Abdomen is soft. Assessment and Plan (1) Acute on chronic renal failure Status: Acute Qualifiers: Acute renal failure type: unspecified Chronic kidney disease stage: unspecified stage Qualified Code(s): N17.9 - Acute kidney failure, unspecified; N18.9 - Chronic kidney disease, unspecified Category: Medical Code(s): N17.9 - Acute kidney failure, unspecified; N18.9 - Chronic kidney disease, unspecified (2) Anemia due to blood loss Status: Acute Category: Medical Code(s): D50.0 - Iron deficiency anemia secondary to blood loss (chronic) (3) Diabetes mellitus with hypoglycemia Status: Acute Category: Medical Code(s): E11.649 - Type 2 diabetes mellitus with hypoglycemia without coma (4) Kidney disease, chronic, stage IV (severe, EGFR 15-29 ml/min) Status: Acute Category: Medical Code(s): N18.4 - Chronic kidney disease, stage 4 (severe) (5) Sinus tachycardia Status: Acute Category: Medical Code(s): R00.0 - Tachycardia, unspecified (6) History of atrial fibrillation Status: Acute Category: Medical Code(s): Z86.79 - Personal history of other diseases of the circulatory system (7) Hyperkalemia Status: Acute Category: Medical Code(s): E87.5 - Hyperkalemia - Assessment and plan all Dx Assessment and Plan for all problems:: 1. ELLIE is improving and nearly resolved with creatinine near baseline this morning 2. Hyperkalemia has resolved. Will reduce Kayexalate to once daily, repeat potassium tomorrow 3. Blood sugars are gradually rising. Patient will continue sliding scale insulin and will restart his Lantus tonight with 10 unit
[2021-01-25 11:39] LABS: POC Glucose,Bedside 235 (70-110)
--- NOTE | 2021-01-25 12:06 | HMH.ACPN ---
Internal Medicine - PN: Subj *Date: 01/25/21 *Time: 12:06 Exam Vital signs and Labs for Last 24 Hours: Temp Pulse Resp BP Pulse Ox 98.1 F 116 H 22 113/70 93 L 01/25/21 08:00 01/25/21 08:00 01/25/21 08:00 01/25/21 08:00 01/25/21 08:00 Laboratory Results - last 24 hr 01/24/21 16:17: POC Glucose 135 H 01/24/21 20:24: POC Glucose 224 H 01/25/21 05:07: WBC 8.9, RBC 2.92 L, Hgb 8.3 L, Hct 26.4 L, MCV 90.5, MCH 28.5, MCHC 31.5 L, RDW 18.4 H, Plt Count 272, MPV 9.0, Neut % (Auto) 76.0, Lymph % (Auto) 14.8, [place] % (Auto) 7.0, Eos % (Auto) 1.7, Baso % (Auto) 0.5, Neut # (Auto) 6.8, Lymph # (Auto) 1.3, [place] # (Auto) 0.6, Eos # (Auto) 0.2, Baso # (Auto) 0.1 01/25/21 05:07: Sodium 136, Potassium 4.9, Chloride 109 H, Carbon Dioxide 23, Anion Gap 8.9, BUN 50 H, Creatinine 4.20 H, Estimated Creat Clear 15, Estimated GFR 14 L*, Est GFR ( Amer) 17 L*, Glucose 157 H, Calcium 8.2 L 01/25/21 05:54: POC Glucose 174 H 01/25/21 11:28: POC Glucose 235 H I & O for Last 24 hours: Intake & Output 01/22/21 01/23/21 01/24/21 01/25/21 23:59 23:59 23:59 23:59 Intake Total 240 / 240 2160 / 2640 3250 / 3250 240 / 240 Output Total 300 / 940 2065 / 2065 700 / 700 Balance -60 / -700 95 / 575 3250 / 2550 -460 / -460 Weight 75.098 kg 75.098 kg 75.381 kg 76.657 kg Microbiology Reports for the Last 24 Hours: Microbiology 01/22/21 11:03 Urine,Catheterized Urine Culture - Final Pseudomonas aeruginosa Assessment and Plan (1) Acute on chronic renal failure Status: Acute Qualifiers: Acute renal failure type: unspecified Chronic kidney disease stage: unspecified stage Qualified Code(s): N17.9 - Acute kidney failure, unspecified; N18.9 - Chronic kidney disease, unspecified Category: Medical Code(s): N17.9 - Acute kidney failure, unspecified; N18.9 - Chronic kidney disease, unspecified (2) Anemia due to blood loss Status: Acute Category: Medical Code(s): D50.0 - Iron deficiency anemia secondary to blood loss (chronic) (3) Diabetes mellitus with hypoglycemia Status: Acute Category: Medical Code(s): E11.649 - Type 2 diabetes mellitus with hypoglycemia without coma (4) Kidney disease, chronic, stage IV (severe, EGFR 15-29 ml/min) Status: Acute Category: Medical Code(s): N18.4 - Chronic kidney disease, stage 4 (severe) (5) Sinus tachycardia Status: Acute Category: Medical Code(s): R00.0 - Tachycardia, unspecified (6) History of atrial fibrillation Status: Acute Category: Medical Code(s): Z86.79 - Personal history of other diseases of the circulatory system (7) Hyperkalemia Status: Acute Category: Medical Code(s): E87.5 - Hyperkalemia The patient's infection will respond to the chosen ABx?: Yes Is the patient receiving the right drug, dose, and route?: Yes Could a more targeted ABx be ordered?: No (PSEUDOMONAS + URINE CX. SENSITIVE TO LEVAQUIN. WBC DECREASED SINCE ADM.)
[2021-01-25 15:57] LABS: POC Glucose,Bedside 184 (70-110)
--- NOTE | 2021-01-25 16:17 | PC.NURSE ---
Pt has been pleasant and cooperative this shift. A&O X4. No complaints of pain or SOA. Pt is currently receiving O2 via NC @ 2 LPM with sats. >90%. Lungs CTA. No edema noted. Telemetry reveals NSR/ST. Skin is C/D/I. Pt hasn't been OOB this shift. Pt has been turned/repositioned Q2H. F/C DC'd this AM. Pt has voided 3 X since F/C removal, although the amount has only been about 5-10 ML each occurrence. Abdomen is flat, soft, and non-tender. Pt does not report any pressure, nor does he report the urge to urinate. 1 large, soft, brown BM today. 22 G peripheral IV in the LT AC is patent and SL. FSBS results have been 235 and 184. VSS. Call light within reach. Will continue to monitor.
[2021-01-25 19:09] LABS: Microscopic, Urine URINE MICROSCOPIC (MICROSCOPIC)
[2021-01-25 19:13] LABS: Appearance,Urine CLOUDY (Clear); Bilirubin,Urine Negative (Negative); Blood, Urine 3+ (Negative); Color,Urine YELLOW (Yellow); Glucose,Urine (UA) 1+ (Negative); Ketones,Urine Negative (Negative); Leukocyte Esterase,Urine 3+ (Negative); Nitrate,Urine Negative (Negative); Protein,Urine 2+ (Negative); Specific Gravity, Urine 1.015 (1.005-1.030); Urobilinogen,Urine 0.2 EU/dl (0.2)
[2021-01-25 19:57] LABS: POC Glucose,Bedside 242 (70-110)
[2021-01-26] VITALS: PULSE 90
[2021-01-26 04:00] VITALS: BP 101/54; PULSE 100; PULSE 97; RESP 18; TEMP 36.6; O2SAT 94
--- NOTE | 2021-01-26 04:14 | PC.NURSE ---
Pt is A/O x4. Pt is on 2L NC. Pt has slept all night. at bedside. Rodas is draining cloudy, yellow urine. Pt denies pain, N/V.
[2021-01-26 05:00] VITALS: BMI 22.8
[2021-01-26 05:22] LABS: POC Glucose,Bedside 215 (70-110)
--- NOTE | 2021-01-26 07:13 | HMH.DCSUM ---
General - General Admission date:: 01/22/21 Discharge date: 01/26/21 HPI HPI: 80-year-old male with history of diabetes for which she takes insulin, stage IV chronic kidney disease, and atrial fibrillation presented to the ER after his noticed altered mental status at home this morning. In route patient's blood sugar was found to be low at 45. Upon arrival to the ER measures were taken to correct his blood sugar. However patient was found to be hyperkalemic as well as have acute kidney injury. Patient has been admitted for correction of his hyperkalemia and for transfusion of 1 unit of packed red blood cell due to anemia with hemoglobin of 7.8 on upon arrival to the emergency department. Approximately 3-1/2 weeks ago patient presented to the ER and was transferred to the hospital in [place] due to acute kidney injury and hyperkalemia. Patient and his tell me upon arrival at that hospital patient did require dialysis 2 times with return to his baseline renal function. Patient was also treated for urinary tract infection. He has been home since January 11. Hospital Course Hospital Course: Patient was admitted with diagnosis of acute kidney injury on chronic kidney disease and hyperkalemia. For patient's acute kidney injury he was started on normal saline at 50 mL's per hour. Once patient's creatinine began trending down patient's IV fluids were discontinued to avoid volume overload. Patient's hyperkalemia was initially treated with calcium gluconate, insulin and D50. Patient was started on Kayexalate 4 times per day. Hyperkalemia slowly resolved and once patient's potassium had reached a high normal range Kayexalate was decreased in frequency to twice daily and ultimately once daily. At discharge patient will continue daily Kayexalate. Patient was hypoglycemic on presentation and has a history of hypoglycemia generally associated with urinary tract infections. Patient had a Rodas catheter in place from his prior hospitalization. Last hospitalization here patient's urine grew Pseudomonas. Urine was cloudy. Patient was started on Levaquin empirically and urine culture ultimately grew Pseudomonas. As patient's UTI was treated patient's glucose gradually pro and by the day of discharge glucose was in the low 200s consistently. Patient was restarted on Lantus which he uses at home. Patient had developed urinary retention during prior hospitalization. At discharge from [facility] he was advised to keep the Rodas catheter in for 2 weeks and then follow-up with a urologist in [place]. Patient's 2-week corey occurred on January 25 and Rodas catheter was removed during hospitalization. After removal of the Rodas catheter patient was unable to urinate significant amounts on his own and ultimately required reinsertion of the Rodas catheter on the evening of January 25. This immediately produced 500 mL of cloudy urine. Patient will maintain the Rodas catheter at home. Patient was anemic on presentation and this was suspected due to GI blood loss as patient was on a DOAC. Patient received 2 units of packed red blood cells. And H&H remained stable. Patient had been on a trial of anticoagulants during his last hospitalization at this facility but due to rapid onset of anemia this was discontinued. Patient has a history of atrial fibrillation but his anemia prevents use of NOACs. Patient was on Xarelto started at an outside facility. This will be discontinued. On January 26 patient was discharged home. Patient will continue home health services. Ambulance transportation was needed for the patient to return home. Objective Vital signs: Temp Pulse Resp BP Pulse Ox 97.8 F 97 H 18 101/54 L 94 L 01/26/21 04:00 01/26/21 04:00 01/26/21 04:00 01/26/21 04:00 01/26/21 04:00 no acute distress - *Routine HEENT Exam Head: Present: normocephalic Eye: Present: EOMI, PERRL ENT: Present: mucous membranes
[2021-01-26 08:00] VITALS: BP 111/56; PULSE 110; PULSE 122; RESP 22; TEMP 36.5; O2SAT 93
--- NOTE | 2021-01-26 10:11 | SW/DCPLANNER ---
This patient will return home today. Patient currently receives home health services from [facility]. I have informed Mili with [facility] that this patient will return today.
== END 2021-01-26 09:15 | disposition home or self-care (01) | DRG 683 ==
LOC: ER 10:47 → 2ND 13:25
PROVIDERS: Admitting Provider Family Medicine; Emergency Provider Emergency Medicine; PCP Family Medicine; Visit Provider Family Medicine
DX: N17.9 Acute kidney failure, unspecified (principal); D62 Acute posthemorrhagic anemia; E87.5 Hyperkalemia; N18.4 Chronic kidney disease, stage 4 (severe); E11.649 Type 2 diabetes mellitus with hypoglycemia without coma; Z79.4 Long term (current) use of insulin; Z79.01 Long term (current) use of anticoagulants; Z79.899 Other long term (current) drug therapy; Z20.822 Contact with and (suspected) exposure to COVID-19; I48.91 Unspecified atrial fibrillation; K21.9 Gastro-esophageal reflux disease without esophagitis; I25.10 Atherosclerotic heart disease of native coronary artery without angina pectoris; E11.22 Type 2 diabetes mellitus with diabetic chronic kidney disease; I12.9 Hypertensive chronic kidney disease with stage 1 through stage 4 chronic kidney disease, or unspecified chronic kidney disease; Z87.891 Personal history of nicotine dependence; R00.0 Tachycardia, unspecified; R33.9 Retention of urine, unspecified
CPT/HCPCS: 36415; 80048; 80053; 81001; 82962; 84484; 85007; 85014; 85018; 85025; 86850; 87086; 87088; 87186; 93005; 94760; 96374; 96375; 96376; 99284; J1956; P9016; U0003

== ENCOUNTER → 2021-03-18 11:53 | Outpatient (CLI) | payer MEDICARE, MEDICAID, SELFPAY ==
[2021-03-18 12:00] LABS: Microscopic, Urine URINE MICROSCOPIC (MICROSCOPIC)
[2021-03-18 13:47] LABS: Appearance,Urine CLEAR (Clear); Bilirubin,Urine Negative (Negative); Blood, Urine 2+ (Negative); Color,Urine YELLOW (Yellow); Glucose,Urine (UA) Negative (Negative); Ketones,Urine Negative (Negative); Leukocyte Esterase,Urine 2+ (Negative); Nitrate,Urine POSITIVE (Negative); Protein,Urine 2+ (Negative); Urobilinogen,Urine 0.2 EU/dl (0.2)
[2021-03-18 14:50] LABS: Bacteria,Urine 4+ /lpf; Squamous Epithelial Cell,Urine Occasional #/hpf (0-5); WBC,Urine TNTC #/hpf (0-3)
== END ==
PROVIDERS: Visit Provider Family Medicine
DX: N39.0 Urinary tract infection, site not specified (principal)
CPT/HCPCS: 81001; 87086; 87088; 87186

== ENCOUNTER 2021-03-22 16:17 | Emergency (ER) | payer MEDICARE, MEDICAID, SELFPAY ==
[2021-03-22] VITALS (9 sets, daily range): BP systolic 93–127; BP diastolic 50–96; PULSE 63–80; RESP 14–24; TEMP 36.1–37; O2SAT 95–98; BMI 20.9
--- NOTE | 2021-03-22 16:20 | XR_ITS ---
PROCEDURE: XR CHEST PORTABLE CLINICAL HISTORY: syncope COMPARISON: CR XR CHEST PORTABLE from 05/26/[address] ABDOMEN PELVIS WO CON from 11/13/2020 CR XR CHEST PORTABLE from 11/13/2020 CR XR CHEST PORTABLE from 11/18/2020 FINDINGS: Cardiomegaly. COPD changes with coarsening of the bronchovascular markings. Peripheral patchy increased density is now present in the right upper and right lower lobe consistent with pneumonia. No acute bony abnormalities. IMPRESSION: Right upper and right lower lobe pneumonia superimposed upon chronic changes/COPD with cardiomegaly. Dictated by: Carlos Trevino MD 03/22/2021 16:35 Carlos Trevino MD in [place] 03/22/2021 16:35
--- NOTE | 2021-03-22 16:20 | HMH.EDGENADL ---
ED Disposition Condition on Discharge: Fair Time of Disposition: 20:16 - Critical Care Critical Care Time: Yes Total Critical Care Time: 65 Vital system(s) involved:: Renal Failure My critical care processes included: Assessment & monitoring of V/S, Initial and Re-exams, Data Review/Interpretation, Coordinating Care, Medication Orders and management, Documentation <Anselmo Rojas - Last Filed: 03/22/21 20:15> Condition on Discharge: Serious <Sae Boggs - Last Filed: 03/23/21 01:44> Clinical Impression: ELLIE (acute kidney injury), Hyperkalemia, Acute electrocardiogram changes, Elevated brain natriuretic peptide (BNP) level, NSTEMI (non-ST elevated myocardial infarction), Urinary retention, Severe sepsis with acute organ dysfunction, LBBB (left bundle branch block) UTI (urinary tract infection) Qualifiers: Urinary tract infection type: site unspecified Hematuria presence: without hematuria Qualified Code(s): N39.0 - Urinary tract infection, site not specified Disposition: Xfer Short-Term Hosp Referrals: Juan Francisco Butcher MD [Primary Care Provider] - Forms: Transfer Record - ED Attestation: On 03/22/21, the high probability of a clinically significant, sudden or life threatening deterioration of the following system(s) required my full and direct attention, intervention and personal management. The time I documented below is in addition to time spent performing reported procedures but includes the following listed in this critical care notation. Medical Decision Making - Medical Records Medical records reviewed: Yes: I reviewed the patient's medical records. - John Inquiry Pt receiving controlled substance: No - Lab Data Result diagrams: 03/22/21 16:55 03/22/21 16:55 - ECG Data Tracing #1 I reviewed this ECG and interpreted as documented below: ECG initial impression date: 03/22/21 ECG initial impression time: 16:45 <Anselmo Rojas - Last Filed: 03/22/21 20:15> - Lab Data Lab results reviewed: Yes: I reviewed the patient's lab results. Result diagrams: 03/22/21 16:55 03/23/21 00:26 - ECG Data Tracing #3 Normal Sinus Rhythm: Yes Ischemic changes: non-specific ST-T wave changes Conduction abnormalities present: LBBB ECG compared to prior tracings: there are no significant changes - Physician Consults Physician Consulted: raghu Reason -: Transfer to another facilty <Sae Boggs - Last Filed: 03/23/21 01:44> Vital Signs: 03/22/21 16:17 03/22/21 17:16 03/22/21 18:44 Temperature 98.6 F Temperature Source Oral Pulse Rate 72 64 Pulse Rate [Left Radial] 78 Respiratory Rate 18 14 Blood Pressure 93/50 L Blood Pressure [Right Arm] 127/96 H Blood Pressure Mean [Right Arm] 106 Blood Pressure Source Blood Pressure Position 02 Sat by Pulse Oximetry 98 95 Oxygen Delivery Method Room Air Nasal Cannula Oxygen Flow Rate (LPM) 2 03/22/21 19:00 03/22/21 19:30 03/22/21 20:00 Temperature Temperature Source Pulse Rate 63 65 68 Pulse Rate [Left Radial] Respiratory Rate 14 24 24 Blood Pressure 93/59 L 95/57 L 105/56 L Blood Pressure [Right Arm] Blood Pressure Mean [Right Arm] Blood Pressure Source Automatic Cuff Automatic Cuff Automatic Cuff Blood Pressure Position Sitting Sitting Sitting 02 Sat by Pulse Oximetry 98 97 95 Oxygen Delivery Method Oxygen Flow Rate (LPM) 03/22/21 21:00 Temperature 97 F L Temperature Source Pulse Rate 80 Pulse Rate [Left Radial] Respiratory Rate 22 Blood Pressure 117/63 Blood Pressure [Right Arm] Blood Pressure Mean [Right Arm] Blood Pressure Source Automatic Cuff Blood Pressure Position Standing 02 Sat by Pulse Oximetry 97 Oxygen Delivery Method Oxygen Flow Rate (LPM) - Lab Data Lab Results 03/22/21 16:55: WBC 12.9 H, RBC 2.34 L, Hgb 7.1 L, Hct 23.6 L, MCV 100.8 H, MCH 30.2, MCHC 29.9 L, RDW 17.0, Plt Count 382, MPV 9.2, Neut % (Auto) 87.8 H, Lymph % (Auto) 6.8 L, [place] % (Au
--- NOTE | 2021-03-22 16:45 | ECG_ITS ---
APPROVED REPORT Exam: Resting ECG HR:60 bpm ECG Measurements Heart Rate 60 AXES QRSd 160 QRS -87 QT 458 T 44 QTc 458 Conclusion Atrial fibrillation Left axis deviation Lbbb Abnormal ECG Electronically signed by : Juan Francisco Patino MD 03/24/2021 07:32:00
[2021-03-22 17:27] LABS: Basophils % 0.2 % (0.1-2.0); Eosinophils # 0.1 K/mm3 (0.0-0.4); Eosinophils % 0.7 % (0.1-12.0); Hematocrit 23.6 % (42.0-52.0); Hemoglobin 7.1 g/dL (14.1-18.0); Lymphocytes # 0.9 K/mm3 (0.7-4.5); Lymphocytes % 6.8 % (10-50); Mean Corpuscular HGB Conc 29.9 g/dL (31.8-35.4); Mean Corpuscular Hemoglobin 30.2 pg (27.0-31.2); Mean Corpuscular Volume 100.8 fl (80-94); Mean Platelet Volume 9.2 fl (7.4-10.4); Monocytes # 0.6 K/mm3 (0.1-1.0); Monocytes % 4.5 % (1.7-9.3); Neutrophils # 11.3 K/mm3 (1.8-7.8); Neutrophils % 87.8 % (37.0-80.0); Platelet Count 382 K/mm3 (142-424); Red Blood Count 2.34 M/mm3 (4.60-6.20); White Blood Count 12.9 K/mm3 (4.8-10.8)
[2021-03-22 17:30] LABS: MANUAL DIFFERENTIAL MANUAL DIFFERENTIAL (MANUAL DIFF)
--- NOTE | 2021-03-22 17:34 | ECG_ITS ---
APPROVED REPORT Exam: Resting ECG HR:66 bpm ECG Measurements Heart Rate 66 AXES MT 340 P 114 QRSd 146 QRS -86 QT 416 T 67 QTc 436 Conclusion Sinus rhythm with 1st degree AV block LBBB Abnormal ECG Electronically signed by : Juan Francisco Patino MD 03/24/2021 07:31:35
[2021-03-22 17:39] LABS: Troponin I 0.06 ng/ml (0.00-0.034)
[2021-03-22 17:48] LABS: POC Glucose,Bedside 86 (70-110)
[2021-03-22 17:54] LABS: Alanine Aminotransferase 9 U/L (12-78); Albumin Level 3.1 g/dl (3.5-5.0); Albumin/Globulin Ratio 0.8 (1.1-1.8); Alkaline Phosphatase 143 U/L (38-126); Anion Gap 31.4 mEq/L (5-15); Aspartate Amino Transferase 29 U/L (17-59); Bilirubin,Total 0.4 mg/dl (0.2-1.3); Calcium 8.3 mg/dl (8.4-10.2); Carbon Dioxide 11 mmol/L (22.0-30.0); Chloride 103 mmol/L (98-107); Creatinine Clearance Estimated 5 mL/min (50-200); Estimated Glomerular Filt Rate 5 ml/min (>60); GFR (African American) 6 ML/MIN (>60); Lymphocytes % 12 % (10-50); Monocytes % 10 % (2-9); Neutrophils % 76 % (42-76); Nucleated Red Blood Cells 1; Sodium 137 mmol/L (136-145); Total Cells Counted 100; Total Protein,Serum 7.1 g/dl (6.3-8.2)
[2021-03-22 17:55] LABS: Anisocytosis 1+; Hypochromasia 1+; Platelet Estimate Normal
[2021-03-22 18:08] LABS: Blood Urea Nitrogen 125 mg/dl (9-20); Potassium 8.4 mmoL/L (3.5-5.1)
[2021-03-22 18:09] LABS: Glucose 47 mg/dl (74-100)
[2021-03-22 18:13] LABS: NT Pro Brain Natriuretic Pep. 40400 pg/mL (0-450)
[2021-03-22 18:14] LABS: POC Glucose,Bedside 97 (70-110)
--- NOTE | 2021-03-22 18:22 | PC.NURSE ---
calling [facility] at this time.
[2021-03-22 20:04] LABS: Anion Gap 27.9 mEq/L (5-15); Calcium 8.6 mg/dl (8.4-10.2); Carbon Dioxide 15 mmol/L (22.0-30.0); Chloride 103 mmol/L (98-107); Creatinine Clearance Estimated 5 mL/min (50-200); Estimated Glomerular Filt Rate 4 ml/min (>60); GFR (African American) 5 ML/MIN (>60); Sodium 138 mmol/L (136-145)
--- NOTE | 2021-03-22 20:06 | PC.NURSE ---
dr maldonado from [facility].
[2021-03-22 20:17] LABS: Blood Urea Nitrogen 124 mg/dl (9-20); Glucose 31 mg/dl (74-100); Potassium 7.9 mmoL/L (3.5-5.1)
[2021-03-22 20:23] LABS: Coronavirus 19, PCR Not Detected (NotDetected); Influenza A, PCR Not Detected (NotDetected); Influenza B, PCR Not Detected (NotDetected)
--- NOTE | 2021-03-22 20:31 | CT_ITS ---
PROCEDURE INFORMATION: Exam: CT Abdomen And Pelvis Without Contrast Exam date and time: 03/22/2021 8:31 PM Age: 80 years old Clinical indication: Abnormal findings; Abnormal lab test; Other: Creatine 10.80, gfr 5, bun 125; Additional info: Elevated CR TECHNIQUE: Imaging protocol: Computed tomography of the abdomen and pelvis without contrast. Radiation optimization: All CT scans at this facility use at least one of these dose optimization techniques: automated exposure control; mA and/or kV adjustment per patient size (includes targeted exams where dose is matched to clinical indication); or iterative reconstruction. COMPARISON: CT ABDOMEN PELVIS WO CON 11/13/2020 9:53 AM FINDINGS: Lungs: Emphysema with multifocal nodular and patchy areas of consolidation at the right greater than left lung bases. Heart: Cardiomegaly. Liver: Parenchymal enhancement is not evaluated without contrast. No hepatomegaly. Gallbladder and bile ducts: Subtle high density within the gallbladder can be seen with sludge and/or stones. No ductal dilation. Pancreas: Fatty atrophy of the pancreas. Spleen: There are multiple splenic calcifications likely on the basis of prior granulomatous exposure. Adrenal glands: No mass. Kidneys and ureters: Bilateral hydronephrosis which is moderate. Nonobstructing renal calculi bilaterally. No radiodense obstructing ureteral calculi. Stomach and bowel: Diverticulosis coli. The colon again appears thickened however is under distended. No obstruction peer Appendix: No evidence of appendicitis. Intraperitoneal space: Small volume ascites. Vasculature: Calcified atherosclerosis. No aneurysm. Lymph nodes: No enlarged lymph nodes. Urinary bladder: Distended urinary bladder. Reproductive: Prostate measures 3.5 x 4.5 cm which is smaller than on prior examination. Bones/joints: Degenerative changes. No acute fracture. Soft tissues: Limited evaluation without contrast. No significant soft tissue swelling. IMPRESSION: 1. Emphysema with multifocal nodular and patchy areas of consolidation at the right greater than left lung bases which may be infectious or inflammatory however follow-up to radiographic clearance is recommended. 2. Cardiomegaly. 3. Distended urinary bladder with bilateral hydronephrosis concerning for possible outflow obstruction. 4. Diverticulosis coli. 5. The colon again appears thickened which may in part be secondary to underdistention however mucosal mass cannot be radiographically excluded. Correlation with colonoscopy is recommended. 6. Small volume perihepatic ascites which is nonspecific and may be sterile, infected, or malignant.
--- NOTE | 2021-03-22 20:45 | PC.NURSE ---
Numerous hospitals were contacted in reference to transferring pt. [place], [place], , [facility], [facility], [facility], [facility], [facility], [facility], [facility], [facility], [facility], as well as other hospitals were contact. Pt is on wait list at as well as [facility] at this time.
[2021-03-22 21:06] LABS: Troponin I 0.07 ng/ml (0.00-0.034)
[2021-03-22 21:36] LABS: POC Glucose,Bedside 65 (70-110)
[2021-03-22 23:06] LABS: Microscopic, Urine URINE MICROSCOPIC (MICROSCOPIC)
[2021-03-22 23:08] LABS: Appearance,Urine CLOUDY (Clear); Bilirubin,Urine Negative (Negative); Blood, Urine 3+ (Negative); Color,Urine YELLOW (Yellow); Glucose,Urine (UA) Negative (Negative); Ketones,Urine Negative (Negative); Leukocyte Esterase,Urine 3+ (Negative); Nitrate,Urine Negative (Negative); Protein,Urine 2+ (Negative); Urobilinogen,Urine 0.2 EU/dl (0.2)
[2021-03-22 23:24] LABS: Bacteria,Urine 1+ /lpf; RBC,Urine TNTC #/hpf (0-3); WBC,Urine TNTC #/hpf (0-3)
[2021-03-22 23:52] LABS: Lactic Acid 0.7 mmol/L (0.7-2.1)
[2021-03-23 00:01] VITALS: BP 111/60; PULSE 71; RESP 20; O2SAT 95
--- NOTE | 2021-03-23 00:27 | PC.NURSE ---
20 IV in left forearm infiltrated. IV removed and arm wrapped and elevated. New 22g IV established in right forearm.
[2021-03-23 00:30] VITALS: BP 107/65; PULSE 70; RESP 18; O2SAT 97
--- NOTE | 2021-03-23 00:30 | PC.NURSE ---
spoke with [facility]. pt is no longer a candidate for a bed due to hydronephrosis found on ct. notified. plan remains to recheck bmp in the morning at 0600 and if dialysis is a continues to be a need, they will approach dr benson
--- NOTE | 2021-03-23 00:38 | PC.NURSE ---
[facility] called at this time saying they may have a bed and will speak with their MD and call us back.
[2021-03-23 00:41] LABS: Chloride 102 mmol/L (98-107); Sodium 139 mmol/L (136-145)
[2021-03-23 00:44] LABS: Anion Gap 27.8 mEq/L (5-15); Calcium 8.4 mg/dl (8.4-10.2); Carbon Dioxide 17 mmol/L (22.0-30.0); Creatinine Clearance Estimated 5 mL/min (50-200); Estimated Glomerular Filt Rate 5 ml/min (>60); GFR (African American) 6 ML/MIN (>60); Glucose 51 mg/dl (74-100)
[2021-03-23 00:53] LABS: Blood Urea Nitrogen 131 mg/dl (9-20); Potassium 7.8 mmoL/L (3.5-5.1)
[2021-03-23 00:58] LABS: POC Glucose,Bedside 87 (70-110)
--- NOTE | 2021-03-23 00:58 | ECG_ITS ---
APPROVED REPORT Exam: Resting ECG HR:71 bpm ECG Measurements Heart Rate 71 AXES KS 296 P 53 QRSd 154 QRS -75 QT 416 T 74 QTc 452 Conclusion Sinus rhythm with 1st degree AV block Left axis deviation Left bundle branch block Abnormal ECG Electronically signed by : Juan Francisco Patino MD 03/23/2021 20:11:06
[2021-03-23 01:00] VITALS: BP 116/68; PULSE 72; RESP 18; O2SAT 95
[2021-03-23 02:34] VITALS: BP 122/70; PULSE 78; RESP 18; TEMP 36.8; O2SAT 98
== END 2021-03-23 02:39 | disposition short-term general hospital (02) ==
PROVIDERS: Family Medicine; Emergency Provider Emergency Medicine; PCP Family Medicine
DX: I21.4 Non-ST elevation (NSTEMI) myocardial infarction (principal); N17.9 Acute kidney failure, unspecified; A41.9 Sepsis, unspecified organism; N30.00 Acute cystitis without hematuria; E11.9 Type 2 diabetes mellitus without complications; I48.91 Unspecified atrial fibrillation; K21.9 Gastro-esophageal reflux disease without esophagitis; E78.5 Hyperlipidemia, unspecified; I25.10 Atherosclerotic heart disease of native coronary artery without angina pectoris; E87.5 Hyperkalemia; Z11.52 Encounter for screening for COVID-19; Z79.899 Other long term (current) drug therapy
CPT/HCPCS: 36415; 71045; 74176; 80048; 80053; 81001; 82962; 83605; 83880; 84484; 85007; 85025; 87040; 87086; 87088; 87186; 93005; 96365; 96375; 99285; C9803; U0003; U0005

== ENCOUNTER 2021-04-17 22:53 | Inpatient (IN) | payer MEDICARE, MEDICAID, SELFPAY ==
[2021-04-17 22:53] VITALS: BP 106/62; PULSE 61; RESP 18; TEMP 36.4; O2SAT 93; BMI 21.7
--- NOTE | 2021-04-17 22:54 | ECG_ITS ---
APPROVED REPORT Exam: Resting ECG HR:71 bpm ECG Measurements Heart Rate 71 AXES QRSd 154 QRS 268 QT 460 T 36 QTc 499 Conclusion Atrial fibrillation with premature ventricular or aberrantly conducted complexes Right bundle branch block Abnormal ECG Electronically signed by : Juan Francisco Patino MD 04/19/2021 21:22:49
--- NOTE | 2021-04-17 22:54 | XR_ITS ---
PROCEDURE INFORMATION: Exam: XR Chest Exam date and time: 04/17/2021 10:54 PM Age: 80 years old Clinical indication: Shortness of breath; Additional info: Short of breath TECHNIQUE: Imaging protocol: XR of the chest. Views: 1 view. COMPARISON: CR XR CHEST PORTABLE 03/22/2021 4:29 PM FINDINGS: Lungs: See Pleural spaces finding. Pleural spaces: Right basilar opacity, probably combination of pleural effusion and adjacent atelectasis/consolidation. Probable small pleural effusion on the left. Heart/Mediastinum: Stable cardiomediastinal silhouette. Bones/joints: No acute osseous findings. IMPRESSION: Right basilar opacity, probably combination of pleural effusion and adjacent atelectasis/consolidation. Recommend imaging follow-up until complete resolution.
--- NOTE | 2021-04-17 22:54 | HMH.EDGENADL ---
ED Disposition Clinical Impression: Hyperkalemia, Pleural effusion Acute renal failure Qualifiers: Acute renal failure type: unspecified Qualified Code(s): N17.9 - Acute kidney failure, unspecified Disposition: Xfer Critical Access Hosp Condition on Discharge: Critical Referrals: Juan Francisco Butcher MD [Primary Care Provider] - Time of Disposition: 03:11 - Critical Care Critical Care Time: Yes Attestation: On , the high probability of a clinically significant, sudden or life threatening deterioration of the following system(s) required my full and direct attention, intervention and personal management. The time I documented below is in addition to time spent performing reported procedures but includes the following listed in this critical care notation. Total Critical Care Time: 45 Vital system(s) involved:: Metabolic Failure, Respiratory Failure, Renal Failure My critical care processes included: Assessment & monitoring of V/S, Initial and Re-exams, Data Review/Interpretation, Coordinating Care, Medication Orders and management, Documentation Medical Decision Making - Medical Records Medical records reviewed: Yes: I reviewed the patient's medical records. - John Inquiry Pt receiving controlled substance: No Vital Signs: 04/17/21 22:53 04/18/21 00:00 04/18/21 00:30 Temperature 97.5 F L Temperature Source Oral Pulse Rate 62 59 L Pulse Rate [Left] 61 Respiratory Rate 18 Blood Pressure 109/60 L 104/62 L Blood Pressure [Right Arm] 106/62 L Blood Pressure Mean [Right Arm] 76 Blood Pressure Source Blood Pressure Position 02 Sat by Pulse Oximetry 93 L 92 L 92 L Oxygen Delivery Method Nasal Cannula Nasal Cannula Oxygen Flow Rate (LPM) 2 4 04/18/21 01:11 04/18/21 01:30 04/18/21 02:00 Temperature Temperature Source Pulse Rate 59 L 61 63 Pulse Rate [Left] Respiratory Rate 23 27 H 22 Blood Pressure 99/55 L 97/55 L 102/56 L Blood Pressure [Right Arm] Blood Pressure Mean [Right Arm] Blood Pressure Source Blood Pressure Position 02 Sat by Pulse Oximetry 91 L 91 L 94 L Oxygen Delivery Method Oxygen Flow Rate (LPM) 04/18/21 02:30 04/18/21 03:00 04/18/21 03:30 Temperature Temperature Source Pulse Rate 59 L 58 L Pulse Rate [Left] Respiratory Rate 16 14 Blood Pressure 97/55 L 100/55 L 102/57 L Blood Pressure [Right Arm] Blood Pressure Mean [Right Arm] Blood Pressure Source Blood Pressure Position 02 Sat by Pulse Oximetry 96 96 Oxygen Delivery Method Oxygen Flow Rate (LPM) 04/18/21 04:00 04/18/21 04:17 04/18/21 04:30 Temperature Temperature Source Pulse Rate 57 L 61 Pulse Rate [Left] Respiratory Rate 29 H 17 Blood Pressure 84/50 L 80/52 L 72/41 L Blood Pressure [Right Arm] Blood Pressure Mean [Right Arm] Blood Pressure Source Manual Cuff/ Auscultation Blood Pressure Position Sitting 02 Sat by Pulse Oximetry 95 90 L Oxygen Delivery Method Oxygen Flow Rate (LPM) 04/18/21 05:00 04/18/21 05:30 04/18/21 06:00 Temperature Temperature Source Pulse Rate 53 L 55 L 56 L Pulse Rate [Left] Respiratory Rate 23 20 24 Blood Pressure 76/47 L 75/44 L 87/49 L Blood Pressure [Right Arm] Blood Pressure Mean [Right Arm] Blood Pressure Source Blood Pressure Position 02 Sat by Pulse Oximetry 96 95 95 Oxygen Delivery Method Oxygen Flow Rate (LPM) - Lab Data Lab Results 04/17/21 22:54: VBG pH 7.30 L, VBG pCO2 42.7, VBG pO2 25.7 L, VBG HCO3 20.4 L, VBG Total CO2 21.7 L, VBG O2 Saturation 40.9 L, VBG Base Excess -6.1 L 04/18/21 00:02: WBC 6.8, RBC 3.55 L, Hgb 10.4 L, Hct 36.1 L, MCV 101.7 H, MCH 29.2, MCHC 28.7 L, RDW 17.0, Plt Count 243, MPV 9.8, Neut % (Auto) 82.0 H, Lymph % (Auto) 9.4 L, [place] % (Auto) 5.4, Eos % (Auto) 2.3, Baso % (Auto) 0.8, Neut # (Auto) 5.6, Lymph # (Auto) 0.6 L, [place] # (Auto) 0.4, Eos # (Auto) 0.2, Baso # (Auto) 0.1 04/18/21 00:02: Sodium 139, [place]
[2021-04-18] VITALS (28 sets, daily range): BP systolic 72–126; BP diastolic 41–88; PULSE 53–82; RESP 14–29; TEMP 36.6–36.9; O2SAT 75–98; BMI 23.8
[2021-04-18 00:19] LABS: Basophils # 0.1 K/mm3 (0-0.2); Basophils % 0.8 % (0.1-2.0); Eosinophils # 0.2 K/mm3 (0.0-0.4); Eosinophils % 2.3 % (0.1-12.0); Hematocrit 36.1 % (42.0-52.0); Hemoglobin 10.4 g/dL (14.1-18.0); Lymphocytes # 0.6 K/mm3 (0.7-4.5); Lymphocytes % 9.4 % (10-50); Mean Corpuscular HGB Conc 28.7 g/dL (31.8-35.4); Mean Corpuscular Hemoglobin 29.2 pg (27.0-31.2); Mean Corpuscular Volume 101.7 fl (80-94); Mean Platelet Volume 9.8 fl (7.4-10.4); Monocytes # 0.4 K/mm3 (0.1-1.0); Monocytes % 5.4 % (1.7-9.3); Neutrophils # 5.6 K/mm3 (1.8-7.8); Platelet Count 243 K/mm3 (142-424); Red Blood Count 3.55 M/mm3 (4.60-6.20); White Blood Count 6.8 K/mm3 (4.8-10.8)
[2021-04-18 00:27] LABS: Alanine Aminotransferase 10 U/L (12-78); Albumin Level 3.2 g/dl (3.5-5.0); Albumin/Globulin Ratio 0.9 (1.1-1.8); Alkaline Phosphatase 109 U/L (38-126); Anion Gap 20.9 mEq/L (5-15); Aspartate Amino Transferase 15 U/L (17-59); Bilirubin,Total 0.3 mg/dl (0.2-1.3); Blood Urea Nitrogen 60 mg/dl (9-20); Calcium 8.2 mg/dl (8.4-10.2); Carbon Dioxide 19 mmol/L (22.0-30.0); Chloride 107 mmol/L (98-107); Creatinine Clearance Estimated 7 mL/min (50-200); Estimated Glomerular Filt Rate 6 ml/min (>60); Globulin 3.5 g/dL (1.3-3.2); Glucose 117 mg/dl (74-100); Sodium 139 mmol/L (136-145); Total Protein,Serum 6.7 g/dl (6.3-8.2)
[2021-04-18 00:55] LABS: Troponin I 0.43 ng/ml (0.00-0.034)
[2021-04-18 00:57] LABS: GFR (African American) 7 ML/MIN (>60); NT Pro Brain Natriuretic Pep. 61200 pg/mL (0-450); Potassium 7.9 mmoL/L (3.5-5.1)
[2021-04-18 01:31] LABS: VBG Base Excess -6.1 mmol/L (-2.4-2.3); VBG HCO3 20.4 mmol/L (23-30); VBG Oxygen Saturation 40.9 % (50-70); VBG PCO2 42.7 mmol/L (35-51); VBG PO2 25.7 mmol/L (28-40); VBG Total CO2 21.7 mmol/L (23-27)
--- NOTE | 2021-04-18 02:54 | PC.NURSE ---
[facility] has placed pt on waiting list for admission.
--- NOTE | 2021-04-18 03:01 | PC.NURSE ---
MD Jennyfer speaking with MD Rach at [facility] at this time. Accepted for admission but they did state very poor likelihood of bed arability at this time.
[2021-04-18 03:06] LABS: Troponin I 0.39 ng/ml (0.00-0.034)
--- NOTE | 2021-04-18 03:08 | PC.NURSE ---
Calling [place] at this time
[2021-04-18 03:12] LABS: Anion Gap 16.8 mEq/L (5-15); Blood Urea Nitrogen 60 mg/dl (9-20); Calcium 9.1 mg/dl (8.4-10.2); Carbon Dioxide 20 mmol/L (22.0-30.0); Chloride 107 mmol/L (98-107); Creatinine Clearance Estimated 7 mL/min (50-200); Estimated Glomerular Filt Rate 6 ml/min (>60); Sodium 137 mmol/L (136-145)
[2021-04-18 03:18] LABS: Potassium 6.8 mmoL/L (3.5-5.1)
[2021-04-18 03:19] LABS: GFR (African American) 7 ML/MIN (>60); Glucose 66 mg/dl (74-100)
--- NOTE | 2021-04-18 03:20 | PC.NURSE ---
Spoke with transfer center at [place]. They advised they were not accepting transfers unless it was a stroke, stemi, or trauma at this time.
[2021-04-18 03:23] LABS: Coronavirus 19, PCR Not Detected (NotDetected); Influenza A, PCR Not Detected (NotDetected); Influenza B, PCR Not Detected (NotDetected)
--- NOTE | 2021-04-18 03:50 | PC.NURSE ---
Pt called out multiple times to be pulled up in bed d/t sliding down to foot of bed. Pt was moved into med-surg bed for comfort. Call light within reach. Adrianna lee. Pt has no complaints at this time.
--- NOTE | 2021-04-18 05:21 | PC.NURSE ---
Addendum entered by Jose Martin Rodriguez RN 04/18/21 05:24: Correction- MD Awa Original Note: MD Jennyfer speaking with MD Ramón about transfer at this time. Pt will be added to waiting list.
[2021-04-18 06:20] LABS: Chloride 109 mmol/L (98-107); Sodium 139 mmol/L (136-145)
[2021-04-18 06:22] LABS: Potassium 7.6 mmoL/L (3.5-5.1)
[2021-04-18 06:23] LABS: Anion Gap 20.6 mEq/L (5-15); Blood Urea Nitrogen 62 mg/dl (9-20); Carbon Dioxide 17 mmol/L (22.0-30.0); Creatinine Clearance Estimated 7 mL/min (50-200); Estimated Glomerular Filt Rate 6 ml/min (>60)
[2021-04-18 06:24] LABS: GFR (African American) 8 ML/MIN (>60)
[2021-04-18 06:26] LABS: Glucose 35 mg/dl (74-100)
--- NOTE | 2021-04-18 06:27 | PC.NURSE ---
Addendum entered by Jose Martin Rodriguez RN 04/18/21 06:39: Glucose of 35 made aware to . orders for 1 amp D50 IV push now Original Note: MD Jennyfer notified of critical labs K+=7.6 BUN=62 Creatinine=8.2
[2021-04-18 06:40] LABS: Troponin I 0.43 ng/ml (0.00-0.034)
[2021-04-18 06:59] LABS: Lactic Acid 1.1 mmol/L (0.7-2.1)
[2021-04-18 07:06] LABS: Procalcitonin 0.225 ng/mL (0.0-2.0)
--- NOTE | 2021-04-18 08:06 | PC.NURSE ---
fsbs 143
[2021-04-18 08:12] LABS: POC Glucose,Bedside 143 (70-110)
--- NOTE | 2021-04-18 09:23 | PC.NURSE ---
report called to floor
--- NOTE | 2021-04-18 09:38 | PC.NURSE ---
[facility] called he spoke with dr benson change fluids to D51/2NS at 75cc/hr and zosyn 2.25grams
--- NOTE | 2021-04-18 09:42 | HMH.PHAVTE ---
[facility] VTE Monitoring - Patient Demographics Admission date: 04/17/21 Report Date: 04/18/21 Time: 09:42 Allergies/Adverse Reactions: Patient Allergies No Known Allergies Allergy (Verified 11/13/20 09:07) Height: 1.83 m Weight: 72.575 kg Patient Problems: Current Active Problems Acute renal failure (Acute) Hyperkalemia (Acute) Pleural effusion (Acute) - VTE Risk Labs: VTE Related Lab Results Hgb 10.4 g/dL (14.1-18.0) L 04/18/21 00:02 Hct 36.1 % (42.0-52.0) L 04/18/21 00:02 Plt Count 243 K/mm3 (142-424) 04/18/21 00:02 BUN 62 mg/dl (9-20) H 04/18/21 06:05 Creatinine 8.20 mg/dl (0.66-1.25) H 04/18/21 06:05 Estimated Creat Clear 7 mL/min (50-200) 04/18/21 06:05 - Prophylaxis VTE Prophylaxis Ordered?: Yes Types of VTE Prophylaxis: TEDS Knee High Location of Applied Device: Bilateral Lower Extremeties
--- NOTE | 2021-04-18 09:52 | HMH.PHAINT ---
MEDICATION RECONCILIATION COMPLETED ON PATIENT USING EXTERNAL FILL HISTORY FROM PHARMACY. -NELLA BRENNAN, CAROLINED
[2021-04-18 09:58] LABS: Microscopic, Urine URINE MICROSCOPIC (MICROSCOPIC)
[2021-04-18 10:00] LABS: Appearance,Urine TURBID (Clear); Blood, Urine 3+ (Negative); Color,Urine BROWN (Yellow); Glucose,Urine (UA) Negative (Negative); Ketones,Urine TRACE (Negative); Leukocyte Esterase,Urine 3+ (Negative); Nitrate,Urine POSITIVE (Negative); PH,Urine 6.5 (5.0-8.5); Protein,Urine 3+ (Negative); Specific Gravity, Urine 1.025 (1.005-1.030); Urobilinogen,Urine 0.2 EU/dl (0.2)
[2021-04-18 10:21] LABS: Bacteria,Urine 3+ /lpf; Bilirubin,Urine 1+ (Negative); RBC,Urine 50-100 #/hpf (0-3); WBC,Urine 50-100 #/hpf (0-3)
[2021-04-18 10:25] LABS: Chloride 107 mmol/L (98-107); Sodium 139 mmol/L (136-145)
[2021-04-18 10:28] LABS: Blood Urea Nitrogen 58 mg/dl (9-20); Creatinine Clearance Estimated 7 mL/min (50-200); Estimated Glomerular Filt Rate 6 ml/min (>60); GFR (African American) 7 ML/MIN (>60)
--- NOTE | 2021-04-18 10:28 | PC.NURSE ---
[facility] called on status of pt. They do not anticipate having a bed today but will call back at 3pm.
[2021-04-18 10:29] LABS: Anion Gap 19.2 mEq/L (5-15); Calcium 8.1 mg/dl (8.4-10.2); Carbon Dioxide 20 mmol/L (22.0-30.0); Glucose 156 mg/dl (74-100)
[2021-04-18 10:34] LABS: Potassium 7.2 mmoL/L (3.5-5.1)
--- NOTE | 2021-04-18 10:35 | PC.NURSE ---
pt arrived to the floor at this time
--- NOTE | 2021-04-18 10:42 | PC.NURSE ---
lab called with critical results K+ 7.2, Creatinine 8.6, results called to Savannah Jennings RN
[2021-04-18 10:48] LABS: Magnesium 1.6 mg/dl (1.6-2.3); Phosphorous 7.8 mg/dl (2.5-4.5)
--- NOTE | 2021-04-18 10:58 | PC.NURSE ---
pt arrived to the floor at this time.
--- NOTE | 2021-04-18 11:42 | ECG_ITS ---
APPROVED REPORT Exam: Resting ECG HR:156 bpm ECG Measurements Heart Rate 156 AXES FL 86 P 63 QRSd 4 QRS 0 QT 254 T 81 QTc 409 Conclusion Sinus tachycardia with short FL with premature supraventricular complexes with frequent and consecutive premature ventricular complexes and fusion complexes Indeterminate axis Pulmonary disease pattern Nonspecific T wave abnormality Abnormal ECG Electronically signed by : Juan Francisco Patino MD 04/19/2021 21:21:45
--- NOTE | 2021-04-18 11:42 | PC.NURSE ---
Notified Dr. Butcher of critical K and creatinine. He is going to place new orders in computer.
[2021-04-18 12:04] LABS: POC Glucose,Bedside 204 (70-110)
--- NOTE | 2021-04-18 13:36 | HMH.HP ---
*Admission Date: 04/17/21 *Chief complaint: Shortness of breath *History of present illness: 80-year-old male presented to the emergency department via EMS yesterday evening with complaint of shortness of breath. Patient had developed this symptom at home. He does use oxygen but that did not relieve his dyspnea and he presented to the ER. Work-up in the ER did discover a right pleural effusion. Patient was concurrently found to have worsening acute kidney injury along with hyperkalemia. Because of the patient's hyperkalemia and potential need for dialysis transfer was sought. At present patient has been accepted to an outside facility when a bed becomes available. Patient was kept in the ER overnight and despite multiple medical interventions his potassium remains elevated and creatinine is essentially unchanged. Gentleman tells me he spent 20 days at [facility] recently having only been discharged on April 13. During that hospitalization patient required dialysis twice, transfusion of 1 unit of packed red blood cells on 3 separate occasions, and endoscopy and colonoscopy searching for potential source of blood loss. No source of blood loss was found. Patient has a medical history of atrial fibrillation, stage IV chronic kidney disease, anemia which prevents use of anticoagulants for his atrial fibrillation. [facility] History I have reviewed the patient's past medical history: Yes Medical History: Reports:: Atrial Fibrillation, Coronary Artery Disease, Diabetes Mellitus Type 2, Gastroesophageal Reflux Disease(GERD), Hyperlipidemia, Hypertension, Myocardial Infarction Denies:: Cancer, Diabetes Mellitus Type 1, Internal Pacemaker, MRSA, Seizures *Have you ever received a pneumonia vaccine?: No *Have you received a flu vaccine this season?: No Other Medical History: Reports: Anemia. Denies: Blood Transfusion Reaction Other Surgeries: Yes: Cardiac Catheterization, Skin Cancer Excision (ON CHEST). No: Pacemaker Amputation: No - *Social History Smoking Status: Former smoker Tobacco Type: cigarettes # Packs/Day (cigarettes): 1 #Yrs smoked (if former smoker): 50 Alcohol Intake: never Alcohol Intake Frequency:: other Substance Use Type: denies use *Occupational Status:: retired Housing: house Household Members: spouse *Travel in the last 8 weeks: None Family Hx:: No significant family history Review of Systems - Review of Systems Review of systems:: pertinent systems reviewed and negative unless documented below - *Neurologic Reports weakness (Generalized), Denies confusion, Denies dizziness, Denies localized weakness, Denies headache(s) Meds Home Medications Medication Instructions Recorded Confirmed Type Amiodarone HCl [Pacerone 200mg Tab] 200 mg PO DAILY 04/18/21 04/18/21 History Finasteride [Proscar] 5 mg PO DAILY 04/18/21 04/18/21 History Metoprolol Succinate [Metoprolol 50 mg PO DAILY 04/18/21 04/18/21 History Succinate 50mg Tablet*] Multivit-Min/FA/Lycopen/Lutein 1 each PO DAILY 04/18/21 04/18/21 History [Centrum Silver Tablet] Pantoprazole Sodium 40 mg PO DAILY 04/18/21 04/18/21 History Sitagliptin Phosphate [Januvia 25 mg PO DAILY 04/18/21 04/18/21 History 25mg Tablet] Tamsulosin HCl 0.4 mg PO DAILY 04/18/21 04/18/21 History Allergies Allergy/AdvReac Type Severity Reaction Status Date / Time No Known Allergies Allergy Verified 11/13/20 09:07 Exam Vital signs and Labs for Last 24 Hours: Temp Pulse Resp BP Pulse Ox 98.1 F 63 22 114/64 92 L 04/18/21 11:00 04/18/21 11:00 04/18/21 11:00 04/18/21 11:00 04/18/21 11:00 Laboratory Results - last 24 hr 04/17/21 09:45: Urine Color Brown, Urine Appearance Turbid, Urine pH 6.5, Ur Specific [place] 1.025, Urine Protein 3+, Urine Glucose (UA) Negative, Urine Ketones Trace, Urine Blood 3+, Urine Nitrate Positive, Urine Bilirubin 1+ A, Urine Urobilinogen 0.2, Ur Leukocyte Esterase 3+ A, Urine RBC 50-100, Urine WBC 50-100, Ur Squamous Epith
--- NOTE | 2021-04-18 17:25 | PC.NURSE ---
This afternoon, [facility] called and still do not have a bed for pt, they stated they will call back laney tonight with update. Pt sitting up at this time in NAD. Remains on 4 L NC. Alert and oriented. VSS at this time. Dr. Butcher made aware of EKG done this shift and the PVC's. Pt remains in afib. Mx continues. at bedside. Pt has had x 3 loose dark, bm's. Have applied barrier cream to coccyx and turned pt to 2 hrs. Coccyx is excoriated r/t bm's due to kayexalate.
[2021-04-18 18:33] LABS: Blood Urea Nitrogen 55 mg/dl (9-20); Carbon Dioxide 19 mmol/L (22.0-30.0); Chloride 107 mmol/L (98-107); Creatinine Clearance Estimated 8 mL/min (50-200); Estimated Glomerular Filt Rate 6 ml/min (>60); GFR (African American) 7 ML/MIN (>60); Glucose 308 mg/dl (74-100); Sodium 140 mmol/L (136-145)
--- NOTE | 2021-04-18 18:54 | PC.NURSE ---
Addendum entered by Barrie Jennings RN 04/18/21 19:56: Dr. Butcher stated finger sticks could be achs. Original Note: Notified Dr. Butcher of critical creatinine and potassium. Also questioned if he wanted pt to be on ssi. He ordered low intensity ssi, to start at 2100, with bs of 387. He also ordered to stop IVF's.
[2021-04-18 18:56] LABS: POC Glucose,Bedside 387 (70-110)
[2021-04-19] VITALS: BP 117/65; PULSE 79; PULSE 80; RESP 17; TEMP 36.6; O2SAT 96
[2021-04-19 01:27] LABS: POC Glucose,Bedside 332 (70-110)
[2021-04-19 04:00] VITALS: BP 114/59; PULSE 70; PULSE 79; RESP 16; TEMP 36.8; O2SAT 97
[2021-04-19 04:57] VITALS: BMI 22.4
--- NOTE | 2021-04-19 06:18 | PC.NURSE ---
No acute changes this shift. Pt has rested well and had no complaints of pain t/o the night. Pt is on 4L NC and 02 Sats remained above 93%. Pt is on the list for a bed at and [facility] they have called with updates but do not have a bed at this time. Call shrestha within reach and will continue to monitor.
--- NOTE | 2021-04-19 06:54 | HMH.ACPN2 ---
Internal Medicine - PN: Subj *Date: 04/19/21 *Time: 06:54 Interval history: No acute events overnight. Potassium did come down on evening labs. Patient has no new complaints. Exam Vital signs and Labs for Last 24 Hours: Temp Pulse Resp BP Pulse Ox 98.2 F 79 16 114/59 L 97 04/19/21 04:00 04/19/21 04:00 04/19/21 04:00 04/19/21 04:00 04/19/21 04:00 Laboratory Results - last 24 hr 04/17/21 09:45: Urine Color Brown, Urine Appearance Turbid, Urine pH 6.5, Ur Specific [place] 1.025, Urine Protein 3+, Urine Glucose (UA) Negative, Urine Ketones Trace, Urine Blood 3+, Urine Nitrate Positive, Urine Bilirubin 1+ A, Urine Urobilinogen 0.2, Ur Leukocyte Esterase 3+ A, Urine RBC 50-100, Urine WBC 50-100, Ur Squamous Epith Cells 5-10, Urine Bacteria 3+ 04/18/21 02:29: Procalcitonin 0.225 04/18/21 06:23: Lactate 1.1 04/18/21 08:05: POC Glucose 143 H 04/18/21 10:00: Phosphorus 7.8 H, Magnesium 1.6 04/18/21 10:00: Sodium 139, Potassium 7.2 H*, Chloride 107, Carbon Dioxide 20 L, Anion Gap 19.2 H, BUN 58 H, Creatinine 8.60 H, Estimated Creat Clear 7, Estimated GFR 6 L*, Est GFR ( Amer) 7 L*, Glucose 156 H D, Calcium 8.1 L 04/18/21 11:13: POC Glucose 204 H 04/18/21 18:05: Sodium 140, Potassium 6.0 H, Chloride 107, Carbon Dioxide 19 L, Anion Gap 20.0 H, BUN 55 H, Creatinine 8.40 H, Estimated Creat Clear 8, Estimated GFR 6 L*, Est GFR ( Amer) 7 L*, Glucose 308 H D, Calcium 8.0 L 04/18/21 18:46: POC Glucose 387 H* 04/18/21 20:22: POC Glucose 332 H* I & O for Last 24 hours: Intake & Output 04/16/21 04/17/21 04/18/21 04/19/21 11:59 11:59 11:59 11:59 Intake Total 480 / 480 Output Total 950 / 950 Balance -470 / -470 Weight 175 lb 4 oz 166 lb Microbiology Reports for the Last 24 Hours: Microbiology 04/18/21 06:25 Blood Blood Culture - Preliminary Narrative: Patient looks comfortable. Breath sounds remained decreased in the right posterior lung base. Heart has a regular rate and rhythm. Abdomen is soft. Assessment and Plan (1) Acute renal failure Status: Acute Qualifiers: Acute renal failure type: unspecified Qualified Code(s): N17.9 - Acute kidney failure, unspecified Category: Medical Code(s): N17.9 - Acute kidney failure, unspecified (2) Hyperkalemia Status: Acute Category: Medical Code(s): E87.5 - Hyperkalemia (3) Anemia of chronic disease Status: Acute Category: Medical Code(s): D63.8 - Anemia in other chronic diseases classified elsewhere (4) History of Pseudomonas pneumonia Status: Acute Category: Medical Code(s): Z87.01 - Personal history of pneumonia (recurrent) (5) Pleural effusion Status: Acute Category: Medical Code(s): J90 - Pleural effusion, not elsewhere classified (6) Diabetes mellitus with hypoglycemia Status: Acute Category: Medical Code(s): E11.649 - Type 2 diabetes mellitus with hypoglycemia without coma (7) History of atrial fibrillation Status: Acute Category: Medical Code(s): Z86.79 - Personal history of other diseases of the circulatory system (8) Hypoglycemic event in diabetes Status: Acute Category: Medical Code(s): E11.649 - Type 2 diabetes mellitus with hypoglycemia without coma (9) Kidney disease, chronic, stage IV (severe, EGFR 15-29 ml/min) Status: Acute Category: Medical Code(s): N18.4 - Chronic kidney disease, stage 4 (severe) (10) UTI (urinary tract infection) Status: Acute Category: Medical Code(s): N39.0 - Urinary tract infection, site not specified (11) Diastolic dysfunction Status: Chronic Category: Medical Code(s): I51.9 - Heart disease, unspecified (12) Hypertensive heart disease without heart failure Status: Chronic Category: Medical Code(s): I11.9 - Hypertensive heart disease without heart failure - Assessment and plan all Dx Assessment and Plan for all problems:: 1. Patient had mild improvement in hyperkalemia. Labs are pending this
[2021-04-19 08:00] VITALS: BP 108/56; PULSE 100; PULSE 84; RESP 21; TEMP 36.7; O2SAT 99
[2021-04-19 09:16] LABS: Anion Gap 17.5 mEq/L (5-15); Blood Urea Nitrogen 56 mg/dl (9-20); Calcium 7.8 mg/dl (8.4-10.2); Carbon Dioxide 19 mmol/L (22.0-30.0); Chloride 109 mmol/L (98-107); Creatinine Clearance Estimated 7 mL/min (50-200); Estimated Glomerular Filt Rate 6 ml/min (>60); GFR (African American) 7 ML/MIN (>60); Glucose 190 mg/dl (74-100); Potassium 4.5 mmoL/L (3.5-5.1); Sodium 141 mmol/L (136-145)
--- NOTE | 2021-04-19 09:46 | PC.NURSE ---
spoke to transfer center, still no beds available at this time.
--- NOTE | 2021-04-19 09:56 | PC.NURSE ---
Spoke to [facility], no beds available at this time
[2021-04-19 11:57] LABS: POC Glucose,Bedside 172 (70-110)
[2021-04-19 11:57] LABS: POC Glucose,Bedside 208 (70-110)
[2021-04-19 12:00] VITALS: BP 89/50; PULSE 127; PULSE 86; RESP 18; TEMP 36.7; O2SAT 95
[2021-04-19 14:30] VITALS: BMI 22.4
--- NOTE | 2021-04-19 15:35 | PC.NURSE ---
spoke to [facility], no beds available at this time.
[2021-04-19 16:00] VITALS: BP 95/57; PULSE 82; PULSE 95; RESP 20; TEMP 36.6; O2SAT 96
--- NOTE | 2021-04-19 16:17 | PC.NURSE ---
pt has been fine this shift. Pt has had x2 incontinent BM's this shift. Pt has been successfully weaned down to 2L NC this shift w/ o2 sats >93%. No other acute changes or complaints, will continue to monitor.
--- NOTE | 2021-04-19 16:19 | PC.NURSE ---
late entry [id number]- spoke to nunu in the lab regarding critical creatinine . verified name and room number. [id number]- notified MD Butcher. NNO
[2021-04-19 16:52] LABS: POC Glucose,Bedside 214 (70-110)
[2021-04-19 20:00] VITALS: BP 97/52; PULSE 77; PULSE 87; RESP 16; TEMP 36.8; O2SAT 94
[2021-04-20] VITALS (10 sets, daily range): BP systolic 102–162; BP diastolic 53–68; PULSE 70–101; RESP 16–20; TEMP 36.6–37; O2SAT 91–95; BMI 22.7
--- NOTE | 2021-04-20 06:26 | PC.NURSE ---
Shift summary. Pt has continued to receive 2 L o2 via nc tolerating well with sats above 91%. Pt did c/o feeling SOA at beginning of shift, O2 94%, was repositioned and pt had no further complaints. At 0400, Red bumpy rash that is warm to the touch noted on upper abdomen and sides. Pt reports it does not itch or burn and states I feel fine. Rodas catheter in place. Spoke with [facility] 2x t/o shift, no beds open at this time. Pt currently watching tv in bed. VSS. CB in reach. Will continue to monitor.
--- NOTE | 2021-04-20 07:10 | HMH.ACPN2 ---
Internal Medicine - PN: Subj *Date: 04/20/21 *Time: 07:10 Interval history: Patient has complaints of shortness of breath. He admits he is positioning in bed does have an impact on his dyspnea. Nurse noticed a rash on the abdomen overnight. Patient denies pruritus. Exam Vital signs and Labs for Last 24 Hours: Temp Pulse Resp BP Pulse Ox 98.6 F 70 16 107/53 L 91 L 04/20/21 03:59 04/20/21 04:00 04/20/21 03:59 04/20/21 03:59 04/20/21 03:59 Laboratory Results - last 24 hr 04/17/21 09:45: Urine Color Brown, Urine Appearance Turbid, Urine pH 6.5, Ur Specific [place] 1.025, Urine Protein 3+, Urine Glucose (UA) Negative, Urine Ketones Trace, Urine Blood 3+, Urine Nitrate Positive, Urine Bilirubin 1+ A, Urine Urobilinogen 0.2, Ur Leukocyte Esterase 3+ A, Urine RBC 50-100, Urine WBC 50-100, Ur Squamous Epith Cells 5-10, Urine Bacteria 3+ 04/19/21 05:10: POC Glucose 172 H 04/19/21 08:47: Sodium 141, Potassium 4.5 D, Chloride 109 H, Carbon Dioxide 19 L, Anion Gap 17.5 H, BUN 56 H, Creatinine 8.60 H, Estimated Creat Clear 7, Estimated GFR 6 L*, Est GFR ( Amer) 7 L*, Glucose 190 H D, Calcium 7.8 L 04/19/21 11:35: POC Glucose 208 H 04/19/21 16:42: POC Glucose 214 H I & O for Last 24 hours: Intake & Output 04/17/21 04/18/21 04/19/21 04/20/21 11:59 11:59 11:59 11:59 Intake Total 960 / 960 960 / 960 Output Total 950 / 950 400 / 400 Balance 560 / 560 Weight 175 lb 4 oz 166 lb 168 lb 3 oz Microbiology Reports for the Last 24 Hours: Microbiology 04/18/21 06:25 Blood Blood Culture - Preliminary 04/18/21 06:25 Blood Blood Culture - Preliminary 04/17/21 09:45 Urine,Catheterized Urine Culture - Preliminary Gram Negative Rods Narrative: Patient appears comfortable. Lungs have improved breath sounds at the right base. Heart has a regular rate and rhythm. Abdomen is soft. There is an erythematous fine papular rash on the abdomen. Assessment and Plan (1) Acute renal failure Status: Acute Qualifiers: Acute renal failure type: unspecified Qualified Code(s): N17.9 - Acute kidney failure, unspecified Category: Medical Code(s): N17.9 - Acute kidney failure, unspecified (2) Hyperkalemia Status: Resolved Category: Medical Code(s): E87.5 - Hyperkalemia (3) Anemia of chronic disease Status: Acute Category: Medical Code(s): D63.8 - Anemia in other chronic diseases classified elsewhere (4) History of Pseudomonas pneumonia Status: Acute Category: Medical Code(s): Z87.01 - Personal history of pneumonia (recurrent) (5) Pleural effusion Status: Acute Category: Medical Code(s): J90 - Pleural effusion, not elsewhere classified (6) Diabetes mellitus with hypoglycemia Status: Acute Category: Medical Code(s): E11.649 - Type 2 diabetes mellitus with hypoglycemia without coma (7) History of atrial fibrillation Status: Acute Category: Medical Code(s): Z86.79 - Personal history of other diseases of the circulatory system (8) Hypoglycemic event in diabetes Status: Acute Category: Medical Code(s): E11.649 - Type 2 diabetes mellitus with hypoglycemia without coma (9) Kidney disease, chronic, stage IV (severe, EGFR 15-29 ml/min) Status: Acute Category: Medical Code(s): N18.4 - Chronic kidney disease, stage 4 (severe) (10) UTI (urinary tract infection) Status: Acute Category: Medical Code(s): N39.0 - Urinary tract infection, site not specified (11) Diastolic dysfunction Status: Chronic Category: Medical Code(s): I51.9 - Heart disease, unspecified (12) Hypertensive heart disease without heart failure Status: Chronic Category: Medical Code(s): I11.9 - Hypertensive heart disease without heart failure - Assessment and plan all Dx Assessment and Plan for all problems:: 1. Patient continues to await transfer for acute kidney injury. Obtain records to see what his creatinine w
[2021-04-20 07:22] LABS: Basophils # 0.1 K/mm3 (0-0.2); Basophils % 0.7 % (0.1-2.0); Eosinophils # 0.3 K/mm3 (0.0-0.4); Eosinophils % 3.7 % (0.1-12.0); Hematocrit 29.1 % (42.0-52.0); Hemoglobin 8.6 g/dL (14.1-18.0); Lymphocytes % 12.5 % (10-50); Mean Corpuscular HGB Conc 29.7 g/dL (31.8-35.4); Mean Corpuscular Hemoglobin 29.7 pg (27.0-31.2); Mean Corpuscular Volume 100.1 fl (80-94); Monocytes # 0.4 K/mm3 (0.1-1.0); Neutrophils # 6.5 K/mm3 (1.8-7.8); Neutrophils % 78.2 % (37.0-80.0); Platelet Count 257 K/mm3 (142-424); Red Blood Count 2.91 M/mm3 (4.60-6.20); Red Cell Distribution Width 17.3 % (11.5-17.5); White Blood Count 8.2 K/mm3 (4.8-10.8)
[2021-04-20 07:29] LABS: Anion Gap 15.8 mEq/L (5-15); Blood Urea Nitrogen 58 mg/dl (9-20); Calcium 7.2 mg/dl (8.4-10.2); Carbon Dioxide 19 mmol/L (22.0-30.0); Chloride 108 mmol/L (98-107); Creatinine Clearance Estimated 7 mL/min (50-200); Estimated Glomerular Filt Rate 6 ml/min (>60); GFR (African American) 7 ML/MIN (>60); Glucose 102 mg/dl (74-100); Potassium 3.8 mmoL/L (3.5-5.1); Sodium 139 mmol/L (136-145)
[2021-04-20 08:05] LABS: POC Glucose,Bedside 181 (70-110)
[2021-04-20 08:05] LABS: POC Glucose,Bedside 96 (70-110)
[2021-04-20 16:30] LABS: POC Glucose,Bedside 272 (70-110)
--- NOTE | 2021-04-20 18:53 | PC.NURSE ---
Patient has had no acute events throughout shift. Critical creatinine came back this am of 8.4, Provider was notified ([facility]). Patient has hadstage 2 ulceration present on his coccyx since admission. A woun note has not been made since admission, RN passed on to casino shift manager RN to please take a photograph of wound and chart when patient did not have visitors. Patient refused this intervention during dayshift due to family at bedside. RN redressed wound, placed barrier cream and stoma powder to create protective film. Patient remains oliguric. Urine is concentrated, tea colored. Patient remains on 2L NC. Patient requested breathing treatments, Provider ordered PRN. Faxed to overnight pharmacy. Spoke with [facility] regarding placement, still no beds available. No further orders at this time. Will continue to monitor
[2021-04-20 21:53] LABS: POC Glucose,Bedside 159 (70-110)
--- NOTE | 2021-04-20 22:01 | PC.NURSE ---
RECEIVED CALL FROM [facility], NO BEDS AVAILABLE AT THIS TIME.
[2021-04-21] VITALS (9 sets, daily range): BP systolic 101–114; BP diastolic 48–70; PULSE 69–80; RESP 16–24; TEMP 36.4–36.8; O2SAT 94–98; BMI 22.7
--- NOTE | 2021-04-21 03:07 | PC.NURSE ---
A&OX4. TOLERATING 2LNC WELL. PT HAS HAD NO C/O THUS FAR. REMAINS INCONTINENT TO BOWEL, KEPT CLEAN AND DRY. PT DOES HAVE STAGE 2 ON BOTTOM, DRESSING APPLIED AND TURNED Q2H. F/C PRESENT DRAINING TEA COLORED URINE WITH SOME BLOOD PRESENT. PT HAS SLEPT MAJORITY OF SHIFT, VERY PLEASANT. DOES HAVE RED RASH ACROSS ABD, NO ITCHING OR PAIN NOTED. VSS WILL CONTINUE TO MONITOR.
--- NOTE | 2021-04-21 04:48 | PC.NURSE ---
RECEIVED CALL AGAIN AT THIS TIME FROM [facility]. STILL NO BED AVAILABLE.
[2021-04-21 05:43] LABS: POC Glucose,Bedside 201 (70-110)
[2021-04-21 06:03] LABS: Basophils % 0.4 % (0.1-2.0); Eosinophils # 0.4 K/mm3 (0.0-0.4); Eosinophils % 3.9 % (0.1-12.0); Hematocrit 28.6 % (42.0-52.0); Hemoglobin 8.6 g/dL (14.1-18.0); Lymphocytes # 0.8 K/mm3 (0.7-4.5); Mean Corpuscular Hemoglobin 30.1 pg (27.0-31.2); Mean Corpuscular Volume 100.1 fl (80-94); Mean Platelet Volume 9.9 fl (7.4-10.4); Monocytes # 0.4 K/mm3 (0.1-1.0); Monocytes % 3.9 % (1.7-9.3); Neutrophils # 7.4 K/mm3 (1.8-7.8); Neutrophils % 82.8 % (37.0-80.0); Platelet Count 232 K/mm3 (142-424); Red Blood Count 2.86 M/mm3 (4.60-6.20); Red Cell Distribution Width 17.6 % (11.5-17.5); White Blood Count 8.9 K/mm3 (4.8-10.8)
[2021-04-21 07:07] LABS: Chloride 107 mmol/L (98-107); Potassium 3.6 mmoL/L (3.5-5.1); Sodium 137 mmol/L (136-145)
[2021-04-21 07:10] LABS: Blood Urea Nitrogen 61 mg/dl (9-20); Creatinine Clearance Estimated 7 mL/min (50-200); Estimated Glomerular Filt Rate 6 ml/min (>60); GFR (African American) 7 ML/MIN (>60)
[2021-04-21 07:11] LABS: Anion Gap 15.6 mEq/L (5-15); Calcium 6.7 mg/dl (8.4-10.2); Carbon Dioxide 18 mmol/L (22.0-30.0); Glucose 174 mg/dl (74-100)
--- NOTE | 2021-04-21 07:39 | HMH.ACPN2 ---
Internal Medicine - PN: Subj *Date: 04/21/21 *Time: 07:39 Interval history: No acute events over the last 24 hours. Review of records from patient's last hospitalization shows discharge creatinine of 7.3. Patient states there were no discussions about routine hemodialysis. Exam Vital signs and Labs for Last 24 Hours: Temp Pulse Resp BP Pulse Ox 98.3 F 77 17 103/70 L 96 04/21/21 04:00 04/21/21 04:00 04/21/21 04:00 04/21/21 04:00 04/21/21 04:00 Laboratory Results - last 24 hr 04/19/21 20:03: POC Glucose 96 04/20/21 05:17: POC Glucose 181 H 04/20/21 07:10: WBC 8.2, RBC 2.91 L, Hgb 8.6 L, Hct 29.1 L, MCV 100.1 H, MCH 29.7, MCHC 29.7 L, RDW 17.3, Plt Count 257, MPV 10.0, Neut % (Auto) 78.2, Lymph % (Auto) 12.5, [place] % (Auto) 5.0, Eos % (Auto) 3.7, Baso % (Auto) 0.7, Neut # (Auto) 6.5, Lymph # (Auto) 1.0, [place] # (Auto) 0.4, Eos # (Auto) 0.3, Baso # (Auto) 0.1 04/20/21 07:10: Sodium 139, Potassium 3.8, Chloride 108 H, Carbon Dioxide 19 L, Anion Gap 15.8 H, BUN 58 H, Creatinine 8.40 H, Estimated Creat Clear 7, Estimated GFR 6 L*, Est GFR ( Amer) 7 L*, Glucose 102 H D, Calcium 7.2 L 04/20/21 12:22: POC Glucose 159 H 04/20/21 16:17: POC Glucose 272 H 04/21/21 04:54: POC Glucose 201 H 04/21/21 05:42: WBC 8.9, RBC 2.86 L, Hgb 8.6 L, Hct 28.6 L, MCV 100.1 H, MCH 30.1, MCHC 30.0 L, RDW 17.6 H, Plt Count 232, MPV 9.9, Neut % (Auto) 82.8 H, Lymph % (Auto) 9.0 L, [place] % (Auto) 3.9, Eos % (Auto) 3.9, Baso % (Auto) 0.4, Neut # (Auto) 7.4, Lymph # (Auto) 0.8, [place] # (Auto) 0.4, Eos # (Auto) 0.4, Baso # (Auto) 0.0 04/21/21 05:42: Sodium 137, Potassium 3.6, Chloride 107, Carbon Dioxide 18 L, Anion Gap 15.6 H, BUN 61 H, Creatinine 8.40 H, Estimated Creat Clear 7, Estimated GFR 6 L*, Est GFR ( Amer) 7 L*, Glucose 174 H D, Calcium 6.7 L I & O for Last 24 hours: Intake & Output 04/18/21 04/19/21 04/20/21 04/21/21 11:59 11:59 11:59 11:59 Intake Total 960 / 960 1200 / 1200 480 / 480 Output Total 950 / 950 400 / 400 1550 / 1550 Balance 800 / 800 -1070 / -1070 Weight 175 lb 4 oz 166 lb 168 lb 3 oz 168 lb Microbiology Reports for the Last 24 Hours: Microbiology 04/18/21 06:25 Blood Blood Culture - Final Staphylococcus epidermidis 04/18/21 06:25 Blood Blood Culture - Preliminary 04/17/21 09:45 Urine,Catheterized Urine Culture - Final Pseudomonas aeruginosa Narrative: Patient looks well. Lungs are clear but diminished at the right base. Heart has a regular rate and rhythm. Rodas catheter is draining dark yellow urine Assessment and Plan (1) Acute renal failure Status: Acute Qualifiers: Acute renal failure type: unspecified Qualified Code(s): N17.9 - Acute kidney failure, unspecified Category: Medical Code(s): N17.9 - Acute kidney failure, unspecified (2) Hyperkalemia Status: Resolved Category: Medical Code(s): E87.5 - Hyperkalemia (3) Anemia of chronic disease Status: Acute Category: Medical Code(s): D63.8 - Anemia in other chronic diseases classified elsewhere (4) History of Pseudomonas pneumonia Status: Acute Category: Medical Code(s): Z87.01 - Personal history of pneumonia (recurrent) (5) Pleural effusion Status: Acute Category: Medical Code(s): J90 - Pleural effusion, not elsewhere classified (6) Diabetes mellitus with hypoglycemia Status: Acute Category: Medical Code(s): E11.649 - Type 2 diabetes mellitus with hypoglycemia without coma (7) History of atrial fibrillation Status: Acute Category: Medical Code(s): Z86.79 - Personal history of other diseases of the circulatory system (8) Hypoglycemic event in diabetes Status: Acute Category: Medical Code(s): E11.649 - Type 2 diabetes mellitus with hypoglycemia without coma (9) Kidney disease, chronic, stage IV (severe, EGFR 15-29 ml/min) Status: Acute Category: Medical Code(s): N18.4 - Chronic kidney dise
--- NOTE | 2021-04-21 08:02 | PC.NURSE ---
Notified Dr. Butcher of critical BUN and Creatinine. NNO given.
--- NOTE | 2021-04-21 08:49 | HMH.ACPN ---
Internal Medicine - PN: Subj *Date: 04/21/21 *Time: 08:49 Exam Vital signs and Labs for Last 24 Hours: Temp Pulse Resp BP Pulse Ox 97.5 F L 76 24 101/62 L 98 04/21/21 08:00 04/21/21 08:00 04/21/21 08:00 04/21/21 08:00 04/21/21 08:00 Laboratory Results - last 24 hr 04/20/21 12:22: POC Glucose 159 H 04/20/21 16:17: POC Glucose 272 H 04/21/21 04:54: POC Glucose 201 H 04/21/21 05:42: WBC 8.9, RBC 2.86 L, Hgb 8.6 L, Hct 28.6 L, MCV 100.1 H, MCH 30.1, MCHC 30.0 L, RDW 17.6 H, Plt Count 232, MPV 9.9, Neut % (Auto) 82.8 H, Lymph % (Auto) 9.0 L, [place] % (Auto) 3.9, Eos % (Auto) 3.9, Baso % (Auto) 0.4, Neut # (Auto) 7.4, Lymph # (Auto) 0.8, [place] # (Auto) 0.4, Eos # (Auto) 0.4, Baso # (Auto) 0.0 04/21/21 05:42: Sodium 137, Potassium 3.6, Chloride 107, Carbon Dioxide 18 L, Anion Gap 15.6 H, BUN 61 H, Creatinine 8.40 H, Estimated Creat Clear 7, Estimated GFR 6 L*, Est GFR ( Amer) 7 L*, Glucose 174 H D, Calcium 6.7 L I & O for Last 24 hours: Intake & Output 04/18/21 04/19/21 04/20/21 04/21/21 23:59 23:59 23:59 23:59 Intake Total 480 / 480 1440 / 1440 720 / 720 120 / 120 Output Total 650 / 650 700 / 700 800 / 800 750 / 750 Balance -170 / -170 740 / 740 -80 / -80 -630 / -630 Weight 79.492 kg 75 kg 76.289 kg 76.204 kg Microbiology Reports for the Last 24 Hours: Microbiology 04/18/21 06:25 Blood Blood Culture - Final Staphylococcus epidermidis 04/18/21 06:25 Blood Blood Culture - Preliminary 04/17/21 09:45 Urine,Catheterized Urine Culture - Final Pseudomonas aeruginosa Assessment and Plan (1) Acute renal failure Status: Acute Qualifiers: Acute renal failure type: unspecified Qualified Code(s): N17.9 - Acute kidney failure, unspecified Category: Medical Code(s): N17.9 - Acute kidney failure, unspecified (2) Hyperkalemia Status: Resolved Category: Medical Code(s): E87.5 - Hyperkalemia (3) Anemia of chronic disease Status: Acute Category: Medical Code(s): D63.8 - Anemia in other chronic diseases classified elsewhere (4) History of Pseudomonas pneumonia Status: Acute Category: Medical Code(s): Z87.01 - Personal history of pneumonia (recurrent) (5) Pleural effusion Status: Acute Category: Medical Code(s): J90 - Pleural effusion, not elsewhere classified (6) Diabetes mellitus with hypoglycemia Status: Acute Category: Medical Code(s): E11.649 - Type 2 diabetes mellitus with hypoglycemia without coma (7) History of atrial fibrillation Status: Acute Category: Medical Code(s): Z86.79 - Personal history of other diseases of the circulatory system (8) Hypoglycemic event in diabetes Status: Acute Category: Medical Code(s): E11.649 - Type 2 diabetes mellitus with hypoglycemia without coma (9) Kidney disease, chronic, stage IV (severe, EGFR 15-29 ml/min) Status: Acute Category: Medical Code(s): N18.4 - Chronic kidney disease, stage 4 (severe) (10) UTI (urinary tract infection) Status: Acute Category: Medical Code(s): N39.0 - Urinary tract infection, site not specified (11) Diastolic dysfunction Status: Chronic Category: Medical Code(s): I51.9 - Heart disease, unspecified (12) Hypertensive heart disease without heart failure Status: Chronic Category: Medical Code(s): I11.9 - Hypertensive heart disease without heart failure The patient's infection will respond to the chosen ABx?: Yes Is the patient receiving the right drug, dose, and route?: Yes Could a more targeted ABx be ordered?: No (CONTINUE WITH ZOSYN FOR PSEUDOMONAS UTI)
--- NOTE | 2021-04-21 10:28 | SW/DCPLANNER ---
Addendum entered by Mili Chilel 04/22/21 07:29: COULD NOT GET A PICC LINE IN YESTERDAY SO PATIENT AT THIS TIME WILL REMAIN HERE AT [facility] WITH HOPES A BED WILL BE AVAILABLE SO HE CAN TRANSFER.. Original Note: THIS PATIENT IS CURRENTLY WAITING ON A TRANSFER TO ONE OF THE [facility] THAT CAN TAKE HIM FOR DIALYSIS... IF HE DOESN'T HAVE A BED OBTAINED TODAY HE WILL DISCHARGE HOME IN THE AM WITH A PICC LINE INSERTED IN THE AM AND 10 DAYS OF IV ANTIBIOTICS AND HOME HEALTH SERVICES.. I DID CALL AND SHE AGREES FOR HIM TO GO HOME..
--- NOTE | 2021-04-21 11:09 | DIET.NUTRFU ---
Addendum entered by Corazon Hayden 04/23/21 10:27: PO intakes 75%, weight stable, BG moderate-high avg. 205, Creatinine increased to 9.1. Original Note: PO intakes 75% on ADA/Renal diet, weight stable, BG moderate-high avg. 175, K wnl, Creatinine unchanged.
[2021-04-21 11:39] LABS: POC Glucose,Bedside 216 (70-110)
[2021-04-21 11:44] LABS: POC Glucose,Bedside 252 (70-110)
--- NOTE | 2021-04-21 14:50 | PC.NURSE ---
Unable to obtained PICC line access after multiple attempts, [facility] also tried with no success. RN to patient notified.
--- NOTE | 2021-04-21 15:21 | PC.NURSE ---
[facility] called at this time, and still no bed available.
--- NOTE | 2021-04-21 18:40 | PC.NURSE ---
Made Dr. Butcher aware that PICC was unable to be placed. Still awaiting bed at [facility] at this time. Rodas remains in place. Pt alert and oriented. VSS. CB in reach.
[2021-04-21 21:20] LABS: POC Glucose,Bedside 136 (70-110)
[2021-04-21 22:35] LABS: POC Glucose,Bedside 230 (70-110)
--- NOTE | 2021-04-21 22:37 | PC.NURSE ---
[facility] called at this time for an update on patient, still no beds available, they will call when one is
--- NOTE | 2021-04-21 23:07 | PC.NURSE ---
[facility] called at this time for an update on patient, still no beds available at this time
[2021-04-22] VITALS (8 sets, daily range): BP systolic 87–121; BP diastolic 51–69; PULSE 70–95; RESP 17–32; TEMP 36.4–36.7; O2SAT 95–98; BMI 22.7
--- NOTE | 2021-04-22 04:20 | PC.NURSE ---
pt pleasant and AxOx4, has been awake t/o most of shift, states he doesn't sleep much, lang draining reddish urine, 900mL out so far this shift, remains on 3L NC with O2 sats 95-96%, no complaints of pain or SOA, rash still noted to abdomen but no pruritus present
--- NOTE | 2021-04-22 04:55 | PC.NURSE ---
[facility] called at this time for an update on patient, no beds available there at this time
[2021-04-22 05:59] LABS: POC Glucose,Bedside 145 (70-110)
[2021-04-22 07:05] LABS: Basophils # 0.1 K/mm3 (0-0.2); Basophils % 0.5 % (0.1-2.0); Eosinophils # 0.3 K/mm3 (0.0-0.4); Eosinophils % 2.6 % (0.1-12.0); Hematocrit 31.3 % (42.0-52.0); Hemoglobin 9.3 g/dL (14.1-18.0); Lymphocytes # 0.9 K/mm3 (0.7-4.5); Lymphocytes % 9.1 % (10-50); Mean Corpuscular HGB Conc 29.7 g/dL (31.8-35.4); Mean Corpuscular Hemoglobin 29.9 pg (27.0-31.2); Mean Corpuscular Volume 100.6 fl (80-94); Monocytes # 0.5 K/mm3 (0.1-1.0); Neutrophils # 7.9 K/mm3 (1.8-7.8); Neutrophils % 82.7 % (37.0-80.0); Platelet Count 250 K/mm3 (142-424); Red Blood Count 3.11 M/mm3 (4.60-6.20); Red Cell Distribution Width 17.6 % (11.5-17.5); White Blood Count 9.6 K/mm3 (4.8-10.8)
[2021-04-22 07:22] LABS: Chloride 107 mmol/L (98-107); Potassium 3.4 mmoL/L (3.5-5.1); Sodium 137 mmol/L (136-145)
[2021-04-22 07:25] LABS: Blood Urea Nitrogen 61 mg/dl (9-20); Creatinine Clearance Estimated 7 mL/min (50-200); Estimated Glomerular Filt Rate 6 ml/min (>60); GFR (African American) 7 ML/MIN (>60)
[2021-04-22 07:26] LABS: Anion Gap 18.4 mEq/L (5-15); Carbon Dioxide 15 mmol/L (22.0-30.0); Glucose 130 mg/dl (74-100)
--- NOTE | 2021-04-22 07:31 | HMH.ACPN2 ---
Internal Medicine - PN: Subj *Date: 04/22/21 *Time: 07:31 Interval history: No acute events over the last 24 hours. Patient has no complaints. He believes shortness of breath may have improved slightly. Placement of PICC line was unsuccessful. Exam Vital signs and Labs for Last 24 Hours: Temp Pulse Resp BP Pulse Ox 97.9 F 85 20 110/58 L 95 04/22/21 04:00 04/22/21 04:00 04/22/21 04:00 04/22/21 04:00 04/22/21 04:00 Laboratory Results - last 24 hr 04/20/21 19:57: POC Glucose 252 H 04/21/21 05:42: Sodium 137, Potassium 3.6, Chloride 107, Carbon Dioxide 18 L, Anion Gap 15.6 H, BUN 61 H, Creatinine 8.40 H, Estimated Creat Clear 7, Estimated GFR 6 L*, Est GFR ( Amer) 7 L*, Glucose 174 H D, Calcium 6.7 L 04/21/21 11:30: POC Glucose 216 H 04/21/21 16:48: POC Glucose 136 H 04/21/21 21:31: POC Glucose 230 H 04/22/21 05:45: POC Glucose 145 H 04/22/21 06:24: WBC 9.6, RBC 3.11 L, Hgb 9.3 L, Hct 31.3 L, MCV 100.6 H, MCH 29.9, MCHC 29.7 L, RDW 17.6 H, Plt Count 250, MPV 10.0, Neut % (Auto) 82.7 H, Lymph % (Auto) 9.1 L, [place] % (Auto) 5.0, Eos % (Auto) 2.6, Baso % (Auto) 0.5, Neut # (Auto) 7.9 H, Lymph # (Auto) 0.9, [place] # (Auto) 0.5, Eos # (Auto) 0.3, Baso # (Auto) 0.1 04/22/21 06:24: Calcium 7.0 L I & O for Last 24 hours: Intake & Output 04/19/21 04/20/21 04/21/21 04/22/21 11:59 11:59 11:59 11:59 Intake Total 960 / 960 1200 / 1200 600 / 600 460 / 460 Output Total 950 / 950 400 / 400 1550 / 1550 1300 / 1300 Balance 800 / 800 -950 / -950 -840 / -840 Weight 166 lb 168 lb 3 oz 168 lb 168 lb 2 oz Microbiology Reports for the Last 24 Hours: Microbiology 04/18/21 06:25 Blood Blood Culture - Preliminary Enterococcus faecalis Enterococcus faecalis#2 04/18/21 06:25 Blood Blood Culture - Final Staphylococcus epidermidis - Constitutional no acute distress - *Routine Respiratory Exam Present: wheezes - *Routine Cardiovascular Exam Present: RRR - *Routine Abdominal Exam Present: soft, normoactive bowel sounds. Absent: tenderness Assessment and Plan (1) Acute renal failure Status: Acute Qualifiers: Acute renal failure type: unspecified Qualified Code(s): N17.9 - Acute kidney failure, unspecified Category: Medical Code(s): N17.9 - Acute kidney failure, unspecified (2) Hyperkalemia Status: Resolved Category: Medical Code(s): E87.5 - Hyperkalemia (3) Anemia of chronic disease Status: Acute Category: Medical Code(s): D63.8 - Anemia in other chronic diseases classified elsewhere (4) History of Pseudomonas pneumonia Status: Acute Category: Medical Code(s): Z87.01 - Personal history of pneumonia (recurrent) (5) Pleural effusion Status: Acute Category: Medical Code(s): J90 - Pleural effusion, not elsewhere classified (6) Diabetes mellitus with hypoglycemia Status: Acute Category: Medical Code(s): E11.649 - Type 2 diabetes mellitus with hypoglycemia without coma (7) History of atrial fibrillation Status: Acute Category: Medical Code(s): Z86.79 - Personal history of other diseases of the circulatory system (8) Hypoglycemic event in diabetes Status: Acute Category: Medical Code(s): E11.649 - Type 2 diabetes mellitus with hypoglycemia without coma (9) Kidney disease, chronic, stage IV (severe, EGFR 15-29 ml/min) Status: Acute Category: Medical Code(s): N18.4 - Chronic kidney disease, stage 4 (severe) (10) UTI (urinary tract infection) Status: Acute Category: Medical Code(s): N39.0 - Urinary tract infection, site not specified (11) Diastolic dysfunction Status: Chronic Category: Medical Code(s): I51.9 - Heart disease, unspecified (12) Hypertensive heart disease without heart failure Status: Chronic Category: Medical Code(s): I11.9 - Hypertensive heart disease without heart failure - Assessment and plan all
--- NOTE | 2021-04-22 07:36 | XR_ITS ---
PROCEDURE: XR CHEST PORTABLE CLINICAL HISTORY: right pleural effusion COMPARISON: CR XR CHEST PORTABLE from 11/18/2020 CR XR CHEST PORTABLE from 03/22/2021 CR XR CHEST PORTABLE from 04/17/2021 FINDINGS: There is cardiomegaly without failure. Bilateral lower lobe consolidation with medium-sized right pleural effusion which appears slightly larger. Patchy area of infiltrate is also present in the right upper lobe laterally which has developed since the previous exam. Severe osteoarthritic changes right glenohumeral joint IMPRESSION: Bilateral lower lobe and right upper lobe infiltrates with medium-sized right effusion Dictated by: Carlos Trevino MD 04/22/2021 11:39 Carlos Trevino MD in [place] 04/22/2021 11:39
[2021-04-22 09:43] LABS: Creatine Kinase < 20 U/L (55-170)
--- NOTE | 2021-04-22 10:08 | PC.NURSE ---
Spoke with [facility] at this time, committee to meet at noon and will update on bed status at 1500, if no changes. Notified Dr. Mcdaniels this am of critical creatinine of 8.8
[2021-04-22 11:03] LABS: POC Glucose,Bedside 200 (70-110)
--- NOTE | 2021-04-22 14:55 | PC.WOUNDNOTE ---
Spoke with Pamela @ [facility] and gave an update at this time. No bed is available, still at this time.
[2021-04-22 16:09] LABS: POC Glucose,Bedside 324 (70-110)
--- NOTE | 2021-04-22 16:11 | PC.NURSE ---
[facility] at this time and checked status of pt.
[2021-04-22 22:21] LABS: POC Glucose,Bedside 243 (70-110)
[2021-04-23] VITALS: BP 111/65; PULSE 76; PULSE 80; RESP 32; TEMP 36.5; O2SAT 95
[2021-04-23 04:00] VITALS: BP 114/66; PULSE 70; PULSE 77; RESP 32; O2SAT 95
[2021-04-23 05:00] VITALS: BMI 22.7
--- NOTE | 2021-04-23 05:32 | PC.NURSE ---
No acute changes. Pt has not slept much t/o shift. Tolerating 3 L nc well with sats in mid 90s. No complaints voiced to staff. Rodas in place draining cloudy tayo urine to gravity. Bed bath given. Stage 2 ulcer on coccyx noted. New dressing applied. Red rash noted on abdomen. Pt currently watching tv in bed. VSS. CB in reach. Will continue to monitor.
[2021-04-23 06:10] LABS: POC Glucose,Bedside 135 (70-110)
[2021-04-23 06:37] LABS: Basophils % 0.3 % (0.1-2.0); Eosinophils # 0.4 K/mm3 (0.0-0.4); Eosinophils % 4.4 % (0.1-12.0); Hematocrit 30.1 % (42.0-52.0); Lymphocytes # 0.9 K/mm3 (0.7-4.5); Lymphocytes % 10.1 % (10-50); Mean Corpuscular Hemoglobin 29.9 pg (27.0-31.2); Mean Corpuscular Volume 99.6 fl (80-94); Mean Platelet Volume 10.3 fl (7.4-10.4); Monocytes # 0.3 K/mm3 (0.1-1.0); Monocytes % 3.7 % (1.7-9.3); Neutrophils # 7.3 K/mm3 (1.8-7.8); Neutrophils % 81.4 % (37.0-80.0); Platelet Count 225 K/mm3 (142-424); Red Blood Count 3.02 M/mm3 (4.60-6.20); Red Cell Distribution Width 17.7 % (11.5-17.5)
[2021-04-23 06:41] LABS: Chloride 107 mmol/L (98-107); Sodium 138 mmol/L (136-145)
[2021-04-23 06:42] LABS: Potassium 3.3 mmoL/L (3.5-5.1)
[2021-04-23 06:44] LABS: Anion Gap 19.3 mEq/L (5-15); Blood Urea Nitrogen 61 mg/dl (9-20); Carbon Dioxide 15 mmol/L (22.0-30.0); Creatinine Clearance Estimated 7 mL/min (50-200); Estimated Glomerular Filt Rate 6 ml/min (>60); GFR (African American) 7 ML/MIN (>60)
[2021-04-23 06:45] LABS: Calcium 7.1 mg/dl (8.4-10.2); Glucose 114 mg/dl (74-100)
--- NOTE | 2021-04-23 07:34 | HMH.ACPN2 ---
Internal Medicine - PN: Subj *Date: 04/23/21 *Time: 07:34 Interval history: No new complaints. He continues to endorse shortness of breath. Chest x-ray yesterday showed enlargement of the right pleural effusion with infiltrate in the right upper lobe Exam Vital signs and Labs for Last 24 Hours: Temp Pulse Resp BP Pulse Ox 97.7 F 77 32 H 114/66 95 04/23/21 00:00 04/23/21 04:00 04/23/21 04:00 04/23/21 04:00 04/23/21 04:00 Laboratory Results - last 24 hr 04/22/21 06:24: Sodium 137, Potassium 3.4 L, Chloride 107, Carbon Dioxide 15 L, Anion Gap 18.4 H, BUN 61 H, Creatinine 8.80 H, Estimated Creat Clear 7, Estimated GFR 6 L*, Est GFR ( Amer) 7 L*, Glucose 130 H 04/22/21 06:24: Total Creatine Kinase < 20 L 04/22/21 10:55: POC Glucose 200 H 04/22/21 16:00: POC Glucose 324 H* 04/22/21 22:11: POC Glucose 243 H 04/23/21 06:00: POC Glucose 135 H 04/23/21 06:17: WBC 9.0, RBC 3.02 L, Hgb 9.0 L, Hct 30.1 L, MCV 99.6 H, MCH 29.9, MCHC 30.0 L, RDW 17.7 H, Plt Count 225, MPV 10.3, Neut % (Auto) 81.4 H, Lymph % (Auto) 10.1, [place] % (Auto) 3.7, Eos % (Auto) 4.4, Baso % (Auto) 0.3, Neut # (Auto) 7.3, Lymph # (Auto) 0.9, [place] # (Auto) 0.3, Eos # (Auto) 0.4, Baso # (Auto) 0.0 I & O for Last 24 hours: Intake & Output 04/20/21 04/21/21 04/22/21 04/23/21 11:59 11:59 11:59 11:59 Intake Total 1200 / 1200 600 / 600 940 / 940 1080 / 1080 Output Total 400 / 400 1550 / 1550 1300 / 1300 600 / 600 Balance 800 / 800 -950 / -950 -360 / -360 480 / 480 Weight 168 lb 3 oz 168 lb 168 lb 2 oz 168 lb 1.992 oz Microbiology Reports for the Last 24 Hours: Microbiology 04/18/21 06:25 Blood Blood Culture - Preliminary Enterococcus faecalis Enterococcus faecalis#2 Narrative: Patient looks comfortable. Lungs overall remain clear with distant breath sounds in the right base from his pleural effusion. Heart has a regular rate and rhythm. Abdomen is soft. Rodas catheter drains and dark yellowish-brown urine Blood cultures are growing staph epidermidis and 2 different species of Enterococcus faecalis. Patient had daptomycin added to his meropenem yesterday. Blood cultures will be repeated today Assessment and Plan (1) Acute renal failure Status: Acute Qualifiers: Acute renal failure type: unspecified Qualified Code(s): N17.9 - Acute kidney failure, unspecified Category: Medical Code(s): N17.9 - Acute kidney failure, unspecified (2) Hyperkalemia Status: Resolved Category: Medical Code(s): E87.5 - Hyperkalemia (3) Anemia of chronic disease Status: Acute Category: Medical Code(s): D63.8 - Anemia in other chronic diseases classified elsewhere (4) History of Pseudomonas pneumonia Status: Acute Category: Medical Code(s): Z87.01 - Personal history of pneumonia (recurrent) (5) Pleural effusion Status: Acute Category: Medical Code(s): J90 - Pleural effusion, not elsewhere classified (6) Diabetes mellitus with hypoglycemia Status: Acute Category: Medical Code(s): E11.649 - Type 2 diabetes mellitus with hypoglycemia without coma (7) History of atrial fibrillation Status: Acute Category: Medical Code(s): Z86.79 - Personal history of other diseases of the circulatory system (8) Hypoglycemic event in diabetes Status: Acute Category: Medical Code(s): E11.649 - Type 2 diabetes mellitus with hypoglycemia without coma (9) Kidney disease, chronic, stage IV (severe, EGFR 15-29 ml/min) Status: Acute Category: Medical Code(s): N18.4 - Chronic kidney disease, stage 4 (severe) (10) UTI (urinary tract infection) Status: Acute Category: Medical Code(s): N39.0 - Urinary tract infection, site not specified (11) Diastolic dysfunction Status: Chronic Category: Medical Code(s): I51.9 - Heart disease, unspecified (12) Hypertensive heart disease without heart failure Status: Chronic Category: Medical
[2021-04-23 08:00] VITALS: BP 107/70; PULSE 85; PULSE 88; RESP 24; TEMP 36.6; O2SAT 95
--- NOTE | 2021-04-23 08:56 | PC.NURSE ---
spoke to [facility] w/ pt update. No beds available at this time.
[2021-04-23 11:29] LABS: POC Glucose,Bedside 161 (70-110)
[2021-04-23 12:00] VITALS: BP 102/54; PULSE 74; PULSE 81; RESP 22; TEMP 37; O2SAT 94
--- NOTE | 2021-04-23 12:01 | HMH.DCSUM ---
General - General Admission date:: 04/18/21 Discharge date: 04/23/21 HPI HPI: 80-year-old male presented to the emergency department via EMS yesterday evening with complaint of shortness of breath. Patient had developed this symptom at home. He does use oxygen but that did not relieve his dyspnea and he presented to the ER. Work-up in the ER did discover a right pleural effusion. Patient was concurrently found to have worsening acute kidney injury along with hyperkalemia. Because of the patient's hyperkalemia and potential need for dialysis transfer was sought. At present patient has been accepted to an outside facility when a bed becomes available. Patient was kept in the ER overnight and despite multiple medical interventions his potassium remains elevated and creatinine is essentially unchanged. Gentleman tells me he spent 20 days at [facility] recently having only been discharged on April 13. During that hospitalization patient required dialysis twice, transfusion of 1 unit of packed red blood cells on 3 separate occasions, and endoscopy and colonoscopy searching for potential source of blood loss. No source of blood loss was found. Patient has a medical history of atrial fibrillation, stage IV chronic kidney disease, anemia which prevents use of anticoagulants for his atrial fibrillation. Hospital Course Hospital Course: Patient was admitted for ELLIE and hyperkalemia. Plan was to transfer to tertiary facility with dialysis/nephrology services when bed became available. Creatinine was relatively stable initially ranging from 8.1 to 8.4. During 48 hours prior to discharge Cr. pro to 8.8 and 9.1. Patient maintained urine output during this time. Hyperkalemia responded to Kayexalate and once K returned to normal levels it remained this weay. Patient had Pseudomonas UTI. This is a recurrent infecction. ON admit was placed on Zosyn. This was transitioned to Meropenem 48 hours before discharge. Patient c/o shortness of breath which was felt to be due to right pleural effusion. He also had intermittend episodes of wheezing treated with xopenex. CXR day prior to discharge suggestive of pneumonia. Patients sats remained stable during hospitalization. Patient has h/o a-fib but due to recurring GI bleeds with negative EGD/Colonsocopy anticoagulants are contraindicated ON 04/23 a bed became a vailable at [facility] in [facility] andpatient was transferred. Objective Vital signs: Temp Pulse Resp BP Pulse Ox 97.8 F 88 24 107/70 L 95 04/23/21 08:00 04/23/21 08:00 04/23/21 08:00 04/23/21 08:00 04/23/21 08:00 no acute distress - *Routine Respiratory Exam Present: diminished air movement (right base) - *Routine Cardiovascular Exam Present: RRR - *Routine Abdominal Exam Present: soft, normoactive bowel sounds. Absent: tenderness Results Labs on day of discharge: Labs from last 24 hours 04/23/21 04/23/21 04/23/21 11:14 06:17 06:17 WBC 9.0 RBC 3.02 L Hgb 9.0 L Hct 30.1 L MCV 99.6 H MCH 29.9 MCHC 30.0 L RDW 17.7 H Plt Count 225 MPV 10.3 Neut % (Auto) 81.4 H Lymph % (Auto) 10.1 [place] % (Auto) 3.7 Eos % (Auto) 4.4 Baso % (Auto) 0.3 Neut # (Auto) 7.3 Lymph # (Auto) 0.9 [place] # (Auto) 0.3 Eos # (Auto) 0.4 Baso # (Auto) 0.0 Sodium 138 Potassium 3.3 L Chloride 107 Carbon Dioxide 15 L Anion Gap 19.3 H BUN 61 H Creatinine 9.10 H Estimated Creat Clear 7 Estimated GFR 6 L* Est GFR ( Amer) 7 L* Glucose 114 H POC Glucose 161 H Calcium 7.1 L 04/23/21 04/22/21 04/22/21 06:00 22:11 16:00 WBC RBC Hgb Hct MCV MCH MCHC RDW Plt Count MPV Neut % (Auto) Lymph % (Auto) [place] % (Auto) Eos % (Auto) Baso % (Auto) Neut # (Auto) Lymph # (Auto) [place] # (Auto) Eos # (Auto) Baso # (Auto) Sodium Potassium
== END 2021-04-23 14:59 | disposition short-term general hospital (02) | DRG 682 ==
LOC: ER 04-18 03:12 → 2ND 04-18 10:38
PROVIDERS: Admitting Provider Family Medicine; Emergency Provider Emergency Medicine; PCP Family Medicine; Visit Provider Family Medicine
DX: N17.9 Acute kidney failure, unspecified (principal); J18.9 Pneumonia, unspecified organism; E87.5 Hyperkalemia; N18.4 Chronic kidney disease, stage 4 (severe); I48.91 Unspecified atrial fibrillation; K21.9 Gastro-esophageal reflux disease without esophagitis; D63.8 Anemia in other chronic diseases classified elsewhere; E11.22 Type 2 diabetes mellitus with diabetic chronic kidney disease; Z85.828 Personal history of other malignant neoplasm of skin; I25.10 Atherosclerotic heart disease of native coronary artery without angina pectoris; E78.5 Hyperlipidemia, unspecified; I10 Essential (primary) hypertension; I25.2 Old myocardial infarction; E11.649 Type 2 diabetes mellitus with hypoglycemia without coma; D63.1 Anemia in chronic kidney disease; Z87.891 Personal history of nicotine dependence; I12.9 Hypertensive chronic kidney disease with stage 1 through stage 4 chronic kidney disease, or unspecified chronic kidney disease
CPT/HCPCS: 36415; 71045; 80048; 80053; 81001; 82550; 82803; 82962; 83605; 83735; 83880; 84100; 84145; 84484; 85025; 87040; 87077; 87086; 87088; 87186; 93005; 94761; 96365; 96367; 96375; 96376; 99285; C1751; C9803; J0456; J0878; J2185; J2543; U0003; U0005

== ENCOUNTER 2021-06-11 09:57 | Emergency (ER) | payer MEDICARE, MEDICAID, SELFPAY ==
[2021-06-11 09:58] VITALS: BP 101/58; PULSE 105; RESP 20; TEMP 36.7; O2SAT 97; BMI 18.4
--- NOTE | 2021-06-11 10:02 | XR_ITS ---
PROCEDURE: XR CHEST PORTABLE CLINICAL HISTORY: cough COMPARISON: CR XR CHEST PORTABLE from 03/22/2021 CR XR CHEST PORTABLE from 04/17/2021 CR XR CHEST PORTABLE from 04/22/2021 FINDINGS: There is cardiomegaly without failure. Right IJ Vas-Cath is present with tip in the region of the right atrium. Medium-sized right pleural effusion with atelectatic changes in the right lower lobe. There is mild prominence of the interstitial markings which could represent interstitial edema. Chronic interstitial lung disease is also considered. Small left pleural effusion also suspected. Coronary artery stents present. Degenerative changes of the right shoulder IMPRESSION: Cardiomegaly with medium-sized right pleural effusion probably not significantly changed. Small left effusion. Right IJ Vas-Cath in place Cardiomegaly with mild prominence of the interstitial markings which could be due to interstitial edema or chronic interstitial lung disease. Dictated by: Carlos Trevino MD 06/11/2021 10:57 Carlos Trevino MD in [place] 06/11/2021 10:57
--- NOTE | 2021-06-11 10:11 | ECG_ITS ---
APPROVED REPORT Exam: Resting ECG HR:105 bpm ECG Measurements Heart Rate 105 AXES AR 160 P 0 QRSd 26 QRS 0 QT 316 T 27 QTc 417 Conclusion Sinus tachycardia Left atrial enlargement Indeterminate axis Pulmonary disease pattern Nonspecific ST abnormality Abnormal ECG Electronically signed by : Juan Francisco Patino MD 06/11/2021 20:32:15
[2021-06-11 10:27] LABS: Basophils % 0.3 % (0.1-2.0); Eosinophils # 0.1 K/mm3 (0.0-0.4); Eosinophils % 0.6 % (0.1-12.0); Hematocrit 30.3 % (42.0-52.0); Lymphocytes # 1.7 K/mm3 (0.7-4.5); Lymphocytes % 13.7 % (10-50); Mean Corpuscular HGB Conc 29.8 g/dL (31.8-35.4); Mean Corpuscular Hemoglobin 29.8 pg (27.0-31.2); Mean Corpuscular Volume 100.1 fl (80-94); Mean Platelet Volume 10.2 fl (7.4-10.4); Monocytes # 0.6 K/mm3 (0.1-1.0); Monocytes % 4.6 % (1.7-9.3); Neutrophils # 9.8 K/mm3 (1.8-7.8); Neutrophils % 80.8 % (37.0-80.0); Platelet Count 284 K/mm3 (142-424); Red Blood Count 3.02 M/mm3 (4.60-6.20); Red Cell Distribution Width 17.1 % (11.5-17.5); White Blood Count 12.2 K/mm3 (4.8-10.8)
[2021-06-11 10:28] LABS: Chloride 103 mmol/L (98-107)
[2021-06-11 10:29] LABS: Potassium 3.5 mmoL/L (3.5-5.1); Sodium 139 mmol/L (136-145)
[2021-06-11 10:35] LABS: Activated Partial Thrombo Time 37.1 seconds (22.8-30.6); INR 1.16 (0.9-1.1)
--- NOTE | 2021-06-11 10:35 | HMH.EDGENADL ---
ED Disposition Clinical Impression: Acute and chronic respiratory failure with hypoxia, Hypoglycemia Acute on chronic renal failure Qualifiers: Acute renal failure type: unspecified Chronic kidney disease stage: unspecified stage Qualified Code(s): N17.9 - Acute kidney failure, unspecified; N18.9 - Chronic kidney disease, unspecified Anemia in chronic kidney disease Qualifiers: Chronic kidney disease stage: unspecified stage Qualified Code(s): N18.9 - Chronic kidney disease, unspecified; D63.1 - Anemia in chronic kidney disease Disposition: Xfer Critical Access Hosp Condition on Discharge: Fair Referrals: Provider,Referral, [Referring] - - Critical Care Critical Care Time: No Attestation: On 06/11/21, the high probability of a clinically significant, sudden or life threatening deterioration of the following system(s) required my full and direct attention, intervention and personal management. The time I documented below is in addition to time spent performing reported procedures but includes the following listed in this critical care notation. Medical Decision Making - Medical Records Medical records reviewed: Yes: I reviewed the patient's medical records. - John Inquiry Pt receiving controlled substance: No Vital Signs: 06/11/21 09:58 Temperature 98.1 F Temperature Source Oral Pulse Rate [Left Radial] 105 H Respiratory Rate 20 Blood Pressure [Left Arm] 101/58 L Blood Pressure Mean [Left Arm] 72 Blood Pressure Source [Left Arm] Automatic Cuff Blood Pressure Position [Left Arm] Sitting 02 Sat by Pulse Oximetry 97 Oxygen Delivery Method Nasal Cannula Oxygen Flow Rate (LPM) 3 - Lab Data Lab Results 06/11/21 10:15: WBC 12.2 H, RBC 3.02 L, Hgb 9.0 L, Hct 30.3 L, MCV 100.1 H, MCH 29.8, MCHC 29.8 L, RDW 17.1, Plt Count 284, MPV 10.2, Neut % (Auto) 80.8 H, Lymph % (Auto) 13.7, [place] % (Auto) 4.6, Eos % (Auto) 0.6, Baso % (Auto) 0.3, Neut # (Auto) 9.8 H, Lymph # (Auto) 1.7, [place] # (Auto) 0.6, Eos # (Auto) 0.1, Baso # (Auto) 0.0 06/11/21 10:15: PT 13.0 H, INR 1.16 H, APTT 37.1 H 06/11/21 10:53: Lactate 0.7 06/11/21 12:05: Sodium 139, Potassium 3.5, Chloride 103, Carbon Dioxide 27, Anion Gap 12.5, BUN 42 H, Creatinine 5.10 H, Estimated Creat Clear 9, Estimated GFR 11 L*, Est GFR ( Amer) 13 L*, Glucose < 20 L*, Calcium 7.0 L, Total Bilirubin 0.3, AST 29, ALT < 4 L, Alkaline Phosphatase 132 H, Troponin I 0.18 H, NT-Pro-B Natriuret Pep 33132 H, Total Protein 5.6 L, Albumin 2.1 L, Globulin 3.5 H, Albumin/Globulin Ratio 0.6 L, TSH 1.11 06/11/21 13:26: POC Glucose 94 Result diagrams: 06/11/21 10:15 06/11/21 12:05 Orders (Tests/Meds): ED MEDICATIONS Discontinued Medications Generic Name Dose Route Start Last Admin Trade Name Mansoorq PRN Reason Stop Dose Admin Dextrose 50 ml 06/11/21 12:51 06/11/21 12:52 Dextrose 50% 50ml Syringe (Crash Cart) IVP 06/11/21 12:52 50 ml ONCE ONE Administration ORDERS Category Date Time Status Rapid PCR Covid and Flu A/B Stat Lab 06/11/21 10:02 Ordered Troponin I Q3H Lab 06/11/21 13:15 Ordered Troponin I Q3H Lab 06/11/21 16:15 Ordered Urinalysis and Microscopic Stat Lab 06/11/21 10:02 Ordered Blood Culture Stat Micro 06/11/21 12:05 Received - Radiology Data #1 Image(s): Chest Image Reviewed: Yes I reviewed the patient's radiology results, Yes I reviewed the patient's radiology image, Yes I have reviewed radiologist's interpretation IMPRESSION: Cardiomegaly with medium-sized right pleural effusion probably not significantly changed. Small left effusion. Right IJ Vas-Cath in place Cardiomegaly with mild prominence of the interstitial markings which could be due to interstitial edema or chronic interstitial lung disease. - ECG Data Tracing #1 I reviewed this ECG and interpreted as documented below: Tachycardic rate of 105 bpm, OR interval 160 ms. Normal QTC. Sinus tachycardia with nonspecific ST changes. EC
[2021-06-11 11:14] LABS: Lactic Acid 0.7 mmol/L (0.7-2.1)
[2021-06-11 12:26] LABS: Albumin Level 2.1 g/dl (3.5-5.0); Albumin/Globulin Ratio 0.6 (1.1-1.8); Alkaline Phosphatase 132 U/L (38-126); Anion Gap 12.5 mEq/L (5-15); Aspartate Amino Transferase 29 U/L (17-59); Bilirubin,Total 0.3 mg/dl (0.2-1.3); Blood Urea Nitrogen 42 mg/dl (9-20); Carbon Dioxide 27 mmol/L (22.0-30.0); Globulin 3.5 g/dL (1.3-3.2); Total Protein,Serum 5.6 g/dl (6.3-8.2)
[2021-06-11 12:38] LABS: Troponin I 0.18 ng/ml (0.00-0.034)
[2021-06-11 12:51] LABS: Alanine Aminotransferase < 4 U/L (12-78)
[2021-06-11 12:57] LABS: NT Pro Brain Natriuretic Pep. 60900 pg/mL (0-450)
--- NOTE | 2021-06-11 12:58 | PC.NURSE ---
lab called down requesting to speak with LYRIC NEELY, ER is on the phone with another doctor. Told lab staff that LYRIC NEELY is on the other line, staff states they are very concerned about pts results. I asked them to tell me what results they are concerned about: critical glucose, ALT and BNP reported by lab staff to myself. Stated I will notify ER of results and that you are requesting to speak with him. Also notified lab that pt is a dialysis pt so LYRIC NEELY was expected his lab work to be abnormal.
[2021-06-11 12:59] LABS: Thyroid Stimulating Hormone 1.11 uIU/mL (0.465-4.68)
[2021-06-11 13:21] LABS: Creatinine Clearance Estimated 9 mL/min (50-200); Estimated Glomerular Filt Rate 11 ml/min (>60); GFR (African American) 13 ML/MIN (>60)
[2021-06-11 13:22] LABS: Glucose < 20 mg/dl (74-100)
--- NOTE | 2021-06-11 13:28 | PC.NURSE ---
LYRIC NEELY contacting [facility] at this time
--- NOTE | 2021-06-11 13:31 | PC.NURSE ---
LYRIC NEELY speaking with Dr. Giron
[2021-06-11 13:33] LABS: POC Glucose,Bedside 94 (70-110)
--- NOTE | 2021-06-11 13:34 | PC.NURSE ---
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 benson
--- NOTE | 2021-06-11 16:55 | PC.NURSE ---
contacted [facility] to check on bed status, states they have no immediate bed openings. States they will call us back at 9pm with an update if they haven't had a bed before then.
[2021-06-11 19:01] LABS: Coronavirus 19, PCR Not Detected (NotDetected); Influenza A, PCR Not Detected (NotDetected); Influenza B, PCR Not Detected (NotDetected)
[2021-06-11 19:03] LABS: Microscopic, Urine URINE MICROSCOPIC (MICROSCOPIC)
[2021-06-11 19:06] LABS: Appearance,Urine CLOUDY (Clear); Bilirubin,Urine Negative (Negative); Blood, Urine 3+ (Negative); Color,Urine YELLOW (Yellow); Glucose,Urine (UA) Negative (Negative); Ketones,Urine Negative (Negative); Leukocyte Esterase,Urine 3+ (Negative); Nitrate,Urine Negative (Negative); Protein,Urine 3+ (Negative); Specific Gravity, Urine 1.025 (1.005-1.030); Urobilinogen,Urine 0.2 EU/dl (0.2)
--- NOTE | 2021-06-11 19:20 | PC.NURSE ---
[facility] called at this time with bed assignment, gave number for reports. Pt going to [address] at [facility]
[2021-06-11 19:22] LABS: Bacteria,Urine 4+ /lpf; RBC,Urine TNTC #/hpf (0-3); Squamous Epithelial Cell,Urine Occasional #/hpf (0-5); WBC,Urine TNTC #/hpf (0-3)
[2021-06-11 19:38] LABS: POC Glucose,Bedside 77 (70-110)
[2021-06-11 19:51] VITALS: BP 86/64; PULSE 105; RESP 18; TEMP 36.9; O2SAT 97
== END 2021-06-11 19:53 | disposition critical access hospital (66) ==
PROVIDERS: Emergency Provider Emergency Medicine; PCP Family Medicine
DX: J96.21 Acute and chronic respiratory failure with hypoxia (principal); Z87.891 Personal history of nicotine dependence; N18.6 End stage renal disease; Z99.2 Dependence on renal dialysis; I10 Essential (primary) hypertension; I48.0 Paroxysmal atrial fibrillation; E11.649 Type 2 diabetes mellitus with hypoglycemia without coma; I25.2 Old myocardial infarction; K21.9 Gastro-esophageal reflux disease without esophagitis; Z79.899 Other long term (current) drug therapy
CPT/HCPCS: 71045; 80053; 81001; 82962; 83605; 83880; 84443; 84484; 85025; 85610; 85730; 87040; 87086; 93005; 96365; 96375; 99285; C9803; U0003; U0005